=== PATIENT | male | born 1955 | race African-American/Black ===

== ENCOUNTER 2016-09-23 10:03 | Inpatient (IN) | payer MEDICARE ==
[~2016-09-23] VITALS: Ht 180.3 cm; Wt 66.3 kg
[~2016-09-23 10:03] MED LIST: METH5TAB PO; OXYC-395 PO; REGL10TA5 PO; VITATAB11 PO
[2016-09-23 10:16] VITALS: BP 136/74; PULSE 75; RESP 16; TEMP 98.6; O2SAT 96
--- NOTE | 2016-09-23 11:19 | PD ---
HPI Chief Complaint: Altered Mental Status Time Seen by Provider: 10:29 Travel History International Travel<30 days: No Contact w/Intl Traveler<30days: No Traveled to known affect area: No History of Present Illness HPI This is a 61-year-old male who has a history of sickle cell disease who presents to the emergency department with 3 days of increasing cough, with some yellow sputum production, moderate severity, constant, associated with nasal congestion, frontal headache and increasing shortness of breath. He denies any fevers. His reports that he's been more confused lately, and seems a little bit forgetful. She takes oxycodone and methadone at home for pain. He took some guaifenesin for his symptoms. He went to an urgent care this morning who referred him here to the emergency department because they were concerned that he may be having an adverse medication reaction. PFSH Past Medical History Hx Anticoagulant Therapy: No Arthritis: Yes Asthma: No Autoimmune Disease: Yes (SICKLE CELL) Blood Disorders: No Anxiety: No Depression: No Heart Rhythm Problems: No Cancer: No Cardiovascular Problems: Yes ([place]) Chemotherapy: No Chest Pain: Yes Congestive Heart Failure: No COPD: Yes Cerebrovascular Accident: No Diabetes: No Diminished Hearing: Yes ([place]) Endocrine: No Gastrointestinal Disorders: Yes GERD: Yes Glaucoma: No Genitourinary: No Headaches: No Hepatitis: No Hiatal Hernia: No Hypertension: No Immune Disorder: Yes (hx of sickle cell) Musculoskeletal: No Neurologic: No Psychiatric: No Reproductive: No Respiratory: No Immunizations Current: Yes Migraines: No Myocardial Infarction: No Radiation Therapy: No Renal Failure: No Seizures: No Sickle Cell Disease: Yes Sleep Apnea: No Thyroid Disease: No Ulcer: Yes (hx of) Tetanus Vaccination: < 5 Years Influenza Vaccination: Yes Past Surgical History Abdominal Surgery: Yes (Splenectomy,PEPTIC ULCER) AICD: No Appendectomy: No Cardiac Surgery: No Cholecystectomy: No Ear Surgery: No Endocrine Surgery: No Eye Surgery: No Genitourinary Surgery: No Gynecologic Surgery: No Joint Replacement: Yes (R hip replacement LEFT HIP REPLACEMENT) Oral Surgery: No Pacemaker: No Other Surgery: Yes Social History Alcohol Use: No Tobacco Use: Yes (04/27 ppd) Substance Use: No Allergies-Medications (Allergen,Severity, Reaction): Coded Allergies: No Known Allergies (Verified , 09/23/16) Reported Meds & Prescriptions Reported Meds & Active Scripts Active Reported Vitamin B Complex (B-Complex Vitamins) 1 Tab 1 Tab PO DAILY Oxycodone (Oxycodone HCl) 10 Mg Tab 10 Mg PO Q8HR Methadone (Methadone HCl) 5 Mg Tab 5 Mg PO BID Review of Systems Except as stated in HPI: all other systems reviewed are Neg Physical Exam Narrative GENERAL:Well appearing, no acute distress SKIN: Focused skin assessment warm and dry. HEAD: Atraumatic. Normocephalic. EYES: Pupils equal and round. No injection or drainage. Scleral icterus. ENT: Moist mucous membranes NECK: Trachea midline. CARDIOVASCULAR: Regular rate and rhythm. No murmur appreciated. RESPIRATORY: Clear to auscultation. Breath sounds equal bilaterally. GASTROINTESTINAL: Abdomen soft, non-tender, nondistended. MUSCULOSKELETAL: No obvious deformities. NEUROLOGICAL: Slow to answer questions but oriented 3. No obvious cranial nerve deficits. No dysarthria or aphasia. No upper or lower extremity drift. No upper extremity ataxia. PSYCHIATRIC: Appropriate mood and affect; insight and judgment normal. Data Data Last Documented VS Vital Signs Date Time Temp Pulse Resp B/P Pulse Ox O2 Delivery O2 Flow Rate FiO2 09/23/16 13:04 79 16 148/71 99 Room Air 09/23/16 10:[address] Brain W/O Iv Contrast(Rout) (09/23/16 ) Complete Blood Count With Diff (09/23/16 10:41) Comprehensive Metabolic Panel (09/23/16 10:41) ^ Insert Iv (09/23/16 10:41) Ammonia (09/23/16 10:41) Urinalysis - C+S If Indicated (09/23/16 10:41) Alcohol (Ethanol) (09/23/16 10:41) Lactic Acid (09/23/16 10:41) Chest, Single Ap (09/23/16 ) Electrocardiogram (09/23/16 ) Sodium Chlor 0.9% 1000 Ml Inj (Ns 1000 M (09/23/16 10:45) B-Type Natriuretic Peptide (09/23/16 12:09) Ceftriaxone Inj (Rocephin Inj) (09/23/16 13:30) Azithromycin Inj (Zithromax Inj) (09/23/16 13:30) Admit Order (Ed Use Only) (09/23/16 13:45) Labs Laboratory Tests Test 09/23/16 09/23/16 11:05 11:45 White Blood Count 13.6 TH/MM3 Corrected White Blood Count 11.7 TH/MM3 Red Blood Count 3.04 MIL/MM3 Hemoglobin 7.4 GM/DL Hematocrit 23.8 % Mean Corpuscular Volume 78.1 FL Mean Corpuscular Hemoglobin 24.5 PG Mean Corpuscular Hemoglobin 31.4 % Concent Red Cell Distribution Width 22.2 % Platelet Count 222 TH/MM3 Mean Platelet Volume 8.8 FL CBC Comment AUTO DIFF Differential Total Cells 100 Counted Neutrophils % (Manual) 86 % Lymphocytes % 8 % Monocytes % 6 % Neutrophils # (Manual) 10.1 TH/MM3 Nucleated Red Blood Cells 16 /100 WBC Differential Comment FINAL DIFF MANUAL Platelet Estimate NORMAL Platelet Morphology Comment NORMAL Target Cells 2+ Tear Drop Cells 1+ Ovalocytes 2+ Keratocytes 1+ Sodium Level 147 MEQ/L Potassium Level 3.8 MEQ/L Chloride Level 123 MEQ/L Carbon Dioxide Level 18.0 MEQ/L Anion Gap 6 MEQ/L Blood Urea Nitrogen 10 MG/DL Creatinine 1.20 MG/DL Estimat Glomerular Filtration 75 ML/MIN Rate Random Glucose 95 MG/DL Lactic Acid Level 0.6 mmol/L Calcium Level 8.6 MG/DL Total Bilirubin 0.6 MG/DL Aspartate Amino Transf 31 U/L (AST/SGOT) Alanine Aminotransferase 13 U/L (ALT/SGPT) Alkaline Phosphatase 64 U/L Total Protein 7.4 GM/DL Albumin 3.7 GM/DL Ethyl Alcohol Level LESS THAN 3 MG/DL Urine Collection Type CLEAN CATCH Urine Color YELLOW Urine Turbidity CLEAR Urine pH 5.0 Urine Specific [place] 1.015 Urine Protein 100 mg/dL Urine Glucose (UA) NEG mg/dL Urine Ketones TRACE mg/dL Urine Occult Blood NEG Urine Nitrite NEG Urine Bilirubin NEG Urine Leukocyte Esterase NEG Urine RBC 0-3 /hpf Urine Squamous Epithelial 0-5 /hpf Cells Urine Hyaline Casts 0-2 /lpf Microscopic Urinalysis Comment CULT NOT INDICATED Urine Collection Time 11:45 Ammonia 22 MCMOL/L B-Type Natriuretic Peptide 160 PG/ML [facility] Medical Decision Making Medical Screen Exam Complete: Yes Emergency Medical Condition: Yes Interpretation(s) Afebrile, no tachycardia, normotensive Leukocytosis 86% neutrophils Mild hypernatremia Lactic acidosis 0.6 BNP is 160 Chest x-ray: Cardiomegaly with mild interstitial edema CT head: No intracranial hemorrhage Differential Diagnosis Stroke, delirium, bronchitis, pneumonia, acute chest syndrome Narrative Course This is a 61-year-old male with a history of sickle cell disease who presents to the emergency department with multiple nonspecific symptoms including headache, cough, shortness of breath and confusion. His is most concerned about him saying that he hasn't been right for several days, he is repeating things and having some memory difficulty and he doesn't seem himself. She says he seems more shaky. He was placed on a monitor and an IV was established. Labs were obtained which demonstrate a mild leukocytosis. Chest x-ray demonstrates some increased interstitial markings. Given the patient has a productive cough with some mucopurulent sputum I think it's reasonable to empirically cover him with ceftriaxone and azithromycin. I suspect the CMP is saline contaminated and will be repeated. BNP is indeterminate. Ammonia is normal. I'm not sure what's causing the patient's change in mental status. He does appear somewhat confused on exam and is slow to follow commands at times. I suspect this is due to polypharmacy and perhaps secondary to his pain medication but given the discrete change that his reports that think it's reasonable to observe him for further neurologic evaluation. MRI and MRV will be obtained and patient will be observed and his medications will be titrated. Physician Communication Physician Communication Discussed with Dr. Tse Diagnosis Primary Impression: Altered mental status Qualified Code: R41.0 - Delirium Admitting Information Admitting Physician Requests: Observation Charlotte Viveros MD September 23, 2016 11:19
[2016-09-23 11:43] LABS: CHLORIDE 123 MEQ/L (98-107); POTASSIUM 3.8 MEQ/L (3.5-5.1); SODIUM (NA) 147 MEQ/L (136-145)
[2016-09-23 11:47] LABS: ANION GAP 6 MEQ/L (5-15); BLOOD UREA NITROGEN 10 MG/DL (7-18)
[2016-09-23 11:50] LABS: ALT (GPT) 13 U/L (12-78); AST (GOT) 31 U/L (15-37); GLOMERULAR FILTRATION RATE 75 ML/MIN (>89)
[2016-09-23 11:51] LABS: TOTAL BILIRUBIN ADULT 0.6 MG/DL (0.2-1.0)
[2016-09-23 11:52] LABS: ALKALINE PHOSPHATASE 64 U/L (45-117); HEMATOCRIT 23.8 % (39.0-51.0); MEAN CELL VOLUME 78.1 FL (80.0-100.0); MEAN CORPUSCULAR HEMOGLOBIN 24.5 PG (27.0-34.0); MEAN CORPUSCULAR HGB CONC 31.4 % (32.0-36.0); PLATELET COUNT 222 TH/MM3 (150-450); RED BLOOD COUNT 3.04 MIL/MM3 (4.50-5.90); RED CELL DISTRIBUTION WIDTH 22.2 % (11.6-17.2); WHITE BLOOD COUNT 13.6 TH/MM3 (4.0-11.0)
[2016-09-23 11:54] LABS: HEMO FLAGS AUTO DIFF
[2016-09-23 11:54] LABS: BLOOD, URINE NEG (NEG); GLUCOSE,URINE NEG (NEG); KETONE, URINE TRACE mg/dL (NEG); NITRITE,URINE NEG (NEG)
--- NOTE | 2016-09-23 11:55 | RADHPO ---
EXAM DATE/TIME: 09/23/2016 11:16 [facility] COMPARISON: CHEST SINGLE AP, April 05, 2016, 16:26. INDICATIONS : Short of breath MEDICAL HISTORY : Sickle Cell disease. SURGICAL HISTORY : None. ENCOUNTER: Initial ACUITY: 1 day PAIN SCORE: Non-responsive. LOCATION: Bilateral chest FINDINGS: There is cardiomegaly with very mild interstitial edema present. There is no alveolar consolidation, pleural effusion or pneumothorax. Sclerotic changes are present in the left humeral head. CONCLUSION: 1. Cardiomegaly. 2. Mild interstitial edema when compared to 04/05/16. Calvin Sandy MD FACR on September 23, 2016 at 11:48 Board Certified Radiologist. This report was verified electronically.
[2016-09-23 11:58] LABS: METHOD OF COLLECTION CLEAN CATCH; URINE COLOR YELLOW (YELLW/STRAW)
[2016-09-23 11:59] LABS: HYALINE CAST, URINE 0-2 /lpf (RARE); RBC, URINE 0-3 /hpf (0-3); SQUAMOUS EPITHELIAL CELL URINE 0-5 /hpf (0-5)
[2016-09-23 12:00] LABS: COMMENT (UR) CULT NOT INDICATED; CULTURE IF INDICATED CULT NOT INDICATED
[2016-09-23] MEDS: SODIUM CHLOR 0.9% 1000 ML INJ 1,000 ML IV ONE ×2 (12:00→13:33)
--- NOTE | 2016-09-23 12:11 | RADHPO ---
EXAM DATE/TIME: 09/23/2016 11:47 [facility] COMPARISON: CT BRAIN W/O CONTRAST, April 05, 2016, 16:55. INDICATIONS : Altered mental status. RADIATION DOSE: 63.58 CTDIvol (mGy) MEDICAL HISTORY : Chronic obstructive pulmonary disease. Sickle Cell disease. SURGICAL HISTORY : Splenectomy. ENCOUNTER: Initial ACUITY: 1 day PAIN SCALE: 0/10 LOCATION: cranial TECHNIQUE: Multiple contiguous axial images were obtained of the head. Using automated exposure control and adj ustment of the mA and/or kV according to patient size, radiation dose was kept as low as reasonably a chievable to obtain optimal diagnostic quality images. FINDINGS: CEREBRUM: The ventricles are normal for age. No evidence of midline shift, mass lesion, hemorrhage or acute in farction. No extra-axial fluid collections are seen. POSTERIOR FOSSA: The cerebellum and brainstem are intact. The 4th ventricle is midline. The cerebellopontine angle i s unremarkable. EXTRACRANIAL: The visualized portion of the orbits is intact. SKULL: The calvaria is intact. No evidence of skull fracture. CONCLUSION: No acute intracranial findings. Edward Abel MD on September 23, 2016 at 12:06 Board Certified Radiologist. This report was verified electronically.
[2016-09-23 12:16] LABS: CORRECTED NUCLEATED RBC 16 /100 WBC (0-0); CORRECTED WBC 11.7 TH/MM3 (4.0-11.0); NEUTROPHIL # MANUAL DIFF 10.1 TH/MM3 (1.8-7.7); POLYS (SEG NEUTROPHILS) 86 % (16-70); WBC DIFF SAMPLE 100
[2016-09-23 12:17] LABS: KERATOCYTES 1+ (NORMAL); OVALOCYTES 2+ (NORMAL); PLATELET ESTIMATE SMEAR NORMAL (NORMAL); PLATELET MORPHOLOGY NORMAL (NORMAL); SCAN/DIFF FINAL DIFF MANUAL; TARGET CELLS 2+ (NORMAL); TEARDROP RBCS 1+ (NORMAL)
[2016-09-23 13:04] VITALS: BP 148/71; PULSE 79; RESP 16; O2SAT 99
[2016-09-23] MEDS ORDERED: cefTRIAXone INJ 1,000 MG in SODIUM CHLORIDE 0.9% INJ 100 ML IV ONE (13:30)
[2016-09-23] MEDS ORDERED: AZITHROMYCIN INJ 500 MG in SODIUM CHLOR 0.9% 250 ML INJ 250 ML IV ONE (13:30)
[2016-09-23 14:46] VITALS: BP 140/73; PULSE 75; RESP 14; TEMP 98.9; O2SAT 98
--- NOTE | 2016-09-23 16:59 | RADHPO ---
EXAM DATE/TIME: 09/23/2016 15:43 [facility] COMPARISON: No previous studies available for comparison. INDICATIONS : Altered mental status. CVA and headache. MEDICAL HISTORY : Sickle Cell disease. SURGICAL HISTORY : Splenectomy. Bilateral hip replacement. ENCOUNTER: Initial ACUITY: 1 day PAIN SCORE: 0/10 LOCATION: Head. TECHNIQUE: Multiplanar, multisequence MRI of the brain was performed without contrast. FINDINGS: MRI of the brain was performed. The patient refused contrast. There is no restricted diffusion evident. There are scattered areas of high signal intensity periventricular white matter and nonspecific findi ng. There are no extra-axial fluid collections appreciated. Midline structures are intact. Posterior fossa is unremarkable. There is no parenchymal hemorrhage, acute infarction or mass lesion. CONCLUSION: Mild periventricular white matter changes otherwise negative. Calvin Sandy MD FACR on September 23, 2016 at 16:49 Board Certified Radiologist. This report was verified electronically.
[2016-09-23] MEDS ORDERED: ONDANSETRON HCL 4 MG/2 ML VIAL IV PRN (17:30)
[2016-09-23] MEDS ORDERED: SODIUM CHLORIDE 0.9% FLUSH 10 ML FLUSH IV FLUSH PRN (17:30)
[2016-09-23 17:37] VITALS: BP 150/71; PULSE 73; RESP 14; TEMP 98.4; O2SAT 99
[2016-09-23] MEDS: SODIUM CHLOR 0.9% 1000 ML INJ 1,000 ML IV SCH (18:14)
[2016-09-23 19:10] VITALS: BP 152/73; PULSE 73; RESP 16; TEMP 96
--- NOTE | 2016-09-23 19:58 | MH ---
cc: TERRY ATWOOD DATE OF ADMISSION 09/23/2016 ADMISSION DIAGNOSIS Altered mental status. HISTORY OF PRESENT ILLNESS Mr. Guaman is a pleasant 61-year-old gentleman with a history of sickle cell disease who follows primarily with Dr. 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 The history is obtained by the patient, his and his mother who are in the room in the ER. Apparently the patient has been his usual state of health until earlier this week when he started developing nasal congestion, cough, ear pressure and some discomfort in his eyes. This continued throughout the week. He started developing frontal headache as well. He tried [id number] Mucinex and Sudafed apparently but yesterday he spent most the day sleeping. He was not really eating, just small bites. Today his and family became concerned and so they took him to the [facility] walk-in where he was evaluated and because of his excessive sleepiness he was referred to the emergency room. The patient denies any fevers or chills. He says that the headache is frontal and he associates it to a sinus headache. He has no complaints of increased swelling or joint pain at this point. No shortness of breath. He has no chest pain or palpitations. He has no abdominal pain. His appetite was normal for him until yesterday. The only thing that was different is the Mucinex Extra strength that he was taking and Mucinex DM as well as a sinus pill which looks like it might have been Sudafed. He takes his methadone and his oxycodone but he denies taking increased dosage of this. PAST MEDICAL HISTORY Significant for: The sickle cell. 1. He has a thrombosed cephalic vein on the right thigh, he currently is not anticoagulated. 2. 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 3. He did have a gastrectomy in 1975. 4. Splenectomy in 1968. ALLERGIES HE IS NOT ALLERGIC TO ANYTHING. MEDICATIONS Include: 1. Methadone 5 mg twice a day. 2. Oxycodone 10 mg every 8 hours as needed. 3. He takes a B complex. SOCIAL HISTORY Habits, he does not consume alcohol but he does continue to smoke half-a-pack a day. He is . REVIEW OF SYSTEMS He stated he denies any fevers or chills. No sore throat. No difficulty swallowing. He denied to me shortness of breath. He does say he does get it on occasion, however. He has had the productive cough. No chest pain. No palpitations. He denies any decrease in urination. No increase his pain symptoms as this seems to be controlled with his current pain medications. PHYSICAL EXAMINATION GENERAL: He is lying on the ER cot. He is sleeping when I walk into the room. However, easily arousable. I get most of the history from his but he is aware of what is being said because he will interject a comment or so even though his eyes are semi closed. He does not appear to be any in acute distress. HEAD AND NECK: He is normocephalic and traumatic. EOM is intact. He has a moist oral mucosa. His neck is supple. He is able to touch his chin to his chest without any discomfort. Tympanic membrane on the left looked a little bit injected. They did put an IV in his neck on the left side. HEART: His heart is regular. He does have a systolic ejection murmur maybe 2/6. LUNGS: His lungs are clear to auscultation. I hear no rhonchi, rales or wheezing. ABDOMEN: His abdomen has good bowel sounds in all four quadrants. No rebound or guarding. EXTREMITIES: Show no clubbing, cyanosis or edema. LABORATORY DATA Lab work that was done when he came in showed a white count of 13.6, a hemoglobin of 7.4 and a hematocrit of 23.8, platelet count was 222. Sodium was 147, BUN was 10, creatinine was 1.2. Lactic acid was 0.6. Liver enzymes were normal. Ammonia was 22. BNP was 160. They did an alcohol level and was less than 3. His urine showed protein and trace ketones. Culture was not indicated. IMAGING Head CT was done and this was read as no acute intracranial findings. Chest x-ray was done that showed cardiomegaly with very mild interstitial edema. No consolidation, pleural effusion, or pneumothorax. Sclerotic changes are present to the left humeral head. The MRI of the brain showed mild periventricular white changes otherwise negative. ASSESSMENT/PLAN 1. A 61-year-old male presenting to the emergency room with increased somnolence. At this point he has been admitted for observation. He has been started on antibiotics by the ER doctor and I will go ahead and continue them for increased sputum present production he may have bronchitis or perhaps even an underlying sinusitis which might be contributing to his symptoms. 2. For his sickle cell, we will continue on his pain medications. His hemoglobin and hematocrit are fairly stable when Dr. Dyer did his hemoglobin in March it was 8.2 with a hematocrit of 24.8. It is currently 7.4 with a hematocrit of 23.8. I seem to recall from his [facility] records that he may have actually been 7.2 earlier this month but I am going to have to verify that. 3. We will continue with his pain control as stated. He does get a significant amount of pain in his hips at night. Further recommendations as the case develops. MD AROLDO Franco/KK /6:57 PM /7:14 PM
[2016-09-23 21:00] VITALS: BP_SYST 136; BP_SYST 149; BP_DIAS 63; BP_DIAS 70; PULSE 72; O2SAT 97
[2016-09-23] MEDS: SODIUM CHLORIDE 0.9% FLUSH 10 ML FLUSH IV FLUSH SCH (22:04)
[2016-09-23] MEDS: METHADONE HCL 10 MG TAB PO SCH (22:05)
[2016-09-24] VITALS (7 sets, daily range): BP systolic 134–152; BP diastolic 67–78; PULSE 62–90; RESP 14–19; TEMP 98.5–100.8; O2SAT 94–98
[2016-09-24] MEDS: SODIUM CHLOR 0.9% 1000 ML INJ 1,000 ML IV SCH ×2 (04:00→14:48)
[2016-09-24 06:38] LABS: HEMATOCRIT 24.2 % (39.0-51.0); MEAN CELL VOLUME 78.2 FL (80.0-100.0); MEAN CORPUSCULAR HEMOGLOBIN 24.4 PG (27.0-34.0); MEAN CORPUSCULAR HGB CONC 31.2 % (32.0-36.0); PLATELET COUNT 247 TH/MM3 (150-450); RED BLOOD COUNT 3.09 MIL/MM3 (4.50-5.90); RED CELL DISTRIBUTION WIDTH 21.7 % (11.6-17.2); WHITE BLOOD COUNT 14.1 TH/MM3 (4.0-11.0)
[2016-09-24 06:45] LABS: HEMO FLAGS AUTO DIFF
[2016-09-24 07:34] LABS: CORRECTED NUCLEATED RBC 28 /100 WBC (0-0); EOSINOPHILS 4 % (0-4); NEUTROPHIL # MANUAL DIFF 8.5 TH/MM3 (1.8-7.7); POLYS (SEG NEUTROPHILS) 77 % (16-70); TARGET CELLS 2+ (NORMAL); WBC DIFF SAMPLE 100
[2016-09-24 07:35] LABS: HOWELL-JOLLY BODIES PRESENT (NONE SEEN); KERATOCYTES 1+ (NORMAL); OVALOCYTES 2+ (NORMAL); PLATELET ESTIMATE SMEAR NORMAL (NORMAL); PLATELET MORPHOLOGY NORMAL (NORMAL); SCAN/DIFF FINAL DIFF MANUAL; TEARDROP RBCS 1+ (NORMAL)
[2016-09-24] MEDS: VITAMIN B COMPLEX/VIT C TAB PO SCH (09:00)
[2016-09-24] MEDS: SODIUM CHLORIDE 0.9% FLUSH 10 ML FLUSH IV FLUSH SCH ×2 (09:01→21:00)
[2016-09-24] MEDS: FOLIC ACID 1 MG TAB PO SCH (09:01)
[2016-09-24] MEDS: METHADONE HCL 10 MG TAB PO SCH ×2 (09:01→21:38)
[2016-09-24] MEDS: MULTIVITAMIN TAB PO SCH (09:01)
[2016-09-24] MEDS: HYDROXYUREA 500 MG CAP PO SCH (09:03)
--- NOTE | 2016-09-24 12:04 | EKG ---
Date Performed: 09/23/2016 Time Performed: 10:56:32 PTAGE: 61 years EKG: Sinus rhythm Left anterior fascicular block Possible inferior infarct - age undetermined Possible anterior infarc t - age undetermined Abnormal ECG PREVIOUS TRACING : 04/05/2016 15.48 Compared to prior tracing no significant change DOCTOR: Vinh Woody Interpretating Date/Time 09/24/2016 12:03:55
--- NOTE | 2016-09-24 13:34 | HHI.PR ---
Subjective Remarks Still has headache, States will get them every 2-3 months.Having trouble holding things in his left hand. States will last 2-3 days, weakness in hand accompanies headache. Thinks it is sinuses so he takes Pseudafed. worried about excessive sleepiness does state his sleeping pattern is erratic but worried this was different; Cough has improved, Objective Vitals Vital Signs Date Time Temp Pulse Resp B/P Pulse Ox O2 Delivery O2 Flow Rate FiO2 09/24/16 12:00 98.7 73 18 134/78 97 09/24/16 08:00 98.5 62 19 143/78 95 09/24/16 04:00 99.3 70 18 152/76 97 09/23/16 21:00 72 136/63 97 09/23/16 21:00 75 16 149/70 09/23/16 19:10 Room Air 09/23/16 19:10 96.0 73 16 152/73 Room Air 09/23/16 17:37 98.4 73 14 150/71 99 Room Air 09/23/16 14:46 Room Air 09/23/16 14:46 98.9 75 14 140/73 98 Room Air 09/23/16 09/23/16 09/24/16 15:00 23:00 07:00 Output Total 300 ml 800 ml Balance -300 ml -800 ml Output Urine Total 300 ml 800 ml # Voids 1 1 Result Diagram: 09/24/16 0600 09/23/16 1105 Imaging Last Impressions Head CT 09/23/16 0000 Signed Impressions: Service Date/Time: Friday, September 23, 2016 11:47 - CONCLUSION: No acute intracranial findings. Edward Abel MD Chest X-Ray 09/23/16 0000 Signed Impressions: Service Date/Time: Friday, September 23, 2016 11:16 - CONCLUSION: 1. Cardiomegaly. 2. Mild interstitial edema when compared to 04/05/16. Calvin Sandy MD FACR Brain MRI 09/23/16 0000 Signed Impressions: Service Date/Time: Friday, September 23, 2016 15:43 - CONCLUSION: Mild periventricular white matter changes otherwise negative. Calvin Sandy MD FACR Objective Remarks Sitting by window. Sleeping but arousable,alert and conversant when calls his name CTA rrr steve 3/6 throughout precodium no c/c/e A/P Problem List: (1) Cephalgia Status: Acute Plan: persistent frontal headaches , apparently get quite severe every couple of months accompanied by weakness in his left hand, will ask neurology to see (2) Altered mental status Status: Acute Plan: he and his give conflicting pictures, he seems alert and appropriate when he interacts but she seems to feel there is a change, If it is due to medication interaction should continue to improve, so far testing neg. Again will ask neurology for their opinion (3) Bronchitis Status: Acute Plan: on azithromycin and rocephin he feels his cough has improved. Problem Qualifiers (1) Altered mental status: Qualified Code: R41.0 - Delirium Deb Tse MD Sep 24, 2016 13:34
[2016-09-24] MEDS: cefTRIAXone INJ 1,000 MG in SODIUM CHLORIDE 0.9% INJ 100 ML IV SCH (14:48)
[2016-09-24] MEDS: AZITHROMYCIN INJ 500 MG in SODIUM CHLOR 0.9% 250 ML INJ 250 ML IV SCH (14:48)
[2016-09-24 17:23] LABS: BLOOD GAS PCO2 31 mmHG (38-42)
[2016-09-24 17:24] LABS: BLOOD GAS BASE EXCESS -4.4 mmol/L (-2-2); BLOOD GAS CARBOXYHEMOGLOBIN 3.1 % (0-4); BLOOD GAS HCO3 19 mmol/L (22-26); BLOOD GAS O2 HGB SATURATION 87 % (90-100); BLOOD GAS OXYGEN CONTENT 8.9 Vol % (12.0-20.0); BLOOD GAS PO2 73 mmHG (61-120); BLOOD GAS TOTAL HGB 7.2 G/DL (12.0-16.0); TEMP CORR TO 98.6
[2016-09-24 17:26] LABS: CRITICAL VALUE YES; DRAW SITE LT RADIAL; FIO2 21 %; NUMBER OF ARTERIAL PUNCTURES 1; OXYGEN DEVICE ROOM AIR; STAT NO; ULNAR PULSE NOT PRESENT
--- NOTE | 2016-09-24 18:50 | RADHPO ---
EXAM DATE/TIME: 09/24/2016 17:49 [facility] COMPARISON: No previous studies available for comparison. INDICATIONS : Stroke. Headache. MEDICAL HISTORY : Sickle Cell disease. SURGICAL HISTORY : Splenectomy. Bilateral hip replacements. ENCOUNTER: Initial ACUITY: 1 day PAIN SCORE: 6/10 LOCATION: Head. Percent stenosis is calculated using the diameter of the stenotic region over the diameter of the nor mal distal internal carotid artery. TECHNIQUE: 3D time of flight MRA of the extracranial circulation was performed using a neurovascular coil. Post processing was performed including rotating subvolume maximum intensity projections of each carotid artery, rotating full-volume maximum intensity projections of both carotid arteries, sagittal and cor onal sliding thin-slab reformations of each carotid artery, and left oblique sliding thin slab reform ation through the aortic arch to include the origin of the arch branch vessels. FINDINGS: AORTIC ARCH: There is a three vessel origin of the great vessels from the aorta. No evidence of ostial narrowing. The left subclavian artery just distal to the vertebral artery origin shows a high-grade stenosis. RIGHT CAROTID: The common carotid artery is intact. The carotid bulb has a normal configuration without ulceration or narrowing. The internal carotid artery lumen is smooth without stenosis. The external carotid ar mimi is intact. LEFT CAROTID: The common carotid artery is intact. The carotid bulb has a normal configuration without ulceration or narrowing. The internal carotid artery lumen is smooth without stenosis. The external carotid ar mimi is intact. VERTEBRALS: The vertebral arteries have a symmetric diameter. No stenotic lesions are seen. CONCLUSION: 1. Patent carotid arteries and vertebral arteries bilaterally. 2. Suspected high-grade stenosis of the left subclavian artery peripheral to left vertebral artery or igin. Iker Lu Jr., MD on September 24, 2016 at 18:45 Board Certified Radiologist. This report was verified electronically.
--- NOTE | 2016-09-24 19:15 | RADHPO ---
EXAM DATE/TIME: 09/24/2016 17:49 COMPARISON: MRI BRAIN W & W/O CONTRAST, September 24, 2016, 17:49. INDICATIONS : Vasculitis. Headaches. CONTRAST: 20 cc Omniscan (gadodiamide) IV MEDICAL HISTORY : Sickle Cell disease. SURGICAL HISTORY : Splenectomy. Bilateral hip replacements. ENCOUNTER: Initial ACUITY: 1 day PAIN SCORE: 5/10 LOCATION: Head. FINDINGS: Normal signal seen involving the major venous structures. No filling defects. CONCLUSION: Normal examination. Iker Lu Jr., MD on September 24, 2016 at 19:11 Board Certified Radiologist. This report was verified electronically.
--- NOTE | 2016-09-24 19:24 | RADHPO ---
EXAM DATE/TIME: 09/24/2016 17:49 [facility] COMPARISON: No previous studies available for comparison. INDICATIONS : Cephalgia. CVA. CONTRAST: 20 cc Omniscan (gadodiamide) IV MEDICAL HISTORY : Sickle Cell disease. SURGICAL HISTORY : Splenectomy. Bilateral hip replacements. ENCOUNTER: Initial ACUITY: 1 day PAIN SCORE: 6/10 LOCATION: Head. TECHNIQUE: Multiplanar, multisequence MRI of the brain was performed both prior to and following the administrat ion of paramagnetic contrast. FINDINGS: CEREBRUM: The ventricles are normal for age. No evidence of midline shift, mass lesion, hemorrhage or acute in farction. No extraaxial fluid collections are seen. The pituitary gland and suprasellar cistern are normal in configuration. WHITE MATTER: No significant signal abnormalities are seen in the white matter. POSTERIOR FOSSA: The cerebellum and brainstem are intact. The 4th ventricle is midline. The cerebellopontine angle is unremarkable. The cerebellar tonsils are normal in position. DIFFUSION IMAGING: No focal areas of restricted diffusion are seen. No evidence of acute infarction. EXTRACRANIAL: The visualized portions of the orbits and paranasal sinuses are unremarkable. POST-CONTRAST: No abnormal areas of parenchymal or dural enhancement. No evidence of blood-brain barrier breakdown. CONCLUSION: Normal examination. Iker Lu Jr., MD on September 24, 2016 at 19:20 Board Certified Radiologist. This report was verified electronically.
[2016-09-24] MEDS ORDERED: GADODIAMIDE PF 287 MG/ML 20 ML VIAL (for RAD MRI) IV ONE (19:37)
--- NOTE | 2016-09-24 21:04 | MB ---
cc: BRITTANY LOONEY DATE OF CONSULTATION 09/24/16 HISTORY OF PRESENT ILLNESS A 61-year-old right-handed man with a history of peptic ulcer disease, some COPD. He had a right upper extremity DVT for which he was on Eliquis but stopped it a month ago. He has a long history of sickle cell disease. He used to get crises where he was having a lot of pain in his legs when he was younger, has not had one he says since he was 26, although his said he had one about five years ago. No headache with that. About every other month, he will get a headache bifrontally. He has had a low grade fever here. No earaches. His noticed he has been sleepy, although he says he did not take any more than the six pills of chronic narcotics that he usually takes for chronic hip and lower leg pain. Headache is in the bifrontal on top of his head, not particularly throbbing. SOCIAL HISTORY He is a smoker not a drinker, lives with his . FAMILY HISTORY Negative for cancer, seizure, stroke. REVIEW OF SYSTEMS No history of hypertension, diabetes, hypercholesterolemia, CA, coronary artery bypass graft, stent, angioplasty, A. fib, Coumadin, renal or hepatic disease, thyroid disease, lupus, ulcer, cancer, seizure or stroke. He has been seen by neurology here before. He was admitted yesterday with a cough, yellow sputum production, nasal congestion, frontal headache, some shortness of breath. He also takes methadone at home. MEDICATIONS At home 1. Vitamin B. 2. Oxycodone 10 mg q. eight. 3. Methadone 5 mg twice a day. ALLERGIES NO KNOWN DRUG ALLERGIES. PHYSICAL EXAMINATION On exam, afebrile, 73, 18, 134/78. He has not had a fever here. No carotid bruits. HEART: Regular rhythm with a 1-0 systolic ejection murmur. Pupils are equal. Disks are sharp. Visual garcia are full. Extraocular movements are intact without nystagmus. Face is symmetric with normal sensation. Tongue was midline. No drift. He has a little bit of left asterixis intermittently. He had normal strength in upper and lower extremities bilaterally. Toes are downgoing bilaterally. Pinprick is intact throughout. DTRs trace throughout. There is no ankle clonus. He is not ataxic on [id number]. He knows the month and the year, but did not know the day of the week. His speech is minimally slurred, seems slightly confused, ever so slightly but not majorly and he is a little bit difficulty getting his story out. LABORATORY DATA White count 14, hematocrit 24 which he tends to run anemic. Platelet count is normal. basic metabolic profile is normal. LFTs are normal. Albumin is 3.7. Hepatitis screen has been negative in the past. UA is negative here. Ammonia level is normal here. B12 has was normal back in 2006. IMAGING STUDIES He had an MRI of his brain done yesterday, mild white matter changes only. He had a chest x-ray, mild interstitial edema, cardiomegaly. He had a CAT scan of his brain that was normal. Review of the MRI of the brain, his sinuses are clear, mastoids look fine. No hemorrhage is noted. No infarct is seen. ASSESSMENT AND PLAN I will check an MRA [place] [facility] [place] to make sure there is no vasculitis, an MR venogram, make sure there is no sagittal sinus thrombosis, might consider some steroids on him. Check a sed rate and some other blood work, an EEG with the asterixis which may be from the narcotics. We could consider an LP if he does not seem to be improving. MD OLIVIA Wong/ /4:16 PM /8:42 PM
[2016-09-24] MEDS: ACETAMINOPHEN 325 MG TAB PO PRN (21:38)
[2016-09-25] VITALS (8 sets, daily range): BP systolic 113–152; BP diastolic 67–74; PULSE 66–76; RESP 12–20; TEMP 98–101.7; O2SAT 89–100
[2016-09-25] LABS: FREE T4 0.65 NG/DL (0.76-1.46); TOTAL PROTEIN SPE 7.2 GM/DL (6.0-7.6)
[2016-09-25] MEDS: SODIUM CHLOR 0.9% 1000 ML INJ 1,000 ML IV SCH ×3 (06:44→23:52)
[2016-09-25] MEDS: SODIUM CHLORIDE 0.9% FLUSH 10 ML FLUSH IV FLUSH SCH ×2 (09:00→21:00)
[2016-09-25] MEDS: HYDROXYUREA 500 MG CAP PO SCH (09:00)
[2016-09-25] MEDS: METHADONE HCL 10 MG TAB PO SCH ×2 (09:47→21:25)
[2016-09-25] MEDS: FOLIC ACID 1 MG TAB PO SCH (09:47)
[2016-09-25] MEDS: VITAMIN B COMPLEX/VIT C TAB PO SCH (09:47)
[2016-09-25] MEDS: MULTIVITAMIN TAB PO SCH (09:47)
--- NOTE | 2016-09-25 10:31 | HHI.PR ---
Objective Vital Signs Date Time Temp Pulse Resp B/P Pulse Ox O2 Delivery O2 Flow Rate FiO2 09/25/16 08:00 98.0 70 20 137/73 98 09/25/16 01:08 99.9 69 12 113/73 95 09/24/16 20:14 100.8 90 14 135/67 94 09/24/16 20:05 98 Nasal Cannula 2.00 09/24/16 17:53 97 Nasal Cannula 2.00 09/24/16 16:00 99.7 72 18 138/73 94 09/24/16 15:50 16 09/24/16 12:00 98.7 73 18 134/78 97 I/O 09/24/16 09/24/16 09/24/16 09/25/16 09/25/16 09/25/16 07:00 15:00 23:00 07:00 15:00 23:00 Intake Total 360 ml Output Total 350 ml 1080 ml Balance 360 ml -350 ml -1080 ml Intake Oral 360 ml Output Urine Total 350 ml 1080 ml # Voids 3 # Bowel Movements 0 Result Diagram: 09/24/16 0600 09/23/16 1105 Objective Remarks AWAKE ALERT NAD NL SPEECH [place] 06/05 Assessment and Plan Assessment and Plan IMP MRA NECK AND MRV NL LABS OK [place] BETTER I WILL SIGN OFF IF ANY PROBLEMS 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
[2016-09-25 10:48] LABS: RAPID PLASMA REAGIN SCREEN NON-REACTIVE (NON-REACTVE)
--- NOTE | 2016-09-25 12:54 | RADHPO ---
EXAM DATE/TIME: 09/25/2016 11:33 [facility] COMPARISON: No previous studies available for comparison. INDICATIONS : Cephalgia. Vasculitis. MEDICAL HISTORY : Sickle Cell disease. SURGICAL HISTORY : Splenectomy. Bilateral hip replacement. ENCOUNTER: Initial ACUITY: 2 day PAIN SCORE: 5/10 LOCATION: cranial Please note a normal MRA of the brain does not entirely exclude the possibility of a small aneurysm, nor the possibility of distal intracranial vessel disease. TECHNIQUE: 3D time of flight MRA was performed. Source images, multiplanar STS MIP, and 3D volume MIP reconstru ctions were reviewed. FINDINGS: There is excellent visualization of the major intracranial arteries out to the second-order branch ve ssels. There is no evidence for aneurysm, vessel truncation or stenosis, and no evidence for vascula r malformation. CONCLUSION: Brain MRA within normal limits. Edward Abel MD on September 25, 2016 at 12:50 Board Certified Radiologist. This report was verified electronically.
[2016-09-25 13:38] LABS: ANA SCREEN NEG (NEG)
[2016-09-25] MEDS: cefTRIAXone INJ 1,000 MG in SODIUM CHLORIDE 0.9% INJ 100 ML IV SCH (14:09)
[2016-09-25] MEDS: AZITHROMYCIN INJ 500 MG in SODIUM CHLOR 0.9% 250 ML INJ 250 ML IV SCH (14:09)
--- NOTE | 2016-09-25 17:41 | RADHPO ---
EXAM DATE/TIME: 09/25/2016 16:49 [facility] COMPARISON: CHEST PA & LAT, May 03, 2014, 17:19. INDICATIONS : Cough. MEDICAL HISTORY : Chronic obstructive pulmonary disease. Sickle Cell disease SURGICAL HISTORY : Splenectomy. Bilateral hip replacement ENCOUNTER: Subsequent ACUITY: 3 days PAIN SCORE: 0/10 LOCATION: Bilateral chest FINDINGS: PA and lateral views of the chest. Moderate-sized area of confluent opacity in the right midlung like ly posterior on the lateral view suggesting pulmonary consolidation. Left lung clear. Moderate cardia c silhouette enlargement unchanged. Small left pleural effusion. Surgical clips at the gastroesophage al junction. No evidence of pneumothorax. CONCLUSION: Right midlung consolidation. Recommend radiographic followup to resolution. Moderate chronic cardiac silhouette margin. Edward Abel MD on September 25, 2016 at 17:37 Board Certified Radiologist. This report was verified electronically.
[2016-09-25] MEDS ORDERED: RESP: ALBUTEROL 2.5 MG/3 ML NEB (PRN) INH (18:30)
--- NOTE | 2016-09-25 18:39 | HHI.PR ---
Subjective Remarks still coughing, headache still there but less, pain controlled but still there Objective Vitals Vital Signs Date Time Temp Pulse Resp B/P Pulse Ox O2 Delivery O2 Flow Rate FiO2 09/25/16 15:58 100.9 71 20 152/73 100 09/25/16 12:00 100.5 66 20 135/67 94 09/25/16 11:00 95 21 09/25/16 08:00 98.0 70 20 137/73 98 09/25/16 08:00 98 Nasal Cannula 2.00 09/25/16 01:08 99.9 69 12 113/73 95 09/24/16 20:14 100.8 90 14 135/67 94 09/24/16 20:05 98 Nasal Cannula 2.00 09/24/16 09/24/16 09/25/16 15:00 23:00 07:00 Intake Total 360 ml Output Total 350 ml 1080 ml Balance 360 ml -350 ml -1080 ml Intake Oral 360 ml Output Urine Total 350 ml 1080 ml # Voids 3 # Bowel Movements 0 Result Diagram: 09/24/16 0600 09/23/16 1105 Imaging Last Impressions Head Magnetic Resonance Angiography 09/25/16 0000 Signed Impressions: Service Date/Time: Sunday, September 25, 2016 11:33 - CONCLUSION: Brain MRA within normal limits. Edward Abel MD Chest X-Ray 09/25/16 0000 Signed Impressions: Service Date/Time: Sunday, September 25, 2016 16:49 - CONCLUSION: Right midlung consolidation. Recommend radiographic followup to resolution. Moderate chronic cardiac silhouette margin. Edward Abel MD Neck Magnetic Resonance Angiography 09/24/16 1627 Signed Impressions: Service Date/Time: September 17:49 - CONCLUSION: 1. Patent carotid arteries and vertebral arteries bilaterally. 2. Suspected high-grade stenosis of the left subclavian artery peripheral to left vertebral artery origin. Iker Lu Jr., MD Brain MRI 09/24/16 162 Signed Impressions: Service Date/Time: September 17:49 - CONCLUSION: Normal examination. Iker Lu Jr., MD Head/Brain Mag Res Venography 09/24/16 0000 Signed Impressions: Service Date/Time: September 17:49 - CONCLUSION: Normal examination. Iker Lu Jr., MD Head CT 09/23/16 0000 Signed Impressions: Service Date/Time: Friday, September 23, 2016 11:47 - CONCLUSION: No acute intracranial findings. Edward Abel MD Last Impressions Head CT 09/23/16 0000 Signed Impressions: Service Date/Time: Friday, September 23, 2016 11:47 - CONCLUSION: No acute intracranial findings. Edward Abel MD Chest X-Ray 09/23/16 0000 Signed Impressions: Service Date/Time: Friday, September 23, 2016 11:16 - CONCLUSION: 1. Cardiomegaly. 2. Mild interstitial edema when compared to 04/05/16. Calvin Sandy MD FACR Brain MRI 09/23/16 0000 Signed Impressions: Service Date/Time: Friday, September 23, 2016 15:43 - CONCLUSION: Mild periventricular white matter changes otherwise negative. Calvin Sandy MD FACR Objective Remarks Sitting in bed awake and alert decreased in rt lung rrr setve 3/6 throughout precodium no c/c/e A/P Problem List: (1) Cephalgia Status: Acute Plan: seen by neurolgy, imaging tests so far negative seem to have improved (2) Altered mental status Status: Acute Plan: currently clear , awake and alert, neurology seems to think this may be metabolic (3) Bronchitis Status: Acute Plan: on azithromycin and rocephin he feels his cough has improved. has had increased fever during the day and repeat cxray now showing consolidation will continue antibiotics (4) Pneumonia Status: Acute Plan: rt mid lung consolidation on todays xray, possible pneumonia apparently cephalosporins can cause hemolysis in sickle cell patients so will change to levofloxin contnue supportive care, fluids, oxygen, pain control (5) Sickle cell anemia Status: Chronic Plan: cont iv fluids, he seems to have adequate pain control on his home regime cont hydroxyurea Problem Qualifiers (1) Altered mental status: Qualified Code: R41.0 - Delirium Deb Tse MD Sep 25, 2016 18:38
[2016-09-25] MEDS: RESP: ALBUTEROL 2.5 MG/3 ML NEB (SCH) NEB (20:45)
[2016-09-25] MEDS: LEVOFLOXACIN 750 MG PREMIX INJ 150 ML IV SCH (21:23)
[2016-09-25] MEDS: ENOXAPARIN SODIUM 30 MG/0.3 ML SYRINGE SQ SCH (21:24)
[2016-09-25] MEDS ORDERED: IOHEXOL 350 MG/ML 10 ML VIAL (for RAD DIAG) IV ONE (21:52)
--- NOTE | 2016-09-25 21:58 | RADHPO ---
EXAM DATE/TIME: 09/25/2016 21:29 [facility] COMPARISON: No previous studies available for comparison. INDICATIONS : Shortness of breath and cough. Evaluate for pulmonary infarction. IV CONTRAST: 60 cc Omnipaque 350 (iohexol) IV RADIATION DOSE: 6.67 CTDIvol (mGy) MEDICAL HISTORY : Chronic obstructive pulmonary disease. Sickle Cell disease. SURGICAL HISTORY : None. ENCOUNTER: Initial ACUITY: 2 days PAIN SCALE: 0/10 LOCATION: Bilateral chest TECHNIQUE: Volumetric scanning of the chest was performed. Using automated exposure control and adjustment of t he mA and/or kV according to patient size, radiation dose was kept as low as reasonably achievable to obtain optimal diagnostic quality images. FINDINGS: LUNGS: Bilateral ground glass pulmonary infiltrates are noted. These are more pronounced within the upper lo bes. No emphysematous changes or bronchiectasis observed. PLEURA: There is no pleural thickening or pleural effusion. MEDIASTINUM: Mild cardiomegaly with small pericardial effusion. Pulmonary arteries and aorta are normal in caliber . No mass or adenopathy. AXILLAE: Within normal limits. No lymphadenopathy. SKELETAL: Within normal limits for patient age. MISCELLANEOUS: The visualized upper abdominal organs demonstrate no acute abnormality. CONCLUSION: 1. Cardiomegaly with small pericardial effusion. 2. Scattered bilateral pulmonary infiltrates. Edema versus infectious etiology. Iker Lu Jr., MD on September 25, 2016 at 21:53 Board Certified Radiologist. This report was verified electronically.
[2016-09-25] MEDS: ACETAMINOPHEN 325 MG TAB PO PRN (22:40)
[2016-09-25 23:01] LABS: ALBUMIN SPE 4.41 GM/DL (3.50-5.00); ALPHA 1 GLOBULIN 0.31 GM/DL (0.11-0.29); ALPHA 2 GLOBULIN 0.68 GM/DL (0.22-1.00); BETA GLOBULINS (SPE) 0.81 GM/DL (0.53-1.03)
[2016-09-26] VITALS (11 sets, daily range): BP systolic 104–145; BP diastolic 57–73; PULSE 66–76; RESP 14–21; TEMP 96.8–100.3; O2SAT 92–99
[2016-09-26] MEDS: SODIUM CHLOR 0.9% 1000 ML INJ 1,000 ML IV SCH ×2 (06:22→21:11)
--- NOTE | 2016-09-26 07:21 | MG ---
cc: PINKY CINTRON MD, CAMILLE MD Lab No: Date: 09/25/2016 Age: Sex: M Race: REFERRING PHYSICIAN Dr. Gupta READING PHYSICIAN: Dr. Cintron. MEDICAL HISTORY: 1. Sickle-cell disease. 2. Vimt-vm-torhfac 3. Murmur 4. Chronic obstructive pulmonary disease. 5. Chest pain. 6. Peptic ulcer disease. 7. Splenectomy. 8. Gastroesophageal reflux disease. 9. Arthritis. 10. Left and right hip replacements. 11. Recent shortness of breath. 12. Confused. MEDICATIONS OXYCODONE METHADONE. DESCRIPTION When the patient was awake, at the beginning of the electroencephalogram, background rhythm was 8-9 alpha hertz, located posteriorly bilateral and symmetrical. During the recording the patient became drowsy with slowing of the background, replaced by 6 hertz theta activity and the patient transitioned to stage 2 sleep with appearance of vertex waves, K complexes and sleep spindles. Photic stimulation did not elicit a driving response. There were no electrographic seizures or epileptiform discharges noted during the recording. INTERPRETATION This is a normal awake and sleep electroencephalogram recording. The absence of electrographic seizures or epileptiform discharges does not exclude the diagnosis of epilepsy.Clinical correlation is recommended. MD LILIANA Og/eliezer /12:27 AM /7:00 AM STEFAN
[2016-09-26 07:27] LABS: HEMATOCRIT 23.1 % (39.0-51.0); MEAN CELL VOLUME 79.5 FL (80.0-100.0); MEAN CORPUSCULAR HEMOGLOBIN 24.3 PG (27.0-34.0); MEAN CORPUSCULAR HGB CONC 30.5 % (32.0-36.0); PLATELET COUNT 246 TH/MM3 (150-450); RED CELL DISTRIBUTION WIDTH 20.9 % (11.6-17.2); WHITE BLOOD COUNT 13.3 TH/MM3 (4.0-11.0)
[2016-09-26] MEDS: RESP: ALBUTEROL 2.5 MG/3 ML NEB (SCH) NEB ×3 (07:27→20:25)
[2016-09-26 07:46] LABS: HEMO FLAGS AUTO DIFF
[2016-09-26 07:49] LABS: ALKALINE PHOSPHATASE 51 U/L (45-117); ALT (GPT) 10 U/L (12-78); ANION GAP 8 MEQ/L (5-15); AST (GOT) 15 U/L (15-37); BICARBONATE 22.8 MEQ/L (21.0-32.0); BLOOD UREA NITROGEN 3 MG/DL (7-18); CHLORIDE 112 MEQ/L (98-107); GLOMERULAR FILTRATION RATE 98 ML/MIN (>89); SODIUM (NA) 143 MEQ/L (136-145); TOTAL BILIRUBIN ADULT 1.4 MG/DL (0.2-1.0)
--- NOTE | 2016-09-26 07:52 | HHI.PR ---
Subjective Remarks No chest pain or shortness of breath. He has an occasional cough. He only has a slight headache at times. No further problems with his mental function according to his . Objective Vitals Vital Signs Date Time Temp Pulse Resp B/P Pulse Ox O2 Delivery O2 Flow Rate FiO2 09/26/16 07:28 96 Nasal Cannula 2.00 09/26/16 07:21 18 09/26/16 00:14 98.8 66 14 125/71 98 09/25/16 23:40 18 09/25/16 22:25 16 09/25/16 20:48 101.7 76 12 136/74 96 09/25/16 20:46 95 Nasal Cannula 2.00 09/25/16 20:45 89 21 09/25/16 15:58 100.9 71 20 152/73 100 09/25/16 12:00 100.5 66 20 135/67 94 09/25/16 11:00 95 21 09/25/16 08:00 98.0 70 20 137/73 98 09/25/16 08:00 98 Nasal Cannula 2.00 09/25/16 09/25/16 09/26/16 15:00 23:00 07:00 Intake Total 240 ml 240 ml Output Total 300 ml Balance 240 ml 240 ml -300 ml Intake Oral 240 ml 240 ml Output Urine Total 300 ml # Voids 4 1 Result Diagram: 09/24/16 0600 09/23/16 1105 Other Results Lab today is still pending. Imaging Last Impressions Chest CT 09/25/162008 Signed Impressions: Service Date/Time: Sunday, September 25, 2016 21:29 - CONCLUSION: 1. Cardiomegaly with small pericardial effusion. 2. Scattered bilateral pulmonary infiltrates. Edema versus infectious etiology. Iker Lu Jr., MD Head Magnetic Resonance Angiography 09/25/16 0000 Signed Impressions: Service Date/Time: Sunday, September 25, 2016 11:33 - CONCLUSION: Brain MRA within normal limits. Edward Abel MD Chest X-Ray 09/25/16 0000 Signed Impressions: Service Date/Time: Sunday, September 25, 2016 16:49 - CONCLUSION: Right midlung consolidation. Recommend radiographic followup to resolution. Moderate chronic cardiac silhouette margin. Edward Abel MD Neck Magnetic Resonance Angiography 09/24/16 1747 Signed Impressions: Service Date/Time: September 17:49 - CONCLUSION: 1. Patent carotid arteries and vertebral arteries bilaterally. 2. Suspected high-grade stenosis of the left subclavian artery peripheral to left vertebral artery origin. Iker Lu Jr., MD Brain MRI 09/24/167 Signed Impressions: Service Date/Time: September 17:49 - CONCLUSION: Normal examination. Iker Lu Jr., MD Head/Brain Mag Res Venography 09/24/16 Signed Impressions: Service Date/Time: September 17:49 - CONCLUSION: Normal examination. Iker Lu Jr., MD Head CT 09/23/16 Signed Impressions: Service Date/Time: Friday, September 23, 2016 11:47 - CONCLUSION: No acute intracranial findings. Edward Abel MD Last Impressions Head Magnetic Resonance Angiography 09/25/16 Signed Impressions: Service Date/Time: Sunday, September 25, 2016 11:33 - CONCLUSION: Brain MRA within normal limits. Edward Abel MD Chest X-Ray 09/25/16 Signed Impressions: Service Date/Time: Sunday, September 25, 2016 16:49 - CONCLUSION: Right midlung consolidation. Recommend radiographic followup to resolution. Moderate chronic cardiac silhouette margin. Edward Abel MD Neck Magnetic Resonance Angiography 09/24/161626 Signed Impressions: Service Date/Time: September 17:49 - CONCLUSION: 1. Patent carotid arteries and vertebral arteries bilaterally. 2. Suspected high-grade stenosis of the left subclavian artery peripheral to left vertebral artery origin. Iker Lu Jr., MD Brain MRI 09/24/161626 Signed Impressions: Service Date/Time: September 17:49 - CONCLUSION: Normal examination. Iker Lu Jr., MD Head/Brain Mag Res Venography 09/24/16 Signed Impressions: Service Date/Time: September 17:49 - CONCLUSION: Normal examination. Iker Lu Jr., MD Head CT 09/23/16 Signed Impressions: Service Date/Time: Friday, September 23, 2016 11:47 - CONCLUSION: No acute intracranial findings. Edward Abel MD Last Impressions Head CT 09/23/16 Signed Impressions: Service Date/Time: Friday, September 23, 2016 11:47 - CONCLUSION: No acute intracranial findings. Edward Abel MD Chest X-Ray 09/23/16 0000 Signed Impressions: Service Date/Time: Friday, September 23, 2016 11:16 - CONCLUSION: 1. Cardiomegaly. 2. Mild interstitial edema when compared to 04/05/16. Calvin aSndy MD FACR Brain MRI 09/23/16 0000 Signed Impressions: Service Date/Time: Friday, September 23, 2016 15:43 - CONCLUSION: Mild periventricular white matter changes otherwise negative. Calvin Sandy MD FACR Objective Remarks Exam: Pleasant black male in no distress HEENT: Pupils equal, no scleral icterus Neck: No JVD Heart: RRR with grade 2/6 systolic murmur Lungs: No wheezes or rhonchi Abdomen: Soft, nontender Neuro: Alert, oriented, normal motor and sensory exam A/P Assessment and Plan Assessment: --Bilateral pulmonary infiltrates on CT scan of the chest yesterday with fever and mild elevated white count--likely pneumonia --Chronic sickle cell anemia --Altered mental status on admission that has resolved and neurology workup was negative --Mild headache Plan: --Continue Levaquin IV --Consult environmental protection specialist --Repeat chest x-ray in the morning. --Monitor CBC. 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 Dexter Scott MD Sep 26, 2016 07:52
[2016-09-26] MEDS: MULTIVITAMIN TAB PO SCH (08:12)
[2016-09-26] MEDS: FOLIC ACID 1 MG TAB PO SCH (08:13)
[2016-09-26] MEDS: VITAMIN B COMPLEX/VIT C TAB PO SCH (08:13)
[2016-09-26] MEDS: METHADONE HCL 10 MG TAB PO SCH ×2 (08:13→20:28)
[2016-09-26] MEDS: SODIUM CHLORIDE 0.9% FLUSH 10 ML FLUSH IV FLUSH SCH ×2 (08:14→20:28)
[2016-09-26] MEDS: HYDROXYUREA 500 MG CAP PO SCH (08:15)
[2016-09-26 09:04] LABS: CORRECTED NUCLEATED RBC 23 /100 WBC (0-0); CORRECTED WBC 10.8 TH/MM3 (4.0-11.0); EOSINOPHILS 12 % (0-4); NEUTROPHIL # MANUAL DIFF 8.2 TH/MM3 (1.8-7.7); POLYS (SEG NEUTROPHILS) 76 % (16-70); WBC DIFF SAMPLE 100
[2016-09-26 09:05] LABS: ACANTHOCYTES 1+ (NORMAL); HOWELL-JOLLY BODIES PRESENT (NONE SEEN); KERATOCYTES 1+ (NORMAL); OVALOCYTES 2+ (NORMAL); PLATELET ESTIMATE SMEAR NORMAL (NORMAL); PLATELET MORPHOLOGY NORMAL (NORMAL); SCAN/DIFF FINAL DIFF MANUAL; TARGET CELLS 2+ (NORMAL); TEARDROP RBCS 1+ (NORMAL)
[2016-09-26] MEDS: POTASSIUM CHLORIDE 20 MEQ CONTROLLED RELEASE TAB PO SCH ×2 (10:48→21:24)
[2016-09-26] MEDS ORDERED: diphenhydrAMINE HCL 25 MG CAP PO PRN (11:00)
[2016-09-26] MEDS ORDERED: ACETAMINOPHEN 325 MG TAB PO PRN (11:00)
[2016-09-26] MEDS ORDERED: SODIUM CHLOR 0.9% 250 ML INJ 250 ML IV ONE (11:00)
[2016-09-26] MEDS: ACETAMINOPHEN 325 MG TAB PO PRN ×2 (12:00→18:20)
[2016-09-26] MEDS: AZITHROMYCIN INJ 500 MG in SODIUM CHLOR 0.9% 250 ML INJ 250 ML IV SCH (13:17)
--- NOTE | 2016-09-26 16:33 | MB ---
cc: JESSIKA HO MD DATE OF CONSULTATION: 09/26/2016. REQUESTING PHYSICIAN: Consult requested by the hospitalist service. HEMATOLOGIC DIAGNOSIS: Hemoglobin sickle-cell disease (SS). CURRENT TREATMENT: The patient is on low-dose hydroxyurea 500 milligrams p.o. daily. CHIEF COMPLAINT: The patient reports having had an approximate 10-day history of nasal congestion and cough. He reports having had chills but no fevers. Found to be increasingly somnolent and confused by his on the day of admission. HISTORY OF PRESENT ILLNESS: Mr. Guaman is a very pleasant 61-year-old man who is well-known to me from my outpatient practice. Mr. Guaman has a history of hemoglobin sickle-cell disease and has been on systemic disease modifying therapy with hydroxyurea ever since he was an adolescent. He in fact participated in some of the original clinical trials assessing the safety of hydroxyurea which were conducted in [place]. Mr. Guaman has relatively well controlled pain and rarely requires hospitalization for pain crises. Mr. Guaman reports being in his usual state of health up until about ten days ago when he developed nasal congestion and a cough, this was accompanied by a sensation of feeling chills. He took [id number] decongestants and cough medications and I believe some of these contained Sudafed. I would like to add the patient is a long- and short-acting opioids including methadone and oxycodone at home. He took these medications concomitantly and became increasingly sleepy and somnolent. His therefore brought him into a local urgent care clinic for evaluation of his symptoms and from there he was referred to [facility]. At [facility], he was noted to have at times fever as high as 101.7 degrees Fahrenheit. Imaging studies of the thorax including CT of the chest revealed patchy bilateral infiltrates consistent with an infectious etiology. The patient has been on treatment with azithromycin and levofloxacin for coverage of both community-acquired and atypical pneumonia. Additionally, due to his symptoms of an of somnolence and confusion, an MRI of the brain was performed on 09/23/2016 and this revealed no acute abnormalities which would explain his symptoms. I have been asked to see the patient today because his hemoglobin and hematocrit have been declining. The question was whether or not he ought to be transfused. PAST MEDICAL HISTORY: 1. Hemoglobin sickle-cell disease. 2. 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 3. COPD. 4. Ongoing tobaccoism. 5. Depression. 6. Osteonecrosis. 7. Chronic pain related to sickle-cell disease. PAST SURGICAL HISTORY: 1. Status post splenectomy. 2. Partial gastrectomy. 3. Bilateral total hip arthroplasty. FAMILY HISTORY: Parents are both carriers for sickle cell. SOCIAL HISTORY He is . 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 He smokes about between a half and one pack of cigarettes daily. ALLERGIES: NO KNOWN DRUG ALLERGIES. CURRENT INPATIENT MEDICATIONS: 1. Azithromycin 500 milligrams IV q.24 h. 2. Levofloxacin 750 milligrams IV q.24 h. 3. Normal saline 60 cc/hour. 4. Tylenol 650 milligrams p.o. q.4 h as needed for fever or pain. 5. Diphenhydramine 25 milligrams p.o. q.4 h as needed for itching. 6. Lovenox 40 milligrams subcu q. 24. 7. Folic acid 1 milligrams p.o. daily. 8. Hydroxyurea 500 milligrams p.o. daily. 9. Methadone 5 milligrams p.o. twice a day. 10. Multivitamin. 11. Oxycodone 10 milligrams p.o. q. 8 hours as needed for pain. 12. Vitamin B-complex. REVIEW OF SYSTEMS: Please see the history of present illness. Also, the following are the pertinent positives and negatives: CONSTITUTIONAL: Chills, fatigue, weakness, decreased appetite, also decreased energy level. HEAD, EYES, EARS, NOSE, THROAT: Denies headaches, blurry vision, difficulty swallowing or sore throat. RESPIRATORY: Reports cough, phlegm production, reports exertional dyspnea, denies PND, orthopnea or chest pain. CARDIOVASCULAR: Denies angina-like chest pain, PND, orthopnea or lower extremity edema. He also denies angina-like chest pain. GI: Denies nausea, vomiting, diarrhea, hematochezia, melena. GENITOURINARY: Denies dysuria, hematuria, urinary incontinence. PLASTIC CUTTER: No focal sensory or motor deficits. PHYSICAL EXAMINATION: VITAL SIGNS: Temperature 100.2 degrees Fahrenheit, heart rate 70 beats per minute, respiratory rate 20, blood pressure 120/68, O2 sats 96% on 2 liters nasal cannula. GENERAL PHYSICAL APPEARANCE: Mr. Guaman is a middle-aged man. He is tall and thin. He appears to be in no acute distress and is sitting up on a bedside chair. HEAD, EYES, EARS, NOSE, THROAT: Head is atraumatic and normocephalic. Conjunctivae are non-pale. The sclerae are anicteric. Extraocular muscles intact. Pupils equal, round and reactive to light and accommodation. ORAL EXAM: No pharyngeal erythema. NECK EXAM: No palpable cervical or supraclavicular lymphadenopathy. RESPIRATORY EXAM: Good air movement bilaterally without any added breath sounds. He does have a slightly prolonged expiratory phase. CARDIOVASCULAR EXAM: Regular rate and rhythm. S1, S2. No obvious murmurs, rubs or gallops. ABDOMINAL EXAM: Thin belly. Soft, nontender and nondistended. ___ palpable organ enlargement, specifically, hepatomegaly. LOWER EXTREMITIES: No pretibial edema or calf tenderness. MUSCULOSKELETAL: Generally decreased muscle mass and tone. LABORATORY FINDINGS: Dated 09/26/2016: Sodium 143, potassium 3, chloride 112, bicarbonate 22.8, BUN 3, creatinine 0.95, random glucose 89, calcium 8.1, total bilirubin 1.4, AST 15, ALT 10, alkaline phosphatase 51, albumin 3. TSH 0.54. CBC dated 10/06/2016: WBC count is 10.8, hemoglobin 7.1 gm/dL, hematocrit 23.1%, MCV 79.5, platelet count 246,000, absolute neutrophil count 8.2, positive for target cells, teardrop cells and ovalocytes. IMAGING STUDIES: CT of the chest dated 09/25/2016: Cardiomegaly with small pericardial effusion. Scattered bilateral pulmonary infiltrates, infectious etiology favored. ASSESSMENT: Mr. Guaman is a very pleasant 61-year-old male with a diagnosis of hemoglobin sickle-cell disease, he is asplenic and has chronic joint pain related to sickle cell disease. He presented to the hospital with complaints of a ten-day history of congestion, cough, feverish feeling and developed progressive somnolence on the day of admission. He has on imaging scans bilateral patchy infiltrates consistent with an atypical pneumonia which is currently being covered with levofloxacin and azithromycin appropriately. Clinically, he feels improved. His somnolence was thought to be secondary to an interaction between his long- and short-acting opioids and pseudoephedrine that he had been taking for congestion. Clinically he appears not to be in acute chest syndrome based on lack of pain symptoms and general improvement in his clinical condition. RECOMMENDATIONS: 1. Bilateral patchy infiltrates: Continue coverage for both typical and atypical organisms. He is appropriately on levofloxacin and azithromycin at this time. 2. Anemia: Secondary to sickle-cell disease. I think it is reasonable to transfuse one unit packed red blood cells at this point, and this was ordered for 09/26/2016. 3. Continue pain control with his outpatient pain medications. Monitor for interactions and over-sedation. 4. Continue DVT prophylaxis with Lovenox. MD TIARRA Comer/MIRTHA /2:52 PM /4:03 PM STEFAN
--- NOTE | 2016-09-26 19:05 | MB ---
cc: MARY YANEZ DATE OF CONSULTATION: 09/26/2016. REASON FOR CONSULTATION: Bilateral pulmonary infiltrates. HISTORY OF PRESENT ILLNESS: This is a 61-year-old man with a prior history of hemoglobin sickle-cell disease who has been on hydroxyurea and apparently he developed cough, chest congestion, nasal drainage, fevers and chills and in spite of taking a cough syrup and decongestant he felt worse and thus was brought to the emergency room and subsequently admitted. The patient was a smoker for over 40 years and continues to smoke. He has been bringing up very little mucus. Upon admission, a chest x-ray was done, which demonstrated opacities in the right midlung but the left lung was clear. A CT scan of the neck was done which showed evidence of bilateral patchy pulmonary infiltrates which could not be differentiated from pneumonia or pulmonary edema. The patient has had some leg swelling in the past. He denies any hemoptysis and denies chest pains at this time. PAST MEDICAL HISTORY: 1. Hemoglobin sickle-cell disease. 2. He has had a splenectomy in the past. 3. History of COPD. 4. History of depression. 5. History of osteonecrosis. 6. History of chronic pain due to sickle-cell disease. PAST SURGICAL HISTORY: Surgery includes: 1. Splenectomy. 2. Partial gastrectomy. 3. Bilateral total hip arthroplasty from osteonecrosis. HABITS: The patient smokes half to one pack per day and has done so for over 35 years. No significant alcohol. FAMILY HISTORY: His family history is significant for sickle-cell disease. MEDICATIONS: His medication list included: 1. Folic acid 1 milligram daily. 2. Lovenox 40 milligrams subcutaneous daily. 3. Hydroxyurea 500 milligrams a day. 4. Methadone 5 milligrams twice a day. 5. Oxycodone 10 milligrams PRN. REVIEW OF SYSTEMS: The patient has had fevers and chills, cough, wheezing, and some epigastric distress, joint pains and back pain. The other review of systems is as in the presenting complaint. PHYSICAL EXAMINATION: GENERAL: This is a thinly built middle-aged man mildly dyspneic. VITAL SIGNS: Blood pressure 130/70, pulse is 100, respirations 22, temperature 100.4. HEAD, EYES, EARS, NOSE, THROAT: Head normocephalic. The pupils are reactive. Tongue is dry. Throat is clear. Ears have no inflammation. NECK: The neck is supple. No bruits.. No lymphadenopathy. CHEST: Equal movements. Expiratory wheezes scattered bilaterally with prolonged expirations with occasional crackles in the right base. HEART: Heart sounds are regular. S1 and S2 with no murmur. No S3. ABDOMEN: The abdomen is soft and scaphoid. No tenderness. No organomegaly. The bowel sounds are active. EXTREMITIES: No lesions. No edema. Peripheral pulses are well-felt. NEUROLOGIC: Reflexes are 1+ with no gross motor deficits. Cranial nerves are grossly intact. SKIN: No lesions are observed. IMPRESSION: 1. Bilateral pulmonary infiltrates with possible atypical pneumonia. 2. COPD with chronic bronchitis and emphysema. 3. Sickle cell disease with anemia. 4. Chronic pain. PLAN: 1. The patient is on IV Levaquin and Zithromax. I have added to IV Cefepime 2 grams twice a day in place of the Zithromax. 2. Sputum will be sent for gram stain and culture. 3. Urine sent for Legionella and Pneumococcal antigens. 4. Bedside pulmonary function studies to be done. 5. Follow up chest x-ray in the a.m. and a CBC as well. 6. We will add Solu-Medrol 40 milligrams every 8 hours. 7. Nebulized DuoNeb solution four times a day. Thank you, Dr. Tse, for this consultation. MD ROSEMARIE Joiner/MIRTHA /6:38 PM /6:53 PM
--- NOTE | 2016-09-26 20:24 | RADHPO ---
EXAM DATE/TIME: 09/26/2016 18:43 [facility] COMPARISON: CHEST PA & LAT, September 25, 2016, 16:49. CT THORAX W CONTRAST, September 25, 2016, 21:29. CHEST SINGLE AP, September 23, 2016, 11:16. INDICATIONS : Congestion. MEDICAL HISTORY : Chronic obstructive pulmonary disease. Sickle Cell disease. Pneumonia. SURGICAL HISTORY : None. ENCOUNTER: Subsequent ACUITY: 4 - 6 days PAIN SCORE: 0/10 LOCATION: Bilateral chest FINDINGS: Panchamber cardiomegaly. There is scattered infiltrates in both lungs, right greater than left. The size of the infiltrates appears to have increased when compared to yesterday's chest x-ray. Both he midiaphragms are well delineated. No blunting of the costophrenic angles. Multiple hemoclips and a epigastric region. CONCLUSION: Slight increase in scattered bilateral infiltrates, right greater than left. Stable cardiomegaly. Iker Vásquez MD on September 26, 2016 at 20:20 Board Certified Radiologist. This report was verified electronically.
[2016-09-26] MEDS: RESP: ALBUTEROL 2.5 MG/IPRATROPIUM 0.5 MG NEB (SCH) NEB (20:25)
[2016-09-26] MEDS: ENOXAPARIN SODIUM 30 MG/0.3 ML SYRINGE SQ SCH (20:27)
[2016-09-26] MEDS: LEVOFLOXACIN 750 MG PREMIX INJ 150 ML IV SCH (20:28)
[2016-09-26] MEDS: CEFEPIME INJ 2,000 MG in SODIUM CHLORIDE 0.9% INJ 100 ML IV SCH (20:28)
[2016-09-26] MEDS: methylPREDNISolone SOD SUCC 40 MG/1 ML VIAL IV PUSH SCH (21:24)
[2016-09-27] VITALS (7 sets, daily range): BP systolic 113–140; BP diastolic 61–72; PULSE 69–79; RESP 16–18; TEMP 97.8–98.7; O2SAT 94–100
--- NOTE | 2016-09-27 06:26 | RADHPO ---
EXAM DATE/TIME: 09/27/2016 06:00 [facility] COMPARISON: CHEST SINGLE AP, September 26, 2016, 18:43. INDICATIONS : Cough. MEDICAL HISTORY : Chronic obstructive pulmonary disease. Sickle Cell disease. Pneumonia SURGICAL HISTORY : Splenectomy. Bilateral hip replacement ENCOUNTER: Subsequent ACUITY: 4 - 6 days PAIN SCORE: 0/10 LOCATION: Bilateral chest FINDINGS: Slight bibasilar atelectasis and/or infiltrate is seen. Tiny pleural effusion is present on the left. Slight cardiomegaly seen. CONCLUSION: Tiny left pleural effusion and slight bibasilar atelectasis and/or infiltrate. Ike Matos MD on September 27, 2016 at 6:24 Board Certified Radiologist. This report was verified electronically.
[2016-09-27] MEDS: methylPREDNISolone SOD SUCC 40 MG/1 ML VIAL IV PUSH SCH ×3 (06:33→20:57)
--- NOTE | 2016-09-27 06:42 | HHI.PR ---
Subjective Remarks He states his cough is primarily a dry cough. No shortness of breath. No chest pain. Was given some blood yesterday. Objective Vitals Vital Signs Date Time Temp Pulse Resp B/P Pulse Ox O2 Delivery O2 Flow Rate FiO2 09/27/16 00:44 98.7 69 16 113/61 98 09/26/16 21:35 96.8 75 16 135/60 99 09/26/16 20:25 98 Nasal Cannula 2.00 09/26/16 17:45 100.3 74 20 145/73 95 09/26/16 16:34 99.6 70 18 129/65 92 09/26/16 16:04 98.7 70 18 117/57 95 09/26/16 16:00 09/26/16 15:34 99.2 72 18 114/62 97 09/26/16 15:22 99.5 76 18 104/57 95 09/26/16 12:00 100.2 70 20 120/68 96 09/26/16 08:00 98.8 71 21 117/70 97 09/26/16 07:28 96 Nasal Cannula 2.00 09/26/16 07:21 18 09/26/16 09/26/16 09/27/16 15:00 23:00 07:00 Intake Total 600 ml Output Total 375 ml 200 ml 300 ml Balance 225 ml -200 ml -300 ml Intake Oral 600 ml Output Urine Total 375 ml 200 ml 300 ml # Voids 1 # Bowel Movements 0 Result Diagram: 09/26/16 0703 09/26/16 0703 Other Results Laboratory Tests Test 09/26/16 07:03 White Blood Count 13.3 TH/MM3 Corrected White Blood Count 10.8 TH/MM3 Red Blood Count 2.90 MIL/MM3 Hemoglobin 7.1 GM/DL Hematocrit 23.1 % Mean Corpuscular Volume 79.5 FL Mean Corpuscular Hemoglobin 24.3 PG Mean Corpuscular Hemoglobin 30.5 % Concent Red Cell Distribution Width 20.9 % Platelet Count 246 TH/MM3 Mean Platelet Volume 8.7 FL CBC Comment AUTO DIFF Differential Total Cells 100 Counted Neutrophils % (Manual) 76 % Lymphocytes % 7 % Monocytes % 5 % Eosinophils % 12 % Neutrophils # (Manual) 8.2 TH/MM3 Nucleated Red Blood Cells 23 /100 WBC Differential Comment FINAL DIFF MANUAL Platelet Estimate NORMAL Platelet Morphology Comment NORMAL Target Cells 2+ Tear Drop Cells 1+ Ovalocytes 2+ [place] Bodies PRESENT Acanthocytes 1+ Keratocytes 1+ Sodium Level 143 MEQ/L Potassium Level 3.0 MEQ/L Chloride Level 112 MEQ/L Carbon Dioxide Level 22.8 MEQ/L Anion Gap 8 MEQ/L Blood Urea Nitrogen 3 MG/DL Creatinine 0.95 MG/DL Estimat Glomerular Filtration 98 ML/MIN Rate Random Glucose 89 MG/DL Calcium Level 8.1 MG/DL Total Bilirubin 1.4 MG/DL Aspartate Amino Transf 15 U/L (AST/SGOT) Alanine Aminotransferase 10 U/L (ALT/SGPT) Alkaline Phosphatase 51 U/L Total Protein 6.3 GM/DL Albumin 3.0 GM/DL Blood Type A POSITIVE Antibody Screen NEGATIVE Crossmatch Leukocyte-Reduced Red Blood Cells Blood Bank Comment Imaging Last Impressions Chest X-Ray 09/26/16 0000 Signed Impressions: Service Date/Time: Monday, September 26, 2016 18:43 - CONCLUSION: Slight increase in scattered bilateral infiltrates, right greater than left. Stable cardiomegaly. Iker Vásquez MD Chest CT 09/25/162008 Signed Impressions: Service Date/Time: Sunday, September 25, 2016 21:29 - CONCLUSION: 1. Cardiomegaly with small pericardial effusion. 2. Scattered bilateral pulmonary infiltrates. Edema versus infectious etiology. Iker Lu Jr., MD Head Magnetic Resonance Angiography 09/25/16 0000 Signed Impressions: Service Date/Time: Sunday, September 25, 2016 11:33 - CONCLUSION: Brain MRA within normal limits. Edward Abel MD Neck Magnetic Resonance Angiography 09/24/161626 Signed Impressions: Service Date/Time: September 17:49 - CONCLUSION: 1. Patent carotid arteries and vertebral arteries bilaterally. 2. Suspected high-grade stenosis of the left subclavian artery peripheral to left vertebral artery origin. Iker Lu Jr., MD Brain MRI 09/24/161626 Signed Impressions: Service Date/Time: September 17:49 - CONCLUSION: Normal examination. Iker Lu Jr., MD Head/Brain Mag Res Venography 09/24/16 0000 Signed Impressions: Service Date/Time: September 17:49 - CONCLUSION: Normal examination. Iker Lu Jr., MD Head CT 5/31/17 0000 Signed Impressions: Service Date/Time: Friday, September 23, 2016 11:47 - CONCLUSION: No acute intracranial findings. Edward Abel MD Last Impressions Chest CT 09/25/162008 Signed Impressions: Service Date/Time: Sunday, September 25, 2016 21:29 - CONCLUSION: 1. Cardiomegaly with small pericardial effusion. 2. Scattered bilateral pulmonary infiltrates. Edema versus infectious etiology. Iker Lu Jr., MD Head Magnetic Resonance Angiography 09/25/16 Signed Impressions: Service Date/Time: Sunday, September 25, 2016 11:33 - CONCLUSION: Brain MRA within normal limits. Edward Abel MD Chest X-Ray 09/25/16 Signed Impressions: Service Date/Time: Sunday, September 25, 2016 16:49 - CONCLUSION: Right midlung consolidation. Recommend radiographic followup to resolution. Moderate chronic cardiac silhouette margin. Edward Abel MD Neck Magnetic Resonance Angiography 09/24/161626 Signed Impressions: Service Date/Time: September 17:49 - CONCLUSION: 1. Patent carotid arteries and vertebral arteries bilaterally. 2. Suspected high-grade stenosis of the left subclavian artery peripheral to left vertebral artery origin. Iker Lu Jr., MD Brain MRI 09/24/161626 Signed Impressions: Service Date/Time: September 17:49 - CONCLUSION: Normal examination. Iker Lu Jr., MD Head/Brain Mag Res Venography 09/24/16 Signed Impressions: Service Date/Time: September 17:49 - CONCLUSION: Normal examination. Iker Lu Jr., MD Head CT 09/23/16 Signed Impressions: Service Date/Time: Friday, September 23, 2016 11:47 - CONCLUSION: No acute intracranial findings. Edward Abel MD Last Impressions Head Magnetic Resonance Angiography 09/25/16 Signed Impressions: Service Date/Time: Sunday, September 25, 2016 11:33 - CONCLUSION: Brain MRA within normal limits. Edward Abel MD Chest X-Ray 09/25/16 Signed Impressions: Service Date/Time: Sunday, September 25, 2016 16:49 - CONCLUSION: Right midlung consolidation. Recommend radiographic followup to resolution. Moderate chronic cardiac silhouette margin. Edward Abel MD Neck Magnetic Resonance Angiography 09/24/16 1627 Signed Impressions: Service Date/Time: September 17:49 - CONCLUSION: 1. Patent carotid arteries and vertebral arteries bilaterally. 2. Suspected high-grade stenosis of the left subclavian artery peripheral to left vertebral artery origin. Iker Lu Jr., MD Brain MRI 09/24/16 1627 Signed Impressions: Service Date/Time: September 17:49 - CONCLUSION: Normal examination. Ikre Lu Jr., MD Head/Brain Mag Res Venography 09/24/16 0000 Signed Impressions: Service Date/Time: September 17:49 - CONCLUSION: Normal examination. Iker Lu Jr., MD Head CT 09/23/16 0000 Signed Impressions: Service Date/Time: Friday, September 23, 2016 11:47 - CONCLUSION: No acute intracranial findings. Edward Abel MD Last Impressions Head CT 09/23/16 0000 Signed Impressions: Service Date/Time: Friday, September 23, 2016 11:47 - CONCLUSION: No acute intracranial findings. Edward Abel MD Chest X-Ray 09/23/16 0000 Signed Impressions: Service Date/Time: Friday, September 23, 2016 11:16 - CONCLUSION: 1. Cardiomegaly. 2. Mild interstitial edema when compared to 04/05/16. Calvin Sandy MD FACR Brain MRI 09/23/16 0000 Signed Impressions: Service Date/Time: Friday, September 23, 2016 15:43 - CONCLUSION: Mild periventricular white matter changes otherwise negative. Calvin Sandy MD FACR Objective Remarks Exam: Pleasant black male in no distress HEENT: Pupils equal, no scleral icterus Neck: No JVD Heart: RRR with grade 1/6 systolic murmur Lungs: No wheezes or rhonchi. Faint crackles right base Abdomen: Soft, nontender Neuro: Alert, oriented, normal motor and sensory exam A/P Assessment and Plan Assessment: --Bilateral pulmonary infiltrates on CT scan of the chest yesterday with fever and mild elevated white count--likely pneumonia --Chronic sickle cell anemia --Altered mental status on admission that has resolved and neurology workup was negative --Mild headache --Hypokalemia Plan: --Continue Levaquin IV and Cefepime IV as ordered by accounting support specialist. Transition to oral antibiotics and discharge home when cleared by pulmonary. --Also being seen by hematology. --Check potassium later today when labs results are available. --Continue Lovenox for DVT prophylaxis. Dexter Scott MD Sep 27, 2016 06:42
[2016-09-27] MEDS: RESP: ALBUTEROL 2.5 MG/IPRATROPIUM 0.5 MG NEB (SCH) NEB ×3 (07:16→20:00)
[2016-09-27 07:32] LABS: HEMATOCRIT 23.8 % (39.0-51.0); MEAN CELL VOLUME 79.9 FL (80.0-100.0); MEAN CORPUSCULAR HEMOGLOBIN 25.1 PG (27.0-34.0); MEAN CORPUSCULAR HGB CONC 31.5 % (32.0-36.0); PLATELET COUNT 274 TH/MM3 (150-450); RED BLOOD COUNT 2.98 MIL/MM3 (4.50-5.90); RED CELL DISTRIBUTION WIDTH 19.3 % (11.6-17.2); WHITE BLOOD COUNT 12.5 TH/MM3 (4.0-11.0)
[2016-09-27 07:45] LABS: HEMO FLAGS AUTO DIFF
[2016-09-27 08:11] LABS: POTASSIUM 3.7 MEQ/L (3.5-5.1)
[2016-09-27] MEDS: POTASSIUM CHLORIDE 20 MEQ CONTROLLED RELEASE TAB PO SCH ×2 (08:20→20:58)
[2016-09-27] MEDS: MULTIVITAMIN TAB PO SCH (08:20)
[2016-09-27] MEDS: VITAMIN B COMPLEX/VIT C TAB PO SCH (08:20)
[2016-09-27] MEDS: METHADONE HCL 10 MG TAB PO SCH ×2 (08:21→20:58)
[2016-09-27] MEDS: FOLIC ACID 1 MG TAB PO SCH (08:21)
[2016-09-27] MEDS: HYDROXYUREA 500 MG CAP PO SCH (08:22)
[2016-09-27] MEDS: CEFEPIME INJ 2,000 MG in SODIUM CHLORIDE 0.9% INJ 100 ML IV SCH ×2 (08:24→20:57)
[2016-09-27] MEDS: SODIUM CHLORIDE 0.9% FLUSH 10 ML FLUSH IV FLUSH SCH ×2 (08:27→20:58)
[2016-09-27 08:39] LABS: CORRECTED NUCLEATED RBC 12 /100 WBC (0-0); CORRECTED WBC 11.2 TH/MM3 (4.0-11.0); EOSINOPHILS 5 % (0-4); NEUTROPHIL # MANUAL DIFF 10.3 TH/MM3 (1.8-7.7); POLYS (SEG NEUTROPHILS) 92 % (16-70); WBC DIFF SAMPLE 100
[2016-09-27 08:40] LABS: SCAN/DIFF FINAL DIFF MANUAL
[2016-09-27] MEDS: RESP: ALBUTEROL 2.5 MG/3 ML NEB (SCH) NEB ×2 (11:21→19:56)
[2016-09-27] MEDS: SODIUM CHLOR 0.9% 1000 ML INJ 1,000 ML IV SCH (13:07)
--- NOTE | 2016-09-27 16:14 | HHI.PR ---
Subjective Remarks No fever. Breathing better. Cough is less. CXR is better Objective Vital Signs Date Time Temp Pulse Resp B/P Pulse Ox O2 Delivery O2 Flow Rate FiO2 09/27/16 12:00 97.8 79 16 124/72 100 09/27/16 08:00 98.5 71 16 126/64 96 09/27/16 07:17 94 21 09/27/16 00:44 98.7 69 16 113/61 98 09/26/16 21:35 96.8 75 16 135/60 99 09/26/16 20:25 98 Nasal Cannula 2.00 09/26/16 17:45 100.3 74 20 145/73 95 09/26/16 16:34 99.6 70 18 129/65 92 I/O 09/26/16 09/26/16 09/26/16 09/27/16 09/27/16 09/27/16 07:00 15:00 23:00 07:00 15:00 23:00 Intake Total 600 ml 1480 ml Output Total 300 ml 375 ml 200 ml 300 ml Balance -300 ml 225 ml -200 ml -300 ml 1480 ml Intake Oral 600 ml 1480 ml Output Urine Total 300 ml 375 ml 200 ml 300 ml # Voids 1 1 2 # Bowel Movements 0 1 Result Diagram: 09/27/16 0718 09/27/16 0718 Objective Remarks GENERAL: This is a thinly built middle-aged man not dyspneic. HEAD, EYES, EARS, NOSE, THROAT: Head normocephalic. The pupils are reactive. Tongue is dry. Throat is clear. Ears have no inflammation. NECK: The neck is supple. No bruits.. No lymphadenopathy. CHEST: Equal movements. Expiratory wheezes scattered bilaterally with prolonged expirations with occasional crackles in the right base. HEART: Heart sounds are regular. S1 and S2 with no murmur. No S3. ABDOMEN: The abdomen is soft and scaphoid. No tenderness. No organomegaly. The bowel sounds are active. EXTREMITIES: No lesions. No edema. Peripheral pulses are well-felt. NEUROLOGIC: Reflexes are 1+ with no gross motor deficits. Cranial nerves are grossly intact. SKIN: No lesions are observed. Assessment and Plan Assessment and Plan IMPRESSION: 1. Bilateral pulmonary infiltrates with possible atypical pneumonia. 2. COPD with chronic bronchitis and emphysema. 3. Sickle cell disease with anemia. 4. Chronic pain. Plan : 1. Continue antibioitcs. 2. Wean Off o2. 3. Nebs qid , duoneb. 4. Solumedrol 40 mg bid till am. 5. CBC in am. 6. PFT when stable. 7. Home soon Stephanie Dover MD Sep 27, 2016 16:14
[2016-09-27] MEDS: LEVOFLOXACIN 750 MG PREMIX INJ 150 ML IV SCH (20:57)
[2016-09-27] MEDS: ENOXAPARIN SODIUM 30 MG/0.3 ML SYRINGE SQ SCH (20:58)
[2016-09-28] VITALS: BP 144/74; PULSE 82; RESP 18; TEMP 97.2; O2SAT 96
[2016-09-28 06:03] LABS: POTASSIUM 4.3 MEQ/L (3.5-5.1)
[2016-09-28 06:09] LABS: BICARBONATE 21.6 MEQ/L (21.0-32.0)
[2016-09-28 06:33] LABS: HEMATOCRIT 23.8 % (39.0-51.0); MEAN CELL VOLUME 81.1 FL (80.0-100.0); MEAN CORPUSCULAR HEMOGLOBIN 25.5 PG (27.0-34.0); MEAN CORPUSCULAR HGB CONC 31.5 % (32.0-36.0); PLATELET COUNT 227 TH/MM3 (150-450); RED BLOOD COUNT 2.93 MIL/MM3 (4.50-5.90); RED CELL DISTRIBUTION WIDTH 19.3 % (11.6-17.2); WHITE BLOOD COUNT 19.2 TH/MM3 (4.0-11.0)
[2016-09-28] MEDS: SODIUM CHLOR 0.9% 1000 ML INJ 1,000 ML IV SCH (06:36)
[2016-09-28 06:43] LABS: HEMO FLAGS AUTO DIFF
[2016-09-28 07:45] LABS: BANDS 7 % (0-6); CORRECTED NUCLEATED RBC 3 /100 WBC (0-0); NEUTROPHIL # MANUAL DIFF 16.5 TH/MM3 (1.8-7.7); POLYS (SEG NEUTROPHILS) 79 % (16-70); WBC DIFF SAMPLE 100
[2016-09-28] MEDS: RESP: ALBUTEROL 2.5 MG/IPRATROPIUM 0.5 MG NEB (SCH) NEB ×2 (07:46→11:26)
[2016-09-28 07:48] LABS: ACANTHOCYTES OCC (NORMAL); HOWELL-JOLLY BODIES PRESENT (NONE SEEN); KERATOCYTES 1+ (NORMAL); OVALOCYTES 1+ (NORMAL); ROULEAUX PRESENT (NORMAL); TARGET CELLS 2+ (NORMAL); TEARDROP RBCS 1+ (NORMAL)
[2016-09-28 07:49] VITALS: O2SAT 99
[2016-09-28 07:49] LABS: PLATELET ESTIMATE SMEAR NORMAL (NORMAL); PLATELET MORPHOLOGY NORMAL (NORMAL); SCAN/DIFF FINAL DIFF MANUAL
[2016-09-28 08:00] VITALS: BP 149/76; PULSE 66; RESP 18; TEMP 97.8; O2SAT 96
[2016-09-28] MEDS: POTASSIUM CHLORIDE 20 MEQ CONTROLLED RELEASE TAB PO SCH (08:57)
[2016-09-28] MEDS: FOLIC ACID 1 MG TAB PO SCH (08:57)
[2016-09-28] MEDS: CEFEPIME INJ 2,000 MG in SODIUM CHLORIDE 0.9% INJ 100 ML IV SCH (08:57)
[2016-09-28] MEDS: MULTIVITAMIN TAB PO SCH (08:57)
[2016-09-28] MEDS: METHADONE HCL 10 MG TAB PO SCH (08:58)
[2016-09-28] MEDS: VITAMIN B COMPLEX/VIT C TAB PO SCH (08:58)
[2016-09-28] MEDS: HYDROXYUREA 500 MG CAP PO SCH (08:59)
[2016-09-28] MEDS: SODIUM CHLORIDE 0.9% FLUSH 10 ML FLUSH IV FLUSH SCH (09:00)
[2016-09-28] MEDS: methylPREDNISolone SOD SUCC 40 MG/1 ML VIAL IV PUSH SCH (09:00)
--- NOTE | 2016-09-28 09:59 | HHI.PR ---
Subjective Remarks Patient has no shortness of breath and states he feels good. He would like to go home. Objective Vitals Vital Signs Date Time Temp Pulse Resp B/P Pulse Ox O2 Delivery O2 Flow Rate FiO2 09/28/16 08:00 97.8 66 18 149/76 96 09/28/16 07:49 99 21 09/28/16 00:00 97.2 82 18 144/74 96 09/27/16 20:00 98.0 72 18 140/62 99 09/27/16 19:56 98 21 09/27/16 16:00 98.7 78 16 139/65 97 09/27/16 12:00 97.8 79 16 124/72 100 09/27/16 09/27/16 09/28/16 15:00 23:00 07:00 Intake Total 1480 ml 1200 ml Balance 1480 ml 1200 ml Intake Oral 1480 ml 720 ml IV Total 480 ml # Voids 2 3 # Bowel Movements 1 1 Result Diagram: 09/28/16 0535 09/28/16 0535 Other Results Laboratory Tests Test 09/27/16 09/28/16 07:18 05:35 White Blood Count 12.5 TH/MM3 19.2 TH/MM3 Corrected White Blood Count 11.2 TH/MM3 Red Blood Count 2.98 MIL/MM3 2.93 MIL/MM3 Hemoglobin 7.5 GM/DL 7.5 GM/DL Hematocrit 23.8 % 23.8 % Mean Corpuscular Volume 79.9 FL 81.1 FL Mean Corpuscular Hemoglobin 25.1 PG 25.5 PG Mean Corpuscular Hemoglobin 31.5 % 31.5 % Concent Red Cell Distribution Width 19.3 % 19.3 % Platelet Count 274 TH/MM3 227 TH/MM3 Mean Platelet Volume 8.1 FL 9.9 FL Neutrophils (%) (Auto) % % Lymphocytes (%) (Auto) % % Monocytes (%) (Auto) % % Eosinophils (%) (Auto) % % Basophils (%) (Auto) % % Neutrophils # (Auto) TH/MM3 TH/MM3 Lymphocytes # (Auto) TH/MM3 TH/MM3 Monocytes # (Auto) TH/MM3 TH/MM3 Eosinophils # (Auto) TH/MM3 TH/MM3 Basophils # (Auto) TH/MM3 TH/MM3 CBC Comment AUTO DIFF AUTO DIFF Differential Total Cells 100 100 Counted Neutrophils % (Manual) 92 % 79 % Lymphocytes % 3 % 11 % Eosinophils % 5 % Neutrophils # (Manual) 10.3 TH/MM3 16.5 TH/MM3 Nucleated Red Blood Cells 12 /100 WBC 3 /100 WBC Differential Comment FINAL DIFF FINAL DIFF MANUAL MANUAL Sodium Level 143 MEQ/L 143 MEQ/L Potassium Level 3.7 MEQ/L 4.3 MEQ/L Chloride Level 113 MEQ/L 113 MEQ/L Carbon Dioxide Level 22.0 MEQ/L 21.6 MEQ/L Anion Gap 8 MEQ/L 8 MEQ/L Blood Urea Nitrogen 6 MG/DL 9 MG/DL Creatinine 0.89 MG/DL 0.90 MG/DL Estimat Glomerular Filtration 106 ML/MIN 104 ML/MIN Rate Random Glucose 131 MG/DL 124 MG/DL Calcium Level 8.5 MG/DL 8.9 MG/DL Band Neutrophils % 7 % Monocytes % 3 % Platelet Estimate NORMAL Platelet Morphology Comment NORMAL Target Cells 2+ Tear Drop Cells 1+ Ovalocytes 1+ Valdez-[place] Bodies PRESENT Acanthocytes OCC Rouleau PRESENT Keratocytes 1+ Laboratory Tests Test 09/28/16 05:35 White Blood Count 19.2 TH/MM3 Red Blood Count 2.93 MIL/MM3 Hemoglobin 7.5 GM/DL Hematocrit 23.8 % Mean Corpuscular Volume 81.1 FL Mean Corpuscular Hemoglobin 25.5 PG Mean Corpuscular Hemoglobin 31.5 % Concent Red Cell Distribution Width 19.3 % Platelet Count 227 TH/MM3 Mean Platelet Volume 9.9 FL Neutrophils (%) (Auto) % Lymphocytes (%) (Auto) % Monocytes (%) (Auto) % Eosinophils (%) (Auto) % Basophils (%) (Auto) % Neutrophils # (Auto) TH/MM3 Lymphocytes # (Auto) TH/MM3 Monocytes # (Auto) TH/MM3 Eosinophils # (Auto) TH/MM3 Basophils # (Auto) TH/MM3 CBC Comment AUTO DIFF Differential Total Cells 100 Counted Neutrophils % (Manual) 79 % Band Neutrophils % 7 % Lymphocytes % 11 % Monocytes % 3 % Neutrophils # (Manual) 16.5 TH/MM3 Nucleated Red Blood Cells 3 /100 WBC Differential Comment FINAL DIFF MANUAL Platelet Estimate NORMAL Platelet Morphology Comment NORMAL Target Cells 2+ Tear Drop Cells 1+ Ovalocytes 1+ Valdez-[place] Bodies PRESENT Acanthocytes OCC Rouleau PRESENT Keratocytes 1+ Sodium Level 143 MEQ/L Potassium Level 4.3 MEQ/L Chloride Level 113 MEQ/L Carbon Dioxide Level 21.6 MEQ/L Anion Gap 8 MEQ/L Blood Urea Nitrogen 9 MG/DL Creatinine 0.90 MG/DL Estimat Glomerular Filtration 104 ML/MIN Rate Random Glucose 124 MG/DL Calcium Level 8.9 MG/DL Imaging Last Impressions Chest X-Ray 09/26/16 0000 Signed Impressions: Service Date/Time: Monday, September 26, 2016 18:43 - CONCLUSION: Slight increase in scattered bilateral infiltrates, right greater than left. Stable cardiomegaly. Iker Vásquez MD Chest CT 09/25/162008 Signed Impressions: Service Date/Time: Sunday, September 25, 2016 21:29 - CONCLUSION: 1. Cardiomegaly with small pericardial effusion. 2. Scattered bilateral pulmonary infiltrates. Edema versus infectious etiology. Iker Lu Jr., MD Head Magnetic Resonance Angiography 09/25/16 Signed Impressions: Service Date/Time: Sunday, September 25, 2016 11:33 - CONCLUSION: Brain MRA within normal limits. Edward Abel MD Neck Magnetic Resonance Angiography 09/24/161626 Signed Impressions: Service Date/Time: September 17:49 - CONCLUSION: 1. Patent carotid arteries and vertebral arteries bilaterally. 2. Suspected high-grade stenosis of the left subclavian artery peripheral to left vertebral artery origin. Iker Lu Jr., MD Brain MRI 09/24/161626 Signed Impressions: Service Date/Time: September 17:49 - CONCLUSION: Normal examination. Iker Lu Jr., MD Head/Brain Mag Res Venography 09/24/16 0000 Signed Impressions: Service Date/Time: September 17:49 - CONCLUSION: Normal examination. Iker Lu Jr., MD Head CT 09/23/16 0000 Signed Impressions: Service Date/Time: Friday, September 23, 2016 11:47 - CONCLUSION: No acute intracranial findings. Edward Abel MD Last Impressions Chest CT 09/25/162008 Signed Impressions: Service Date/Time: Sunday, September 25, 2016 21:29 - CONCLUSION: 1. Cardiomegaly with small pericardial effusion. 2. Scattered bilateral pulmonary infiltrates. Edema versus infectious etiology. Iker Lu Jr., MD Head Magnetic Resonance Angiography 09/25/16 Signed Impressions: Service Date/Time: Sunday, September 25, 2016 11:33 - CONCLUSION: Brain MRA within normal limits. Edward Abel MD Chest X-Ray 09/25/16 0000 Signed Impressions: Service Date/Time: Sunday, September 25, 2016 16:49 - CONCLUSION: Right midlung consolidation. Recommend radiographic followup to resolution. Moderate chronic cardiac silhouette margin. Edward Abel MD Neck Magnetic Resonance Angiography 09/24/16 1627 Signed Impressions: Service Date/Time: September 17:49 - CONCLUSION: 1. Patent carotid arteries and vertebral arteries bilaterally. 2. Suspected high-grade stenosis of the left subclavian artery peripheral to left vertebral artery origin. Iker Lu Jr., MD Brain MRI 09/24/161626 Signed Impressions: Service Date/Time: September 17:49 - CONCLUSION: Normal examination. Iker Lu Jr., MD Head/Brain Mag Res Venography 09/24/16 0000 Signed Impressions: Service Date/Time: September 17:49 - CONCLUSION: Normal examination. Iker Lu Jr., MD Head CT 09/23/16 0000 Signed Impressions: Service Date/Time: Friday, September 23, 2016 11:47 - CONCLUSION: No acute intracranial findings. Edward Abel MD Last Impressions Head Magnetic Resonance Angiography 09/25/16 0000 Signed Impressions: Service Date/Time: Sunday, September 25, 2016 11:33 - CONCLUSION: Brain MRA within normal limits. Edward Abel MD Chest X-Ray 09/25/16 0000 Signed Impressions: Service Date/Time: Sunday, September 25, 2016 16:49 - CONCLUSION: Right midlung consolidation. Recommend radiographic followup to resolution. Moderate chronic cardiac silhouette margin. Edward Abel MD Neck Magnetic Resonance Angiography 09/24/16 1627 Signed Impressions: Service Date/Time: September 17:49 - CONCLUSION: 1. Patent carotid arteries and vertebral arteries bilaterally. 2. Suspected high-grade stenosis of the left subclavian artery peripheral to left vertebral artery origin. Iker Lu Jr., MD Brain MRI 09/24/161626 Signed Impressions: Service Date/Time: September 17:49 - CONCLUSION: Normal examination. Iker Lu Jr., MD Head/Brain Mag Res Venography 09/24/16 0000 Signed Impressions: Service Date/Time: September 17:49 - CONCLUSION: Normal examination. Iker Lu Jr., MD Head CT 09/23/16 0000 Signed Impressions: Service Date/Time: Friday, September 23, 2016 11:47 - CONCLUSION: No acute intracranial findings. Edward Abel MD Last Impressions Head CT 09/23/16 0000 Signed Impressions: Service Date/Time: Friday, September 23, 2016 11:47 - CONCLUSION: No acute intracranial findings. Edward Abel MD Chest X-Ray 09/23/16 0000 Signed Impressions: Service Date/Time: Friday, September 23, 2016 11:16 - CONCLUSION: 1. Cardiomegaly. 2. Mild interstitial edema when compared to 04/05/16. Calvin Sandy MD FACR Brain MRI 09/23/16 0000 Signed Impressions: Service Date/Time: Friday, September 23, 2016 15:43 - CONCLUSION: Mild periventricular white matter changes otherwise negative. Calvin Sandy MD FACR Objective Remarks Exam: Pleasant black male in no distress HEENT: Pupils equal, no scleral icterus Neck: No JVD Heart: RRR with grade 1/6 systolic murmur Lungs: No wheezes or rhonchi. Abdomen: Soft, nontender Neuro: Alert, oriented, normal motor and sensory exam A/P Assessment and Plan Assessment: --Bilateral pulmonary infiltrates felt to be a pneumonia--clinically he is better with no fever and breathing good. His WBC count went up but this is likely to the steroids he is on --Chronic sickle cell anemia --Altered mental status on admission that has resolved and neurology workup was negative --Mild headache --Hypokalemia--resolved Plan: --Continue Levaquin IV and Cefepime IV as ordered by um specialist. Transition to oral antibiotics and discharge home when cleared by pulmonary. --Continue Lovenox for DVT prophylaxis. Dexter Scott MD Sep 28, 2016 09:59
[2016-09-28 12:00] VITALS: BP 139/81; PULSE 71; RESP 19; TEMP 98; O2SAT 99
[2016-09-28] MEDS ORDERED: ALBUTEROL SULFATE 90 MCG/ACT HFA 18 GM INHALER INH PRN (13:15)
[2016-09-28] MEDS ORDERED: predniSONE 20 MG TAB PO ONE (13:15)
[2016-09-28] MEDS ORDERED: VENTAER INH (13:31)
[2016-09-28] MEDS ORDERED: PRED20 PO (13:31)
[2016-09-28] MEDS ORDERED: Folic Acid PO (13:31)
[2016-09-28] MEDS ORDERED: CEFU1TAB20 PO (13:31)
[2016-09-28] MEDS ORDERED: HYDR500C PO (13:31)
--- NOTE | 2016-09-28 15:00 | HHI.DS ---
Discharge Summary Admission Date Sep 25, 2016 at 17:49 Discharge Date: Sep 28, 2016 Admitting Diagnosis altered mental status (1) Cephalgia Diagnosis: Principal (2) Altered mental status Diagnosis: Principal (3) Pneumonia Diagnosis: Principal (4) Sickle cell anemia Diagnosis: Principal (5) Chronic pain syndrome Diagnosis: Secondary Consultants Dr Chicho Gibbs (neurology) Dr Bronson Dyer (hematology/oncology) Dr Aaron Garner (pulmonary) Brief History Patient presented to the ER on 09-23-16 where he was admitted by Dr Lalo George. Her admission note states that he had developed nasal congestion, cough, ear pressure and some discomfort in his eyes earlier in the week that had continued and he started developing a frontal headache. He tried over the counter Mucinex and Sudafed but the day before he came to the ER he spent most of the day sleeping. He was just eating small bites of food. He was taken to a [facility] walk in clinic on the day of admission and because of his excessive sleepiness they recommended he go to the ER. He denied any fever or chill. He denies chest pain or shortness of breath. He is on Methadone and Oxycodone for chronic pain. He has chronic sickle cell disease and anemia and is followed by a upholsterer helper (Dr Dyer) and has a chronic anemia. He is on Hydroxyurea and Folate for this also. He is a smoker (1/2 to one ppd and has smoked around 40 years). He was admitted because of his excessive somnolence. CBC/BMP: 09/28/16 0535 09/28/16 0535 Significant Findings Laboratory Tests Test 09/26/16 09/27/16 09/28/16 07:03 07:18 05:35 White Blood Count 13.3 TH/MM3 12.5 TH/MM3 19.2 TH/MM3 (4.0-11.0) (4.0-11.0) (4.0-11.0) Red Blood Count 2.90 MIL/MM3 2.98 MIL/MM3 2.93 MIL/MM3 (4.50-5.90) (4.50-5.90) (4.50-5.90) Hemoglobin 7.1 GM/DL 7.5 GM/DL 7.5 GM/DL (13.0-17.0) (13.0-17.0) (13.0-17.0) Hematocrit 23.1 % 23.8 % 23.8 % (39.0-51.0) (39.0-51.0) (39.0-51.0) Mean Corpuscular Volume 79.5 FL 79.9 FL (80.0-100.0) (80.0-100.0) Mean Corpuscular Hemoglobin 24.3 PG 25.1 PG 25.5 PG (27.0-34.0) (27.0-34.0) (27.0-34.0) Mean Corpuscular Hemoglobin 30.5 % 31.5 % 31.5 % Concent (32.0-36.0) (32.0-36.0) (32.0-36.0) Red Cell Distribution Width 20.9 % 19.3 % 19.3 % (11.6-17.2) (11.6-17.2) (11.6-17.2) Neutrophils % (Manual) 76 % (16-70) 92 % (16-70) 79 % (16-70) Lymphocytes % 7 % (9-44) 3 % (9-44) Eosinophils % 12 % (0-4) 5 % (0-4) Neutrophils # (Manual) 8.2 TH/MM3 10.3 TH/MM3 16.5 TH/MM3 (1.8-7.7) (1.8-7.7) (1.8-7.7) Nucleated Red Blood Cells 23 /100 WBC 12 /100 WBC 3 /100 WBC (0-0) (0-0) (0-0) Target Cells 2+ (NORMAL) 2+ (NORMAL) Tear Drop Cells 1+ (NORMAL) 1+ (NORMAL) Ovalocytes 2+ (NORMAL) 1+ (NORMAL) Acanthocytes 1+ (NORMAL) Keratocytes 1+ (NORMAL) 1+ (NORMAL) Potassium Level 3.0 MEQ/L (3.5-5.1) Chloride Level 112 MEQ/L 113 MEQ/L 113 MEQ/L (98-107) (98-107) (98-107) Blood Urea Nitrogen 3 MG/DL (7-18) 6 MG/DL (7-18) Calcium Level 8.1 MG/DL (8.5-10.1) Total Bilirubin 1.4 MG/DL (0.2-1.0) Alanine Aminotransferase 10 U/L (12-78) (ALT/SGPT) Total Protein 6.3 GM/DL (6.4-8.2) Albumin 3.0 GM/DL (3.4-5.0) Corrected White Blood Count 11.2 TH/MM3 (4.0-11.0) Random Glucose 131 MG/DL 124 MG/DL (74-106) (74-106) Band Neutrophils % 7 % (0-6) Rouleau PRESENT (NORMAL) Imaging Last Impressions Chest X-Ray 09/27/16 0600 Signed Impressions: Service Date/Time: Tuesday, September 27, 2016 06:00 - CONCLUSION: Tiny left pleural effusion and slight bibasilar atelectasis and/or infiltrate. Ike Matos MD Chest CT 09/25/162008 Signed Impressions: Service Date/Time: Sunday, September 25, 2016 21:29 - CONCLUSION: 1. Cardiomegaly with small pericardial effusion. 2. Scattered bilateral pulmonary infiltrates. Edema versus infectious etiology. Iker Lu Jr., MD Head Magnetic Resonance Angiography 09/25/16 Signed Impressions: Service Date/Time: Sunday, September 25, 2016 11:33 - CONCLUSION: Brain MRA within normal limits. Edward Abel MD Neck Magnetic Resonance Angiography 09/24/161626 Signed Impressions: Service Date/Time: September 17:49 - CONCLUSION: 1. Patent carotid arteries and vertebral arteries bilaterally. 2. Suspected high-grade stenosis of the left subclavian artery peripheral to left vertebral artery origin. Iker Lu Jr., MD Brain MRI 09/24/161626 Signed Impressions: Service Date/Time: September 17:49 - CONCLUSION: Normal examination. Iker Lu Jr., MD Head/Brain Mag Res Venography 09/24/16 0000 Signed Impressions: Service Date/Time: September 17:49 - CONCLUSION: Normal examination. Iker Lu Jr., MD Head CT 09/23/16 0000 Signed Impressions: Service Date/Time: Friday, September 23, 2016 11:47 - CONCLUSION: No acute intracranial findings. Edward Abel MD PE at Discharge Exam: Pleasant black male in no distress HEENT: Pupils equal, no scleral icterus Neck: No JVD Heart: RRR with grade 1/6 systolic murmur Lungs: No wheezes or rhonchi. Abdomen: Soft, nontender Neuro: Alert, oriented, normal motor and sensory exam Hospital Course Patient was admitted and a neurology consult was obtained with Dr Gibbs. He underwent neurology workup with MRI brain, MRA of the neck and head, MR venography that were unremarkable. An EEG was unremarkable. He developed a fever and chest imaging showed pulmonary consolidation. A CT scan of the chest showed some patchy infiltrates. He was put initially on Levaquin IV and the insurance specialist saw him on 09-26-16 and added Cefepime IV and add Solu-Medrol. He was given nebulizer aerosol treatments with Atrovent and Albuterol also. His fever resolved. His WBC did go up a little but this is thought to be secondary to her IV steroid use because clinically his cough has much improved, his fever has resolved and he has no dyspnea or wheezing. He was also seen by Dr Dyer who sees him for his sickle cell disease. He did not think his pulmonary infiltrates and fever were from an acute chest syndrome because he had no chest pain. He did order a unit of packed RBC's because his Hg had dropped down to 7.1. His Hg was 7.4 in early August when he had previously seen Dr Dyer. I talked with Dr Garner today and he stated since his fever has resolved and he is clinically better that I could discharge him on Levaquin and Cefuroxime for 7 days along with Prednisone 20mg daily for 5 days. He will be given a Ventolin inhaler. He was recommended to quit smoking. Dr Garner wants to see him in a week and will need a chest x-ray in one week. He will also followup with Dr Dyer in one week to repeat his CBC and BMP. Pt Condition on Discharge: Good Discharge Disposition: Discharge Home Discharge Instructions DIET: Follow Instructions for: As Tolerated, No Restrictions Activities you can perform: Regular-No Restrictions Follow up Referrals: Oncology with Dr Bronson Dyer Pulmonology - 1 Week with Stephanie Dover MD New Orders: BASIC METABOLIC PROF - 1 Week CBC WITH DIFF - 1 Week X-RAY CHEST PA & LAT - 1 Week New Medications: Albuterol 18 GM Inh (Ventolin Hfa 18 GM Inh) 90 Mcg/Act Aer 2 PUFF INH Q6H PRN SOB/WHEEZING #1 INHALER Cefuroxime (Cefuroxime) 500 Mg Tab 500 MG PO Q12HR pneumonia #14 TAB Hydroxyurea (Hydrea) 500 Mg Cap 500 MG PO DAILY sickle cell anemia #30 CAP Prednisone (Prednisone) 20 Mg Tab 20 MG PO ONCE pneumonia #5 TAB ([Folic Acid]) 1 MG TAB 1 MG PO DAILY anemia #31 TAB Continued Medications: B-Complex Vitamins (Vitamin B Complex) 1 Tab 1 TAB PO DAILY Methadone (Methadone) 5 Mg Tab 5 MG PO BID TAB Oxycodone (Oxycodone) 10 Mg Tab 10 MG PO Q8HR Pain Management Ref 0 TAB Dexter Scott MD Sep 28, 2016 15:00
[2016-09-28] MEDS ORDERED: CEFUROXIME AXETIL 500 MG TAB PO SCH (21:00)
[2016-09-29] MEDS ORDERED: LEVOFLOXACIN 500 MG TAB PO SCH (09:00)
== END 2016-09-28 17:45 | disposition home or self-care (01) | DRG 190 ==
LOC: PHED 10:03 → PHEDA 13:45 → PH3B 20:49 → OBSVTOIN 09-25 17:49
PROVIDERS: ADMIT Legal Medicine; ATTEND Legal Medicine
DX: J44.0 Chronic obstructive pulmonary disease with (acute) lower respiratory infection (principal); J18.9 Pneumonia, unspecified organism; D57.1 Sickle-cell disease without crisis; R51 Headache; H91.90 Unspecified hearing loss, unspecified ear; K21.9 Gastro-esophageal reflux disease without esophagitis; R41.0 Disorientation, unspecified; E87.6 Hypokalemia; G89.4 Chronic pain syndrome; M19.90 Unspecified osteoarthritis, unspecified site; F17.210 Nicotine dependence, cigarettes, uncomplicated; F32.9 Major depressive disorder, single episode, unspecified; Z86.718 Personal history of other venous thrombosis and embolism; Z90.3 Acquired absence of stomach [part of]; Z90.81 Acquired absence of spleen; Z96.643 Presence of artificial hip joint, bilateral
CPT/HCPCS: 36430; 36600; 70450; 70544; 70546; 70547; 70551; 70553; 71010; 71020; 71260; 76937; 80048; 80053; 80307; 81001; 82140; 82550; 82607; 82805; 83605; 83880; 84165; 84425; 84439; 84443; 85007; 85027; 85652; 86038; 86592; 86850; 86900; 86901; 86920; 86922; 87040; 87449; 93005; 94060; 94150; 94640; 94664; 95819; 96374; A9579; G0378; J0456; J0692; J0696; J1650; J1956; J2920; J7030; J7050; J7512; J7613; P9016; Q9967

== ENCOUNTER 2016-10-28 09:38 | Day surgery (SDC) | payer MEDICARE ==
[~2016-10-28] VITALS: Ht 180.3 cm; Wt 65.0 kg
[~2016-10-28 09:38] MED LIST changes: +CEFU1TAB20 PO; +Folic Acid PO; +HYDR500C PO; +PRED20 PO; -REGL10TA5 PO; +VENTAER INH
[2016-10-28 09:55] VITALS: BP 158/84; PULSE 71; RESP 18; TEMP 98.7; O2SAT 98
[2016-10-28] MEDS ORDERED: HYDR500C PO (09:58)
[2016-10-28] MEDS ORDERED: SODIUM CHLOR 0.9% 1000 ML IV SCH (10:30)
[2016-10-28 11:07] LABS: AUTOMATED NEUTROPHIL # 2.4 TH/MM3 (1.8-7.7); BASOPHIL # 0.1 TH/MM3 (0-0.2); BASOPHIL % 1.8 % (0.0-2.0); EOSINOPHIL # 0.9 TH/MM3 (0-0.4); EOSINOPHIL % 16.9 % (0.0-4.0); HEMATOCRIT 26.5 % (39.0-51.0); LYMPH % 24.7 % (9.0-44.0); LYMPHOCYTE # 1.3 TH/MM3 (1.0-4.8); MEAN CELL VOLUME 75.5 FL (80.0-100.0); MEAN CORPUSCULAR HEMOGLOBIN 24.1 PG (27.0-34.0); MEAN CORPUSCULAR HGB CONC 31.9 % (32.0-36.0); MONO % 13.4 % (0.0-8.0); NEUT % 43.2 % (16.0-70.0); PLATELET COUNT 182 TH/MM3 (150-450); RED BLOOD COUNT 3.51 MIL/MM3 (4.50-5.90); RED CELL DISTRIBUTION WIDTH 19.3 % (11.6-17.2); WHITE BLOOD COUNT 5.5 TH/MM3 (4.0-11.0)
[2016-10-28 11:08] LABS: HEMO FLAGS AUTO DIFF
[2016-10-28 11:36] LABS: CORRECTED NUCLEATED RBC 6 /100 WBC (0-0); EOSINOPHILS 16 % (0-4); OVALOCYTES 1+ (NORMAL); PLATELET ESTIMATE SMEAR NORMAL (NORMAL); PLATELET MORPHOLOGY NORMAL (NORMAL); POLYS (SEG NEUTROPHILS) 37 % (16-70); SCAN/DIFF FINAL DIFF MANUAL; WBC DIFF SAMPLE 100
[2016-10-28] MEDS ORDERED: fentaNYL CITRATE 250 MCG/5 ML AMP ONE (11:36)
[2016-10-28] MEDS ORDERED: MIDAZOLAM HCL 5 MG/5 ML VIAL ONE (11:36)
[2016-10-28 11:37] LABS: HOWELL-JOLLY BODIES PRESENT (NONE SEEN); TARGET CELLS 2+ (NORMAL)
[2016-10-28] MEDS ORDERED: LIDOCAINE 1%/EPINEPHrine 1:100,000 SOLN 20 ML VIAL ONE (11:37)
[2016-10-28 12:22] VITALS: BP 150/68; PULSE 84; RESP 19; TEMP 98.5; O2SAT 97
[2016-10-28 12:37] VITALS: BP 124/64; PULSE 73; RESP 18; O2SAT 97
[2016-10-28 13:07] VITALS: BP 146/70; PULSE 72; RESP 19; O2SAT 98
[2016-10-28 13:07] LABS: BONE MARROW PROCESSING COMPLETE; IRON STAIN DONE; JENNER GIEMSA STAIN DONE
[2016-10-28 13:37] VITALS: BP 121/56; PULSE 65; RESP 18; O2SAT 99
[2016-10-28 14:07] VITALS: BP 126/57; PULSE 64; RESP 17; O2SAT 99
--- NOTE | 2016-10-28 14:17 | RADRPT ---
EXAM DATE/TIME: 10/28/2016 11:50 [place] COMPARISON: No previous studies available for comparison. INDICATIONS : Bone marrow biopsy SEDATION TIME: 20 minutes BIOPSY SITE: Right ilium MEDICATION(S): 1.) 4 mg midazolam (Versed) IV 2.) 200 mcg fentanyl (Sublimaze) IV DEVICE(S): 1.) 12 gauge On-Control needle MEDICAL HISTORY : Sickle cell disease. Chronic obstructive pulmonary disease. SURGICAL HISTORY : None. ENCOUNTER: Initial ACUITY: 1 day PAIN SCORE: 0/10 LOCATION: [place] A total of one core specimen(s) were obtained and sent to the laboratory for pathologic evaluation. PROCEDURE: 1. CT guided bone marrow biopsy. 2. Conscious sedation with continuous EKG and oximetry monitoring. 3. EKG and oximetry remained stable throughout the procedure. Prior to the procedure informed consent was obtained. Any appropriate prior imaging studies were rev iewed. Using automated exposure control and adjustment of the mA and/or kV according to patient size , radiation dose was kept as low as reasonably achievable to obtain optimal diagnostic quality images . DICOM format image data is available electronically for review and comparison. The site was prepped in a sterile fashion. Full sterile technique was used, including cap, mask, marnie rile gloves and gown and a large sterile sheet. Hand hygiene and 2% chlorhexidine and/or betadine/al cohol prep was utilized per protocol for cutaneous antisepsis. The skin and subcutaneous tissues wer e infiltrated with local anesthetic solution. With CT guidance the previously identified target was localized. Biopsy was performed using the presc ribed needle as above. Following biopsy marrow aspiration was performed with repeat puncture. Adequa te hemostasis was obtained with compression at the puncture site. Follow-up CT scan reveals no hemorrhage. Conscious sedation was performed with the prescribed dosages and duration as above in the presence of an independent trained radiology nurse to assist in the monitoring of the patient. EKG and oximetry remained stable throughout the procedure. The patient tolerated the procedure well and there were no complications. The patient was sent to Radiology Outpatient Unit in stable condition. CONCLUSION: 1. Uncomplicated CT guided bone marrow aspirate. 2. Uncomplicated CT guided bone marrow biopsy. Calvin Sandy MD FACR on October 28, 2016 at 14:15 Board Certified Radiologist. This report was verified electronically.
--- NOTE | 2016-10-30 09:22 | RSPPFT ---
DATE OF PROCEDURE: 10/28/16 COMMENTS: Spirometry demonstrates an FEV1 of 1.2 at 33% of predicted, FVC of 3.8 at 80%, FEV1/FVC ratio is 32%. The FEF 25-75 is 15% of predicted. Post-bronchodilator study demonstrated no significant change. Flow volume loops suggest severe obstruction. IMPRESSION: 1. Severe obstructive disease. 2. No significant change following use of bronchodilator.
== END 2016-10-28 14:40 | disposition home or self-care (01) ==
LOC: HRAD 09:38 → HRIP 09:46 → HRAD 14:40
PROVIDERS: ATTEND Internal Medicine Hematology & Oncology
DX: D57.1 Sickle-cell disease without crisis (principal); D69.6 Thrombocytopenia, unspecified; J44.9 Chronic obstructive pulmonary disease, unspecified
CPT/HCPCS: 38221; 76937; 77012; 85007; 85027; 85097; 88305; 88311; 88313; 88341; 88342; 99152; 99153; C1830; G0364; J2250; J3010; J7030

== ENCOUNTER → 2017-08-09 | Day surgery (SDC) | payer MEDICARE ==
[~2017-08-09] MED LIST changes: +ATROPINE SULFATE 1% OPHT SOLN 2 ML BTL ONE; -CEFU1TAB20 PO; +DEXAMETHASONE SOD PHOS 4 MG/ML VIAL ONE; +EPINEPHrine HCL (1:1000) 1 MG/ML VIAL ONE; +FLURBIPROFEN 0.03% OPHT SOLN 2.5 ML BTL ONE; -Folic Acid PO; +HYALURONIDASE/LIDOCAINE/BUPIVACAINE 5 ML SYR ONE; +LACTATED RINGER'S 1000 ML INJ 1,000 ML ONE; +NEOMYCIN/POLYMYXIN/DEXAMETHASONE OPTH OINT 3.5 GM TUBE ONE; +ONDANSETRON HCL 4 MG/2 ML VIAL IV PUSH ONE; +PHENYLEPHRINE HCL 2.5 % OPTH SOLN 15 ML BTL ONE; -PRED20 PO; +PROPOFOL 200 MG/20 ML AMP IV ONE; +SODIUM CHLORIDE 0.9% INJ 10 ML ONE; +TETRACAINE 0.5% OPTH SOLN 15 ML BTL ONE; +TROPICAMIDE 1% OPHT SOLN 15 ML BTL ONE; -VENTAER INH; +ceFAZolin INJ 1,000 MG VIAL ONE
--- NOTE | 2017-08-29 11:06 | MP ---
cc: Iker Flaherty MD DATE OF OPERATION: 08/09/2017 PREOPERATIVE DIAGNOSIS: Macular hole, left eye. POSTOPERATIVE DIAGNOSIS: Macular hole, left eye, retinal horseshoe tear. PROCEDURE PERFORMED: Pars plana vitrectomy, membrane peeling, endolaser gas fluid exchange left eye. ANESTHESIA: MAC. SURGEON: Iker Flaherty MD COMPLICATIONS: None. PROCEDURE: After informed consent was obtained and the eye was anesthetized with peribulbar anesthesia, she was brought to the operating room and the left eye was prepared and draped in the usual sterile fashion. A wire lid speculum was placed in the patient's left eye. 23 gauge vitrectomy cannulas were then placed in the lower temporal, supratemporal and supranasal quadrants 3 millimeters posterior to the corneoscleral limbus. An infusion cannula was placed lower temporally. Core vitrectomy was then performed using the vitreous cutter. The vitrectomy was carried out as far as possible to the vitreous base. Posteriorly the internal limiting membrane was peeled off from around the macular hole using intraocular forceps. Careful indirect ophthalmoscopy with scleral depression was then performed and no peripheral retinal breaks were noted. A complete air fluid exchange was then performed. The air was then exchanged for 16% C3F8. The three vitrectomy cannulas were then removed. Subconjunctival injections of dexamethasone and Ancef were placed. An atropine drop, Maxitrol ointment and a patch and shield were then applied. The patient tolerated the procedure well. There were no complications. He will remain face down over the next five days. ADDENDUM: The patient had a small horseshoe tear present after the vitrectomy, which was lasered. No other retinal breaks were noted. [facility]. Iker Flaherty MD TAB/TL , 10:50 AM , 11:05 AM
== END | disposition home or self-care (01) ==
LOC: ESDC 12:11
PROVIDERS: ATTEND Ophthalmology Retina Specialist
DX: H35.342 Macular cyst, hole, or pseudohole, left eye (principal); H33.312 Horseshoe tear of retina without detachment, left eye
CPT/HCPCS: 00145; 67042; J0171; J0690; J1100; J2405; J3010; J7120

== ENCOUNTER 2017-11-12 05:09 | Inpatient (IN) ==
[2017-11-12] MEDS ORDERED: Aspirin 325 MG Tablet PO ONE (05:38)
--- NOTE | 2017-11-12 05:42 | ED ---
HPI General Chief Complaint: Chest Pain Stated Complaint: Chest pain Time Seen by Provider: 11/12/17 05:38 Source: patient and EMS Mode of arrival: EMS History of Present Illness HPI narrative: bilateral arm pain, chest pains,62-year-old male patient with history of sickle cell disease, presents to the ER today for started this night , woke him up from sleep. He states his spasm-like, coming and going, currently a 8 out of 10. He denies any shortness of breath, fevers, or other symptoms. He does not know any exacerbating or relieving factors. Complete Quality Measures for STEMI Alert Patients Related Data Allergies Allergy/AdvReac Type Severity Reaction Status Date / Time No Known Allergies Allergy Verified 11/12/17 05:17 Review of Systems Except as stated in HPI: all other systems reviewed are negative PMFSH History History Provided By: Patient Medical History Medical History DVT (deep venous thrombosis) (Acute) Sickle cell anemia (Acute) Venous stasis ulcer (Acute) Social History Social History Substance History: No History of Abuse Second Hand Smoke Exposure: No Smoking Status: Never smoker How Often Do You Have a Drink Containing Alcohol: Never Recent Travel in [place] within the Last 8 Weeks: No Recent Out of Country Travel within the Last 8 Weeks: No Exam Narrative Exam Narrative: GENERAL: Well-developed elderly -Gabonese male patient currently in mild distress. Awake and oriented 3. SKIN: Focused skin assessment warm/dry. HEAD: Atraumatic. Normocephalic. EYES: Pupils equal and round. No scleral icterus. No injection or drainage. ENT: No nasal bleeding or discharge. Mucous membranes pink and moist. NECK: Trachea midline. No JVD. CARDIOVASCULAR: Regular rate and rhythm. No murmur appreciated. Pulses are present and equal bilaterally. RESPIRATORY: No accessory muscle use. Clear to auscultation. Breath sounds equal bilaterally. GASTROINTESTINAL: Abdomen soft, non-tender, nondistended. Hepatic and splenic margins not palpable. MUSCULOSKELETAL: No obvious deformities. No clubbing. No cyanosis. No edema. NEUROLOGICAL: Awake and alert. No obvious cranial nerve deficits. Motor grossly within normal limits. Normal speech. PSYCHIATRIC: Appropriate mood and affect; insight and judgment normal. Course Hospital Course: Troponin was also ordered. At this point, patient was given IV fluids, pain medications, and plan would be to admit the patient for sickle cell crisis as well as chest pain evaluation. Initial Documented Vital Signs Temperature 98.9 F 11/12/17 05:11 Pulse Rate 75 11/12/17 05:11 Respiratory Rate 16 11/12/17 05:11 Blood Pressure 195/0 H 11/12/17 05:11 Pulse Oximetry 98 11/12/17 05:11 Last Documented Vital Signs Temperature 98.9 F 11/12/17 05:11 Pulse Rate 75 11/12/17 05:11 Respiratory Rate 16 11/12/17 05:11 Blood Pressure 195/0 H 11/12/17 05:11 Pulse Oximetry 98 11/12/17 05:11 Medical Decision Making MDM Narrative Medical decision making narrative: Muscle spasms versus electrolyte abnormalities versus ACS versus sickle cell disease Lab Data Lab results reviewed: Yes I reviewed the patient's lab results. Result diagrams: 11/12/17 05:35 11/12/17 05:35 Lab Results 11/12/17 11/12/17 Range/Units 05:35 05:35 WBC 13.7 H (4.0-11.0) th/mm3 RBC 3.82 L (4.50-5.90) mil/mm3 Hgb 9.1 L (13.0-17.0) gm/dL Hct 28.8 L (39.0-51.0) % MCV 75.5 L (80.0-100.0) fL MCH 23.9 L (27.0-34.0) pg MCHC 31.6 L (32.0-36.0) % RDW 17.8 H (11.6-17.2) % Plt Count 234 (150-450) th/mm3 MPV 9.7 (7.0-11.0) fL Prelim Diff (Auto) Slide review pending Neut % (Auto) 71.1 H (16.0-70.0) % Lymph % (Auto) 4.2 L (9.0-44.0) % [place] % (Auto) 23.6 H (0.0-8.0) % Eos % (Auto) 0.4 (0.0-4.0) % Baso % (Auto) 0.7 (0.0-2.0) % Neut # (Auto) 9.7 H (1.8-7.7) th/mm3 Lymph # (Auto) 0.6 L (1.0-4.8) th/mm3 [place] # (Auto) 3.2 H (0.0-0.9) th/mm3 Eos # (Auto) 0.1 (0.0-0.4) th/mm3 Baso # (Auto) 0.1 (0.0-0.2) th/mm3 WBC Differential Manual diff final Seg Neuts % (Manual) 87 H (16-70) % Band Neuts % (Manual) 1 (0-6) % Lymphocytes % (Manual) 8 L (9-44) % Monocytes % (Manual) 2 (0-8) % Myelocytes % (Man) 2 H (0-0) % Abs Neuts (Manual) 12.3 H (1.8-7.7) th/mm3 Nucleated RBCs/100 WBC 9 H (0-0) /100 WBC Differential Comment . Platelet Estimate Normal (Normal) Platelet Morphology Normal (Normal) Polychromasia 2.8 H (0.0-1.9) % Sickle Cells 1+ H (None) Target Cells 2+ H (None) [place] Bodies Present H (None) Retic Count 4.9 H (0.4-3.0) % Absolute Retic 187.4 H (20.0-150.0) mil/L Sodium 141 (136-145) meq/L Potassium 4.6 (3.5-5.1) meq/L Chloride 109 H (98-107) meq/L Carbon Dioxide 21.4 (21.0-32.0) meq/L Anion Gap 11 (5-15) meq/L BUN 26 H (7-18) mg/dL Creatinine 1.54 H (0.60-1.30) mg/dL Estimated GFR 56 L (>89) mL/min Random Glucose 115 H (74-106) mg/dL Calcium 8.9 (8.5-10.1) mg/dL Total Bilirubin 1.0 (0.2-1.0) mg/dL AST 16 (15-37) U/L ALT 14 (12-78) U/L Alkaline Phosphatase 67 (45-117) U/L Total Protein 7.2 (6.4-8.2) g/dL Albumin 3.9 (3.4-5.0) g/dL Imaging Data Attestation: I personally reviewed and interpreted this imaging study as follows : Radiologist's impression: Chest X-Ray 11/12/17 05:38 CONCLUSION: 1. Mild compensated cardiomegaly. 2. Trace atelectasis and small pleural effusion at the left base. 3. No change mild biapical pleural thickening and scarring. Discharge Plan Discharge Disposition Patient Disposition: 30 Still Patient Discharge Condition Condition: Stable Discharge Details Anticipated Discharge Date: 11/12/17 Diagnosis: Atypical chest pain, Sickle cell anemia with crisis Physicians Team ED Provider: Ricardo Arteaga Primary Care Provider: Ashley Cisse Discharge Instructions Patient Printed Instructions: Chest Pain (ED) Status ED Status: With Doctor
[2017-11-12] MEDS ORDERED: Sod Chloride 0.9% Inj 1,000 ML IV.SIG SCH (05:45)
--- NOTE | 2017-11-12 06:14 | XR ---
EXAM DATE: 11/12/2017 6:05 AM EDT AGE/SEX: 62 years / Male INDICATIONS: Chest pain. CLINICAL DATA: This is the patient's initial encounter. Patient reports that signs and symptoms have been present for 1 day and indicates a pain score of 7/10. MEDICAL/SURGICAL HISTORY: Sickle Cell disease. Chronic obstructive pulmonary disease. Hyperte nsion. Splenectomy. Bilateral hip. COMPARISON: [facility], CHEST PA & LAT, 09/27/2016. . FINDINGS: Mild atelectasis and trace pleural effusion seen at the left lung base. Mild biapical pleural thicken ing/scarring unchanged. No pneumothorax. Mild cardiomegaly, slightly increased from before. CONCLUSION: 1. Mild compensated cardiomegaly. 2. Trace atelectasis and small pleural effusion at the left base. 3. No change mild biapical pleural thickening and scarring. Electronically signed by: Aaron Carrillo MD 11/12/2017 6:13 AM EDT
[2017-11-12 06:24] LABS: Baso # (Auto) 0.1 th/mm3 (0.0-0.2); Baso % (Auto) 0.7 % (0.0-2.0); Eos # (Auto) 0.1 th/mm3 (0.0-0.4); Eos % (Auto) 0.4 % (0.0-4.0); Hematocrit 28.8 % (39.0-51.0); Hemoglobin 9.1 gm/dL (13.0-17.0); Lymph # (Auto) 0.6 th/mm3 (1.0-4.8); Lymph % (Auto) 4.2 % (9.0-44.0); Mean Corpuscular HGB Conc 31.6 % (32.0-36.0); Mean Corpuscular Hemoglobin 23.9 pg (27.0-34.0); Mean Corpuscular Volume 75.5 fL (80.0-100.0); Mean Platelet Volume 9.7 fL (7.0-11.0); Mono # (Auto) 3.2 th/mm3 (0.0-0.9); Mono % (Auto) 23.6 % (0.0-8.0); Neut # (Auto) 9.7 th/mm3 (1.8-7.7); Neut % (Auto) 71.1 % (16.0-70.0); Platelet Count 234 th/mm3 (150-450); Red Blood Count 3.82 mil/mm3 (4.50-5.90); Red Cell Distribution Width 17.8 % (11.6-17.2); Reticulocyte Percent 4.9 % (0.4-3.0); White Blood Count 13.7 th/mm3 (4.0-11.0)
[2017-11-12 06:50] LABS: Albumin 3.9 g/dL (3.4-5.0); Anion Gap 11 meq/L (5-15); Aspartate Aminotransferase 16 U/L (15-37); Blood Urea Nitrogen 26 mg/dL (7-18); Calcium 8.9 mg/dL (8.5-10.1); Carbon Dioxide 21.4 meq/L (21.0-32.0); Chloride 109 meq/L (98-107); Glomerular Filtration Rate 56 mL/min (>89); Glucose,Random 115 mg/dL (74-106); Potassium 4.6 meq/L (3.5-5.1); Sodium 141 meq/L (136-145)
[2017-11-12 06:53] LABS: Alanine Aminotransferase 14 U/L (12-78); Alkaline Phosphatase 67 U/L (45-117); Total Protein 7.2 g/dL (6.4-8.2)
[2017-11-12 06:58] LABS: Lymphocytes 8 % (9-44); Monocytes 2 % (0-8); Myelocytes 2 % (0-0); Tallied Nucleated RBC 9 (0-0)
[2017-11-12 06:59] LABS: Platelet Estimate Normal (Normal); Platelet Morphology Normal (Normal); Sickle Cells 1+; Target Cells 2+
[2017-11-12 07:00] LABS: Howell-Jolly Bodies Present; Polychromasia 2.8 % (0.0-1.9)
[2017-11-12] MEDS ORDERED: Sod Chloride 0.9% Inj 1,000 ML IV.SIG ONE (07:04)
[2017-11-12] MEDS ORDERED: Morphine Inj 4 MG/ML Vial IV.PUSH ONE (07:04)
[2017-11-12] MEDS ORDERED: Morphine Sulfate Inj 8 MG/ML Vial IV.PUSH ONE (07:56)
[2017-11-12] MEDS ORDERED: Morphine Inj 4 MG/ML Vial IV.PUSH PRN (09:03)
[2017-11-12] MEDS ORDERED: Methadone 10 MG Tablet PO PRN (09:04)
--- NOTE | 2017-11-12 09:26 | P.HP ---
<Christina Li W - Last Filed: 11/12/17 20:11> History of Present Illness Primary Care Physician: Ashley Cisse MD Chief Complaint: Pain bilateral arms and chest History of Present Illness: This is a 62 year old male patient with a past medical history which includes COPD, sickle cell anemia, IgG Lambda MGUS, depression, osteonecrosis of bilateral hips and right arm cephalic vein thrombosis in 2017. Patient present to the ER with complaints of bilateral arm pain, chest pains that started through the night. Patient reports that the pain woke him up from sleep. He describes the pain as severe, constant and spasm-like in nature. Patient also has pain in his left leg. Patient reports this is typical of his previous sickle cell crisis in the past. Patient also reports it has been quite, "a while ," since his last crisis. He does not know any exacerbating or relieving factors. Per family patient recently has been on Lasix and prednisone x 5 days for BLE edema. Patient endorses pain/burning with urination. Patient denies any shortness of breath, cough, radiation of the pain, diaphoresis, N/V/D/C, fevers or chills. PAST MEDICAL HISTORY: COPD Hemoglobin SS disease IgG Lambda MGUS Mild depression Osteonecrosis of hips Right arm cephalic vein thrombosis in 2017 PAST SURGICAL HISTORY: Bilateral total hip arthroplasty Gastromectomy in 1975 Splenectomy in 1968 FAMILY HISTORY: Unknown per patient SOCIAL HISTORY: Mr. Guaman is denies ETOH use smokes 0.5 packs/day. - Diagnosis (1) Sickle cell anemia with crisis (2) Atypical chest pain Review of Systems All other systems reviewed negative except as stated in HPI PMFSH - History History Provided By: Patient - Medical History Medical History: Medical History (Last Reviewed 11/12/17 @ 05:41 by Ricardo Arteaga MD) DVT (deep venous thrombosis) Sickle cell anemia Venous stasis ulcer - Tobacco History Second Hand Smoke Exposure: No Smoking Status: Never smoker - Alcohol History How Often Do You Have a Drink Containing Alcohol: Never - Substance Use History Substance History: No History of Abuse - Travel History Recent Travel in the [place] Within the Last 8 Weeks: No Recent Travel Out of the Country Within the Last 8 Weeks: No - Immunization History Tetanus Immunization: <5 Years Hx Influenza Vaccine This Season: No Medications and Allergies Allergies Allergy/AdvReac Type Severity Reaction Status Date / Time No Known Allergies Allergy Verified 11/12/17 05:17 Home Medications Medication Instructions Recorded Confirmed Type furosemide 40 mg PO BID 11/12/17 11/12/17 History methadone 5 mg PO BID PRN 11/12/17 11/12/17 History oxycodone 10 mg PO Q4-6H PRN 11/12/17 11/12/17 History potassium chloride 20 meq PO BID 11/12/17 11/12/17 History prednisone 10 mg PO BID 11/12/17 11/12/17 History Active Medications: Active Medications Acetaminophen (Tylenol) 650 mg PO Q4H PRN PRN Reason: Temp > 100.4 Al Hydroxide/Mg Hydroxide (Milk Of Nadir Mackey) 30 ml PO Q12H PRN PRN Reason: Mild Constipation Sodium Chloride (1/2 Normal Saline Inj) 1,000 mls @ 100 mls/hr IV.CONT .Q10H ROSELYN Morphine Sulfate (Morphine Inj) 4 mg IV.PUSH Q4H PRN PRN Reason: PAIN 6-10;IF UNABLE TO TAKE PO Ondansetron HCl (Zofran Inj) 4 mg IV.PUSH Q6H PRN PRN Reason: NAUSEA OR VOMITING Senna/Docusate Sodium (Kelsie-Colace) 1 tab PO BID ROSELYN Exam Vital signs: Vital Signs 11/12/17 05:11 11/12/17 07:17 11/12/17 07:53 Temperature 98.9 F Pulse Rate 75 59 L Respiratory Rate 16 20 16 Blood Pressure 195/0 H 179/82 H Pulse Oximetry 98 99 Intake & Output 11/11/17 11/12/17 11/12/17 18:59 06:59 18:59 Weight 64.41 kg Narrative: GENERAL: This is a well-nourished, well-developed patient, in no apparent distress. CARDIOVASCULAR: Regular rate and rhythm without murmurs, gallops, or rubs. RESPIRATORY: Clear to auscultation. Breath sounds equal bilaterally. No wheezes , rales, or rhonchi. GASTROINTESTINAL: Abdomen soft, non-tender, nondistended. Normal active bowel sounds MUSCULOSKELETAL: Extremities without clubbing, cyanosis, or edema. NEURO: Alert & Oriented x4 to person, place, time, situation. Moves all ext x4 Results - Labs CBC & Chem 7: 11/12/17 05:35 11/12/17 05:35 Labs: Laboratory Results - last 24 hr 11/12/17 11/12/17 05:35 05:35 WBC 13.7 H RBC 3.82 L Hgb 9.1 L Hct 28.8 L MCV 75.5 L MCH 23.9 L MCHC 31.6 L RDW 17.8 H Plt Count 234 MPV 9.7 Prelim Diff (Auto) Slide review pending Neut % (Auto) 71.1 H Lymph % (Auto) 4.2 L [place] % (Auto) 23.6 H Eos % (Auto) 0.4 Baso % (Auto) 0.7 Neut # (Auto) 9.7 H Lymph # (Auto) 0.6 L [place] # (Auto) 3.2 H Eos # (Auto) 0.1 Baso # (Auto) 0.1 WBC Differential Manual diff final Seg Neuts % (Manual) 87 H Band Neuts % (Manual) 1 Lymphocytes % (Manual) 8 L Monocytes % (Manual) 2 Myelocytes % (Man) 2 H Abs Neuts (Manual) 12.3 H Nucleated RBCs/100 WBC 9 H Differential Comment . Platelet Estimate Normal Platelet Morphology Normal Polychromasia 2.8 H Sickle Cells 1+ H Target Cells 2+ H [place] Bodies Present H Retic Count 4.9 H Absolute Retic 187.4 H Sodium 141 Potassium 4.6 Chloride 109 H Carbon Dioxide 21.4 Anion Gap 11 BUN 26 H Creatinine 1.54 H Estimated GFR 56 L Random Glucose 115 H Calcium 8.9 Total Bilirubin 1.0 AST 16 ALT 14 Alkaline Phosphatase 67 Total Protein 7.2 Albumin 3.9 - Imaging Impressions Chest X-Ray 11/12/17 05:38 CONCLUSION: 1. Mild compensated cardiomegaly. 2. Trace atelectasis and small pleural effusion at the left base. 3. No change mild biapical pleural thickening and scarring. Caprini VTE Risk Assessment Caprini VTE Risk Assessment: Moderate/High Risk (score >= 2) Caprini Risk Assessment Model: Point Value = 1 Point Value = 2 Point Value = 3 Point Value = 5 Age 41-60 Minor surgery BMI > 25 kg/m2 Swollen legs Varicose veins or History of unexplained or recurrent spontaneous Oral contraceptives or hormone replacement Sepsis (< 1 month) Serious lung disease, including pneumonia (< 1 month) Abnormal pulmonary function Acute myocardial infarction Congestive heart failure (< 1 month) History of inflammatory bowel disease Medical patient at bed rest Age 61-74 Arthroscopic surgery Major open surgery (> 45 min) Laparoscopic surgery (> 45 min) Malignancy Confined to bed (> 72 hours) Immobilizing plaster cast Central venous access Age >= 75 History of VTE Family history of VTE Factor V Leiden Prothrombin [id number] Lupus anticoagulant Anticardiolipin antibodies Elevated serum homocysteine Heparin-induced thrombocytopenia Other congenital or acquired thrombophilia Stroke (< 1 month) Elective arthroplasty Hip, pelvis, or leg fracture Acute spinal cord injury (< 1 month) Prophylaxis Regimen: Total Risk Factor Score Risk Level Prophylaxis Regimen 0-1 Low Early ambulation 2 Moderate Order ONE of the following: *Sequential Compression Device (SCD) *Heparin 5000 units SQ BID 3-4 Higher Order ONE of the following medications: *Heparin 5000 units SQ TID *Enoxaparin/Lovenox 40 mg SQ daily (WT < 150 kg, CrCl > 30 mL/min) *Enoxaparin/Lovenox 30 mg SQ daily (WT < 150 kg, CrCl > 10-29 mL/min) *Enoxaparin/Lovenox 30 mg SQ BID (WT < 150 kg, CrCl > 30 mL/min) AND/OR *Sequential Compression Device (SCD) 5 or more Highest Order ONE of the following medications: *Heparin 5000 units SQ TID (Preferred with Epidurals) *Enoxaparin/Lovenox 40 mg SQ daily (WT < 150 kg, CrCl > 30 mL/min) *Enoxaparin/Lovenox 30 mg SQ daily (WT < 150 kg, CrCl > 10-29 mL/min) *Enoxaparin/Lovenox 30 mg SQ BID (WT < 150 kg, CrCl > 30 mL/min) AND *Sequential Compression Device (SCD) Assessment and Plan - Assessment (1) Sickle cell anemia with crisis Code(s): D57.00 - Hb-SS disease with crisis, unspecified Status: Acute Plan: Sickle cell crisis Atypical chest pain - likely related to sickle cell crisis, will R/O cardiac origin with serial troponin - This is a 62 year old male patient with a past medical history which includes COPD, sickle cell anemia, IgG Lambda MGUS, depression, osteonecrosis of bilateral hips and right arm cephalic vein thrombosis in 2017. Patient present to the ER with complaints of bilateral arm pain, chest pains that started through the night. - IVFs - continue patient's home Methadone 5 mg PO BID and Oxycodone 10 mg as needed - add Morphine for severe pain, patient reports morphine not helping will change to Dilaudid - supportive care - CBC in AM - serial troponin - patient does have elevated WBC 13.7 - CXR reviewed and reveals: 1. Mild compensated cardiomegaly. 2. Trace atelectasis and small pleural effusion at the left base. 3. No change mild biapical pleural thickening and scarring. - UA C&S ordered - fever 100.2 - blood cultures x 2 ordered - start Rocephin daily after blood cultures collected COPD - does not appear to be in acute exacerbation - Duonebs as needed Edema BUE - US BUE ordered - patient had previously been on eliquis due to clot in right cephalic vein in 2017. Patient has stopped eliquis due to upset stomach. DVT prophylaxis with Lovenox subQ (2) Atypical chest pain Code(s): R07.89 - Other chest pain Status: Acute <Maximo Cleveland - Last Filed: 11/16/17 00:46> History of Present Illness Primary Care Physician: Ashley Cisse MD - Diagnosis (1) Sickle cell anemia with crisis [facility] - Medical History Medical History: Medical History (Last Reviewed 11/12/17 @ 05:41 by Ricardo Arteaga MD) DVT (deep venous thrombosis) Sickle cell anemia Venous stasis ulcer Medications and Allergies Active Medications: Active Medications Acetaminophen (Tylenol) 650 mg PO Q4H PRN PRN Reason: Temp > 100.4 Last Admin: 11/15/17 18:05 Dose: 650 mg Al Hydroxide/Mg Hydroxide (Milk Of Magnesia Liq) 30 ml PO Q12H PRN PRN Reason: Mild Constipation Last Admin: 11/14/17 08:22 Dose: 30 ml Albuterol (Duoneb Neb (Prn)) 1 ampul NEB Q4HR NEB PRN PRN Reason: SHORTNESS OF BREATH/WHEEZING Azithromycin (Zithromax) 250 mg PO DAILY ROSELYN Last Admin: 11/15/17 08:00 Dose: 250 mg Clonidine HCl (Catapres) 0.1 mg PO Q6H PRN PRN Reason: systolic BP over 160 Enoxaparin Sodium (Lovenox Inj) 40 mg SQ DAILY ON LICENSE OF [facility] Last Admin: 11/15/17 08:00 Dose: 40 mg Folic Acid (Folic Acid) 1 mg PO DAILY ON LICENSE OF [facility] Last Admin: 11/15/17 07:59 Dose: 1 mg Hydromorphone HCl (Dilaudid Pf Inj) 1 mg IV.PUSH Q4H PRN PRN Reason: PAIN SCALE 6 TO 10 Last Admin: 11/15/17 23:13 Dose: 1 mg Sodium Chloride (1/2 Normal Saline Inj) 1,000 mls @ 100 mls/hr IV.CONT .Q10H ON LICENSE OF [facility] Last Admin: 11/15/17 17:53 Dose: Not Given Ceftriaxone Sodium 1,000 mg/ (Sodium Chloride) 100 mls @ 200 mls/hr IV.SIG Q24H ON LICENSE OF [facility] Last Admin: 11/15/17 20:09 Dose: 200 mls/hr Methadone HCl (Dolophine) 5 mg PO BID PRN PRN Reason: PAIN/WITHDRAWAL Last Admin: 11/12/17 10:37 Dose: 5 mg Multivitamins (Theragran) 1 tab PO DAILY ON LICENSE OF [facility] Last Admin: 11/15/17 08:00 Dose: 1 tab Ondansetron HCl (Zofran Odt) 4 mg SL Q6H PRN PRN Reason: NAUSEA OR VOMITING Oxycodone HCl (Roxicodone) 10 mg PO Q4H PRN PRN Reason: Pain 1-5 Last Admin: 11/15/17 21:44 Dose: 10 mg Senna/Docusate Sodium (Kelsie-Colace) 1 tab PO BID ON LICENSE OF [facility] Last Admin: 11/15/17 20:09 Dose: 1 tab Exam Vital signs: Vital Signs 11/15/17 04:00 11/15/17 08:00 11/15/17 16:19 Temperature 99.9 F H 100.4 F H 102.3 F H Pulse Rate 81 81 100 H Respiratory Rate 18 16 16 Blood Pressure 118/56 L 127/61 132/68 Pulse Oximetry 95 96 98 11/15/17 20:50 11/15/17 23:59 Temperature 98.9 F 100.3 F H Pulse Rate 79 88 Respiratory Rate 17 17 Blood Pressure 101/51 L 113/56 L Pulse Oximetry 98 98 Intake & Output 11/15/17 11/15/17 11/16/17 06:59 18:59 06:59 Intake Total 100 / 100 Balance 100 / 100 Intake: IV 100 / 100 Rocephin Inj 1,000 MG In NS Inj 100 / 100 100 ML @ 200 mls/hr IV.SIG Q24H ROSELYN Rx#:[id number] Other: # Voids 2 Date of Last Bowel Movement 11/14/17 11/13/17 11/13/17 Results - Labs CBC & Chem 7: 11/15/17 04:50 11/15/17 04:50 Labs: Laboratory Results - last 24 hr 11/15/17 11/15/17 04:50 04:50 WBC 14.1 H RBC 3.44 L Hgb 8.4 L Hct 26.3 L MCV 76.3 L MCH 24.5 L MCHC 32.1 RDW 17.0 Plt Count 212 MPV 9.5 Prelim Diff (Auto) Slide review pending Neut % (Auto) 80.0 H Lymph % (Auto) 3.3 L [place] % (Auto) 12.7 H Eos % (Auto) 3.2 Baso % (Auto) 0.8 Neut # (Auto) 11.3 H Lymph # (Auto) 0.5 L [place] # (Auto) 1.8 H Eos # (Auto) 0.4 Baso # (Auto) 0.1 WBC Differential Manual diff final Seg Neuts % (Manual) 72 H Band Neuts % (Manual) 1 Lymphocytes % (Manual) 9 Monocytes % (Manual) 9 H Eosinophils % (Manual) 9 H Abs Neuts (Manual) 10.3 H Nucleated RBCs/100 WBC 4 H Differential Comment . Platelet Estimate Normal Platelet Morphology Normal Polychromasia 2.0 H Sickle Cells 1+ H Ovalocytes 1+ H Sodium 141 Potassium 3.9 Chloride 108 H Carbon Dioxide 26.1 Anion Gap 7 BUN 13 Creatinine 1.04 Estimated GFR 88 L Random Glucose 95 Calcium 8.3 L Magnesium 2.6 H - Imaging Impressions Extremity Arterial Study 11/14/17 00:00 CONCLUSION: 1. ROMI on the right 0.76, 0.8 on the left 2. TBI on the right 0.52, 0.56 on the left 3. 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 Caprini VTE Risk Assessment Caprini Risk Assessment Model: Point Value = 1 Point Value = 2 Point Value = 3 Point Value = 5 Age 41-60 Minor surgery BMI > 25 kg/m2 Swollen legs Varicose veins or History of unexplained or recurrent spontaneous Oral contraceptives or hormone replacement Sepsis (< 1 month) Serious lung disease, including pneumonia (< 1 month) Abnormal pulmonary function Acute myocardial infarction Congestive heart failure (< 1 month) History of inflammatory bowel disease Medical patient at bed rest Age 61-74 Arthroscopic surgery Major open surgery (> 45 min) Laparoscopic surgery (> 45 min) Malignancy Confined to bed (> 72 hours) Immobilizing plaster cast Central venous access Age >= 75 History of VTE Family history of VTE Factor V Leiden Prothrombin [id number] Lupus anticoagulant Anticardiolipin antibodies Elevated serum homocysteine Heparin-induced thrombocytopenia Other congenital or acquired thrombophilia Stroke (< 1 month) Elective arthroplasty Hip, pelvis, or leg fracture Acute spinal cord injury (< 1 month) Prophylaxis Regimen: Total Risk Factor Score Risk Level Prophylaxis Regimen 0-1 Low Early ambulation 2 Moderate Order ONE of the following: *Sequential Compression Device (SCD) *Heparin 5000 units SQ BID 3-4 Higher Order ONE of the following medications: *Heparin 5000 units SQ TID *Enoxaparin/Lovenox 40 mg SQ daily (WT < 150 kg, CrCl > 30 mL/min) *Enoxaparin/Lovenox 30 mg SQ daily (WT < 150 kg, CrCl > 10-29 mL/min) *Enoxaparin/Lovenox 30 mg SQ BID (WT < 150 kg, CrCl > 30 mL/min) AND/OR *Sequential Compression Device (SCD) 5 or more Highest Order ONE of the following medications: *Heparin 5000 units SQ TID (Preferred with Epidurals) *Enoxaparin/Lovenox 40 mg SQ daily (WT < 150 kg, CrCl > 30 mL/min) *Enoxaparin/Lovenox 30 mg SQ daily (WT < 150 kg, CrCl > 10-29 mL/min) *Enoxaparin/Lovenox 30 mg SQ BID (WT < 150 kg, CrCl > 30 mL/min) AND *Sequential Compression Device (SCD) Assessment and Plan - Assessment (1) Sickle cell anemia with crisis Code(s): D57.00 - Hb-SS disease with crisis, unspecified Status: Acute - Attending Attestation Patient examined. Assessment and plan formulated with Christina NARVAEZ I agree with the above.
--- NOTE | 2017-11-12 10:20 | ECG ---
Date Performed: 11/12/2017 Time Performed: 05:34:24 PTAGE: 62 years EKG: Sinus rhythm BORDERLINE LEFT AXIS DEVIATION POSSIBLE RIGHT VENTRICULAR CONDUCTION DELAY BORDERLINE ECG PREVIOUS TRACING 09/23/2016 10.56 Since the previous tracing, no significant change noted DOCTOR: Jazz Garcia Interpretating Date/Time 11/12/2017 10:19:39
[2017-11-12] MEDS: Senna/Docusate Sodium 8.6/50 MG Tablet PO SCH ×2 (10:37→22:28)
[2017-11-12] MEDS: Sodium Chloride 0.45 % Inj 1,000 ML IV.CONT SCH ×2 (10:38→22:11)
[2017-11-12] MEDS: Enoxaparin Inj 40 MG/0.4 ML Syringe SQ SCH (16:06)
--- NOTE | 2017-11-12 17:30 | US ---
EXAM DATE: 11/12/2017 5:07 PM EDT AGE/SEX: 62 years / Male INDICATIONS: Bilateral arm swelling. CLINICAL DATA: This is the patient's initial encounter. Patient reports that signs and symptoms have been present for 1 week and indicates a pain score of 6/10. MEDICAL/SURGICAL HISTORY: . Deep vein thrombosis. Sickle cell anemia. Venous stasis ulcer. Non e. COMPARISON: No prior exams available for comparison. FINDINGS: Right Upper Extremity: There is thrombus within the cephalic vein. The internal jugular vein, subcla vian vein, axillary, brachial and basilic veins are patent. Left Upper Extremity: The vessels are compressible and augmentation response is documented. No filli ng defects are seen. The flow is phasic with respiration. Other: None. CONCLUSION: 1. Thrombus within the cephalic vein. Electronically signed by: Nikita Matos MD 11/12/2017 5:28 PM EDT
--- NOTE | 2017-11-12 20:52 | US ---
EXAM DATE: 11/12/2017 8:45 PM EDT AGE/SEX: 62 years / Male INDICATIONS: Bilateral leg swelling. CLINICAL DATA: This is the patient's subsequent encounter. Patient reports that signs and symptoms h ave been present for 1 day and indicates a pain score of 0/10. MEDICAL/SURGICAL HISTORY: . Deep vein thrombosis. Sickle cell anemia. Venous stasis ulcer. Non e. COMPARISON: [facility] – [place], [place] LEG LEFT VENOUS DOPPLER, 02/09/2011. . TECHNIQUE: Venous ultrasound of both lower extremities was performed from the inguinal ligament to t he proximal calf. Real-time, color Doppler and spectral tracing, compression and augmentation techni ques were used. FINDINGS: Right Leg: Normal compression of the deep venous system from the inguinal region to the proximal rocky f. No echogenic clot is seen. Normal response of the venous system to augmentation and respiration. Left Leg: Normal compression of the deep venous system from the inguinal region to the proximal calf . No echogenic clot is seen. Normal response of the venous system to augmentation and respiration. Other: None. CONCLUSION: 1. The study is negative for bilateral lower extremity deep venous thrombosis. Electronically signed by: Iker Vásquez MD 11/12/2017 8:50 PM EDT
[2017-11-12] MEDS: HYDROmorphone PF Inj 2 MG/ML Vial IV.PUSH PRN (21:12)
[2017-11-12] MEDS: Acetaminophen 325 MG Tablet PO PRN (22:11)
[2017-11-12 23:58] LABS: Bilirubin,Urine Negative (Negative); Clarity,Urine Clear (Clear); Color,Urine Yellow (Yellw/Straw); Glucose,Urine (UA) Negative (Negative); Leukocyte Esterase,Urine Negative (Negative); Mucus,Urine Few /lpf (Occasional); Nitrite,Urine Negative (Negative); Specific Gravity,Urine 1.008 (1.002-1.035)
[2017-11-13] MEDS: HYDROmorphone PF Inj 2 MG/ML Vial IV.PUSH PRN ×4 (03:24→22:19)
[2017-11-13] MEDS: Sodium Chloride 0.45 % Inj 1,000 ML IV.CONT SCH ×2 (06:32→16:05)
[2017-11-13 08:01] LABS: Hematocrit 25.4 % (39.0-51.0); Hemoglobin 8.2 gm/dL (13.0-17.0); Mean Corpuscular HGB Conc 32.3 % (32.0-36.0); Mean Corpuscular Hemoglobin 24.3 pg (27.0-34.0); Mean Corpuscular Volume 75.3 fL (80.0-100.0); Mean Platelet Volume 9.3 fL (7.0-11.0); Platelet Count 229 th/mm3 (150-450); Red Blood Count 3.37 mil/mm3 (4.50-5.90); Red Cell Distribution Width 18.1 % (11.6-17.2); White Blood Count 16.4 th/mm3 (4.0-11.0)
[2017-11-13 08:32] LABS: Calcium 8.4 mg/dL (8.5-10.1); Carbon Dioxide 25.5 meq/L (21.0-32.0); Chol/HDL Ratio 1.98 Ratio; HDL Cholesterol 66.4 mg/dL (40.0-60.0)
[2017-11-13] MEDS: Senna/Docusate Sodium 8.6/50 MG Tablet PO SCH ×2 (09:47→20:02)
[2017-11-13] MEDS: Enoxaparin Inj 40 MG/0.4 ML Syringe SQ SCH (09:47)
[2017-11-13 10:33] LABS: Lymphocytes 19 % (9-44); Metamyelocytes 1 % (0-1); Monocytes 19 % (0-8); Myelocytes 1 % (0-0); Tallied Nucleated RBC 43 (0-0)
[2017-11-13 10:34] LABS: Sickle Cells 1+; Target Cells 1+
[2017-11-13 10:35] LABS: Platelet Estimate Normal (Normal); Platelet Morphology Normal (Normal); Polychromasia 2.4 % (0.0-1.9)
[2017-11-13] MEDS: Acetaminophen 325 MG Tablet PO PRN (12:25)
--- NOTE | 2017-11-13 12:58 | P.PNIM ---
Subjective Interval history: Pt having increased pain and BP has been elevated today Pt running fevers with Tmax 102.6 this afternoon Physical Exam Vital signs: Vital Signs 11/12/17 15:56 11/12/17 16:00 11/13/17 00:00 Temperature 100.2 F H 100.3 F H Pulse Rate 65 65 Respiratory Rate 18 20 20 Blood Pressure 157/75 H 158/69 H Pulse Oximetry 95 93 L 11/13/17 04:25 11/13/17 04:55 11/13/17 08:00 Temperature 97.9 F 102.4 F H Pulse Rate 69 81 Respiratory Rate 18 18 20 Blood Pressure 156/71 H 207/98 H Pulse Oximetry 97 95 Intake & Output 11/12/17 11/13/17 11/13/17 18:59 06:59 18:59 Intake Total 360 / 360 2360 / 2360 Output Total 275 / 275 Balance 85 / 85 2360 / 2360 Weight 64.1 kg Intake: IV 1999 1/2 Normal Saline Inj 1,000 ML 1999 @ 100 mls/hr IV.CONT .Q10H [facility] Rx#:[id number] Oral 360 / 360 360 / 360 Output: Urine 275 / 275 Other: # Voids 1 6 Date of Last Bowel Movement 11/12/17 # Bowel Movements 1 0 Weight On Admission 64.41 kg Narrative: GENERAL: NAD, AAOx3 SKIN: Warm and dry. CARDIO: Regular rate and rhythm without murmurs, gallops, or rubs. RESP: Breath sounds equal bilaterally. No accessory muscle use. ABD: Abdomen soft, non-tender, nondistended. EXT: No cyanosis, or edema. Results - Labs CBC & Chem 7: 11/14/17 07:14 11/14/17 07:14 Laboratory Results - last 24 hr 11/12/17 11/12/17 11/12/17 16:35 21:20 23:50 WBC RBC Hgb Hct MCV MCH MCHC RDW Plt Count MPV Prelim Diff (Auto) WBC Differential Seg Neuts % (Manual) Lymphocytes % (Manual) Monocytes % (Manual) Basophils % (Manual) Metamyelocytes % (Man) Myelocytes % (Man) Abs Neuts (Manual) Nucleated RBCs/100 WBC Differential Comment Platelet Estimate Platelet Morphology Polychromasia Sickle Cells Target Cells Sodium Potassium Chloride Carbon Dioxide Anion Gap BUN Creatinine Estimated GFR Random Glucose Calcium Troponin I 0.04 0.04 Triglycerides Cholesterol LDL Cholesterol, Calc HDL Cholesterol Cholesterol/HDL Ratio Urine Color Yellow Urine Clarity Clear Urine pH 5.0 Ur Specific [place] 1.008 Urine Protein Negative Urine Glucose (UA) Negative Urine Ketones Negative Urine Occult Blood Negative Urine Nitrate Negative Urine Bilirubin Negative Urine Urobilinogen 2.0 H Ur Leukocyte Esterase Negative Urine RBC Less than 1 Urine WBC Less than 1 Urine Mucus Few H Micro UA Comment Culture not ind Urine Culture Comments Culture not ind 11/13/17 11/13/17 07:08 07:08 WBC 16.4 H RBC 3.37 L Hgb 8.2 L Hct 25.4 L MCV 75.3 L MCH 24.3 L MCHC 32.3 RDW 18.1 H Plt Count 229 MPV 9.3 Prelim Diff (Auto) Manual diff required WBC Differential Manual diff final Seg Neuts % (Manual) 59 Lymphocytes % (Manual) 19 Monocytes % (Manual) 19 H Basophils % (Manual) 1 Metamyelocytes % (Man) 1 Myelocytes % (Man) 1 H Abs Neuts (Manual) 10.0 H Nucleated RBCs/100 WBC 43 H Differential Comment . Platelet Estimate Normal Platelet Morphology Normal Polychromasia 2.4 H Sickle Cells 1+ H Target Cells 1+ H Sodium 140 Potassium 4.0 Chloride 107 Carbon Dioxide 25.5 Anion Gap 8 BUN 11 Creatinine 1.12 Estimated GFR 81 L Random Glucose 98 Calcium 8.4 L Troponin I Triglycerides 74 Cholesterol 132 LDL Cholesterol, Calc 51 HDL Cholesterol 66.4 H Cholesterol/HDL Ratio 1.98 Urine Color Urine Clarity Urine pH Ur Specific [place] Urine Protein Urine Glucose (UA) Urine Ketones Urine Occult Blood Urine Nitrate Urine Bilirubin Urine Urobilinogen Ur Leukocyte Esterase Urine RBC Urine WBC Urine Mucus Micro UA Comment Urine Culture Comments Microbiology 11/12/17 20:13 Blood - Peripheral Aerobic Blood Culture - Preliminary No growth in 1 day 11/12/17 20:13 Blood - Peripheral Anaerobic Blood Culture - Preliminary No growth in 1 day 11/12/17 20:07 Blood - Peripheral Aerobic Blood Culture - Preliminary No growth in 1 day 11/12/17 20:07 Blood - Peripheral Anaerobic Blood Culture - Preliminary No growth in 1 day - Imaging Impressions Venous Doppler Study 11/12/17 00:00 CONCLUSION: 1. Thrombus within the cephalic vein. Venous Doppler Study 11/12/17 00:00 CONCLUSION: 1. The study is negative for bilateral lower extremity deep venous thrombosis. Assessment and Plan - Assessment (1) Sickle cell anemia with crisis Code(s): D57.00 - Hb-SS disease with crisis, unspecified Status: Acute Plan: Sickle cell crisis Atypical chest pain - likely related to sickle cell crisis, will R/O cardiac origin with serial troponin - This is a 62 year old male patient with a past medical history which includes COPD, sickle cell anemia, IgG Lambda MGUS, depression, osteonecrosis of bilateral hips and right arm cephalic vein thrombosis in 2017. Patient present to the ER with complaints of bilateral arm pain, chest pains that started through the night. - IVFs - Continue patient's home Methadone 5 mg PO BID and Oxycodone 10 mg Q4H as needed - Dilaudid PRN - Pts labs at admission noted Hgb 9.1/Hct 28.8 - Repeat labs on 11/13 noted Hgb 8.2/Hct 25.4 - Serial troponin were negative - Patient does have elevated WBC 13.7 (11/12) --> 16.4 (11/13) - CXR (11/12/17): 1. Mild compensated cardiomegaly. 2. Trace atelectasis and small pleural effusion at the left base. 3. No change mild biapical pleural thickening and scarring. - UA was negative - Pt has continued to be febrile, fever 102.6 on 11/13 - Tylenol PRN - Blood cultures (11/12) with NGTD - Cont. Rocephin - Add Azithromycin - Add Ofirmev 1,000mg IV Q6H - Consult Hematology - ?adding Hydroxyurea, defer to hematology COPD - Does not appear to be in acute exacerbation - Duonebs as needed Edema BUE - UE Venous Doppler Study (11/12/17) 1. Thrombus within the cephalic vein. - LE Venous Doppler Study (11/12/17) 1. The study is negative for bilateral lower extremity deep venous thrombosis. - Patient had previously been on Eliquis due to clot in right cephalic vein in 2017. Patient has stopped Eliquis due to upset stomach. DVT prophylaxis with Lovenox subQ (2) Atypical chest pain Code(s): R07.89 - Other chest pain Status: Acute - Attending Attestation Patient examined. Assessment and plan formulated with Vanesa NARVAEZ I agree with the above.
--- NOTE | 2017-11-13 14:50 | ECG ---
Date Performed: 11/12/2017 Time Performed: 18:51:50 PTAGE: 62 years EKG: Sinus rhythm BORDERLINE LEFT AXIS DEVIATION Slight right ventricular conduction disturbance disturbance. Since pr evious tracing, no significant change noted BORDERLINE ECG PREVIOUS TRACING : 11/12/2017 05.34 DOCTOR: Miguel Rascon Interpretating Date/Time 11/13/2017 14:50:06
[2017-11-13] MEDS ORDERED: Azithromycin 250 MG Tablet PO ONE (15:00)
[2017-11-13] MEDS: Folic Acid 1 MG Tablet PO SCH (16:03)
--- NOTE | 2017-11-14 03:18 | P.CON ---
History of Present Illness Service: Hematology Consult date: 11/13/17 Reason for Consult: Sickle cell crisis Primary Care Provider: Ashley Cisse MD Family Provider: Ashley Cisse MD Chief Complaint: Pain bilateral arms and chest History of Present Illness: This is a 62-year-old male with a history of hemoglobin SS disease. He currently sees Dr. Dyer in the hematology clinic. Patient has been on hydroxyurea 1000 mg daily for several years. Patient has recently developed ulcers in his bilateral lower extremities. Hydroxyurea can have skin manifestations including eczema and ulcers in the extremities. In light of this fact his Hydrea was recently decreased to 500 mg daily. He was seen by a dividing machine operator. According to the patient he was told that he has eczema on his neck and upper trunk. This rash has now resolved. Patient now presents to the emergency department with pain all over. He states that this is not very typical of his usual sickle cell crisis pain. He rarely has episodes of sickle cell crisis. On this admission he has been having fever and leukocytosis. His hemoglobin is 8.2. Total bilirubin is normal. Reticulocyte count is elevated to 4.9. On admission he had a chest x-ray which revealed mild compensated cardiomegaly. There was a trace pleural effusion and left base. Patient was started on IV cefepime. Blood cultures were drawn which have been negative thus far. UA was obtained on admission which was negative. Patient told me that he has a history of cardiac murmur. He states that he has never seen a financial project manager. He states that he has never had any cardiac issues. At this time the patient appears comfortable. He denies any shortness of breath or chest pain. He does not have any heart palpitations. His oxygen saturations are at 96% on room air. Review of Systems All other systems reviewed negative except as stated in HPI PMFSH - History History Provided By: Patient, Family Member - Medical History Medical History: Medical History (Last Updated 11/14/17 @ 15:50 by Kt Gore MD) Venous stasis ulcer (Acute) DVT (deep venous thrombosis) (Acute) Sickle cell anemia (Acute) - Tobacco History Second Hand Smoke Exposure: No Tobacco Use In Past 30 Days: Yes Smoking Status: Current every day smoker Tobacco Type: Cigarettes - Alcohol History How Often Do You Have a Drink Containing Alcohol: Monthly or less - Substance Use History Substance History: No History of Abuse - Travel History Recent Travel in the [place] Within the Last 8 Weeks: No Recent Travel Out of the Country Within the Last 8 Weeks: No - Immunization History Tetanus Immunization: <5 Years Hx Influenza Vaccine This Season: No Medications and Allergies Active Medications: Active Medications Acetaminophen (Tylenol) 650 mg PO Q4H PRN PRN Reason: Temp > 100.4 Last Admin: 11/13/17 12:25 Dose: 650 mg Al Hydroxide/Mg Hydroxide (Milk Of Nadir Liq) 30 ml PO Q12H PRN PRN Reason: Mild Constipation Albuterol (Duoneb Neb (Prn)) 1 ampul NEB Q4HR NEB PRN PRN Reason: SHORTNESS OF BREATH/WHEEZING Azithromycin (Zithromax) 250 mg PO DAILY [facility] Clonidine HCl (Catapres) 0.1 mg PO Q6H PRN PRN Reason: systolic BP over 160 Enoxaparin Sodium (Lovenox Inj) 40 mg SQ DAILY [facility] Last Admin: 11/13/17 09:47 Dose: 40 mg Folic Acid (Folic Acid) 1 mg PO DAILY [facility] Last Admin: 11/13/17 16:03 Dose: 1 mg Hydromorphone HCl (Dilaudid Pf Inj) 1 mg IV.PUSH Q4H PRN PRN Reason: PAIN SCALE 6 TO 10 Last Admin: 11/13/17 22:19 Dose: 1 mg Sodium Chloride (1/2 Normal Saline Inj) 1,000 mls @ 100 mls/hr IV.CONT .Q10H [facility] Last Admin: 11/13/17 16:05 Dose: 100 mls/hr Ceftriaxone Sodium 1,000 mg/ (Sodium Chloride) 100 mls @ 200 mls/hr IV.SIG Q24H [facility] Last Admin: 11/13/17 20:01 Dose: 200 mls/hr Acetaminophen (Ofirmev Inj) 1,000 mg in 100 mls @ 400 mls/hr IV.SIG Q6H [facility] Stop: 11/14/17 08:14 Last Admin: 11/14/17 01:43 Dose: 400 mls/hr Methadone HCl (Dolophine) 5 mg PO BID PRN PRN Reason: PAIN/WITHDRAWAL Last Admin: 11/12/17 10:37 Dose: 5 mg Multivitamins (Theragran) 1 tab PO DAILY [facility] Last Admin: 11/13/17 16:03 Dose: 1 tab Ondansetron HCl (Zofran Odt) 4 mg SL Q6H PRN PRN Reason: NAUSEA OR VOMITING Oxycodone HCl (Roxicodone) 10 mg PO Q4H PRN PRN Reason: Pain 1-5 Last Admin: 11/14/17 01:43 Dose: 10 mg Senna/Docusate Sodium (Kelsie-Colace) 1 tab PO BID [facility] Last Admin: 11/13/17 20:02 Dose: 1 tab Allergies Allergy/AdvReac Type Severity Reaction Status Date / Time No Known Allergies Allergy Verified 11/12/17 05:17 Home Medications Medication Instructions Recorded Confirmed Type furosemide 40 mg PO BID 11/12/17 11/12/17 History methadone 5 mg PO BID PRN 11/12/17 11/12/17 History oxycodone 10 mg PO Q4-6H PRN 11/12/17 11/12/17 History potassium chloride 20 meq PO BID 11/12/17 11/12/17 History prednisone 10 mg PO BID 11/12/17 11/12/17 History Physical Exam Vital signs: Vital Signs 11/13/17 04:25 11/13/17 04:55 11/13/17 08:00 Temperature 97.9 F 102.4 F H Pulse Rate 69 81 Respiratory Rate 18 18 20 Blood Pressure 156/71 H 207/98 H Pulse Oximetry 97 95 11/13/17 12:00 11/13/17 16:00 11/13/17 20:00 Temperature 101.5 F H 100.2 F H 100 F H Pulse Rate 77 70 80 Respiratory Rate 20 19 20 Blood Pressure 175/76 H 176/75 H 181/80 H Pulse Oximetry 94 L 94 L 11/13/17 20:35 11/14/17 00:00 11/14/17 00:16 Temperature 100.8 F H Pulse Rate 83 Respiratory Rate 18 18 18 Blood Pressure 154/70 H Pulse Oximetry 94 L 11/14/17 00:18 Temperature Pulse Rate Respiratory Rate 18 Blood Pressure Pulse Oximetry Intake & Output 11/13/17 11/13/17 11/14/17 06:59 18:59 06:59 Intake Total 2460 / 2460 1820 / 1820 100 / 100 Balance 2460 / 2460 1820 / 1820 100 / 100 Weight 64.1 kg Intake: IV 2100 / 2099 1100 / 1100 100 / 100 1/2 Normal Saline Inj 1,000 ML 2000 / 2000 1000 / 1000 @ 100 mls/hr IV.CONT .Q10H [facility] Rx#:[id number] Ofirmev Inj 1,000 mg In 100 ml 100 / 100 100 / 100 @ 400 mls/hr IV.SIG Q6H [facility] Rx# :[id number] Rocephin Inj 1,000 MG In NS Inj 100 / 100 100 ML @ 200 mls/hr IV.SIG Q24H [facility] Rx#:[id number] Oral 360 / 360 720 / 720 Other: # Voids 6 20 Date of Last Bowel Movement 11/12/17 11/12/17 11/12/17 # Bowel Movements 0 0 Weight On Admission 64.41 kg - Constitutional no acute distress - Routine HEENT Exam Head: Present: normocephalic Eye: Present: EOMI, PERRL - Routine Neck Exam Present: supple, normal carotid upstroke, trachea midline - Routine Respiratory Exam Present: CTA bilaterally - Routine Cardiovascular Exam Present: RRR, S1, S2, murmur Comments: Cardiac thrill present - Routine Skin Exam Present: intact, dry, warm - Routine Neurological Exam Present: alert, oriented X3, CN II-XII intact - Routine Psychiatric Exam Present: normal affect, normal thought process Assessment and Plan - Assessment (1) Atypical chest pain Code(s): R07.89 - Other chest pain Status: Acute (2) Sickle cell anemia with crisis Code(s): D57.00 - Hb-SS disease with crisis, unspecified Status: Acute (3) Venous stasis ulcer Code(s): I83.009 - Varicose veins of unspecified lower extremity with ulcer of unspecified site; L97.909 - Non-pressure chronic ulcer of unspecified part of unspecified lower leg with unspecified severity Status: Acute (4) Sickle cell anemia Code(s): D57.1 - Sickle-cell disease without crisis Status: Acute - Plan 62-year-old male with a history of hemoglobin SS disease, presents with acute crisis: 1. Acute vaso-occlusive crisis in patient with a history of hemoglobin SS disease Surprisingly his hemoglobin is quite high for someone with SS disease. His total bilirubin was normal on admission but has gone up to 2. There is no indication for transfusion at this time. He is having bone pain which he describes it as all over. He states that this is somewhat atypical of his usual crisis. He does have a fever. I agree with IV antibiotics. Follow blood cultures. Start folic acid 1 mg p.o. daily. Encourage incentive spirometry. Hold Hydrea in the setting of acute crisis. IV hydration. Repeat chest x-ray in a.m. Pain control Obtain daily CBC, total bilirubin, LDH and reticulocyte count #2 cardiac thrill-- This needs to be further investigated. I would recommend obtaining a 2D echocardiogram. #3 lower extremity ulcers -Based on the clinic notes he has a history of venous stasis. However I think that ulcers may be related to Hydrea. It would also be worth obtaining an ankle brachial index. Currently, there is no open wound and no drainage. The affected area appears dry and the skin is intact. He did have a Doppler ultrasound on admission without any evidence of DVT Dr. Dyer we will follow-up on this patient on Wednesday.
[2017-11-14] MEDS: Sodium Chloride 0.45 % Inj 1,000 ML IV.CONT SCH ×2 (05:34→12:39)
[2017-11-14] MEDS: HYDROmorphone PF Inj 2 MG/ML Vial IV.PUSH PRN ×4 (05:43→22:08)
[2017-11-14] MEDS: Enoxaparin Inj 40 MG/0.4 ML Syringe SQ SCH (08:21)
[2017-11-14] MEDS: Senna/Docusate Sodium 8.6/50 MG Tablet PO SCH ×2 (08:22→20:14)
[2017-11-14] MEDS: Folic Acid 1 MG Tablet PO SCH (08:22)
[2017-11-14] MEDS: Azithromycin 250 MG Tablet PO SCH (08:23)
[2017-11-14 08:28] LABS: Baso # (Auto) 0.1 th/mm3 (0.0-0.2); Baso % (Auto) 0.5 % (0.0-2.0); Eos # (Auto) 0.2 th/mm3 (0.0-0.4); Eos % (Auto) 0.9 % (0.0-4.0); Hematocrit 29.4 % (39.0-51.0); Hemoglobin 9.2 gm/dL (13.0-17.0); Lymph # (Auto) 0.4 th/mm3 (1.0-4.8); Lymph % (Auto) 2.6 % (9.0-44.0); Mean Corpuscular HGB Conc 31.3 % (32.0-36.0); Mean Corpuscular Hemoglobin 23.8 pg (27.0-34.0); Mean Corpuscular Volume 75.9 fL (80.0-100.0); Mean Platelet Volume 9.5 fL (7.0-11.0); Mono # (Auto) 3.9 th/mm3 (0.0-0.9); Mono % (Auto) 23.1 % (0.0-8.0); Neut # (Auto) 12.2 th/mm3 (1.8-7.7); Neut % (Auto) 72.9 % (16.0-70.0); Platelet Count 241 th/mm3 (150-450); Red Blood Count 3.87 mil/mm3 (4.50-5.90); Red Cell Distribution Width 17.8 % (11.6-17.2); White Blood Count 16.7 th/mm3 (4.0-11.0)
[2017-11-14 08:56] LABS: Alanine Aminotransferase 15 U/L (12-78); Albumin 3.4 g/dL (3.4-5.0); Alkaline Phosphatase 101 U/L (45-117); Amylase 40 U/L (25-115); Anion Gap 9 meq/L (5-15); Aspartate Aminotransferase 37 U/L (15-37); Blood Urea Nitrogen 12 mg/dL (7-18); Calcium 8.6 mg/dL (8.5-10.1); Carbon Dioxide 24.7 meq/L (21.0-32.0); Chloride 107 meq/L (98-107); Glomerular Filtration Rate 88 mL/min (>89); Glucose,Random 87 mg/dL (74-106); Lipase 84 U/L (73-393); Potassium 3.8 meq/L (3.5-5.1); Sodium 141 meq/L (136-145); Total Protein 6.8 g/dL (6.4-8.2)
[2017-11-14 10:43] LABS: Eosinophils 5 % (0-4); Lymphocytes 7 % (9-44); Metamyelocytes 1 % (0-1); Monocytes 6 % (0-8); Platelet Estimate Normal (Normal); Platelet Morphology Normal (Normal); Tallied Nucleated RBC 12 (0-0)
[2017-11-14 10:45] LABS: Polychromasia 2.4 % (0.0-1.9); Sickle Cells 1+; Target Cells 1+
[2017-11-14 10:46] LABS: Howell-Jolly Bodies Present
--- NOTE | 2017-11-14 15:07 | P.PNIM ---
Subjective Interval history: Pt c/o ongoing b/l chest pain & pain at both arms. Pt complaints that he finds the blood pressure cuff very painful. Physical Exam Vital signs: Vital Signs 11/14/17 04:00 11/14/17 08:00 11/14/17 12:00 Temperature 98.6 F 102.4 F H 97.3 F L Pulse Rate 83 89 107 H Respiratory Rate 20 21 21 Blood Pressure 162/72 H 136/60 135/58 L Pulse Oximetry 96 96 96 Narrative: GENERAL: NAD, AAOx3 SKIN: Warm and dry. CARDIO: Regular rate and rhythm without murmurs, gallops, or rubs. RESP: Breath sounds equal bilaterally. No accessory muscle use. ABD: Abdomen soft, non-tender, nondistended. EXT: No cyanosis, or edema. Results - Labs CBC & Chem 7: 11/14/17 07:14 11/14/17 07:14 11/12/17 20:13 Blood - Peripheral Aerobic Blood Culture - Preliminary No growth in 2 days 11/12/17 20:13 Blood - Peripheral Anaerobic Blood Culture - Preliminary No growth in 2 days 11/12/17 20:07 Blood - Peripheral Aerobic Blood Culture - Preliminary No growth in 2 days 11/12/17 20:07 Blood - Peripheral Anaerobic Blood Culture - Preliminary No growth in 2 days - Imaging Venous Doppler Study 11/12/17 00:00 CONCLUSION: 1. Thrombus within the cephalic vein. Venous Doppler Study 11/12/17 00:00 CONCLUSION: 1. The study is negative for bilateral lower extremity deep venous thrombosis. Chest X-Ray 11/12/17 05:38 CONCLUSION: 1. Mild compensated cardiomegaly. 2. Trace atelectasis and small pleural effusion at the left base. 3. No change mild biapical pleural thickening and scarring. Assessment and Plan - Assessment (1) Sickle cell anemia with crisis Code(s): D57.00 - Hb-SS disease with crisis, unspecified Status: Acute Plan: Sickle cell crisis Atypical chest pain - likely related to sickle cell crisis, will R/O cardiac origin with serial troponin - This is a 62 year old male patient with a past medical history which includes COPD, sickle cell anemia, IgG Lambda MGUS, depression, osteonecrosis of bilateral hips and right arm cephalic vein thrombosis in 2017. Patient present to the ER with complaints of bilateral arm pain, chest pains that started through the night. - IVFs - Continue patient's home Methadone 5 mg PO BID and Oxycodone 10 mg Q4H as needed - Dilaudid PRN - Pts labs at admission noted Hgb 9.1/Hct 28.8 - Repeat labs on 11/13 noted Hgb 8.2/Hct 25.4 - Serial troponin were negative - Patient does have elevated WBC 13.7 (11/12) --> 16.4 (11/13) - CXR (11/12/17): 1. Mild compensated cardiomegaly. 2. Trace atelectasis and small pleural effusion at the left base. 3. No change mild biapical pleural thickening and scarring. - UA was negative - Tmax 102.4 at 8AM on 11/14 - Tylenol PRN - Blood cultures (11/12) with NGTD - Rocephin (11/12 - present) - Add Azithromycin (11/13 - present) - Ofirmev 1,000mg IV Q6H x 24 hours, completed - Appreciate input from Hematology. Case d/w Dr. Gore (11/14/17) - thrill of PE, obtain Echocardiogram - total bili increased to 2.0 (11/14) COPD - Does not appear to be in acute exacerbation - Duonebs as needed Edema BUE - UE Venous Doppler Study (11/12/17) 1. Thrombus within the cephalic vein. - LE Venous Doppler Study (11/12/17) 1. The study is negative for bilateral lower extremity deep venous thrombosis. - Patient had previously been on Eliquis due to clot in right cephalic vein in 2017. Patient has stopped Eliquis due to upset stomach. - continue daily lovenox DVT prophylaxis with Lovenox subQ (2) Atypical chest pain Code(s): R07.89 - Other chest pain Status: Acute
[2017-11-14] MEDS: Acetaminophen 325 MG Tablet PO PRN (22:06)
[2017-11-15] MEDS: Sodium Chloride 0.45 % Inj 1,000 ML IV.CONT SCH ×3 (01:28→17:53)
[2017-11-15 05:48] LABS: Baso # (Auto) 0.1 th/mm3 (0.0-0.2); Baso % (Auto) 0.8 % (0.0-2.0); Eos # (Auto) 0.4 th/mm3 (0.0-0.4); Eos % (Auto) 3.2 % (0.0-4.0); Hematocrit 26.3 % (39.0-51.0); Hemoglobin 8.4 gm/dL (13.0-17.0); Lymph # (Auto) 0.5 th/mm3 (1.0-4.8); Lymph % (Auto) 3.3 % (9.0-44.0); Mean Corpuscular HGB Conc 32.1 % (32.0-36.0); Mean Corpuscular Hemoglobin 24.5 pg (27.0-34.0); Mean Corpuscular Volume 76.3 fL (80.0-100.0); Mean Platelet Volume 9.5 fL (7.0-11.0); Mono # (Auto) 1.8 th/mm3 (0.0-0.9); Mono % (Auto) 12.7 % (0.0-8.0); Neut # (Auto) 11.3 th/mm3 (1.8-7.7); Platelet Count 212 th/mm3 (150-450); Red Blood Count 3.44 mil/mm3 (4.50-5.90); White Blood Count 14.1 th/mm3 (4.0-11.0)
[2017-11-15 06:10] LABS: Calcium 8.3 mg/dL (8.5-10.1); Carbon Dioxide 26.1 meq/L (21.0-32.0); Magnesium 2.6 mg/dL (1.5-2.5); Potassium 3.9 meq/L (3.5-5.1)
[2017-11-15] MEDS: HYDROmorphone PF Inj 2 MG/ML Vial IV.PUSH PRN ×5 (06:28→23:13)
[2017-11-15 07:13] LABS: Eosinophils 9 % (0-4); Lymphocytes 9 % (9-44); Monocytes 9 % (0-8); Platelet Estimate Normal (Normal); Platelet Morphology Normal (Normal); Tallied Nucleated RBC 4 (0-0)
[2017-11-15 07:15] LABS: Ovalocytes 1+; Sickle Cells 1+
[2017-11-15] MEDS: Folic Acid 1 MG Tablet PO SCH (07:59)
[2017-11-15] MEDS: Senna/Docusate Sodium 8.6/50 MG Tablet PO SCH ×2 (08:00→20:09)
[2017-11-15] MEDS: Azithromycin 250 MG Tablet PO SCH (08:00)
[2017-11-15] MEDS: Enoxaparin Inj 40 MG/0.4 ML Syringe SQ SCH (08:00)
--- NOTE | 2017-11-15 09:24 | P.PNONC ---
Subjective Interval history: Patient seen and examined. He reports his pain in the upper extremities and across the chest persists. He report a cough producing scant phlegm, the chest pain is worse when he coughs. The pt feels his current symptoms are not typical for his chronic symptoms related to SCD. He tells me he has not had a pain crisis such as this since he was perhaps in his 20's or 30's. Of note, his diffuse skin rash and leg swelling which had been an issue the week before last have near completely resolved with oral prednisone which he completed on Wednesday last week. He has not been on hydroxyurea since mid September 2017. Objective Vital Signs/Intake & Output: Vital Signs 11/14/17 12:00 11/14/17 14:00 11/14/17 20:00 Temperature 97.3 F L 98.6 F 101.9 F H Pulse Rate 107 H 82 90 Respiratory Rate 21 22 18 Blood Pressure 135/58 L 176/47 H 147/68 H Pulse Oximetry 96 96 96 11/15/17 00:00 11/15/17 04:00 Temperature 99.1 F 99.9 F H Pulse Rate 73 81 Respiratory Rate 18 18 Blood Pressure 141/67 H 118/56 L Pulse Oximetry 97 95 Intake & Output 11/14/17 11/15/17 11/15/17 18:59 06:59 18:59 Intake Total 1000 / 1000 Output Total 250 / 250 Balance 750 / 750 Intake: IV 1000 / 1000 1/2 Normal Saline Inj 1,000 ML 1000 / 1000 @ 100 mls/hr IV.CONT .Q10H [facility] Rx#:[id number] Output: Urine 250 / 250 Other: Date of Last Bowel Movement 11/14/17 11/14/17 Result Diagrams: 11/15/17 04:50 11/15/17 04:50 Laboratory Results: Laboratory Results - last 24 hr 11/14/17 11/15/17 11/15/17 07:14 04:50 04:50 WBC 14.1 H RBC 3.44 L Hgb 8.4 L Hct 26.3 L MCV 76.3 L MCH 24.5 L MCHC 32.1 RDW 17.0 Plt Count 212 MPV 9.5 Prelim Diff (Auto) Slide review pending Neut % (Auto) 80.0 H Lymph % (Auto) 3.3 L [place] % (Auto) 12.7 H Eos % (Auto) 3.2 Baso % (Auto) 0.8 Neut # (Auto) 11.3 H Lymph # (Auto) 0.5 L [place] # (Auto) 1.8 H Eos # (Auto) 0.4 Baso # (Auto) 0.1 WBC Differential Manual diff final Manual diff final Seg Neuts % (Manual) 80 H 72 H Band Neuts % (Manual) 1 1 Lymphocytes % (Manual) 7 L 9 Monocytes % (Manual) 6 9 H Eosinophils % (Manual) 5 H 9 H Metamyelocytes % (Man) 1 Abs Neuts (Manual) 13.7 H 10.3 H Nucleated RBCs/100 WBC 12 H 4 H Differential Comment . Platelet Estimate Normal Normal Platelet Morphology Normal Normal Polychromasia 2.4 H 2.0 H Sickle Cells 1+ H 1+ H Target Cells 1+ H Ovalocytes 1+ H [place] Bodies Present H Sodium 141 Potassium 3.9 Chloride 108 H Carbon Dioxide 26.1 Anion Gap 7 BUN 13 Creatinine 1.04 Estimated GFR 88 L Random Glucose 95 Calcium 8.3 L Magnesium 2.6 H Culture Results: Microbiology 11/12/17 20:13 Aerobic Blood Culture - Preliminary Blood - Peripheral No growth in 2 days Anaerobic Blood Culture - Preliminary No growth in 2 days 11/12/17 20:07 Aerobic Blood Culture - Preliminary Blood - Peripheral No growth in 2 days Anaerobic Blood Culture - Preliminary No growth in 2 days Medications: Active Medications Generic Name Dose Route Start Last Admin Trade Name Freq PRN Reason Stop Dose Admin Acetaminophen 650 mg 11/12/17 08:59 11/14/17 22:06 Tylenol PO 650 mg Q4H PRN Administration Temp > 100.4 Al Hydroxide/Mg Hydroxide 30 ml 11/12/17 08:59 11/14/17 08:22 Milk Of Magnesia Liq PO 30 ml Q12H PRN Administration Mild Constipation Azithromycin 250 mg 11/14/17 09:00 11/15/17 08:00 Zithromax PO 250 mg DAILY [facility] Administration Enoxaparin Sodium 40 mg 11/12/17 15:00 11/15/17 08:00 Lovenox Inj SQ 40 mg DAILY [facility] Administration Folic Acid 1 mg 11/13/17 13:30 11/15/17 07:59 Folic Acid PO 1 mg DAILY [facility] Administration Hydromorphone HCl 1 mg 11/13/17 13:42 07/23/18 06:28 Dilaudid Pf Inj IV.PUSH 1 mg Q4H PRN Administration PAIN SCALE 6 TO 10 Sodium Chloride 1,000 mls @ 100 mls/hr 11/12/17 09:00 11/15/17 06:28 1/2 Normal Saline Inj IV.CONT 100 mls/hr .Q10H [facility] Administration Ceftriaxone Sodium 1,000 mg/ 100 mls @ 200 mls/hr 11/12/17 20:00 11/14/17 20: 15 Sodium Chloride IV.SIG 200 mls/hr Q24H [facility] Administration Methadone HCl 5 mg 11/12/17 09:04 11/12/17 10:37 Dolophine PO 5 mg BID PRN Administration PAIN/WITHDRAWAL Multivitamins 1 tab 11/13/17 13:30 11/15/17 08:00 Theragran PO 1 tab DAILY [facility] Administration Oxycodone HCl 10 mg 11/12/17 09:04 11/15/17 07:55 Roxicodone PO 10 mg Q4H PRN Administration Pain 1-5 Senna/Docusate Sodium 1 tab 11/12/17 09:00 11/15/17 08:00 Kelsie-Colace PO 1 tab BID [facility] Administration Objective Remarks: GENERAL: Middle-aged/elderly male, laying in bed, not acutely distressed.. SKIN: Warm and dry, skin rash noted in early/mid October has completely resolved. HEAD: Normocephalic. EYES: No scleral icterus. No injection or drainage. Conjunctivae are mildly pale. NECK: Supple, trachea midline. No JVD or lymphadenopathy. LYMPHATIC: No adenopathy. CARDIOVASCULAR: Tachycardic, loud S1 and S2, systolic murmur. RESPIRATORY: Good air movement of the upper and middle lung zones, decreased bibasilar breath sounds no wheezing, rhonchi or crepitus. GASTROINTESTINAL: Thin abdomen, abdomen soft, non-tender, nondistended. EXTREMITIES: No cyanosis, or edema, generally decreased muscle mass. MUSCULOSKELETAL: Adequate tone, generally decreased muscle mass. NEUROLOGICAL: No obvious focal deficit. Awake, alert, and oriented x3. PSYCHIATRIC: Appropriate mood and affect; insight and judgment normal. Assessment/Plan (1) Atypical chest pain Code(s): R07.89 - Other chest pain Status: Acute (2) Sickle cell anemia with crisis Code(s): D57.00 - Hb-SS disease with crisis, unspecified Status: Acute (3) Venous stasis ulcer Code(s): I83.009 - Varicose veins of unspecified lower extremity with ulcer of unspecified site; L97.909 - Non-pressure chronic ulcer of unspecified part of unspecified lower leg with unspecified severity Status: Acute (4) Sickle cell anemia Code(s): D57.1 - Sickle-cell disease without crisis Status: Acute - Plan Mr. Guaman is a very pleasant 62-year-old man with a diagnosis of hemoglobin sickle cell disease, he has been on hydroxyurea for decades and has typically tolerated this well. With hydroxyurea and chronic stable opioid dosing he has largely avoided major sickle cell related pain crises. He does however have significant sequelae of sickle cell disease including premature degenerative arthritis requiring joint replacement. Over the past several weeks the patient has had various symptoms which have been difficult to attribute to any specific issue however, the chronology is as follows: In mid September he developed a sore in his leg, this was assessed to be infected by his primary care physician. The patient was provided a prescription for ciprofloxacin. After completing 10 days of ciprofloxacin his leg ulcer healed however he developed generalized edema more so in his legs and a maculopapular rash all over his body. At about the same time he was evaluated in the hematology clinic by my nurse practitioner and was advised discontinuation of hydroxyurea as that was assessed to be a possible contributing factor. The patient's edema and rash did not resolve despite coming off of hydroxyurea and persisted for weeks. In mid October approximately 3 weeks from the onset of the symptoms I saw the patient and assessed him as having developed possible drug related rash; possibly related to ciprofloxacin. I prescribed him at that time corticosteroid therapy with prednisone 40 mg daily for 5 days. Interestingly his symptoms of rash and edema completely resolved but 5 days of treatment, treatment was completed on 11/09/2017. 2 days later he developed pain involving both of his upper extremities and across the mid chest. He came into the emergency department for evaluation and has been initiated on empiric antibiotics and hydration as well as pain control. Some of his symptoms have improved. Recommendations: 1. Pain in the upper extremities: Likely related to sickle cell disease. Continue methadone and hydromorphone. 2. Fever: Continue empiric antibiotic therapy with ceftriaxone and azithromycin. Blood cultures have been drawn and are pending final results. If his fevers do not resolve in the upcoming days I would recommend imaging studies of the thorax and the upper extremities to rule out pulmonary emboli and /or avascular necrosis. 3. Skin rash: Has completely resolved. Continue ongoing care. Discussed extensively with the patient and his .
[2017-11-15] MEDS: Acetaminophen 325 MG Tablet PO PRN ×2 (10:28→18:05)
--- NOTE | 2017-11-15 11:09 | P.PNIM ---
Subjective Interval history: Pt continues to have the same chest pain and shoulder pain but it feels less severe today Pt has pain with deep breathing or with movement. Physical Exam Vital signs: Vital Signs 11/14/17 12:00 11/14/17 14:00 11/14/17 20:00 Temperature 97.3 F L 98.6 F 101.9 F H Pulse Rate 107 H 82 90 Respiratory Rate 21 22 18 Blood Pressure 135/58 L 176/47 H 147/68 H Pulse Oximetry 96 96 96 11/15/17 00:00 11/15/17 04:00 Temperature 99.1 F 99.9 F H Pulse Rate 73 81 Respiratory Rate 18 18 Blood Pressure 141/67 H 118/56 L Pulse Oximetry 97 95 Intake & Output 11/14/17 11/15/17 11/15/17 18:59 06:59 18:59 Intake Total 1000 / 1000 Output Total 250 / 250 Balance 750 / 750 Intake: IV 1000 / 1000 1/2 Normal Saline Inj 1,000 ML 1000 / 1000 @ 100 mls/hr IV.CONT .Q10H [facility] Rx#:[id number] Output: Urine 250 / 250 Other: Date of Last Bowel Movement 11/14/17 11/14/17 Narrative: GENERAL: NAD, AAOx3 SKIN: Warm and dry. CARDIO: Regular RESP: Breath sounds equal bilaterally. ABD: Abdomen soft, non-tender, nondistended. EXT: No cyanosis, or edema. Results - Labs CBC & Chem 7: 11/15/17 04:50 11/15/17 04:50 Laboratory Results - last 24 hr 11/15/17 11/15/17 04:50 04:50 WBC 14.1 H RBC 3.44 L Hgb 8.4 L Hct 26.3 L MCV 76.3 L MCH 24.5 L MCHC 32.1 RDW 17.0 Plt Count 212 MPV 9.5 Prelim Diff (Auto) Slide review pending Neut % (Auto) 80.0 H Lymph % (Auto) 3.3 L [place] % (Auto) 12.7 H Eos % (Auto) 3.2 Baso % (Auto) 0.8 Neut # (Auto) 11.3 H Lymph # (Auto) 0.5 L [place] # (Auto) 1.8 H Eos # (Auto) 0.4 Baso # (Auto) 0.1 WBC Differential Manual diff final Seg Neuts % (Manual) 72 H Band Neuts % (Manual) 1 Lymphocytes % (Manual) 9 Monocytes % (Manual) 9 H Eosinophils % (Manual) 9 H Abs Neuts (Manual) 10.3 H Nucleated RBCs/100 WBC 4 H Differential Comment . Platelet Estimate Normal Platelet Morphology Normal Polychromasia 2.0 H Sickle Cells 1+ H Ovalocytes 1+ H Sodium 141 Potassium 3.9 Chloride 108 H Carbon Dioxide 26.1 Anion Gap 7 BUN 13 Creatinine 1.04 Estimated GFR 88 L Random Glucose 95 Calcium 8.3 L Magnesium 2.6 H Microbiology 11/12/17 20:13 Blood - Peripheral Aerobic Blood Culture - Preliminary No growth in 2 days 11/12/17 20:13 Blood - Peripheral Anaerobic Blood Culture - Preliminary No growth in 2 days 11/12/17 20:07 Blood - Peripheral Aerobic Blood Culture - Preliminary No growth in 2 days 11/12/17 20:07 Blood - Peripheral Anaerobic Blood Culture - Preliminary No growth in 2 days Assessment and Plan - Assessment (1) Sickle cell anemia with crisis Code(s): D57.00 - Hb-SS disease with crisis, unspecified Status: Acute Plan: Sickle cell crisis Atypical chest pain - likely related to sickle cell crisis, will R/O cardiac origin with serial troponin - This is a 62 year old male patient with a past medical history which includes COPD, sickle cell anemia, IgG Lambda MGUS, depression, osteonecrosis of bilateral hips and right arm cephalic vein thrombosis in 2017. Patient present to the ER with complaints of bilateral arm pain, chest pains that started through the night. - IVFs - Continue patient's home Methadone 5 mg PO BID and Oxycodone 10 mg Q4H as needed - Dilaudid PRN - Pts labs at admission noted Hgb 9.1/Hct 28.8 - Repeat labs on 11/13 noted Hgb 8.2/Hct 25.4 - Serial troponin were negative - Patient does have elevated WBC 13.7 (11/12) --> 16.4 (11/13) - CXR (11/12/17): 1. Mild compensated cardiomegaly. 2. Trace atelectasis and small pleural effusion at the left base. 3. No change mild biapical pleural thickening and scarring. - UA was negative - Tmax 102.4 at 8AM on 11/14 - Tylenol PRN - Blood cultures (11/12) with NGTD - Rocephin (11/12 - present) - Azithromycin (11/13 - present) - Ofirmev 1,000mg IV Q6H x 24 hours, completed - Appreciate input from Hematology. Case d/w Dr. Gore (11/14/17) - 2D Echocardiogram was ordered on 11/14 - Labs noted an increase in total bili to 2.0 (11/14) - If fevers persist Hematology recommending evaluation with CTA Chest to assess for possible PE or AVN COPD - Does not appear to be in acute exacerbation - Duonebs as needed Edema BUE - UE Venous Doppler Study (11/12/17) 1. Thrombus within the cephalic vein. - LE Venous Doppler Study (11/12/17) 1. The study is negative for bilateral lower extremity deep venous thrombosis. - Patient had previously been on Eliquis due to clot in right cephalic vein in 2016. Patient has stopped Eliquis due to upset stomach. - continue daily Lovenox DVT prophylaxis with Lovenox subQ The exam, history, and the medical decision-making described in the above note were completed with the assistance of the mid-level provider. I reviewed and agree with the findings presented. I attest that I had a [id number] encounter with the patient on the same day, and personally performed and documented my assessment and findings in the medical record. cont current rx. if still fever tomorrow or significant pain then considering cta chest. (2) Atypical chest pain Code(s): R07.89 - Other chest pain Status: Acute
--- NOTE | 2017-11-15 13:22 | ECHRPT ---
EXAM DATE: 11/15/2017 1:09 PM EDT AGE/SEX: 62 years / Male INDICATIONS: CHEST PAIN CLINICAL DATA: This is the patient's initial encounter. Patient reports that signs and symptoms have been present for 1 month and indicates a pain score of 8/10. MEDICAL/SURGICAL HISTORY: . VENOUS STATIS ULCER, DVT ACUTE, SICK CELL AMEMIA . NA COMPARISON: No prior exams available for comparison. TECHNIQUE: Four-cuff ankle and brachial pressures were obtained. Pulse cuff waveform tracings of the ankles were recorded, and ankle-brachial indices were calculated. PRESSURES (mmHg): Brachial (arm) : RIGHT: NO BP'S IN R, LEFT: 103 Ankle : RIGHT: 78, LEFT: 82 Toe : RIGHT: 54, LEFT: 58 ROMI : RIGHT: 0.76, LEFT: 0.80 FINDINGS: Pulsed-Cuff Waveform: Blunted pulse wave tracings right when compared to the left Other: None. CONCLUSION: 1. ROMI on the right 0.76, 0.8 on the left 2. TBI on the right 0.52, 0.56 on the left 3. 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 Electronically signed by: Calvin Sandy MD 11/15/2017 1:21 PM EDT
[2017-11-16] MEDS: Acetaminophen 325 MG Tablet PO PRN ×2 (04:12→16:51)
[2017-11-16] MEDS: HYDROmorphone PF Inj 2 MG/ML Vial IV.PUSH PRN ×4 (04:13→22:37)
[2017-11-16] MEDS: Sodium Chloride 0.45 % Inj 1,000 ML IV.CONT SCH ×2 (07:35→18:01)
[2017-11-16] MEDS: Folic Acid 1 MG Tablet PO SCH (08:32)
[2017-11-16] MEDS: Azithromycin 250 MG Tablet PO SCH (08:32)
[2017-11-16] MEDS: Senna/Docusate Sodium 8.6/50 MG Tablet PO SCH ×2 (08:32→20:56)
[2017-11-16] MEDS: Enoxaparin Inj 40 MG/0.4 ML Syringe SQ SCH (08:34)
--- NOTE | 2017-11-16 10:47 | P.PNIM ---
Subjective Interval history: pt convinced there may be an ongoing infection lurking in his right ankle overall his chest and arm pains are better today. Physical Exam Vital signs: Vital Signs 11/15/17 16:19 11/15/17 20:50 11/15/17 23:59 Temperature 102.3 F H 98.9 F 100.3 F H Pulse Rate 100 H 79 88 Respiratory Rate 16 17 17 Blood Pressure 132/68 101/51 L 113/56 L Pulse Oximetry 98 98 98 11/16/17 00:00 11/16/17 04:06 11/16/17 08:00 Temperature 102.2 F H 99.4 F Pulse Rate 76 Respiratory Rate 16 18 Blood Pressure 100/53 L Pulse Oximetry 94 L Intake & Output 11/15/17 11/16/17 11/16/17 18:59 06:59 18:59 Intake Total 1000 / 1000 480 / 480 Output Total 475 / 475 Balance 1000 / 1000 5 / 5 Weight 64.1 kg Intake: IV 1000 / 1000 1/2 Normal Saline Inj 1,000 ML 1000 / 1000 @ 100 mls/hr IV.CONT .Q10H [facility] Rx#:[id number] Oral 480 / 480 Output: Urine 475 / 475 Other: # Voids 2 Date of Last Bowel Movement 11/13/17 11/13/17 # Bowel Movements 0 nad in chair heart reg lung cta abd s/nt ext right ankle no open wounds or drainage Results - Labs CBC & Chem 7: 11/15/17 04:50 11/15/17 04:50 Microbiology 11/12/17 20:13 Blood - Peripheral Aerobic Blood Culture - Preliminary No growth in 3 days 11/12/17 20:13 Blood - Peripheral Anaerobic Blood Culture - Preliminary No growth in 3 days 11/12/17 20:07 Blood - Peripheral Aerobic Blood Culture - Preliminary No growth in 3 days 11/12/17 20:07 Blood - Peripheral Anaerobic Blood Culture - Preliminary No growth in 3 days - Imaging Impressions Extremity Arterial Study 11/14/17 00:00 CONCLUSION: 1. ROMI on the right 0.76, 0.8 on the left 2. TBI on the right 0.52, 0.56 on the left 3. 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 Assessment and Plan - Assessment (1) Sickle cell anemia with crisis Code(s): D57.00 - Hb-SS disease with crisis, unspecified Status: Acute Plan: Sickle cell crisis Atypical chest pain - likely related to sickle cell crisis, will R/O cardiac origin with serial troponin - This is a 62 year old male patient with a past medical history which includes COPD, sickle cell anemia, IgG Lambda MGUS, depression, osteonecrosis of bilateral hips and right arm cephalic vein thrombosis in 2017. Patient present to the ER with complaints of bilateral arm pain, chest pains that started through the night. - IVFs - Continue patient's home Methadone 5 mg PO BID and Oxycodone 10 mg Q4H as needed - Dilaudid PRN - Pts labs at admission noted Hgb 9.1/Hct 28.8 - Repeat labs on 11/13 noted Hgb 8.2/Hct 25.4 - Serial troponin were negative - Patient does have elevated WBC 13.7 (11/12) --> 16.4 (11/13) - CXR (11/12/17): 1. Mild compensated cardiomegaly. 2. Trace atelectasis and small pleural effusion at the left base. 3. No change mild biapical pleural thickening and scarring. - UA was negative - Blood cultures (11/12) with NGTD - Rocephin (11/12 - present) - Azithromycin (11/13 - present) - Appreciate input from Hematology. -2D Echocardiogram was ordered on 11/14 - Labs noted an increase in total bili to 2.0 (11/14) -overall pt pain seems to be a little better each day. still with high fevers. discussed with dr Dyer who suspected he might be having some bony infarcts. We agreed to get noncontrast CT chest to exclude infection. will get the xray of right ankle but no outward sign of infection around the ankle. Also of note we discussed the timing he stopped the hydrea...might have led to the pain crisis. COPD - Does not appear to be in acute exacerbation - Duonebs as needed Edema BUE - UE Venous Doppler Study (11/12/17) 1. Thrombus within the cephalic vein. - LE Venous Doppler Study (11/12/17) 1. The study is negative for bilateral lower extremity deep venous thrombosis. - Patient had previously been on Eliquis due to clot in right cephalic vein in 2017. Patient has stopped Eliquis due to upset stomach. - continue daily Lovenox DVT prophylaxis with Lovenox subQ
--- NOTE | 2017-11-16 14:38 | CT ---
EXAM DATE: 11/16/2017 2:19 PM EDT AGE/SEX: 62 years / Male INDICATIONS: Exclude infectious process, left side chest pain CLINICAL DATA: This is the patient's initial encounter. Patient reports that signs and symptoms have been present for 1 day and indicates a pain score of 6/10. MEDICAL/SURGICAL HISTORY: Chronic obstructive pulmonary disease. Sickle Cell disease. Splenectomy. Partial gastrectomy. RADIATION DOSE: 6.59 CTDI (mGy) COMPARISON: C, CHEST 1V SINGLE AP, 11/12/2017. . TECHNIQUE: Multiple contiguous axial images were obtained through the chest without contrast. Image s were obtained in suspended respiration using multiple row detector helical technique. Using automa tashia exposure control and adjustment of the mA and/or kV according to patient size, radiation dose was kept as low as reasonably achievable to obtain optimal diagnostic quality images. DICOM format imag e data is available electronically for review and comparison. FINDINGS: Lungs: There is dense consolidation in the right lower lobe with air bronchograms. There is mild con solidation in the left posterior lower lobe. Mediastinum: There is moderate cardiomegaly with small pericardial effusion. There is no evidence of adenopathy on this noncontrast exam. Pleurae: There are small bilateral pleural effusions now noted. Axillae: Unremarkable. Bony Structures: Unremarkable. Miscellaneous: The examination was extended to include the upper abdomen, and both adrenal glands ar e normal in size and configuration. CONCLUSION: 1. New dense consolidation in the right lower lobe most characteristic of pneumonia. 2. Mild consolidation in the posterior left lower lobe. 3. New small bilateral pleural effusions. 4. Moderate cardiomegaly with small pericardial effusion. Electronically signed by: Dylan Brito MD 11/16/2017 2:37 PM EDT
--- NOTE | 2017-11-16 15:09 | XR ---
EXAM DATE: 11/16/2017 3:03 PM EDT AGE/SEX: 62 years / Male INDICATIONS: Right ankle pain. Patient states he had a skin abscess. CLINICAL DATA: This is the patient's subsequent encounter. Patient reports that signs and symptoms h ave been present for 4 - 6 days and indicates a pain score of 3/10. MEDICAL/SURGICAL HISTORY: Chronic obstructive pulmonary disease. . Sickle Cell disease. Splenec addison. Partial gastrectomy. . Splenectomy. Partial gastrectomy. COMPARISON: No prior exams available for comparison. FINDINGS: Limited AP and lateral views of the right ankle were obtained and demonstrate diffuse soft tissue pro minence. There is no radiopaque foreign body the bony structures are intact. There is no destructive change or periosteal new bone formation. CONCLUSION: Diffuse soft tissue prominence. Electronically signed by: Dylan Brito MD 11/16/2017 3:07 PM EDT
[2017-11-17] MEDS: Acetaminophen 325 MG Tablet PO PRN ×2 (00:16→10:57)
[2017-11-17] MEDS: HYDROmorphone PF Inj 2 MG/ML Vial IV.PUSH PRN ×5 (03:19→22:10)
[2017-11-17] MEDS: Sodium Chloride 0.45 % Inj 1,000 ML IV.CONT SCH ×3 (04:17→22:21)
[2017-11-17] MEDS: Folic Acid 1 MG Tablet PO SCH (09:08)
[2017-11-17] MEDS: Senna/Docusate Sodium 8.6/50 MG Tablet PO SCH ×2 (09:08→22:12)
[2017-11-17] MEDS: Azithromycin 250 MG Tablet PO SCH (09:08)
[2017-11-17] MEDS: Enoxaparin Inj 40 MG/0.4 ML Syringe SQ SCH (09:09)
[2017-11-17 09:53] LABS: Baso % (Auto) 0.3 % (0.0-2.0); Eos # (Auto) 1.5 th/mm3 (0.0-0.4); Eos % (Auto) 9.6 % (0.0-4.0); Hematocrit 21.4 % (39.0-51.0); Lymph # (Auto) 0.3 th/mm3 (1.0-4.8); Mean Corpuscular HGB Conc 31.3 % (32.0-36.0); Mean Corpuscular Hemoglobin 23.6 pg (27.0-34.0); Mean Corpuscular Volume 75.4 fL (80.0-100.0); Mono # (Auto) 2.4 th/mm3 (0.0-0.9); Mono % (Auto) 15.9 % (0.0-8.0); Neut # (Auto) 11.1 th/mm3 (1.8-7.7); Neut % (Auto) 72.2 % (16.0-70.0); Platelet Count 252 th/mm3 (150-450); Red Blood Count 2.83 mil/mm3 (4.50-5.90); Red Cell Distribution Width 16.3 % (11.6-17.2); White Blood Count 15.3 th/mm3 (4.0-11.0)
--- NOTE | 2017-11-17 09:57 | P.PNIM ---
Subjective Interval history: Pt complains of continued pain in the right ankle He is coughing but not bring much up yet Pt still having fevers, Tmax 101.6 this morning Physical Exam Vital signs: Vital Signs 11/16/17 12:00 11/16/17 16:00 11/16/17 20:24 Temperature 99.1 F 102.6 F H 98.5 F Pulse Rate 77 84 67 Respiratory Rate 18 18 18 Blood Pressure 116/57 L 117/59 L 105/56 L Pulse Oximetry 92 L 95 97 11/16/17 23:06 11/16/17 23:26 11/17/17 04:32 Temperature 100.9 F H 99.4 F Pulse Rate 76 71 Respiratory Rate 17 18 18 Blood Pressure 126/60 110/51 L Pulse Oximetry 96 97 Intake & Output 11/16/17 11/17/17 11/17/17 18:59 06:59 18:59 Intake Total 1960 / 1960 1480 / 1480 1000 / 1000 Output Total 600 / 600 650 / 650 Balance 1360 / 1360 830 / 830 1000 / 1000 Weight 64.1 kg Intake: IV 1000 / 1000 1000 / 1000 1000 / 1000 1/2 Normal Saline Inj 1,000 ML 1000 / 1000 1000 / 1000 1000 / 1000 @ 100 mls/hr IV.CONT .Q10H [facility] Rx#:[id number] Oral 960 / 960 480 / 480 Output: Urine 600 / 600 650 / 650 Other: Date of Last Bowel Movement 11/16/17 # Bowel Movements 1 Narrative: GENERAL: NAD, AAOx3 SKIN: Warm and dry. CARDIO: Regular RESP: Breath sounds equal bilaterally. ABD: Abdomen soft, non-tender, nondistended. EXT: No cyanosis, or edema. Results - Labs CBC & Chem 7: 11/17/17 09:24 11/15/17 04:50 Microbiology 11/12/17 20:13 Blood - Peripheral Aerobic Blood Culture - Preliminary No growth in 4 days 11/12/17 20:13 Blood - Peripheral Anaerobic Blood Culture - Preliminary No growth in 4 days 11/12/17 20:07 Blood - Peripheral Aerobic Blood Culture - Preliminary No growth in 4 days 11/12/17 20:07 Blood - Peripheral Anaerobic Blood Culture - Preliminary No growth in 4 days - Imaging Impressions Ankle X-Ray 11/16/17 00:00 CONCLUSION: Diffuse soft tissue prominence. Chest CT 11/16/17 00:00 CONCLUSION: 1. New dense consolidation in the right lower lobe most characteristic of pneumonia. 2. Mild consolidation in the posterior left lower lobe. 3. New small bilateral pleural effusions. 4. Moderate cardiomegaly with small pericardial effusion. Assessment and Plan - Assessment (1) Sickle cell anemia with crisis Code(s): D57.00 - Hb-SS disease with crisis, unspecified Status: Acute Plan: Sickle cell crisis Atypical chest pain - likely related to sickle cell crisis, will R/O cardiac origin with serial troponin - This is a 62 year old male patient with a past medical history which includes COPD, sickle cell anemia, IgG Lambda MGUS, depression, osteonecrosis of bilateral hips and right arm cephalic vein thrombosis in 2017. Patient present to the ER with complaints of bilateral arm pain, chest pains that started through the night. - IVFs - Continue patient's home Methadone 5 mg PO BID and Oxycodone 10 mg Q4H as needed - Dilaudid PRN - Pts labs at admission noted Hgb 9.1/Hct 28.8 - Repeat labs on 11/13 noted Hgb 8.2/Hct 25.4 - Serial troponin were negative - Patient does have elevated WBC 13.7 (11/12) --> 16.4 (11/13) - CXR (11/12/17): 1. Mild compensated cardiomegaly. 2. Trace atelectasis and small pleural effusion at the left base. 3. No change mild biapical pleural thickening and scarring. - UA was negative - Blood cultures (11/12) with NGTD - Rocephin (11/12 - 11/17) - Azithromycin (11/13 - 11/17) - Appreciate input from Hematology. - 2D Echocardiogram was ordered on 11/14 - Labs noted an increase in total bili to 2.0 (11/14) - Overall pt pain seems to be a little better each day. - He was still with high fevers on 11/16 and mild fevers on 11/17 so far today - Chest CT (11/16/17) 1. New dense consolidation in the right lower lobe most characteristic of pneumonia. 2. Mild consolidation in the posterior left lower lobe. 3. New small bilateral pleural effusions. 4. Moderate cardiomegaly with small pericardial effusion. - Ankle X-Ray (11/16/17) - Diffuse soft tissue prominence. - Pt having more of a cough today and complains of continued ankle pain and is very concerned there may be an underlying nidus of infection in his ankle. - Check Ankle MRI - Change Abx to Cefepime and vancomycin - Add Duonebs scheduled and PRN - Add Mucomyst scheduled - Add Mucinex BID - Encourage IS - It was discussed between Dr. Sheriff and Dr. Dyer that the timing of when he stopped the Hydrea might have led to the pain crisis. COPD - Does not appear to be in acute exacerbation - Duonebs scheduled and as needed Edema BUE - UE Venous Doppler Study (11/12/17) 1. Thrombus within the cephalic vein. - LE Venous Doppler Study (11/12/17) 1. The study is negative for bilateral lower extremity deep venous thrombosis. - Patient had previously been on Eliquis due to clot in right cephalic vein in 2017. Patient has stopped Eliquis due to upset stomach. - continue daily Lovenox DVT prophylaxis with Lovenox subQ The exam, history, and the medical decision-making described in the above note were completed with the assistance of the mid-level provider. I reviewed and agree with the findings presented. I attest that I had a [id number] encounter with the patient on the same day, and personally performed and documented my assessment and findings in the medical record. Pt with sickle cell pain crisis. worsening anemia. cont pain meds. no transfusion per Dr Dyer right lung pna and smaller area of ?atelectasis left base. adjust abx for persistent fever. sputum cx. nebs. mucolytic. inc spirometer. pt continues to c/o right ankle area of recent ulceration. he is convinced there is a problems at that site. no ulcer noted. not warm or red. will get mri.
[2017-11-17 10:03] LABS: Hemoglobin 6.7 gm/dL (13.0-17.0)
[2017-11-17 10:43] LABS: Eosinophils 10 % (0-4); Lymphocytes 7 % (9-44); Metamyelocytes 1 % (0-1); Monocytes 3 % (0-8); Toxic Vacuolation Present
[2017-11-17 10:44] LABS: Target Cells 1+
[2017-11-17 10:45] LABS: Sickle Cells 1+
[2017-11-17 10:46] LABS: Howell-Jolly Bodies Present; Platelet Estimate Normal (Normal); Platelet Morphology Normal (Normal)
[2017-11-17] MEDS ORDERED: Vancomycin Inj 1,000 MG in Sodium Chlor 0.9% Inj 250 ML IV.SIG SCH (13:00)
[2017-11-17] MEDS ORDERED: Vancomycin Consult Pharmacy 1 EACH OTHER SCH (13:00)
[2017-11-17] MEDS: guaiFENesin 600 MG ER Tablet PO SCH ×2 (14:30→22:12)
--- NOTE | 2017-11-17 16:54 | ECHRPT ---
Indication: CHEST PAIN CONCLUSIONS Normal left ventricular size. Mild to moderate concentric left ventricular hypertrophy. The left ventricular systolic function is hyperdynamic with an estimated ejection fraction in the ra nge of 65- 70%. There is a trivial pericardial effusion present. BP: / HR: Rhythm: MEASUREMENTS (Male / Female) Normal Values Technical Quality: 2D ECHO LV Diastolic Diameter PLAX 4.1 cm 4.2 - 5.9 / 3.9 - 5.3 cm LV Systolic Diameter PLAX 2.6 cm IVS Diastolic Thickness 1.4 cm 0.6 - 1.0 / 0.6 - 0.9 cm LVPW Diastolic Thickness 1.1 cm 0.6 - 1.0 / 0.6 - 0.9 cm LV Relative Wall Thickness 0.6 RV Internal Dim ED PLAX 1.8 cm DOPPLER LVOT Peak Velocity 188.0 cm/s LVOT Peak Gradient 14.1 mmHg Mitral E Point Velocity 78.4 cm/s Mitral A Point Velocity 86.4 cm/s Mitral E to A Ratio 0.9 TR Peak Velocity 315.0 cm/s TR Peak Gradient 39.7 mmHg Right Atrial Pressure 10.0 mmHg Pulmonary Artery Systolic Pressu 49.7 mmHg Right Ventricular Systolic Press 49.7 mmHg FINDINGS LEFT VENTRICLE Normal left ventricular size. Mild to moderate concentric left ventricular hypertrophy. The left ventricular systolic function is hyperdynamic with an estimated ejection fraction in the ra nge of 65- 70%. RIGHT VENTRICLE Normal right ventricular size and systolic function. LEFT ATRIUM The left atrial size is normal. RIGHT ATRIUM The right atrial size is normal. ATRIAL SEPTUM Normal atrial septal thickness without atrial level shunting by limited color doppler interrogation. AORTA The aortic root and proximal ascending aorta are normal in size on limited imaging. MITRAL VALVE Structurally normal mitral valve. No mitral valve stenosis or regurgitation. AORTIC VALVE Trileaflet aortic valve. No aortic valve stenosis or regurgitation. TRICUSPID VALVE Structurally normal tricuspid valve. No tricuspid valve stenosis or regurgitation. PULMONARY VALVE No pulmonary valve regurgitation or stenosis. VESSELS The inferior vena cava is normal in size. PERICARDIUM There is a trivial pericardial effusion present. Patty Morin MD, FACC (Electronically Signed) Final Date:17 November 2017 16:53
[2017-11-17] MEDS ORDERED: Vancomycin Inj 1,250 MG in Sodium Chlor 0.9% Inj 250 ML IV.SIG SCH (17:00)
[2017-11-18] MEDS: HYDROmorphone PF Inj 2 MG/ML Vial IV.PUSH PRN ×5 (03:18→21:48)
[2017-11-18 05:21] LABS: Mean Corpuscular HGB Conc 31.5 % (32.0-36.0); Mean Corpuscular Hemoglobin 23.5 pg (27.0-34.0); Mean Corpuscular Volume 74.5 fL (80.0-100.0); Platelet Count 251 th/mm3 (150-450); Red Blood Count 2.54 mil/mm3 (4.50-5.90); Red Cell Distribution Width 16.1 % (11.6-17.2); White Blood Count 16.3 th/mm3 (4.0-11.0)
[2017-11-18 05:34] LABS: Hematocrit 18.9 % (39.0-51.0)
[2017-11-18 05:38] LABS: Calcium 7.9 mg/dL (8.5-10.1); Carbon Dioxide 21.4 meq/L (21.0-32.0); Potassium 3.8 meq/L (3.5-5.1)
[2017-11-18 07:01] LABS: Eosinophils 5 % (0-4); Lymphocytes 4 % (9-44); Monocytes 5 % (0-8)
[2017-11-18 07:02] LABS: Platelet Estimate Normal (Normal); Platelet Morphology Normal (Normal); Sickle Cells 1+; Target Cells 1+
[2017-11-18 07:03] LABS: Pappenheimer Bodies Present; Polychromasia 2.1 % (0.0-1.9)
[2017-11-18] MEDS ORDERED: Acetaminophen 325 MG Tablet PO ONE (08:35)
--- NOTE | 2017-11-18 08:35 | P.PNONC ---
Subjective Interval history: Patient seen and examined this morning, vital signs, labs, medications and imaging studies reviewed. Subjectively; patient reports feeling better, he thinks his pain is improved with oxycodone. His fevers are not quite as high in spiking, T-max of the past 24 hours was 101.1F which is significantly lower than the 102F fevers he was having previously. He reports pain along his right ankle, along the lateral aspect, he tells me it feels as if a venous stasis ulcer is going to recur. Overall his breathing feels more comfortable, he tells me he does not want to use the incentive spirometer. He is requesting a red cell transfusion, he tells me in the past when he has had pneumonia red cell transfusions tend to help speed up his recovery. Objective Vital Signs/Intake & Output: Vital Signs 11/17/17 12:00 11/17/17 16:00 11/17/17 16:46 Temperature 101.1 F H 100.1 F H Pulse Rate 71 75 72 Respiratory Rate 17 18 16 Blood Pressure 114/55 L 142/64 H Pulse Oximetry 96 95 11/17/17 20:00 11/17/17 20:13 11/18/17 00:00 Temperature 98.7 F 98.7 F Pulse Rate 74 70 68 Respiratory Rate 17 15 16 Blood Pressure 101/50 L 108/56 L Pulse Oximetry 96 98 11/18/17 00:26 11/18/17 04:36 Temperature Pulse Rate 70 77 Respiratory Rate 17 16 Blood Pressure Pulse Oximetry Intake & Output 11/17/17 11/18/17 11/18/17 18:59 06:59 18:59 Intake Total 1100 / 1100 1700 / 1700 Output Total 1000 / 1000 Balance 1100 / 1100 700 / 700 Intake: IV 1100 / 1100 1100 / 1100 1/2 Normal Saline Inj 1,000 ML 1000 / 1000 1000 / 1000 @ 100 mls/hr IV.CONT .Q10H [facility] Rx#:[id number] Maxipime Inj 2,000 MG In NS Inj 100 / 100 100 / 100 100 ML @ 200 mls/hr IV.SIG Q12H [facility] Rx#:[id number] Oral 600 / 600 Output: Urine 1000 / 1000 Other: # Voids 6 Date of Last Bowel Movement 11/16/17 11/16/17 # Bowel Movements 1 Result Diagrams: 11/18/17 04:45 11/18/17 04:45 Laboratory Results: Laboratory Results - last 24 hr 11/17/17 11/17/17 11/18/17 09:24 13:13 04:45 WBC 15.3 H 16.3 H RBC 2.83 L 2.54 L Hgb 6.7 L* 6.0 L* Hct 21.4 L 18.9 L* MCV 75.4 L 74.5 L MCH 23.6 L 23.5 L MCHC 31.3 L 31.5 L RDW 16.3 16.1 Plt Count 252 251 MPV 9.0 9.0 Prelim Diff (Auto) Slide review pending Manual diff required Neut % (Auto) 72.2 H Lymph % (Auto) 2.0 L [place] % (Auto) 15.9 H Eos % (Auto) 9.6 H Baso % (Auto) 0.3 Neut # (Auto) 11.1 H Lymph # (Auto) 0.3 L [place] # (Auto) 2.4 H Eos # (Auto) 1.5 H Baso # (Auto) 0.0 WBC Differential Manual diff final Manual diff final Seg Neuts % (Manual) 78 H 86 H Band Neuts % (Manual) 1 Lymphocytes % (Manual) 7 L 4 L Monocytes % (Manual) 3 5 Eosinophils % (Manual) 10 H 5 H Metamyelocytes % (Man) 1 Abs Neuts (Manual) 12.2 H 14.0 H Differential Comment . . Toxic Vacuolation Present H Platelet Estimate Normal Normal Platelet Morphology Normal Normal Polychromasia 2.1 H Pappenheimer Bodies Present H Sickle Cells 1+ H 1+ H Target Cells 1+ H 1+ H [place] Bodies Present H Sodium Potassium Chloride Carbon Dioxide Anion Gap BUN Creatinine Estimated GFR Random Glucose Calcium Lactate Dehydrogenase 385 H 11/18/17 04:45 WBC RBC Hgb Hct MCV MCH MCHC RDW Plt Count MPV Prelim Diff (Auto) Neut % (Auto) Lymph % (Auto) [place] % (Auto) Eos % (Auto) Baso % (Auto) Neut # (Auto) Lymph # (Auto) [place] # (Auto) Eos # (Auto) Baso # (Auto) WBC Differential Seg Neuts % (Manual) Band Neuts % (Manual) Lymphocytes % (Manual) Monocytes % (Manual) Eosinophils % (Manual) Metamyelocytes % (Man) Abs Neuts (Manual) Differential Comment Toxic Vacuolation Platelet Estimate Platelet Morphology Polychromasia Pappenheimer Bodies Sickle Cells Target Cells [place] Bodies Sodium 142 Potassium 3.8 Chloride 111 H Carbon Dioxide 21.4 Anion Gap 10 BUN 11 Creatinine 1.05 Estimated GFR 87 L Random Glucose 102 Calcium 7.9 L Lactate Dehydrogenase Culture Results: Microbiology 11/12/17 20:13 Aerobic Blood Culture - Final Blood - Peripheral No growth in 5 days Anaerobic Blood Culture - Final No growth in 5 days 11/12/17 20:07 Aerobic Blood Culture - Final Blood - Peripheral No growth in 5 days Anaerobic Blood Culture - Final No growth in 5 days Medications: Active Medications Generic Name Dose Route Start Last Admin Trade Name Freq PRN Reason Stop Dose Admin Acetaminophen 650 mg 11/12/17 08:59 11/17/17 10:57 Tylenol PO 650 mg Q4H PRN Administration Temp > 100.4 Acetylcysteine 2 ml 11/17/17 14:30 11/18/17 04:34 Mucomyst 20% Neb NEB 2 ml Q4HR NEB [facility] Administration Al Hydroxide/Mg Hydroxide 30 ml 11/12/17 08:59 11/14/17 08:22 Milk Of Magnesia Liq PO 30 ml Q12H PRN Administration Mild Constipation Albuterol 1 ampul 11/17/17 16:00 11/18/17 04:34 Duoneb Neb ([facility]) NEB 1 ampul Q4HR NEB [facility] Administration Enoxaparin Sodium 40 mg 11/12/17 15:00 11/17/17 09:09 Lovenox Inj SQ 40 mg DAILY [facility] Administration Folic Acid 1 mg 11/13/17 13:30 11/17/17 09:08 Folic Acid PO 1 mg DAILY [facility] Administration Guaifenesin 1,200 mg 11/17/17 14:30 11/17/17 22:12 Mucinex Er PO 1,200 mg BID [facility] Administration Hydromorphone HCl 1 mg 11/13/17 13:42 11/18/17 03:18 Dilaudid Pf Inj IV.PUSH 1 mg Q4H PRN Administration PAIN SCALE 6 TO 10 Cefepime HCl 2,000 mg/ Sodium 100 mls @ 200 mls/hr 11/17/17 15:00 11/18/17 04 :00 Chloride IV.SIG Infused Q12H [facility] Infusion Vancomycin HCl 1,250 mg/ 262.5 mls @ 250 mls/hr 11/17/17 17:00 11/17/17 17:00 Sodium Chloride IV.SIG 250 mls/hr Q24H [facility] Administration Sodium Chloride 1,000 mls @ 100 mls/hr 11/12/17 09:00 11/17/17 22:21 1/2 Normal Saline Inj IV.CONT 100 mls/hr .Q10H [facility] Administration Methadone HCl 5 mg 11/12/17 09:04 11/12/17 10:37 Dolophine PO 5 mg BID PRN Administration PAIN/WITHDRAWAL Multivitamins 1 tab 11/13/17 13:30 11/17/17 09:08 Theragran PO 1 tab DAILY [facility] Administration Oxycodone HCl 10 mg 11/12/17 09:04 11/16/17 08:32 Roxicodone PO 10 mg Q4H PRN Administration Pain 1-5 Senna/Docusate Sodium 1 tab 11/12/17 09:00 11/17/17 22:12 Kelsie-Colace PO 1 tab BID [facility] Administration Objective Remarks: GENERAL: Middle-aged male, tall and thin, sitting up at the bedside drinking coffee. He speaks to me in full sentences he is not acutely distressed. SKIN: Warm and dry. HEAD: Normocephalic. EYES: Conjunctivae are pale sclerae are mildly icteric. NECK: Supple, trachea midline. No JVD or lymphadenopathy. LYMPHATIC: No adenopathy. CARDIOVASCULAR: Tachycardic, S1-S2 faint systolic murmur, flow murmur. RESPIRATORY: Good air movement of the left lung, decreased breath sounds with inspiratory crepitus over the right base, no wheezes or rhonchi. GASTROINTESTINAL: Abdomen soft, non-tender, nondistended. EXTREMITIES: No cyanosis, trace edema noted, no evidence of venous stasis ulcers at this time. MUSCULOSKELETAL: Adequate muscle tone. NEUROLOGICAL: No obvious focal deficit. Awake, alert, and oriented x3, faint tremor of the upper extremity/hand. PSYCHIATRIC: Anxious disposition. Assessment/Plan (1) Atypical chest pain Code(s): R07.89 - Other chest pain Status: Acute (2) Sickle cell anemia with crisis Code(s): D57.00 - Hb-SS disease with crisis, unspecified Status: Acute (3) Venous stasis ulcer Code(s): I83.009 - Varicose veins of unspecified lower extremity with ulcer of unspecified site; L97.909 - Non-pressure chronic ulcer of unspecified part of unspecified lower leg with unspecified severity Status: Acute (4) Sickle cell anemia Code(s): D57.1 - Sickle-cell disease without crisis Status: Acute - Plan Mr. Guaman is a very pleasant 62-year-old man with a diagnosis of hemoglobin sickle cell disease, he has been on hydroxyurea for decades and has typically tolerated this well. With hydroxyurea and chronic stable opioid dosing he has largely avoided major sickle cell related pain crises. He does however have significant sequelae of sickle cell disease including premature degenerative arthritis requiring joint replacement. Over the past several weeks the patient has had various symptoms which have been difficult to attribute to any specific issue however, the chronology is as follows: In mid September he developed a sore in his leg, this was assessed to be infected by his primary care physician. The patient was provided a prescription for ciprofloxacin. After completing 10 days of ciprofloxacin his leg ulcer healed however he developed generalized edema more so in his legs and a maculopapular rash all over his body. At about the same time he was evaluated in the hematology clinic by my nurse practitioner and was advised discontinuation of hydroxyurea as that was assessed to be a possible contributing factor. The patient's edema and rash did not resolve despite coming off of hydroxyurea and persisted for weeks. In mid October approximately 3 weeks from the onset of the symptoms I saw the patient and assessed him as having developed possible drug related rash; possibly related to ciprofloxacin. I prescribed him at that time corticosteroid therapy with prednisone 40 mg daily for 5 days. Interestingly his symptoms of rash and edema completely resolved but 5 days of treatment, treatment was completed on 11/09/2017. 2 days later he developed pain involving both of his upper extremities and across the mid chest. He came into the emergency department for evaluation and has been initiated on empiric antibiotics and hydration as well as pain control. Some of his symptoms have improved. Recommendations: 1. Sickle cell disease: Transfuse 1 unit packed red blood cells today. 2. Pain crisis: Pain control is improved with current pain medication regimen. Please continue current dosing. 3. Right lower lobe dense consolidation: Continue broad-spectrum antibiotic coverage with healthcare associated pneumonia coverage with vancomycin and cefepime. 4. Pain along the right ankle: No obvious venous stasis ulcer at this time, I explained to the patient that he will always be at risk for recurrent venous stasis ulcers given his diagnosis of sickle cell disease. These will have to be treated as they arise with compression and wound care. Continue ongoing care. Discussed extensively with the patient.
[2017-11-18] MEDS ORDERED: Gadobutrol PF 7.5 MMOL/7.5 ML Vial (for RAD) IV.SIG ONE (08:50)
[2017-11-18] MEDS: Sodium Chloride 0.45 % Inj 1,000 ML IV.CONT SCH ×2 (09:30→19:48)
--- NOTE | 2017-11-18 09:53 | P.PNIM ---
Subjective Interval history: Pt still with the same level of chest pain as yesterday Still with some fevers with Tmax 100.6 on 11/17 at 1600. Pt cough is relatively unchanged He is bringing some phlegm up today but it has not been sent for culture. Physical Exam Vital signs: Vital Signs 11/17/17 12:00 11/17/17 16:00 11/17/17 16:46 Temperature 101.1 F H 100.1 F H Pulse Rate 71 75 72 Respiratory Rate 17 18 16 Blood Pressure 114/55 L 142/64 H Pulse Oximetry 96 95 11/17/17 20:00 11/17/17 20:13 11/18/17 00:00 Temperature 98.7 F 98.7 F Pulse Rate 74 70 68 Respiratory Rate 17 15 16 Blood Pressure 101/50 L 108/56 L Pulse Oximetry 96 98 11/18/17 00:26 11/18/17 04:36 11/18/17 08:00 Temperature 98.9 F Pulse Rate 70 77 73 Respiratory Rate 17 16 17 Blood Pressure 124/58 L Pulse Oximetry 99 Intake & Output 11/17/17 11/18/17 11/18/17 18:59 06:59 18:59 Intake Total 1100 / 1100 1700 / 1700 1000 / 1000 Output Total 1000 / 1000 Balance 1100 / 1100 700 / 700 1000 / 1000 Intake: IV 1100 / 1100 1100 / 1100 1000 / 1000 1/2 Normal Saline Inj 1,000 ML 1000 / 1000 1000 / 1000 1000 / 1000 @ 100 mls/hr IV.CONT .Q10H [facility] Rx#:[id number] Maxipime Inj 2,000 MG In NS Inj 100 / 100 100 / 100 100 ML @ 200 mls/hr IV.SIG Q12H [facility] Rx#:[id number] Oral 600 / 600 Output: Urine 1000 / 1000 Other: # Voids 6 Date of Last Bowel Movement 11/16/17 11/16/17 # Bowel Movements 1 Narrative: GENERAL: NAD, AAOx3 SKIN: Warm and dry. CARDIO: Regular RESP: Breath sounds equal bilaterally. ABD: Abdomen soft, non-tender, nondistended. EXT: No cyanosis, or edema. Results - Labs CBC & Chem 7: 11/18/17 04:45 11/18/17 04:45 Laboratory Results - last 24 hr 11/17/17 11/17/17 11/18/17 09:24 13:13 04:45 WBC 15.3 H 16.3 H RBC 2.83 L 2.54 L Hgb 6.7 L* 6.0 L* Hct 21.4 L 18.9 L* MCV 75.4 L 74.5 L MCH 23.6 L 23.5 L MCHC 31.3 L 31.5 L RDW 16.3 16.1 Plt Count 252 251 MPV 9.0 9.0 Prelim Diff (Auto) Slide review pending Manual diff required Neut % (Auto) 72.2 H Lymph % (Auto) 2.0 L [place] % (Auto) 15.9 H Eos % (Auto) 9.6 H Baso % (Auto) 0.3 Neut # (Auto) 11.1 H Lymph # (Auto) 0.3 L [place] # (Auto) 2.4 H Eos # (Auto) 1.5 H Baso # (Auto) 0.0 WBC Differential Manual diff final Manual diff final Seg Neuts % (Manual) 78 H 86 H Band Neuts % (Manual) 1 Lymphocytes % (Manual) 7 L 4 L Monocytes % (Manual) 3 5 Eosinophils % (Manual) 10 H 5 H Metamyelocytes % (Man) 1 Abs Neuts (Manual) 12.2 H 14.0 H Differential Comment . . Toxic Vacuolation Present H Platelet Estimate Normal Normal Platelet Morphology Normal Normal Polychromasia 2.1 H Pappenheimer Bodies Present H Sickle Cells 1+ H 1+ H Target Cells 1+ H 1+ H Valdez-Carnot-Moon Bodies Present H Sodium Potassium Chloride Carbon Dioxide Anion Gap BUN Creatinine Estimated GFR Random Glucose Calcium Lactate Dehydrogenase 385 H 11/18/17 04:45 WBC RBC Hgb Hct MCV MCH MCHC RDW Plt Count MPV Prelim Diff (Auto) Neut % (Auto) Lymph % (Auto) [place] % (Auto) Eos % (Auto) Baso % (Auto) Neut # (Auto) Lymph # (Auto) [place] # (Auto) Eos # (Auto) Baso # (Auto) WBC Differential Seg Neuts % (Manual) Band Neuts % (Manual) Lymphocytes % (Manual) Monocytes % (Manual) Eosinophils % (Manual) Metamyelocytes % (Man) Abs Neuts (Manual) Differential Comment Toxic Vacuolation Platelet Estimate Platelet Morphology Polychromasia Pappenheimer Bodies Sickle Cells Target Cells Valdez-Carnot-Moon Bodies Sodium 142 Potassium 3.8 Chloride 111 H Carbon Dioxide 21.4 Anion Gap 10 BUN 11 Creatinine 1.05 Estimated GFR 87 L Random Glucose 102 Calcium 7.9 L Lactate Dehydrogenase Microbiology 11/18/17 03:30 Urine - Random Urine Legionella Antigen - Final Presumptive negative for Legionella pneumophila serogroup 1 antigen in urine, suggesting no recent or recurrent infection. Infection due to Legionella cannot be ruled out since other serogroups and species may cause disease, antigen may not be present in urine in early infection, and the level of antigen present in the urine may be below the detection limit of the test. 11/18/17 03:30 Urine - Random Urine Streptococcus pneumoniae Antigen (M - Final Presumptive negative for streptococcus pneumoniae antigen, suggesting no current or recent infection. Infection due to Streptococcus pneumoniae cannot be ruled out since the antigen present in the sample may be below the detection limit of the test. 11/12/17 20:13 Blood - Peripheral Aerobic Blood Culture - Final No growth in 5 days 11/12/17 20:13 Blood - Peripheral Anaerobic Blood Culture - Final No growth in 5 days 11/12/17 20:07 Blood - Peripheral Aerobic Blood Culture - Final No growth in 5 days 11/12/17 20:07 Blood - Peripheral Anaerobic Blood Culture - Final No growth in 5 days - Imaging Venous Doppler Study 11/12/17 00:00 CONCLUSION: 1. Thrombus within the cephalic vein. Venous Doppler Study 11/12/17 00:00 CONCLUSION: 1. The study is negative for bilateral lower extremity deep venous thrombosis. Chest X-Ray 11/12/17 05:38 CONCLUSION: 1. Mild compensated cardiomegaly. 2. Trace atelectasis and small pleural effusion at the left base. 3. No change mild biapical pleural thickening and scarring. Extremity Arterial Study 11/14/17 00:00 CONCLUSION: 1. ROMI on the right 0.76, 0.8 on the left 2. TBI on the right 0.52, 0.56 on the left 3. 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 Ankle X-Ray 11/16/17 00:00 CONCLUSION: Diffuse soft tissue prominence. Chest CT 11/16/17 00:00 CONCLUSION: 1. New dense consolidation in the right lower lobe most characteristic of pneumonia. 2. Mild consolidation in the posterior left lower lobe. 3. New small bilateral pleural effusions. 4. Moderate cardiomegaly with small pericardial effusion. Assessment and Plan - Assessment (1) Sickle cell anemia with crisis Code(s): D57.00 - Hb-SS disease with crisis, unspecified Status: Acute Plan: Sickle cell crisis Atypical chest pain - likely related to sickle cell crisis, will R/O cardiac origin with serial troponin - This is a 62 year old male patient with a past medical history which includes COPD, sickle cell anemia, IgG Lambda MGUS, depression, osteonecrosis of bilateral hips and right arm cephalic vein thrombosis in 2017. Patient present to the ER with complaints of bilateral arm pain, chest pains that started through the night. - IVFs - Continue patient's home Methadone 5 mg PO BID and Oxycodone 10 mg Q4H as needed - Dilaudid PRN - Pts labs at admission noted Hgb 9.1/Hct 28.8 - Repeat labs on 11/13 noted Hgb 8.2/Hct 25.4 - Serial troponin were negative - Patient does have elevated WBC 13.7 (11/12) --> 16.4 (11/13) - CXR (11/12/17): 1. Mild compensated cardiomegaly. 2. Trace atelectasis and small pleural effusion at the left base. 3. No change mild biapical pleural thickening and scarring. - UA was negative - Blood cultures (11/12) with NGTD - Rocephin (11/12 - 11/17) - Azithromycin (11/13 - 11/17) - Appreciate input from Hematology. - 2D Echocardiogram 11/14/17: - Normal left ventricular size. - Mild to moderate concentric left ventricular hypertrophy. - The left ventricular systolic function is hyperdynamic with an estimated ejection fraction in the range of 65-70%. - There is a trivial pericardial effusion present. - Labs noted an increase in total bili to 2.0 (11/14) - LDH elevated at 385 - Chest CT (11/16/17) 1. New dense consolidation in the right lower lobe most characteristic of pneumonia. 2. Mild consolidation in the posterior left lower lobe. 3. New small bilateral pleural effusions. 4. Moderate cardiomegaly with small pericardial effusion. - Pts fevers have been slowly improving, last fever was 100.6 on 11/17 @ 1600 - Pain control seems to be an issue but it is improved since admission. - Abx changed to Cefepime and vancomycin on 11/17 - Cont. Duonebs scheduled and PRN - Cont. Mucomyst scheduled - Cont. Mucinex BID - Encourage IS - Pts Hgb decreased to 6.0 on 11/18, Hematology has ordered one unit of PRBCs on 11/18. - Ankle X-Ray (11/16/17) - Diffuse soft tissue prominence. - Pt having more of a cough today and complains of continued ankle pain and is very concerned there may be an underlying nidus of infection in his ankle. - Ankle MRI is pending. - It was discussed between Dr. Sheriff and Dr. Dyer that the timing of when he stopped the Hydrea might have led to the pain crisis. COPD - Does not appear to be in acute exacerbation - Duonebs scheduled and as needed Edema BUE - UE Venous Doppler Study (11/12/17) 1. Thrombus within the cephalic vein. - LE Venous Doppler Study (11/12/17) 1. The study is negative for bilateral lower extremity deep venous thrombosis. - Patient had previously been on Eliquis due to clot in right cephalic vein in 2016. Patient has stopped Eliquis due to upset stomach. - continue daily Lovenox DVT prophylaxis with Lovenox subQ The exam, history, and the medical decision-making described in the above note were completed with the assistance of the mid-level provider. I reviewed and agree with the findings presented. I attest that I had a [id number] encounter with the patient on the same day, and personally performed and documented my assessment and findings in the medical record.
--- NOTE | 2017-11-18 10:04 | MR ---
EXAM DATE: 11/18/2017 8:33 AM EDT AGE/SEX: 62 years / Male INDICATIONS: . Cellulitis lateral aspect of right ankle. No wound. CLINICAL DATA: This is the patient's subsequent encounter. Patient reports that signs and symptoms h ave been present for 4 - 6 days and indicates a pain score of 1/10. MEDICAL/SURGICAL HISTORY: Sickle Cell disease. Splenectomy. Bilat total hip replacements. COMPARISON: No prior exams available for comparison. TECHNIQUE: Multiplanar, multisequence MRI examination was performed with contrast and after the intr avenous administration of 6 ml Gadavist (gadobutrol) contrast as a single exam dose. FINDINGS: Bones: The osseous structures are in normal alignment. No evidence of fracture or bony edema. Joint Spaces: No joint effusion or loose bodies are seen. The articular cartilage is intact. Tendons: The posteromedial tendons including the tibialis posterior flexor and digitorum intact. The re is tenosynovitis involving the flexor hallucis longus tendon with fluid in the tendon sheath. The peroneal tendons are intact. The anterior tendons (tibialis anterior, extensor hallucis longus and e xtensor digitorum) are intact. The Achilles tendon is intact. Ligaments: The lateral and medial ligament complexes are intact. Other: The plantar aponeurosis is grossly unremarkable. The structures in the tarsal tunnel are int act. Soft Tissues: There is no evidence of an abscess. There is diffuse soft tissue edema greatest over t he region of the lateral malleolus. There is mild edema along the plantar aponeurosis. Post Contrast: There are no abnormal areas of enhancement in the marrow, muscle or soft tissues on i mages obtained after intravenous administration of gadolinium. 1. Soft tissue edema with no evidence of abscess. 2. No evidence of osteomyelitis. 3. Tenosynovitis involving the flexor hallucis longus tendon. 4. Mild edema in the plantar aponeurosis. Electronically signed by: Dylan Brito MD 11/18/2017 10:02 AM EDT
[2017-11-18] MEDS: guaiFENesin 600 MG ER Tablet PO SCH ×2 (11:31→21:10)
[2017-11-18] MEDS: Senna/Docusate Sodium 8.6/50 MG Tablet PO SCH ×2 (11:32→21:10)
[2017-11-18] MEDS: Enoxaparin Inj 40 MG/0.4 ML Syringe SQ SCH (11:32)
[2017-11-18] MEDS: Folic Acid 1 MG Tablet PO SCH (11:32)
[2017-11-18] MEDS: Vancomycin Inj 1,250 MG in Sodium Chlor 0.9% Inj 250 ML IV.SIG SCH (15:39)
[2017-11-19] MEDS: HYDROmorphone PF Inj 2 MG/ML Vial IV.PUSH PRN ×4 (02:24→16:36)
[2017-11-19] MEDS: Vancomycin Inj 1,250 MG in Sodium Chlor 0.9% Inj 250 ML IV.SIG SCH ×2 (03:19→14:19)
[2017-11-19 06:17] LABS: Hematocrit 21.7 % (39.0-51.0); Mean Corpuscular HGB Conc 31.6 % (32.0-36.0); Mean Corpuscular Hemoglobin 23.9 pg (27.0-34.0); Mean Corpuscular Volume 75.7 fL (80.0-100.0); Mean Platelet Volume 9.3 fL (7.0-11.0); Platelet Count 261 th/mm3 (150-450); Red Blood Count 2.87 mil/mm3 (4.50-5.90); Red Cell Distribution Width 16.6 % (11.6-17.2); White Blood Count 17.4 th/mm3 (4.0-11.0)
[2017-11-19 06:29] LABS: Hemoglobin 6.9 gm/dL (13.0-17.0)
[2017-11-19 06:43] LABS: Albumin 2.6 g/dL (3.4-5.0); Anion Gap 10 meq/L (5-15); Aspartate Aminotransferase 16 U/L (15-37); Blood Urea Nitrogen 8 mg/dL (7-18); Calcium 8.2 mg/dL (8.5-10.1); Carbon Dioxide 19.9 meq/L (21.0-32.0); Chloride 111 meq/L (98-107); Glomerular Filtration Rate Greater Than 89 mL/min (>89); Glucose,Random 99 mg/dL (74-106); Potassium 3.8 meq/L (3.5-5.1); Sodium 141 meq/L (136-145)
[2017-11-19 06:44] LABS: Alanine Aminotransferase 13 U/L (12-78)
[2017-11-19 06:47] LABS: Alkaline Phosphatase 61 U/L (45-117); Total Protein 6.2 g/dL (6.4-8.2)
[2017-11-19 07:57] LABS: Eosinophils 6 % (0-4); Lymphocytes 7 % (9-44); Monocytes 5 % (0-8); Sickle Cells 1+
[2017-11-19 07:58] LABS: Howell-Jolly Bodies Present; Ovalocytes 1+; Platelet Estimate Normal (Normal); Platelet Morphology Normal (Normal); Target Cells 1+; Tear Drop Cells 1+
[2017-11-19] MEDS: Enoxaparin Inj 40 MG/0.4 ML Syringe SQ SCH (08:06)
[2017-11-19] MEDS: Senna/Docusate Sodium 8.6/50 MG Tablet PO SCH ×2 (08:06→20:48)
[2017-11-19] MEDS: guaiFENesin 600 MG ER Tablet PO SCH ×2 (08:06→20:48)
[2017-11-19] MEDS: Folic Acid 1 MG Tablet PO SCH (08:06)
[2017-11-19] MEDS: Sodium Chloride 0.45 % Inj 1,000 ML IV.CONT SCH ×3 (10:33→20:49)
--- NOTE | 2017-11-19 11:24 | P.PNIM ---
Subjective Interval history: Pt feels that his chronic pain is back to his baseline, he is still having intermittent chest discomfort when he coughs but it is better than it was previously Pt had low grade temp overnight Pt has been walking around in his room without much difficulty Physical Exam Vital signs: Vital Signs 11/18/17 11:39 11/18/17 12:00 11/18/17 16:00 Temperature 98.4 F 100.2 F H Pulse Rate 72 85 71 Respiratory Rate 16 17 17 Blood Pressure 119/58 L 132/62 Pulse Oximetry 97 95 11/18/17 16:28 11/18/17 18:16 11/18/17 18:38 Temperature 100.2 F H 99 F Pulse Rate 89 71 90 Respiratory Rate 15 17 17 Blood Pressure 132/62 108/56 L Pulse Oximetry 95 99 11/18/17 18:42 11/18/17 20:00 11/18/17 21:10 Temperature 99.0 F 99.8 F H 99.0 F Pulse Rate 90 95 H 75 Respiratory Rate 17 18 18 Blood Pressure 108/56 L 100/54 L 100/54 L Pulse Oximetry 99 98 98 11/18/17 21:43 11/18/17 23:38 11/19/17 00:00 Temperature 99.8 F H Pulse Rate 78 78 80 Respiratory Rate 18 18 18 Blood Pressure 118/57 L Pulse Oximetry 96 11/19/17 04:00 11/19/17 08:00 11/19/17 09:23 Temperature 99 F 98.3 F Pulse Rate 77 64 68 Respiratory Rate 18 17 16 Blood Pressure 161/87 H Pulse Oximetry 97 95 Intake & Output 11/18/17 11/19/17 11/19/17 18:59 06:59 18:59 Intake Total 2792.5 / 2792.5 2600 / 2600 Output Total 350 / 350 Balance 2442.5 / 2442.5 2600 / 2600 Weight 66.3 kg Intake: IV 1362.5 / 1362.5 2100 / 2100 1/2 Normal Saline Inj 1,000 ML 1000 / 1000 2000 / 2000 @ 100 mls/hr IV.CONT .Q10H [facility] Rx#:[id number] Maxipime Inj 2,000 MG In NS Inj 100 / 100 100 / 100 100 ML @ 200 mls/hr IV.SIG Q12H [facility] Rx#:[id number] Vancomycin Inj 1,250 MG In NS 262.5 / 262.5 Inj 250 ML @ 250 mls/hr IV.SIG Q12H [facility] Rx#:[id number] Oral 1430 / 1430 450 / 450 Other 50 / 50 Rbc As-3 Leukoreduced Unit 50 / 50 [id number] Intake (Blood Product) Amt 0 / 0 0 / 0 Rbc As-3 Leukoreduced Unit 0 / 0 0 / 0 [id number] Output: Urine 350 / 350 Other: # Voids 4 Date of Last Bowel Movement 11/16/17 11/17/17 11/17/17 # Bowel Movements 1 Narrative: GENERAL: NAD, AAOx3 SKIN: Warm and dry. CARDIO: Regular RESP: Breath sounds equal bilaterally. ABD: Abdomen soft, non-tender, nondistended. EXT: No cyanosis, or edema. Results - Labs CBC & Chem 7: 11/19/17 05:06 11/19/17 05:06 Laboratory Results - last 24 hr 11/18/17 11/18/17 11/19/17 08:26 15:00 05:06 WBC 17.4 H RBC 2.87 L Hgb 6.9 L* Hct 21.7 L MCV 75.7 L MCH 23.9 L MCHC 31.6 L RDW 16.6 Plt Count 261 MPV 9.3 Prelim Diff (Auto) Manual diff required WBC Differential Manual diff final Seg Neuts % (Manual) 80 H Band Neuts % (Manual) 1 Lymphocytes % (Manual) 7 L Monocytes % (Manual) 5 Eosinophils % (Manual) 6 H Basophils % (Manual) 1 Abs Neuts (Manual) 14.1 H Differential Comment . Platelet Estimate Normal Platelet Morphology Normal Sickle Cells 1+ H Target Cells 1+ H Tear Drop Cells 1+ H Ovalocytes 1+ H Valdez-[place] Bodies Present H Sodium Potassium Chloride Carbon Dioxide Anion Gap BUN Creatinine Estimated GFR Random Glucose Calcium Total Bilirubin AST ALT Alkaline Phosphatase Total Protein Albumin Blood Type A Positive Antibody Screen Negative MTS Gel Crossmatch See Detail Bld Prod Order Comment 11/19/17 05:06 WBC RBC Hgb Hct MCV MCH MCHC RDW Plt Count MPV Prelim Diff (Auto) WBC Differential Seg Neuts % (Manual) Band Neuts % (Manual) Lymphocytes % (Manual) Monocytes % (Manual) Eosinophils % (Manual) Basophils % (Manual) Abs Neuts (Manual) Differential Comment Platelet Estimate Platelet Morphology Sickle Cells Target Cells Tear Drop Cells Ovalocytes Valdez-[place] Bodies Sodium 141 Potassium 3.8 Chloride 111 H Carbon Dioxide 19.9 L Anion Gap 10 BUN 8 Creatinine 1.02 Estimated GFR Greater than 89 Random Glucose 99 Calcium 8.2 L Total Bilirubin 1.0 AST 16 ALT 13 Alkaline Phosphatase 61 Total Protein 6.2 L D Albumin 2.6 L Blood Type Antibody Screen MTS Gel Crossmatch Bld Prod Order Comment Microbiology 11/18/17 03:30 Urine - Random Urine Legionella Antigen - Final Presumptive negative for Legionella pneumophila serogroup 1 antigen in urine, suggesting no recent or recurrent infection. Infection due to Legionella cannot be ruled out since other serogroups and species may cause disease, antigen may not be present in urine in early infection, and the level of antigen present in the urine may be below the detection limit of the test. 11/18/17 03:30 Urine - Random Urine Streptococcus pneumoniae Antigen (M - Final Presumptive negative for streptococcus pneumoniae antigen, suggesting no current or recent infection. Infection due to Streptococcus pneumoniae cannot be ruled out since the antigen present in the sample may be below the detection limit of the test. Assessment and Plan - Assessment (1) Sickle cell anemia with crisis Code(s): D57.00 - Hb-SS disease with crisis, unspecified Status: Acute Plan: Sickle cell crisis Atypical chest pain - likely related to sickle cell crisis, will R/O cardiac origin with serial troponin - This is a 62 year old male patient with a past medical history which includes COPD, sickle cell anemia, IgG Lambda MGUS, depression, osteonecrosis of bilateral hips and right arm cephalic vein thrombosis in 2017. Patient present to the ER with complaints of bilateral arm pain, chest pains that started through the night. - IVFs - Continue patient's home Methadone 5 mg PO BID and Oxycodone 10 mg Q4H as needed - Dilaudid PRN - Pts labs at admission noted Hgb 9.1/Hct 28.8 - Repeat labs on 11/13 noted Hgb 8.2/Hct 25.4 - Serial troponin were negative - Appreciate input from Hematology. - 2D Echocardiogram 11/14/17: - Normal left ventricular size. - Mild to moderate concentric left ventricular hypertrophy. - The left ventricular systolic function is hyperdynamic with an estimated ejection fraction in the range of 65-70%. - There is a trivial pericardial effusion present. - Labs noted an increase in total bili to 2.0 (11/14) - LDH elevated at 385 - Pts Hgb decreased to 6.0 on 11/18, Pt was transfused with one unit of PRBCs on 11/18. Repeat Hgb 6.9 on 11/19. - The case was previously discussed between Dr. Sheriff and Dr. Dyer that the timing of when he stopped the Hydrea might have led to the pain crisis. Pneumonia Leukocytosis - CXR (11/12/17): 1. Mild compensated cardiomegaly. 2. Trace atelectasis and small pleural effusion at the left base. 3. No change mild biapical pleural thickening and scarring. - UA was negative - Blood cultures (11/12) with NGTD - Rocephin (11/12 - 11/17) - Azithromycin (11/13 - 11/17) - Chest CT (11/16/17) 1. New dense consolidation in the right lower lobe most characteristic of pneumonia. 2. Mild consolidation in the posterior left lower lobe. 3. New small bilateral pleural effusions. 4. Moderate cardiomegaly with small pericardial effusion. - Pts fevers have been slowly improving, last fever was 100.6 on 11/17 @ 1600 - Pain control seems to be an issue but it is improved since admission. - Start to minimize IV pain medications. - Abx changed to Cefepime and vancomycin on 11/17 - Cont. Duonebs scheduled and PRN - Cont. Mucomyst scheduled - Cont. Mucinex BID - Encourage IS - Urine for Legionella and pneumococcal Ag are negative - Sputum culture is ordered Right ankle pain Hx of venous ulcer - Ankle X-Ray (11/16/17) - Diffuse soft tissue prominence. - Pt having more of a cough today and complains of continued ankle pain and is very concerned there may be an underlying nidus of infection in his ankle. - Ankle MRI (11/18/17) --> Soft tissue edema with no evidence of abscess, no evidence of osteomyelitis, tenosynovitis involving the flexor hallucis longus tendon, and mild edema in the plantar aponeurosis. - LORENA hose placed on the pt with some slight improvement COPD - Does not appear to be in acute exacerbation - Duonebs scheduled and as needed Edema BUE - UE Venous Doppler Study (11/12/17) 1. Thrombus within the cephalic vein. - LE Venous Doppler Study (11/12/17) 1. The study is negative for bilateral lower extremity deep venous thrombosis. - Patient had previously been on Eliquis due to clot in right cephalic vein in 2017. Patient has stopped Eliquis due to upset stomach. - continue daily Lovenox DVT prophylaxis with Lovenox subQ The exam, history, and the medical decision-making described in the above note were completed with the assistance of the mid-level provider. I reviewed and agree with the findings presented. I attest that I had a [id number] encounter with the patient on the same day, and personally performed and documented my assessment and findings in the medical record.
[2017-11-20] MEDS: HYDROmorphone PF Inj 2 MG/ML Vial IV.PUSH PRN ×3 (01:03→17:36)
[2017-11-20] MEDS ORDERED: Pharmacy Ordered Lab Info OTHER ONE (02:45)
[2017-11-20] MEDS: Vancomycin Inj 1,250 MG in Sodium Chlor 0.9% Inj 250 ML IV.SIG SCH (03:34)
[2017-11-20 05:41] LABS: Baso # (Auto) 0.1 th/mm3 (0.0-0.2); Baso % (Auto) 0.4 % (0.0-2.0); Eos # (Auto) 1.5 th/mm3 (0.0-0.4); Eos % (Auto) 9.3 % (0.0-4.0); Hematocrit 21.8 % (39.0-51.0); Lymph # (Auto) 2.6 th/mm3 (1.0-4.8); Lymph % (Auto) 16.2 % (9.0-44.0); Mean Corpuscular HGB Conc 31.6 % (32.0-36.0); Mean Corpuscular Hemoglobin 23.9 pg (27.0-34.0); Mean Corpuscular Volume 75.8 fL (80.0-100.0); Mono % (Auto) 6.1 % (0.0-8.0); Neut # (Auto) 10.8 th/mm3 (1.8-7.7); Platelet Count 319 th/mm3 (150-450); Red Blood Count 2.88 mil/mm3 (4.50-5.90); Red Cell Distribution Width 16.6 % (11.6-17.2); White Blood Count 15.9 th/mm3 (4.0-11.0)
[2017-11-20 05:56] LABS: Anion Gap 7 meq/L (5-15); Blood Urea Nitrogen 7 mg/dL (7-18); Calcium 8.2 mg/dL (8.5-10.1); Carbon Dioxide 20.6 meq/L (21.0-32.0); Chloride 111 meq/L (98-107); Glomerular Filtration Rate Greater Than 89 mL/min (>89); Glucose,Random 99 mg/dL (74-106); Potassium 3.9 meq/L (3.5-5.1); Sodium 139 meq/L (136-145)
[2017-11-20 05:58] LABS: Vancomycin,Trough 13.1 mcg/mL (5.0-10.0)
[2017-11-20 06:03] LABS: Hemoglobin 6.9 gm/dL (13.0-17.0)
[2017-11-20 08:25] LABS: Eosinophils 4 % (0-4); Lymphocytes 6 % (9-44); Monocytes 8 % (0-8); Sickle Cells 1+; Tallied Nucleated RBC 11 (0-0); Target Cells 2+
[2017-11-20 08:26] LABS: Pappenheimer Bodies Present; Platelet Estimate Normal (Normal); Platelet Morphology Normal (Normal); Polychromasia 2.2 % (0.0-1.9)
[2017-11-20] MEDS: Folic Acid 1 MG Tablet PO SCH (09:31)
[2017-11-20] MEDS: Enoxaparin Inj 40 MG/0.4 ML Syringe SQ SCH (09:31)
[2017-11-20] MEDS: guaiFENesin 600 MG ER Tablet PO SCH ×2 (09:31→21:15)
[2017-11-20] MEDS ORDERED: Acetaminophen 325 MG Tablet PO ONE (09:36)
--- NOTE | 2017-11-20 09:45 | P.PNONC ---
Subjective Interval history: Patient was seen and examined this morning, he reports feeling "better ". He tells me he feels as if "nobody tells me anything about this pneumonia ". He tells me he is not comfortable "operating at a hemoglobin of 6.9 g/dL ", he indicates in the past his construction driller would transfuse him more liberally. He also feels as if he is not receiving the care he needs from the medical team involved and in particular from myself and feels as if "they are trying to kill me ". He tells me he has been complaining of pain in the skin of the right foot for 2 months "and nobody has done anything "(including myself). He tells me he developed an ulcer which healed. Objective Vital Signs/Intake & Output: Vital Signs 11/19/17 12:00 11/19/17 15:38 11/19/17 19:17 Temperature 99.3 F Pulse Rate 66 69 Respiratory Rate 16 18 16 Blood Pressure 145/63 H Pulse Oximetry 96 11/19/17 20:54 11/20/17 00:00 11/20/17 00:09 Temperature 99.3 F 98.6 F Pulse Rate 75 63 71 Respiratory Rate 17 19 16 Blood Pressure 115/55 L 162/74 H Pulse Oximetry 96 96 11/20/17 08:00 11/20/17 08:44 Temperature 98.3 F Pulse Rate 77 74 Respiratory Rate 17 12 Blood Pressure 135/64 Pulse Oximetry 96 Intake & Output 11/19/17 11/20/17 11/20/17 18:59 06:59 18:59 Intake Total 662.5 / 662.5 1000 / 1000 Output Total 400 / 400 550 / 550 Balance 262.5 / 262.5 450 / 450 Weight 66.5 kg Intake: IV 362.5 / 362.5 1000 / 1000 1/2 Normal Saline Inj 1,000 ML 1000 / 1000 @ 100 mls/hr IV.CONT .Q10H [facility] Rx#:[id number] Maxipime Inj 2,000 MG In NS Inj 100 / 100 100 ML @ 200 mls/hr IV.SIG Q12H [facility] Rx#:[id number] Vancomycin Inj 1,250 MG In NS 262.5 / 262.5 Inj 250 ML @ 250 mls/hr IV.SIG Q12H [facility] Rx#:[id number] Oral 300 / 300 Output: Urine 400 / 400 550 / 550 Other: Date of Last Bowel Movement 11/17/17 11/19/17 Result Diagrams: 11/20/17 05:20 11/20/17 05:20 Laboratory Results: Laboratory Results - last 24 hr 11/20/17 11/20/17 05:20 05:20 WBC 15.9 H RBC 2.88 L Hgb 6.9 L* Hct 21.8 L MCV 75.8 L MCH 23.9 L MCHC 31.6 L RDW 16.6 Plt Count 319 MPV 9.0 Prelim Diff (Auto) Slide review pending Neut % (Auto) 68.0 Lymph % (Auto) 16.2 [place] % (Auto) 6.1 Eos % (Auto) 9.3 H Baso % (Auto) 0.4 Neut # (Auto) 10.8 H Lymph # (Auto) 2.6 [place] # (Auto) 1.0 H Eos # (Auto) 1.5 H Baso # (Auto) 0.1 WBC Differential Manual diff final Seg Neuts % (Manual) 79 H Band Neuts % (Manual) 2 Lymphocytes % (Manual) 6 L Monocytes % (Manual) 8 Eosinophils % (Manual) 4 Basophils % (Manual) 1 Abs Neuts (Manual) 12.9 H Nucleated RBCs/100 WBC 11 H Differential Comment . Platelet Estimate Normal Platelet Morphology Normal Polychromasia 2.2 H Pappenheimer Bodies Present H Sickle Cells 1+ H Target Cells 2+ H Sodium 139 Potassium 3.9 Chloride 111 H Carbon Dioxide 20.6 L Anion Gap 7 BUN 7 Creatinine 0.91 Estimated GFR Greater than 89 Random Glucose 99 Calcium 8.2 L Vancomycin Trough 13.1 H Culture Results: Microbiology 11/19/17 16:40 Gram Stain - Final Sputum - Expectorated Sputum 11/18/17 03:30 Legionella Antigen - Final Urine - Random Urine Presumptive negative for Legionella pneumophila serogroup 1 antigen in urine, suggesting no recent or recurrent infection. Infection due to Legionella cannot be ruled out since other serogroups and species may cause disease, antigen may not be present in urine in early infection, and the level of antigen present in the urine may be below the detection limit of the test. 11/18/17 03:30 Streptococcus pneumoniae Antigen (M - Final Urine - Random Urine Presumptive negative for streptococcus pneumoniae antigen, suggesting no current or recent infection. Infection due to Streptococcus pneumoniae cannot be ruled out since the antigen present in the sample may be below the detection limit of the test. 11/12/17 20:13 Aerobic Blood Culture - Final Blood - Peripheral No growth in 5 days Anaerobic Blood Culture - Final No growth in 5 days 11/12/17 20:07 Aerobic Blood Culture - Final Blood - Peripheral No growth in 5 days Anaerobic Blood Culture - Final No growth in 5 days Medications: Active Medications Generic Name Dose Route Start Last Admin Trade Name Freq PRN Reason Stop Dose Admin Acetaminophen 650 mg 11/12/17 08:59 11/17/17 10:57 Tylenol PO 650 mg Q4H PRN Administration Temp > 100.4 Acetylcysteine 2 ml 11/19/17 00:00 11/20/17 08:42 Mucomyst 20% Neb NEB 2 ml Q4HR NEB [facility] Administration Al Hydroxide/Mg Hydroxide 30 ml 11/12/17 08:59 11/14/17 08:22 Milk Of Magnesia Liq PO 30 ml Q12H PRN Administration Mild Constipation Albuterol 1 ampul 11/17/17 16:00 11/20/17 08:42 Duoneb Neb ([facility]) NEB 1 ampul Q4HR NEB [facility] Administration Enoxaparin Sodium 40 mg 11/12/17 15:00 11/20/17 09:31 Lovenox Inj SQ 40 mg DAILY [facility] Administration Folic Acid 1 mg 11/13/17 13:30 11/20/17 09:31 Folic Acid PO 1 mg DAILY [facility] Administration Guaifenesin 1,200 mg 11/17/17 14:30 11/20/17 09:31 Mucinex Er PO 1,200 mg BID [facility] Administration Hydromorphone HCl 1 mg 11/19/17 11:21 11/20/17 09:30 Dilaudid Pf Inj IV.PUSH 1 mg Q8H PRN Administration breakthrough pain over 7 Cefepime HCl 2,000 mg/ Sodium 100 mls @ 200 mls/hr 11/17/17 15:00 11/20/17 03 :37 Chloride IV.SIG 200 mls/hr Q12H [facility] Administration Vancomycin HCl 1,250 mg/ 262.5 mls @ 250 mls/hr 11/18/17 15:00 11/20/17 03:34 Sodium Chloride IV.SIG 250 mls/hr Q12H [facility] Administration Sodium Chloride 1,000 mls @ 100 mls/hr 11/12/17 09:00 11/19/17 20:49 1/2 Normal Saline Inj IV.CONT 100 mls/hr .Q10H [facility] Administration Methadone HCl 5 mg 11/12/17 09:04 11/12/17 10:37 Dolophine PO 5 mg BID PRN Administration PAIN/WITHDRAWAL Multivitamins 1 tab 11/13/17 13:30 11/20/17 09:31 Theragran PO 1 tab DAILY [facility] Administration Oxycodone HCl 10 mg 11/12/17 09:04 11/20/17 05:51 Roxicodone PO 10 mg Q4H PRN Administration PAIN 1-10 AND/OR FEVER >101F Senna/Docusate Sodium 1 tab 11/12/17 09:00 11/19/17 20:48 Kelsie-Colace PO 1 tab BID [facility] Administration Objective Remarks: GENERAL: Elderly male, tall thin comfortable appearing he is anxious he appears to be no acute respiratory distress. SKIN: Warm and dry. Specifically skin overlying the right ankle was evaluated, there is some hyperpigmentation but no ulceration noted. HEAD: Normocephalic. EYES: No scleral icterus. No injection or drainage. NECK: Supple, trachea midline. No JVD or lymphadenopathy. LYMPHATIC: No adenopathy. CARDIOVASCULAR: Regular rate and rhythm without murmurs. RESPIRATORY: Breath sounds equal bilaterally. No accessory muscle use, improved breath sounds over the right base. GASTROINTESTINAL: Abdomen soft, non-tender, nondistended. EXTREMITIES: No cyanosis, or edema. MUSCULOSKELETAL: Adequate muscle tone. NEUROLOGICAL: No obvious focal deficit. Awake, alert, and oriented x3. PSYCHIATRIC: Appropriate mood and affect; insight and judgment normal. Assessment/Plan (1) Atypical chest pain Code(s): R07.89 - Other chest pain Status: Acute (2) Sickle cell anemia with crisis Code(s): D57.00 - Hb-SS disease with crisis, unspecified Status: Acute (3) Venous stasis ulcer Code(s): I83.009 - Varicose veins of unspecified lower extremity with ulcer of unspecified site; L97.909 - Non-pressure chronic ulcer of unspecified part of unspecified lower leg with unspecified severity Status: Acute (4) Sickle cell anemia Code(s): D57.1 - Sickle-cell disease without crisis Status: Acute - Plan Mr. Guaman is a very pleasant 62-year-old man with a diagnosis of hemoglobin sickle cell disease, he has been on hydroxyurea for decades and has typically tolerated this well. With hydroxyurea and chronic stable opioid dosing he has largely avoided major sickle cell related pain crises. He does however have significant sequelae of sickle cell disease including premature degenerative arthritis requiring joint replacement. Over the past several weeks the patient has had various symptoms which have been difficult to attribute to any specific issue however, the chronology is as follows: In mid September he developed a sore in his leg, this was assessed to be infected by his primary care physician. The patient was provided a prescription for ciprofloxacin. After completing 10 days of ciprofloxacin his leg ulcer healed however he developed generalized edema more so in his legs and a maculopapular rash all over his body. At about the same time he was evaluated in the hematology clinic by my nurse practitioner and was advised discontinuation of hydroxyurea as that was assessed to be a possible contributing factor. The patient's edema and rash did not resolve despite coming off of hydroxyurea and persisted for weeks. In mid October approximately 3 weeks from the onset of the symptoms I saw the patient and assessed him as having developed possible drug related rash; possibly related to ciprofloxacin. I prescribed him at that time corticosteroid therapy with prednisone 40 mg daily for 5 days. Interestingly his symptoms of rash and edema completely resolved but 5 days of treatment, treatment was completed on 11/09/2017. 2 days later he developed pain involving both of his upper extremities and across the mid chest. He came into the emergency department for evaluation and has been initiated on empiric antibiotics and hydration as well as pain control. Some of his symptoms have improved. Recommendations: 1. Sickle cell disease: He appears to be in the pain crisis, it is not clear what has triggered the pain crisis but I suspect the pneumonia may have, his hemoglobin 6.9 g/dL today. The patient would like a red cell transfusion and I have ordered this with premedications's consisting of Tylenol and Benadryl. 2. Pain involving the right ankle: The ankle was examined thoroughly, there appears to be chronic changes of the skin consistent with previous ulcerations, no ongoing active ulceration is identified. 3. Right lower lobe dense consolidation: He has been afebrile for more than 48 hours, continue broad-spectrum antibiotic coverage with vancomycin and cefepime. 4. The patient expresses a very concerning point of view, he has told me very directly that he is not happy with the care being provided. He tells me that "no one is sticking with the facts "and that he feels that attempts are being made to cause him harm. He tells me he will consider requesting formally a new construction driller. I told him I will keep checking in on him until Wednesday as the other construction driller are away for the weekend. I would like to add that I have been caring for this gentleman for about 3 years and I am not certain why he is acting out this way he typically is quite appreciated with the care he receives and is typically adherent to medical advice. I will check in on him tomorrow and talk to his Nani. I am hopeful his anger and frustration is a transient issue and that he will hopefully calm down by tomorrow. Continue ongoing care. Discussed extensively with the patient.
--- NOTE | 2017-11-20 11:11 | P.PNIM ---
Subjective Interval history: pt seems comfortable. overall pain levels better. Physical Exam Vital signs: Vital Signs 11/19/17 12:00 11/19/17 15:38 11/19/17 19:17 Temperature 99.3 F Pulse Rate 66 69 Respiratory Rate 16 18 16 Blood Pressure 145/63 H Pulse Oximetry 96 11/19/17 20:54 11/20/17 00:00 11/20/17 00:09 Temperature 99.3 F 98.6 F Pulse Rate 75 63 71 Respiratory Rate 17 19 16 Blood Pressure 115/55 L 162/74 H Pulse Oximetry 96 96 11/20/17 08:00 11/20/17 08:44 Temperature 98.3 F Pulse Rate 77 74 Respiratory Rate 17 12 Blood Pressure 135/64 Pulse Oximetry 96 Intake & Output 11/19/17 11/20/17 11/20/17 18:59 06:59 18:59 Intake Total 662.5 / 662.5 1000 / 1000 Output Total 400 / 400 550 / 550 Balance 262.5 / 262.5 450 / 450 Weight 66.5 kg Intake: IV 362.5 / 362.5 1000 / 1000 1/2 Normal Saline Inj 1,000 ML 1000 / 1000 @ 100 mls/hr IV.CONT .Q10H [facility] Rx#:[id number] Maxipime Inj 2,000 MG In NS Inj 100 / 100 100 ML @ 200 mls/hr IV.SIG Q12H [facility] Rx#:[id number] Vancomycin Inj 1,250 MG In NS 262.5 / 262.5 Inj 250 ML @ 250 mls/hr IV.SIG Q12H [facility] Rx#:[id number] Oral 300 / 300 Output: Urine 400 / 400 550 / 550 Other: Date of Last Bowel Movement 11/17/17 11/19/17 heart reg lung crackles right base abd s/nt ext no edema Results - Labs CBC & Chem 7: 11/20/17 05:20 11/20/17 05:20 Laboratory Results - last 24 hr 11/20/17 11/20/17 11/20/17 05:20 05:20 10:02 WBC 15.9 H RBC 2.88 L Hgb 6.9 L* Hct 21.8 L MCV 75.8 L MCH 23.9 L MCHC 31.6 L RDW 16.6 Plt Count 319 MPV 9.0 Prelim Diff (Auto) Slide review pending Neut % (Auto) 68.0 Lymph % (Auto) 16.2 [place] % (Auto) 6.1 Eos % (Auto) 9.3 H Baso % (Auto) 0.4 Neut # (Auto) 10.8 H Lymph # (Auto) 2.6 [place] # (Auto) 1.0 H Eos # (Auto) 1.5 H Baso # (Auto) 0.1 WBC Differential Manual diff final Seg Neuts % (Manual) 79 H Band Neuts % (Manual) 2 Lymphocytes % (Manual) 6 L Monocytes % (Manual) 8 Eosinophils % (Manual) 4 Basophils % (Manual) 1 Abs Neuts (Manual) 12.9 H Nucleated RBCs/100 WBC 11 H Differential Comment . Platelet Estimate Normal Platelet Morphology Normal Polychromasia 2.2 H Pappenheimer Bodies Present H Sickle Cells 1+ H Target Cells 2+ H Sodium 139 Potassium 3.9 Chloride 111 H Carbon Dioxide 20.6 L Anion Gap 7 BUN 7 Creatinine 0.91 Estimated GFR Greater than 89 Random Glucose 99 Calcium 8.2 L Vancomycin Trough 13.1 H MTS Gel Crossmatch See Detail Bld Prod Order Comment Microbiology 11/19/17 16:40 Sputum - Expectorated Sputum Gram Stain - Final Assessment and Plan - Assessment (1) Sickle cell anemia with crisis Code(s): D57.00 - Hb-SS disease with crisis, unspecified Status: Acute Plan: Sickle cell crisis Atypical chest pain - likely related to sickle cell crisis, will R/O cardiac origin with serial troponin - This is a 62 year old male patient with a past medical history which includes COPD, sickle cell anemia, IgG Lambda MGUS, depression, osteonecrosis of bilateral hips and right arm cephalic vein thrombosis in 2017. Patient present to the ER with complaints of bilateral arm pain, chest pains that started through the night. - IVFs - Continue patient's home Methadone 5 mg PO BID and Oxycodone 10 mg Q4H as needed - Dilaudid PRN - Pts labs at admission noted Hgb 9.1/Hct 28.8 - Repeat labs on 11/13 noted Hgb 8.2/Hct 25.4 - Serial troponin were negative - Appreciate input from Hematology. - 2D Echocardiogram 11/14/17: - Normal left ventricular size. - Mild to moderate concentric left ventricular hypertrophy. - The left ventricular systolic function is hyperdynamic with an estimated ejection fraction in the range of 65-70%. - There is a trivial pericardial effusion present. - Labs noted an increase in total bili to 2.0 (11/14) - LDH elevated at 385 - Pts Hgb decreased to 6.0 on 11/18, Pt was transfused with one unit of PRBCs on 11/18. Repeat Hgb 6.9 on 11/19. -Pt will get another unit blood 11/20 - The case was previously discussed between Dr. Sheriff and Dr. Dyer that the timing of when he stopped the Hydrea might have led to the pain crisis in addition to the pna. - will defer resuming the hydrea to dr Dyer outpt. possible dc tomorrow if no fever. I reminded him that he might get fever with the blood transfusion. He is interested in going home tomorrow and his at bedside is supportive of that. Pneumonia Leukocytosis - CXR (11/12/17): 1. Mild compensated cardiomegaly. 2. Trace atelectasis and small pleural effusion at the left base. 3. No change mild biapical pleural thickening and scarring. - UA was negative - Blood cultures (11/12) with NGTD - Rocephin (11/12 - 11/17) - Azithromycin (11/13 - 11/17) - Chest CT (11/16/17) 1. New dense consolidation in the right lower lobe most characteristic of pneumonia. 2. Mild consolidation in the posterior left lower lobe. 3. New small bilateral pleural effusions. 4. Moderate cardiomegaly with small pericardial effusion. - Pts fevers have been slowly improving, last fever was 100.6 on 11/17 @ 1600 - Pain control seems to be an issue but it is improved since admission. - Start to minimize IV pain medications. - Abx changed to Cefepime and vancomycin on 11/17 - Cont. Duonebs scheduled and PRN - Cont. Mucomyst scheduled - Cont. Mucinex BID - Encourage IS - Urine for Legionella and pneumococcal Ag are negative - Sputum culture is ordered and pending. Right ankle pain Hx of venous ulcer - Ankle X-Ray (11/16/17) - Diffuse soft tissue prominence. - Pt having more of a cough today and complains of continued ankle pain and is very concerned there may be an underlying nidus of infection in his ankle. - Ankle MRI (11/18/17) --> Soft tissue edema with no evidence of abscess, no evidence of osteomyelitis, tenosynovitis involving the flexor hallucis longus tendon, and mild edema in the plantar aponeurosis. - LORENA hose placed on the pt with some slight improvement COPD - Does not appear to be in acute exacerbation - Duonebs scheduled and as needed Edema BUE - UE Venous Doppler Study (11/12/17) 1. Thrombus within the cephalic vein. - LE Venous Doppler Study (11/12/17) 1. The study is negative for bilateral lower extremity deep venous thrombosis. - Patient had previously been on Eliquis due to clot in right cephalic vein in 2017. Patient has stopped Eliquis due to upset stomach. - continue daily Lovenox DVT prophylaxis with Lovenox subQ
[2017-11-20] MEDS: Senna/Docusate Sodium 8.6/50 MG Tablet PO SCH ×2 (11:13→21:15)
[2017-11-20] MEDS: Vancomycin Inj 1,500 MG in Sodium Chlor 0.9% Inj 500 ML IV.SIG SCH (15:46)
[2017-11-20] MEDS: Sodium Chloride 0.45 % Inj 1,000 ML IV.CONT SCH (17:58)
[2017-11-21] MEDS: HYDROmorphone PF Inj 2 MG/ML Vial IV.PUSH PRN ×2 (02:32→09:59)
[2017-11-21] MEDS: Vancomycin Inj 1,500 MG in Sodium Chlor 0.9% Inj 500 ML IV.SIG SCH (04:10)
[2017-11-21] MEDS: Sodium Chloride 0.45 % Inj 1,000 ML IV.CONT SCH (05:50)
[2017-11-21] MEDS: guaiFENesin 600 MG ER Tablet PO SCH (10:00)
[2017-11-21] MEDS: Senna/Docusate Sodium 8.6/50 MG Tablet PO SCH (10:00)
[2017-11-21] MEDS: Enoxaparin Inj 40 MG/0.4 ML Syringe SQ SCH (10:00)
--- NOTE | 2017-11-21 10:51 | P.DS ---
Date of admission: 11/12/17 22:57 Primary care physician: Ashley Cisse MD Anticipated date of discharge: 11/21/17 Brief History from admission: This is a 62 year old male patient with a past medical history which includes COPD, sickle cell anemia, IgG Lambda MGUS, depression, osteonecrosis of bilateral hips and right arm cephalic vein thrombosis in 2017. Patient present to the ER with complaints of bilateral arm pain, chest pains that started through the night. Patient reports that the pain woke him up from sleep. He describes the pain as severe, constant and spasm-like in nature. Patient also has pain in his left leg. Patient reports this is typical of his previous sickle cell crisis in the past. Patient also reports it has been quite, "a while ," since his last crisis. He does not know any exacerbating or relieving factors. Per family patient recently has been on Lasix and prednisone x 5 days for BLE edema. Patient endorses pain/burning with urination. Patient denies any shortness of breath, cough, radiation of the pain, diaphoresis, N/V/D/C, fevers or chills. PAST MEDICAL HISTORY: COPD Hemoglobin SS disease IgG Lambda MGUS Mild depression Osteonecrosis of hips Right arm cephalic vein thrombosis in 2017 PAST SURGICAL HISTORY: Bilateral total hip arthroplasty Gastromectomy in 1975 Splenectomy in 1968 FAMILY HISTORY: Unknown per patient SOCIAL HISTORY: Mr. Guaman is denies ETOH use smokes 0.5 packs/day. DS: Diagnosis - Discharge Diagnosis (1) Sickle cell anemia with crisis Status: Acute (2) Pneumonia Status: Acute DS: Medications - Discharge Medications Prescriptions: oxycodone 10 mg PO Q4HR PRN #18 tab PRN Reason: Pain guaifenesin [Mucinex] 1,200 mg PO BID 10 Days #40 tab levofloxacin [Levaquin] 500 mg PO DAILY 10 Days #10 tab DS: Summary Hospital Course: Assessment (1) Sickle cell anemia with crisis Code(s): D57.00 - Hb-SS disease with crisis, unspecified Status: Acute Plan: Sickle cell crisis Atypical chest pain - likely related to sickle cell crisis, will R/O cardiac origin with serial troponin - This is a 62 year old male patient with a past medical history which includes COPD, sickle cell anemia, IgG Lambda MGUS, depression, osteonecrosis of bilateral hips and right arm cephalic vein thrombosis in 2017. Patient present to the ER with complaints of bilateral arm pain, chest pains that started through the night. - IVFs - Continue patient's home Methadone 5 mg PO BID and Oxycodone 10 mg Q4H as needed - Dilaudid PRN - Pts labs at admission noted Hgb 9.1/Hct 28.8 - His hgb trending down to 6 and he had total of 2 units prbc's - Serial troponin were negative - Appreciate input from Hematology. - 2D Echocardiogram 11/14/17: - Normal left ventricular size. - Mild to moderate concentric left ventricular hypertrophy. - The left ventricular systolic function is hyperdynamic with an estimated ejection fraction in the range of 65-70%. - There is a trivial pericardial effusion present. - Labs noted an increase in total bili to 2.0 (11/14) - LDH elevated at 385 - The case was previously discussed between Dr. Sheriff and Dr. Dyer that the timing of when he stopped the Hydrea might have led to the pain crisis in addition to the pna. - will defer resuming the hydrea to dr Dyer outpt. pain crisis resolved and pt now back to baseline pain . will f/u office. Pneumonia Leukocytosis - CXR (11/12/17): 1. Mild compensated cardiomegaly. 2. Trace atelectasis and small pleural effusion at the left base. 3. No change mild biapical pleural thickening and scarring. - UA was negative - Blood cultures (11/12) with NGTD - Rocephin (11/12 - 11/17) - Azithromycin (11/13 - 11/17) - Chest CT (11/16/17) 1. New dense consolidation in the right lower lobe most characteristic of pneumonia. 2. Mild consolidation in the posterior left lower lobe. 3. New small bilateral pleural effusions. 4. Moderate cardiomegaly with small pericardial effusion. - - Abx changed to Cefepime and vancomycin on 11/17. fevers resolved. pt did have one within 24hr of dc but he is convinced it was taken while drinking a cup off hot coffee. - Pt was given scheduled nebs and mucolytics. - Encouraged IS - Urine for Legionella and pneumococcal Ag are negative - Sputum culture nml favio pt asking for dc home today. will dc on mucolytic and levaquin x 10days. discussed with Dr Dyer. In my opinion pt should have a repeat chest image(probably ct) in next 4 weeks to assure resolution or sooner if sx's reoccur. I offered pt more time in hospital but he kindly refused and needs to attend a family reunion in [place] this coming week. Right ankle pain Hx of venous ulcer - Ankle X-Ray (11/16/17) - Diffuse soft tissue prominence. - Pt having more of a cough today and complains of continued ankle pain and is very concerned there may be an underlying nidus of infection in his ankle. - Ankle MRI (11/18/17) --> Soft tissue edema with no evidence of abscess, no evidence of osteomyelitis, tenosynovitis involving the flexor hallucis longus tendon, and mild edema in the plantar aponeurosis. - LORENA hose placed on the pt with some slight improvement COPD - Does not appear to be in acute exacerbation - Duonebs scheduled and as needed Edema BUE - UE Venous Doppler Study (11/12/17) 1. Thrombus within the cephalic vein. - LE Venous Doppler Study (11/12/17) 1. The study is negative for bilateral lower extremity deep venous thrombosis. - Patient had previously been on Eliquis due to clot in right cephalic vein in 2017. Patient has stopped Eliquis due to upset stomach. - continue daily Lovenox - Time Spent with Patient Total time spent providing and/or coordinating discharge services: - Quality: VTE Deep Vein Thrombosis/Pulmonary Embolism Present on Admission: Yes Exam Vital signs: Vital Signs 11/20/17 11:43 11/20/17 12:00 11/20/17 12:37 Temperature 99.5 F 98.3 F Pulse Rate 75 70 83 Respiratory Rate 12 18 18 Blood Pressure 134/61 104/52 L Pulse Oximetry 97 97 11/20/17 12:55 11/20/17 15:42 11/20/17 16:57 Temperature 99.2 F 98.5 F Pulse Rate 83 60 88 Respiratory Rate 16 17 14 Blood Pressure 101/55 L 153/69 H Pulse Oximetry 96 98 11/20/17 20:00 11/20/17 21:00 11/21/17 00:00 Temperature 98.9 F 100.9 F H Pulse Rate 77 83 79 Respiratory Rate 21 16 18 Blood Pressure 136/63 151/67 H Pulse Oximetry 100 100 11/21/17 00:02 11/21/17 02:25 11/21/17 03:22 Temperature Pulse Rate 74 73 Respiratory Rate 16 18 20 Blood Pressure Pulse Oximetry 11/21/17 04:00 11/21/17 08:00 Temperature 98.0 F 98 F Pulse Rate 71 68 Respiratory Rate 18 16 Blood Pressure 121/60 124/68 Pulse Oximetry 99 99 Intake & Output 11/20/17 11/21/17 11/21/17 18:59 06:59 18:59 Intake Total 1695 / 1695 640 / 640 Output Total 550 / 550 650 / 650 Balance 1145 / 1145 -10 / -10 Intake: IV 615 / 615 Maxipime Inj 2,000 MG In NS Inj 100 / 100 100 ML @ 200 mls/hr IV.SIG Q12H [facility]SE[facility] Rx#:[id number] Vancomycin Inj 1,500 MG In NS 515 / 515 Inj 500 ML @ 250 mls/hr IV.SIG Q12H [facility]SE[facility]N Rx#:[id number] Oral 1080 / 1080 640 / 640 Intake (Blood Product) Amt 0 / 0 Rbc As-3 Leukoreduced Unit 0 / 0 [id number] Output: Urine 550 / 550 650 / 650 Other: # Voids 3 Date of Last Bowel Movement 11/20/17 11/20/17 heart reg lung crackles right base abd s/nt ext no edema Results Procedures completed during hospitalization: see above Labs on day of discharge: Labs from last 24 hours 11/20/17 11/18/17 10:02 08:26 MTS Gel Crossmatch See Detail See Detail Bld Prod Order Comment Preliminary micro results at discharge 11/19/17 16:40 Sputum Culture - Preliminary Sputum - Expectorated Sputum Light growth normal respiratory favio at 24 hours - Impressions ITS Impressions Venous Doppler Study 11/12/17 00:00 CONCLUSION: 1. The study is negative for bilateral lower extremity deep venous thrombosis. Chest X-Ray 11/12/17 05:38 CONCLUSION: 1. Mild compensated cardiomegaly. 2. Trace atelectasis and small pleural effusion at the left base. 3. No change mild biapical pleural thickening and scarring. Extremity Arterial Study 11/14/17 00:00 CONCLUSION: 1. ROMI on the right 0.76, 0.8 on the left 2. TBI on the right 0.52, 0.56 on the left 3. 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 Ankle X-Ray 11/16/17 00:00 CONCLUSION: Diffuse soft tissue prominence. Chest CT 11/16/17 00:00 CONCLUSION: 1. New dense consolidation in the right lower lobe most characteristic of pneumonia. 2. Mild consolidation in the posterior left lower lobe. 3. New small bilateral pleural effusions. 4. Moderate cardiomegaly with small pericardial effusion. Ankle MRI 11/18/17 00:00 CONCLUSION: Discharge Plan - Discharge Disposition Patient Disposition: Discharge Home - Discharge Condition Condition: Stable - Discharge Order Discharge Orders: Discharge Order (Routine); Ordered 11/21/17 Ordered By: Miguel Sheriff - Discharge Details Anticipated Discharge Date: 11/21/17 - Physicians Team Primary Care Provider: Ashley Cisse Attending Provider: Maximo Cleveland Other Providers: Bronson Dyer MD
[2017-11-21 13:05] VITALS: BP 140/99; PULSE 81; RESP 16; TEMP 99.1; O2SAT 97
[2017-11-22] MEDS ORDERED: Pharmacy Ordered Lab Info OTHER ONE (02:45)
== END 2017-11-21 15:13 | disposition home or self-care (01) ==
LOC: NEPC 05:09 → NEDH 05:09 → NEPFCDU 13:38 → N06 22:56
PROVIDERS: ADMIT Hospitalist; ATTEND Hospitalist

== ENCOUNTER 2018-01-24 22:10 | Inpatient (IN) ==
[2018-01-24] MEDS ORDERED: Sodium Chlor 0.9% Inj 500 ML IV.SIG ONE (23:20)
--- NOTE | 2018-01-24 23:45 | XR ---
EXAM DATE: 01/24/2018 11:20 PM EDT AGE/SEX: 62 years / Male INDICATIONS: Short of breath. CLINICAL DATA: This is the patient's initial encounter. Patient reports that signs and symptoms have been present for 1 day and indicates a pain score of 0/10. MEDICAL/SURGICAL HISTORY: Sickle Cell disease. None. COMPARISON: [facility] – [place], CHEST 1V SINGLE AP, 01/24/2018. . FINDINGS: Cardiac silhouette remains enlarged with indistinct central pulmonary vascularity. Mild diffuse inter stitial prominence and mild bibasilar airspace disease remain unchanged. Remainder of exam is stable. CONCLUSION: 1. Cardiomegaly with positive fluid balance. 2. Mild bibasilar airspace disease, likely atelectasis. Electronically signed by: Selvin Tobias MD 01/24/2018 11:43 PM EDT
[2018-01-24] MEDS ORDERED: Piperacil/Tazo 3.375 GM Premix 50 ML IV.SIG ONE (23:57)
[2018-01-24] MEDS ORDERED: Vancomycin Inj 1 GM/200 ML PIGGYBACK IV.SIG ONE (23:57)
[2018-01-25 00:08] LABS: Bilirubin,Urine Negative (Negative); Clarity,Urine Clear (Clear); Color,Urine Yellow (Yellw/Straw); Glucose,Urine (UA) Negative (Negative); Leukocyte Esterase,Urine Negative (Negative); Nitrite,Urine Negative (Negative); Specific Gravity,Urine 1.009 (1.002-1.035)
[2018-01-25 00:17] LABS: Alkaline Phosphatase 70 U/L (45-117); Total Protein 7.1 g/dL (6.4-8.2)
--- NOTE | 2018-01-25 00:19 | ED ---
HPI General Chief complaint: Sickle Cell Stated complaint: spouse state bad sickle cell crisis Time Seen by Provider: 01/24/18 23:17 Source: patient Mode of arrival: ambulatory Limitations: no limitations History of Present Illness HPI narrative: The patient is a 62 year old male who presents to the [facility] emergency department with a history of sickle cell pain crisis that he reports began approximately 24 hours ago. The patient was seen in the emergency department earlier this morning for evaluation. The patient reportedly was feeling improved and decided to go home to continue his pain management regimen at home. The patient's reports that his pain has been intolerable at home in spite of taking methadone and oxycodone. The patient reports that he did not take any oxycodone today, however his reports that she did provide 1 to him approximately 1 hour prior to arrival. He is on oxycodone 10 mg. The patient reports that his pain is located in his low back and knees bilaterally. He denies having any new rashes, joint swelling, or erythema. He was not aware that he had an elevated temperature until he arrived at this facility. He denies having any cough or congestion. He reports that he does smoke 1 pack of cigarettes per day. He denies having any dysuria, urinary frequency, or urinary urgency. He denies having any abdominal pain, chest pain, chest pressure, or shortness of breath. The patient does seem confused on examination. I asked if he has any history of IV drug use and his adamantly reports that he does not and she has been to him for 30 years, however he reports that he last used IV drugs in April or May of this past year. On review of systems otherwise, the patient denies having any neck pain or stiffness, vomiting, diarrhea, or one-sided weakness, slurred speech, facial droop, or difficulty with word finding ability. The patient does however have generalized weakness related to his pain. Related Data Home Medications Medication Instructions Recorded Confirmed furosemide 40 mg PO BID 11/12/17 01/25/18 methadone 5 mg PO BID PRN 11/12/17 01/25/18 potassium chloride 20 meq PO BID 11/12/17 01/25/18 guaifenesin [Mucinex] 600 mg PO DAILY 01/24/18 01/25/18 Previous Rx's Medication Instructions Recorded oxycodone 10 mg PO Q4HR PRN #18 tab 11/21/17 Allergies Allergy/AdvReac Type Severity Reaction Status Date / Time No Known Allergies Allergy Verified 01/24/18 23:05 Review of Systems ROS: all other systems reviewed are negative [facility] Medical History Medical History Venous stasis ulcer (Acute) DVT (deep venous thrombosis) (Acute) Sickle cell anemia (Acute) Surgical History Surgical History H/O splenectomy (Acute) History of cataract surgery (Acute) S/P bilateral hip replacements (Acute) Social History Social History Substance History: No History of Abuse Second Hand Smoke Exposure: No Smoking Status: Current every day smoker Tobacco Type: Cigarettes How Often Do You Have a Drink Containing Alcohol: Monthly or less Recent Travel in [facility] within the Last 8 Weeks: No Recent Out of Country Travel within the Last 8 Weeks: No Immunization History Tetanus Immunization: >5 Years Hx Influenza Vaccine This Season: No Exam Const General: cooperative, no acute distress and well developed Nutritional Appearance: well nourished Orientation: alert, awake, oriented to person, oriented to place and not oriented to time HENMT Head: normocephalic and atraumatic Nose: no nasal discharge and no epistaxis Mouth: other (The patient has dry mucous membranes.) Throat: posterior oropharynx normal and uvula midline Eyes Sclera: normal sclerae Pupils: PERRL EOM: EOM intact bilaterally Neck Neck: no meningeal signs, trachea midline and no JVD Resp Effort & Inspection: no use of accessory muscles Auscultation: clear to auscultation bilaterally Cardio Rate: regular rate Rhythm: regular rhythm Heart Sounds: no murmurs GI Inspection: non-distended Palpation: soft, no hepatosplenomegaly and nontender Auscultation: normal bowel sounds Back/Spine/Pelvis Back: CVA tenderness (Reported on the right side) Cervical Spine: No cervical spinal tenderness Thoracic/Lumbar Spine: thoracic spinal tenderness (Lower thoracic, upper lumbar tenderness to palpation over the spinous processes. No erythema or ecchymosis. No step-off or crepitus.) and lumbar spinal tenderness Skin General: dry skin (warm) Neuro General: alert, awake and oriented (Person and place, however not time.) Cranial Nerves: CN's II-XI intact bilaterally Speech: speech normal Motor: strength 5/5 throughout (Generalized weakness with 4/5 strength in all 4 extremities.) and no movement abnormalities noted Sensory Exam: no sensory deficits noted Extrem General: normal to inspection (No calf tenderness on palpation. 2+ pulses in all 4 extremities. No joint swelling or erythema noted. Full range of motion of his extremities.), no clubbing, no cyanosis and no edema Psych Mood: congruent mood Affect: normal affect Judgment: judgment good Course Reevaluation(s) Reevaluation #1: The patient on reexamination was reportedly feeling improved. The patient was resting comfortably. Consultations Consultation #1: The patient's case including history, pertinent physical examination findings, and laboratory studies were discussed with Dr. Rome. It was agreed that the patient would be admitted to the [facility] hospitalist service. Initial Documented Vital Signs Temperature 100.8 F H 01/24/18 23:02 Pulse Rate 95 H 01/24/18 23:02 Respiratory Rate 18 01/24/18 23:02 Blood Pressure 172/74 H 01/24/18 23:02 Pulse Oximetry 95 01/24/18 23:02 Last Documented Vital Signs Temperature 101.7 F H 01/25/18 06:00 Pulse Rate 88 01/25/18 06:00 Respiratory Rate 19 01/25/18 06:49 Blood Pressure 132/58 L 01/25/18 06:00 Pulse Oximetry 100 01/25/18 06:00 Medical Decision Making MDM Narrative Medical decision making narrative: During the course of the patient's emergency department visit, the patient's history, examination, and differential diagnosis were reviewed with the patient. The patient was placed on a secured entrance monitor with oximetry and frequent blood pressure monitoring. The patient had IV access obtained and blood work sent for analysis. A diagnostic evaluation was started regarding the patient's sickle cell pain crisis associated with low- grade fever. Blood cultures x2 were drawn, lactic acid was sent for analysis to evaluate for sepsis. The patient was initially provided normal saline 500 mL bolus x1, Zosyn and vancomycin were started. The patient's diagnostic evaluation is remarkable for a white count of 21.8, hemoglobin 9.1 which is stable compared to his prior hemoglobin, platelets are 150 with 71.7 neutrophils, reticulocyte count is 5.4. Chemistry is remarkable for a sodium of 147, chloride 116 suggestive of dehydration with concentration, Lactic acid is 1.7, calcium 8.2, total bilirubin 1.5, BUN is 22, creatinine 1.46 , GFR 59, AST 101, C-reactive protein is 4.23, lipase within normal limits. Urinalysis shows 30 protein small occult blood, otherwise unremarkable, culture not indicated. A chest x-ray shows cardiomegaly with a positive fluid balance, mild interstitial prominence, mild basilar airspace disease bilaterally, likely atelectasis. CT scan of the brain showed no acute abnormality. CT scan of the C-spine, T-spine, L-spine showed degenerative changes, no other acute abnormality, however CT scan of the thorax disc spine did reveal evidence of basilar infiltrate suspicious for pneumonia. Sedimentation rate was also within normal limits. The patient's results were discussed with the patient, including the plan of care. I explained that further testing and/ or monitoring is indicated based on the patient's history, examination, and/ or laboratory findings. Therefore, I recommended admission for additional evaluation. The patient expressed understanding and was agreeable with this plan. The patient was admitted to the hospital in guarded condition and sent to a bed under the care of the [facility] hospitalist service. Medical Screen Exam Complete: Yes Emergency Medical Condition: Yes Differential Diagnosis Differential Diagnosis: Pneumonia, versus pyelonephritis, versus osteomyelitis, versus discitis, versus sickle cell pain crisis Medical Records Medical records reviewed: Yes I reviewed the patient's medical records. Lab Data Lab results reviewed: Yes I reviewed the patient's lab results. Result diagrams: 01/25/18 05:53 01/25/18 05:53 Lab Results 01/24/18 01/24/18 01/24/18 Range/Units 23:31 23:31 23:56 WBC (4.0-11.0) th/mm3 RBC (4.50-5.90) mil/mm3 Hgb (13.0-17.0) gm/dL Hct (39.0-51.0) % MCV (80.0-100.0) fL MCH (27.0-34.0) pg MCHC (32.0-36.0) % RDW (11.6-17.2) % Plt Count (150-450) th/mm3 MPV (7.0-11.0) fL Prelim Diff (Auto) Neut % (Auto) (16.0-70.0) % Lymph % (Auto) (9.0-44.0) % [place] % (Auto) (0.0-8.0) % Eos % (Auto) (0.0-4.0) % Baso % (Auto) (0.0-2.0) % Neut # (Auto) (1.8-7.7) th/mm3 Lymph # (Auto) (1.0-4.8) th/mm3 [place] # (Auto) (0.0-0.9) th/mm3 Eos # (Auto) (0.0-0.4) th/mm3 Baso # (Auto) (0.0-0.2) th/mm3 WBC Differential Seg Neuts % (Manual) (16-70) % Band Neuts % (Manual) (0-6) % Lymphocytes % (Manual) (9-44) % Monocytes % (Manual) (0-8) % Metamyelocytes % (Man) (0-1) % Myelocytes % (Man) (0-0) % Abs Neuts (Manual) (1.8-7.7) th/mm3 Nucleated RBCs/100 WBC (0-0) /100 WBC Differential Comment Platelet Estimate (Normal) Platelet Morphology (Normal) Polychromasia (0.0-1.9) % Pappenheimer Bodies (None) Valdez-Doniphan Bodies (None) ESR 5 (0-20) mm/hr Retic Count (0.4-3.0) % Absolute Retic (20.0-150.0) mil/L Sodium 147 H (136-145) meq/L Potassium 4.7 (3.5-5.1) meq/L Chloride 116 H (98-107) meq/L Carbon Dioxide 24.5 (21.0-32.0) meq/L Anion Gap 7 (5-15) meq/L BUN 22 H (7-18) mg/dL Creatinine 1.46 H (0.60-1.30) mg/dL Estimated GFR 59 L (>89) mL/min Random Glucose 92 (74-106) mg/dL Lactic Acid (0.4-2.0) mmol/L Calcium 8.2 L (8.5-10.1) mg/dL Total Bilirubin 1.5 H (0.2-1.0) mg/dL AST 101 H (15-37) U/L ALT 24 (12-78) U/L Alkaline Phosphatase 70 (45-117) U/L C-Reactive Protein 4.23 H (0.00-0.30) mg/dL Total Protein 7.1 D (6.4-8.2) g/dL Albumin 4.0 (3.4-5.0) g/dL Lipase 56 L (73-393) U/L Urine Color Yellow (Yellw/Straw) Urine Clarity Clear (Clear) Urine pH 5.0 (5.0-8.5) Ur Specific [place] 1.009 (1.002-1.035) Urine Protein 30 H (Neg-Trace) mg/dL Urine Glucose (UA) Negative (Negative) mg/dL Urine Ketones Negative (Negative) mg/dL Urine Occult Blood Small H (Negative) Urine Nitrate Negative (Negative) Urine Bilirubin Negative (Negative) Urine Urobilinogen Less than 2 (Less than 2) mg/dL Ur Leukocyte Esterase Negative (Negative) Urine RBC Less than 1 (0-3) /hpf Urine WBC Less than 1 (0-5) /hpf Micro UA Comment Culture not ind Ur Microscopic Review Not Reportable Urine Culture Comments Culture not ind 01/25/18 01/25/18 01/25/18 Range/Units 00:40 00:40 05:53 WBC 21.8 H 18.2 H (4.0-11.0) th/mm3 RBC 3.82 L 3.12 L (4.50-5.90) mil/mm3 Hgb 9.1 L 7.8 L (13.0-17.0) gm/dL Hct 28.8 L 23.3 L (39.0-51.0) % MCV 75.4 L 74.7 L (80.0-100.0) fL MCH 23.9 L 24.9 L (27.0-34.0) pg MCHC 31.7 L 33.3 (32.0-36.0) % RDW 19.5 H 19.3 H (11.6-17.2) % Plt Count 150 117 L (150-450) th/mm3 MPV 8.6 8.5 (7.0-11.0) fL Prelim Diff (Auto) Slide review pending Slide review pending Neut % (Auto) 71.7 H 81.9 H (16.0-70.0) % Lymph % (Auto) 20.5 8.8 L (9.0-44.0) % [place] % (Auto) 5.8 8.2 H (0.0-8.0) % Eos % (Auto) 1.6 0.5 (0.0-4.0) % Baso % (Auto) 0.4 0.6 (0.0-2.0) % Neut # (Auto) 15.6 H 14.9 H (1.8-7.7) th/mm3 Lymph # (Auto) 4.5 1.6 (1.0-4.8) th/mm3 [place] # (Auto) 1.3 H 1.5 H (0.0-0.9) th/mm3 Eos # (Auto) 0.4 0.1 (0.0-0.4) th/mm3 Baso # (Auto) 0.1 0.1 (0.0-0.2) th/mm3 WBC Differential Manual diff final Seg Neuts % (Manual) 72 H (16-70) % Band Neuts % (Manual) 4 (0-6) % Lymphocytes % (Manual) 16 (9-44) % Monocytes % (Manual) 6 (0-8) % Metamyelocytes % (Man) 1 (0-1) % Myelocytes % (Man) 1 H (0-0) % Abs Neuts (Manual) 17.0 H (1.8-7.7) th/mm3 Nucleated RBCs/100 WBC 60 H (0-0) /100 WBC Differential Comment . . Platelet Estimate Normal (Normal) Platelet Morphology Normal (Normal) Polychromasia 2.5 H (0.0-1.9) % Pappenheimer Bodies Present H (None) Valdez-Doniphan Bodies Present H (None) ESR (0-20) mm/hr Retic Count 5.4 H (0.4-3.0) % Absolute Retic 206.8 H (20.0-150.0) mil/L Sodium (136-145) meq/L Potassium (3.5-5.1) meq/L Chloride (98-107) meq/L Carbon Dioxide (21.0-32.0) meq/L Anion Gap (5-15) meq/L BUN (7-18) mg/dL Creatinine (0.60-1.30) mg/dL Estimated GFR (>89) mL/min Random Glucose (74-106) mg/dL Lactic Acid 1.7 (0.4-2.0) mmol/L Calcium (8.5-10.1) mg/dL Total Bilirubin (0.2-1.0) mg/dL AST (15-37) U/L ALT (12-78) U/L Alkaline Phosphatase (45-117) U/L C-Reactive Protein (0.00-0.30) mg/dL Total Protein (6.4-8.2) g/dL Albumin (3.4-5.0) g/dL Lipase (73-393) U/L Urine Color (Yellw/Straw) Urine Clarity (Clear) Urine pH (5.0-8.5) Ur Specific [place] (1.002-1.035) Urine Protein (Neg-Trace) mg/dL Urine Glucose (UA) (Negative) mg/dL Urine Ketones (Negative) mg/dL Urine Occult Blood (Negative) Urine Nitrate (Negative) Urine Bilirubin (Negative) Urine Urobilinogen (Less than 2) mg/dL Ur Leukocyte Esterase (Negative) Urine RBC (0-3) /hpf Urine WBC (0-5) /hpf Micro UA Comment Ur Microscopic Review Urine Culture Comments 01/25/18 Range/Units 05:53 WBC (4.0-11.0) th/mm3 RBC (4.50-5.90) mil/mm3 Hgb (13.0-17.0) gm/dL Hct (39.0-51.0) % MCV (80.0-100.0) fL MCH (27.0-34.0) pg MCHC (32.0-36.0) % RDW (11.6-17.2) % Plt Count (150-450) th/mm3 MPV (7.0-11.0) fL Prelim Diff (Auto) Neut % (Auto) (16.0-70.0) % Lymph % (Auto) (9.0-44.0) % [place] % (Auto) (0.0-8.0) % Eos % (Auto) (0.0-4.0) % Baso % (Auto) (0.0-2.0) % Neut # (Auto) (1.8-7.7) th/mm3 Lymph # (Auto) (1.0-4.8) th/mm3 [place] # (Auto) (0.0-0.9) th/mm3 Eos # (Auto) (0.0-0.4) th/mm3 Baso # (Auto) (0.0-0.2) th/mm3 WBC Differential Seg Neuts % (Manual) (16-70) % Band Neuts % (Manual) (0-6) % Lymphocytes % (Manual) (9-44) % Monocytes % (Manual) (0-8) % Metamyelocytes % (Man) (0-1) % Myelocytes % (Man) (0-0) % Abs Neuts (Manual) (1.8-7.7) th/mm3 Nucleated RBCs/100 WBC (0-0) /100 WBC Differential Comment Platelet Estimate (Normal) Platelet Morphology (Normal) Polychromasia (0.0-1.9) % Pappenheimer Bodies (None) Valdez-Doniphan Bodies (None) ESR (0-20) mm/hr Retic Count (0.4-3.0) % Absolute Retic (20.0-150.0) mil/L Sodium 149 H (136-145) meq/L Potassium 4.0 (3.5-5.1) meq/L Chloride 115 H (98-107) meq/L Carbon Dioxide 24.9 (21.0-32.0) meq/L Anion Gap 9 (5-15) meq/L BUN 20 H (7-18) mg/dL Creatinine 1.28 (0.60-1.30) mg/dL Estimated GFR 69 L (>89) mL/min Random Glucose 91 (74-106) mg/dL Lactic Acid (0.4-2.0) mmol/L Calcium 8.5 (8.5-10.1) mg/dL Total Bilirubin (0.2-1.0) mg/dL AST (15-37) U/L ALT (12-78) U/L Alkaline Phosphatase (45-117) U/L C-Reactive Protein (0.00-0.30) mg/dL Total Protein (6.4-8.2) g/dL Albumin (3.4-5.0) g/dL Lipase (73-393) U/L Urine Color (Yellw/Straw) Urine Clarity (Clear) Urine pH (5.0-8.5) Ur Specific [place] (1.002-1.035) Urine Protein (Neg-Trace) mg/dL Urine Glucose (UA) (Negative) mg/dL Urine Ketones (Negative) mg/dL Urine Occult Blood (Negative) Urine Nitrate (Negative) Urine Bilirubin (Negative) Urine Urobilinogen (Less than 2) mg/dL Ur Leukocyte Esterase (Negative) Urine RBC (0-3) /hpf Urine WBC (0-5) /hpf Micro UA Comment Ur Microscopic Review Urine Culture Comments Imaging Data Radiologist's impression: Chest X-Ray 01/24/18 23:20 CONCLUSION: 1. Cardiomegaly with positive fluid balance. 2. Mild bibasilar airspace disease, likely atelectasis. Cervical Spine CT 01/25/18 00:00 CONCLUSION: 1. Advanced multilevel degenerative spondylosis of the cervical spine most prominently at C3-4 and C5-6 with moderate severe disc space narrowing and posterior disc osteophytes resulting in mild bony central canal narrowing. 2. No significant bony neural foraminal stenosis. Head CT 01/25/18 00:00 CONCLUSION: 1. No acute intracranial abnormality. . Lumbar Spine CT 01/25/18 00:00 CONCLUSION: 1. Mild multilevel degenerative disc disease without significant bony central canal or neural foraminal stenosis. Thoracic Spine CT 01/25/18 00:00 CONCLUSION: 1. Mild degenerative spondylosis with primarily anterior osteophytes in the proximal thoracic spine. No significant bony central canal or neural foraminal stenosis. 2. Mild patchy airspace consolidation in the right lung base may reflect atelectasis. Differential considerations include pneumonia and aspiration in the appropriate clinical setting. ECG Data Attestation: I personally reviewed and interpreted this ECG as follows: Interpretation: The patient had an EKG done on arrival that shows a sinus rhythm heart rate of 90. Left axis deviation is noted. No acute ST segment elevation is noted. T waves are inverted in V1, lead III. Discharge Plan Discharge Disposition Patient Disposition: 30 Still Patient Discharge Details Diagnosis: Sickle cell anemia with crisis, Pneumonia Physicians Team ED Provider: Dayna Hansen Primary Care Provider: Ashley Cisse Attending Provider: Miguel Sheriff Discharge Interventions Interventions: ED Discharge Assessment Last Done: 01/25/18 04:30 Vital Signs Last Done: 01/25/18 03:07 Status ED Status: Left Department Discharge Information Discharge Date/Time: 01/25/18 05:06
[2018-01-25 00:23] LABS: Alanine Aminotransferase 24 U/L (12-78); Anion Gap 7 meq/L (5-15); Aspartate Aminotransferase 101 U/L (15-37); Blood Urea Nitrogen 22 mg/dL (7-18); C-Reactive Protein 4.23 mg/dL (0.00-0.30); Calcium 8.2 mg/dL (8.5-10.1); Carbon Dioxide 24.5 meq/L (21.0-32.0); Chloride 116 meq/L (98-107); Glomerular Filtration Rate 59 mL/min (>89); Glucose,Random 92 mg/dL (74-106); Lipase 56 U/L (73-393); Potassium 4.7 meq/L (3.5-5.1); Sodium 147 meq/L (136-145)
[2018-01-25 01:04] LABS: Baso # (Auto) 0.1 th/mm3 (0.0-0.2); Baso % (Auto) 0.4 % (0.0-2.0); Eos # (Auto) 0.4 th/mm3 (0.0-0.4); Eos % (Auto) 1.6 % (0.0-4.0); Hematocrit 28.8 % (39.0-51.0); Hemoglobin 9.1 gm/dL (13.0-17.0); Lymph # (Auto) 4.5 th/mm3 (1.0-4.8); Lymph % (Auto) 20.5 % (9.0-44.0); Mean Corpuscular HGB Conc 31.7 % (32.0-36.0); Mean Corpuscular Hemoglobin 23.9 pg (27.0-34.0); Mean Corpuscular Volume 75.4 fL (80.0-100.0); Mean Platelet Volume 8.6 fL (7.0-11.0); Mono # (Auto) 1.3 th/mm3 (0.0-0.9); Mono % (Auto) 5.8 % (0.0-8.0); Neut # (Auto) 15.6 th/mm3 (1.8-7.7); Neut % (Auto) 71.7 % (16.0-70.0); Platelet Count 150 th/mm3 (150-450); Red Blood Count 3.82 mil/mm3 (4.50-5.90); Red Cell Distribution Width 19.5 % (11.6-17.2); Reticulocyte Percent 5.4 % (0.4-3.0); White Blood Count 21.8 th/mm3 (4.0-11.0)
--- NOTE | 2018-01-25 01:32 | CT ---
EXAM DATE: 01/25/2018 12:28 AM EDT AGE/SEX: 62 years / Male INDICATIONS: Altered mental status. CLINICAL DATA: This is the patient's initial encounter. Patient reports that signs and symptoms have been present for 1 day and indicates a pain score of 10/10. MEDICAL/SURGICAL HISTORY: Sickle Cell disease. Deep venous thrombosis. None. RADIATION DOSE: 55.86 CTDI (mGy) COMPARISON: No prior exams available for comparison. TECHNIQUE: CT of the head without contrast. Using automated exposure control and adjustment of the mA and/or kV according to patient size, radiation dose was kept as low as reasonably achievable to ob tain optimal diagnostic quality images. DICOM format image data is available electronically for revi ew and comparison. FINDINGS: Cerebrum: Mild diffuse cerebral atrophy. The ventricles are normal for degree of atrophy. No evidenc e of midline shift, mass lesion, hemorrhage or acute infarction. No extraaxial fluid collections are seen. Posterior Fossa: The cerebellum and brainstem are intact. The 4th ventricle is midline. The cerebe llopontine angle is unremarkable. Extracranial: The visualized portion of the orbits is intact. Skull: The calvaria is intact. No evidence of skull fracture. CONCLUSION: 1. No acute intracranial abnormality. . Electronically signed by: Selvin Tobias MD 01/25/2018 1:30 AM EDT
[2018-01-25] MEDS ORDERED: Vancomycin Inj 1,000 MG in Sodium Chlor 0.9% Inj 250 ML IV.SIG ONE (02:00)
[2018-01-25 02:02] LABS: Lymphocytes 16 % (9-44); Metamyelocytes 1 % (0-1); Monocytes 6 % (0-8); Myelocytes 1 % (0-0); Tallied Nucleated RBC 60 (0-0)
[2018-01-25 02:03] LABS: Howell-Jolly Bodies Present; Pappenheimer Bodies Present; Platelet Estimate Normal (Normal); Platelet Morphology Normal (Normal)
[2018-01-25 02:04] LABS: Polychromasia 2.5 % (0.0-1.9)
--- NOTE | 2018-01-25 02:16 | CT ---
EXAM DATE: 01/25/2018 12:28 AM EDT AGE/SEX: 62 years / Male INDICATIONS: Neck and back pain. CLINICAL DATA: This is the patient's initial encounter. Patient reports that signs and symptoms have been present for 1 day and indicates a pain score of 10/10. MEDICAL/SURGICAL HISTORY: Sickle Cell disease. Deep venous thrombosis. None. RADIATION DOSE: 18.36 CTDI (mGy) COMPARISON: No prior exams available for comparison. TECHNIQUE: Contiguous axial images were obtained using helical multirow detector technique. The vol umetric data was post-processed with multiplanar reconstruction in oblique axial, sagittal, and coron al planes. Using automated exposure control and adjustment of the mA and/or kV according to patient s ize, radiation dose was kept as low as reasonably achievable to obtain optimal diagnostic quality eduin ges. DICOM format image data is available electronically for review and comparison. FINDINGS: VERTEBRAE: Vertebral body heights are intact. Endplate sclerosis most prominently at C3-4 and C5-6. ALIGNMENT: 2 mm retrolisthesis of C4 on C5 and C5 on C6. PARASPINAL SOFT TISSUES: No significant adenopathy or mass. Thyroid is unremarkable by CT. Visualized lung apices are clear. C2-3: The bony spinal canal is normal in size. No evidence of disc bulge or herniation. The neura l foramina are bilaterally patent. C3-4: Moderate to severe disc space loss with endplate sclerosis. Posterior disc osteophytes with m ild effacement anterior thecal sac. Bony neural foramina are patent. C4-5: Mild posterior disc osteophytes without significant bony central canal or neural foraminal st enosis. C5-6: Moderate severe disc space loss with posterior disc osteophytes. Effacement of the anterior t hecal sac. No significant neural bony neural foraminal stenosis. C6-7: Moderate disc space loss with mild posterior disc osteophytes. No bony central canal or neura l foraminal stenosis. C7-T1: The bony spinal canal is normal in size. No evidence of disc bulge or herniation. The neura l foramina are bilaterally patent. CONCLUSION: 1. Advanced multilevel degenerative spondylosis of the cervical spine most prominently at C3-4 and C 5-6 with moderate severe disc space narrowing and posterior disc osteophytes resulting in mild bony c entral canal narrowing. 2. No significant bony neural foraminal stenosis. Electronically signed by: Selvin Tobias MD 01/25/2018 2:14 AM EDT
[2018-01-25] MEDS ORDERED: HYDROmorphone PF Inj 2 MG/ML Vial IV.PUSH ONE (02:19)
--- NOTE | 2018-01-25 02:21 | CT ---
EXAM DATE: 01/25/2018 12:28 AM EDT AGE/SEX: 62 years / Male INDICATIONS: Neck and back pain. CLINICAL DATA: This is the patient's initial encounter. Patient reports that signs and symptoms have been present for 1 day and indicates a pain score of 10/10. MEDICAL/SURGICAL HISTORY: Sickle Cell disease. Deep venous thrombosis. None. RADIATION DOSE: 21.30 CTDI (mGy) ; Combined studies COMPARISON: No prior exams available for comparison. TECHNIQUE: Contiguous axial images were acquired using a multirow detector CT scanner without contra st. Multiplanar reconstruction in the sagittal and coronal planes was performed. Using automated exp osure control and adjustment of the mA and/or kV according to patient size, radiation dose was kept a s low as reasonably achievable to obtain optimal diagnostic quality images. DICOM format image data is available electronically for review and comparison. FINDINGS: The vertebral bodies of the thoracic spine are in normal alignment. Vertebral body height is maintai kamron. No fractures are seen. Mild anterior osteophytes in the proximal thoracic spine. Mild patchy ai rspace consolidation in the right lung base. T1 - T2: Normal. T2 - T3: The thecal sac has a normal diameter. No significant bony central canal or neural foraminal stenosis. T3 - T4: The thecal sac has a normal diameter. No significant bony central canal or neural foraminal stenosis. T4 - T5: The thecal sac has a normal diameter. No significant bony central canal or neural foraminal stenosis. T5 - T6: The thecal sac has a normal diameter. No significant bony central canal or neural foraminal stenosis. T6 - T7: The thecal sac has a normal diameter. No significant bony central canal or neural foraminal stenosis. T7 - T8: The thecal sac has a normal diameter. No significant bony central canal or neural foraminal stenosis. T8 - T9: The thecal sac has a normal diameter. No significant bony central canal or neural foraminal stenosis. T9 - T10: The thecal sac has a normal diameter. No significant bony central canal or neural foramina l stenosis. T10 - T11: The thecal sac has a normal diameter. No significant bony central canal or neural foramin al stenosis. T11 - T12: The thecal sac has a normal diameter. No significant bony central canal or neural foramin al stenosis. T12 - L1: The thecal sac has a normal diameter. No significant bony central canal or neural foramina l stenosis. CONCLUSION: 1. Mild degenerative spondylosis with primarily anterior osteophytes in the proximal thoracic spine. No significant bony central canal or neural foraminal stenosis. 2. Mild patchy airspace consolidation in the right lung base may reflect atelectasis. Differential c onsiderations include pneumonia and aspiration in the appropriate clinical setting. Electronically signed by: Selvin Tobias MD 01/25/2018 2:20 AM EDT
--- NOTE | 2018-01-25 02:24 | CT ---
EXAM DATE: 01/25/2018 12:28 AM EDT AGE/SEX: 62 years / Male INDICATIONS: Neck and back pain. CLINICAL DATA: This is the patient's initial encounter. Patient reports that signs and symptoms have been present for 1 day and indicates a pain score of 10/10. MEDICAL/SURGICAL HISTORY: Sickle Cell disease. Deep venous thrombosis. None. RADIATION DOSE: 21.30 CTDI (mGy) ; Combined studies COMPARISON: No prior exams available for comparison. TECHNIQUE: Contiguous axial images were acquired with a multirow detector CT scanner without contras t. Multiplanar reconstructions in the sagittal and coronal plane were also performed. Using automate d exposure control and adjustment of the mA and/or kV according to patient size, radiation dose was k ept as low as reasonably achievable to obtain optimal diagnostic quality images. DICOM format image data is available electronically for review and comparison. FINDINGS: Vertebrae: Normal vertebral body height. Alignment: Normal. No subluxation. Paraspinal Soft Tissues: Unremarkable. No significant adenopathy. Aorta is non-aneurysmal. T12-L1: Minimal diffuse disc bulge. No significant bony central canal or neural foraminal stenosis. L1-L2: The thecal sac has a normal diameter. No evidence of disc bulge or protrusion. The neural f oramina are patent bilaterally. L2-L3: Minimal diffuse disc bulge and mild left facet arthropathy. No significant bony central canal or neural foraminal stenosis. L3-L4: Minimal diffuse disc bulge with ligament of flavum hypertrophy. No significant bony central c anal or neural foraminal stenosis. L4-L5: Minimal diffuse disc bulge with ligament of flavum hypertrophy and minimal bilateral facet ar thropathy. Mild effacement anterior thecal sac without significant bony central canal or neural cherise inal stenosis. L5-S1: Minimal diffuse disc bulge. No significant bony central canal or neural foraminal stenosis. CONCLUSION: 1. Mild multilevel degenerative disc disease without significant bony central canal or neural forami nal stenosis. Electronically signed by: Selvin Tobias MD 01/25/2018 2:22 AM EDT
[2018-01-25] MEDS ORDERED: Azithromycin Inj 500 MG in Sodium Chlor 0.9% Inj 250 ML IV.SIG SCH (04:00)
[2018-01-25] MEDS ORDERED: Acetaminophen 325 MG Tablet PO ONE (04:36)
[2018-01-25] MEDS: Methadone 10 MG Tablet PO PRN ×2 (06:11→18:55)
[2018-01-25] MEDS: Morphine Inj 4 MG/ML Vial IV.PUSH PRN ×3 (06:12→12:46)
[2018-01-25 06:54] LABS: Baso # (Auto) 0.1 th/mm3 (0.0-0.2); Baso % (Auto) 0.6 % (0.0-2.0); Eos # (Auto) 0.1 th/mm3 (0.0-0.4); Eos % (Auto) 0.5 % (0.0-4.0); Hematocrit 23.3 % (39.0-51.0); Hemoglobin 7.8 gm/dL (13.0-17.0); Lymph # (Auto) 1.6 th/mm3 (1.0-4.8); Lymph % (Auto) 8.8 % (9.0-44.0); Mean Corpuscular HGB Conc 33.3 % (32.0-36.0); Mean Corpuscular Hemoglobin 24.9 pg (27.0-34.0); Mean Corpuscular Volume 74.7 fL (80.0-100.0); Mean Platelet Volume 8.5 fL (7.0-11.0); Mono # (Auto) 1.5 th/mm3 (0.0-0.9); Mono % (Auto) 8.2 % (0.0-8.0); Neut # (Auto) 14.9 th/mm3 (1.8-7.7); Neut % (Auto) 81.9 % (16.0-70.0); Platelet Count 117 th/mm3 (150-450); Red Blood Count 3.12 mil/mm3 (4.50-5.90); Red Cell Distribution Width 19.3 % (11.6-17.2); White Blood Count 18.2 th/mm3 (4.0-11.0)
[2018-01-25 07:34] LABS: Calcium 8.5 mg/dL (8.5-10.1); Carbon Dioxide 24.9 meq/L (21.0-32.0)
[2018-01-25 08:09] LABS: Lymphocytes 14 % (9-44); Metamyelocytes 2 % (0-1); Monocytes 3 % (0-8); Tallied Nucleated RBC 236 (0-0)
[2018-01-25 08:10] LABS: Polychromasia 2.2 % (0.0-1.9); Target Cells 1+
[2018-01-25 08:11] LABS: Platelet Morphology Normal (Normal); Sickle Cells 1+
--- NOTE | 2018-01-25 09:33 | P.HP ---
<Christina Li W - Last Filed: 01/25/18 15:58> History of Present Illness Primary Care Physician: Ashley Cisse MD Chief Complaint: adams cell crisis/leg pain History of Present Illness: This is a 62 year old male patient with a past medical history which includes COPD, sickle cell anemia- follows with Dr. Dyer, IgG Lambda MGUS, depression, osteonecrosis of bilateral hips and right arm cephalic vein thrombosis in 2017. Patient has received pain medication about an hour prior to my evaluation and unable to stay awake to answer medial history. Information gathered from patient, patient's at bedside and review of prior charting currently present to the ER with complaints of bilateral leg pain which started Wednesday. Patient has been taking scheduled Methadone and as needed oxycodone at home with no relief. Patient's also reports that he has had decreased appetite since Wednesday and occasional nonproductive cough. Patient and denies fevers , N/V/D/C, chest pain, SOB or sick contacts. Chest X-Ray 1. Cardiomegaly with positive fluid balance. 2. Mild bibasilar airspace disease, likely atelectasis. Thoracic Spine CT 1. Mild degenerative spondylosis with primarily anterior osteophytes in the proximal thoracic spine. No significant bony central canal or neural foraminal stenosis. 2. Mild patchy airspace consolidation in the right lung base may reflect atelectasis. Differential considerations include pneumonia and aspiration in the appropriate clinical setting. Patient's does endorse that he occasionally coughs after he eats/drinks liquids and was hospitalized 11/12/17 for RLL PNA and sickle cell crisis. PAST MEDICAL HISTORY: COPD Hemoglobin SS disease IgG Lambda MGUS Mild depression Osteonecrosis of hips Right arm cephalic vein thrombosis in 2017 PAST SURGICAL HISTORY: Bilateral total hip arthroplasty Gastromectomy in 1975 Splenectomy in 1968 FAMILY HISTORY: Unknown per patient SOCIAL HISTORY: Mr. Guaman is denies ETOH use smokes 0.5 packs/day. - Diagnosis (1) Pneumonia (2) Sickle cell anemia with crisis Inpatient Certification: I certify that the inpatient services were ordered in accordance with Medicare regulations governing the order. This includes certification that hospital inpatient services are reasonable and necessary and in the case of services not specified as inpatient-only under 42 CFR 419.22(n), that they are appropriately provided as inpatient services in accordance to with the 2-midnight benchmark under 43 CFR 412.3(e) Estimated Total Length of Stay (Days): 3 Plans for Post Hospital Care: Not yet determined Review of Systems unobtainable due to mental status PMFSH - History History Provided By: Patient - Medical History Medical History: Medical History (Last Reviewed 01/25/18 @ 00:14 by Dayna Hansen MD) Venous stasis ulcer (Acute) DVT (deep venous thrombosis) (Acute) Sickle cell anemia (Acute) - Surgical History Surgical History: Surgical History (Last Updated 01/25/18 @ 00:15 by Dayna Hansen MD) H/O splenectomy History of cataract surgery S/P bilateral hip replacements - Tobacco History Second Hand Smoke Exposure: No Tobacco Use In Past 30 Days: Yes (01/23/18 last day smoked) Smoking Status: Current every day smoker Tobacco Type: Cigarettes - Alcohol History How Often Do You Have a Drink Containing Alcohol: Monthly or less - Substance Use History Substance History: No History of Abuse - Travel History Recent Travel in the [place] Within the Last 8 Weeks: No Recent Travel Out of the Country Within the Last 8 Weeks: No - Immunization History Tetanus Immunization: >5 Years Hx Influenza Vaccine This Season: No Medications and Allergies Allergies Allergy/AdvReac Type Severity Reaction Status Date / Time No Known Allergies Allergy Verified 01/24/18 23:05 Home Medications Medication Instructions Recorded Confirmed Type furosemide 40 mg PO BID 11/12/17 01/25/18 History methadone 5 mg PO BID PRN 11/12/17 01/25/18 History potassium chloride 20 meq PO BID 11/12/17 01/25/18 History guaifenesin [Mucinex] 600 mg PO DAILY 01/24/18 01/25/18 History Active Medications: Active Medications Azithromycin 500 mg/ Sodium (Chloride) 250 mls @ 250 mls/hr IV.SIG Q24H [facility] Last Infusion: 01/25/18 07:03 Dose: Infused Ceftriaxone Sodium 1,000 mg/ (Sodium Chloride) 100 mls @ 200 mls/hr IV.SIG Q24H [facility] Last Infusion: 01/25/18 04:51 Dose: Infused Methadone HCl (Dolophine) 5 mg PO BID PRN PRN Reason: Pain level 3-10 Last Admin: 01/25/18 06:11 Dose: 5 mg Miscellaneous (Pill Splitter) 0 each OTHER UNSCH PRN PRN Reason: TO SPLIT PILLS Morphine Sulfate (Morphine Inj) 4 mg IV.PUSH Q3H PRN PRN Reason: BREAKTHROUGH PAIN Last Admin: 01/25/18 06:12 Dose: 4 mg Ondansetron HCl (Zofran Inj) 4 mg IV.PUSH Q6H PRN PRN Reason: nausea, vomiting Exam Vital signs: Vital Signs 01/24/18 23:02 01/24/18 23:05 01/24/18 23:52 Temperature 100.8 F H Pulse Rate 95 H 90 Respiratory Rate 18 20 Blood Pressure 172/74 H 172/79 H Pulse Oximetry 95 95 98 01/25/18 03:07 01/25/18 03:10 01/25/18 03:12 Temperature Pulse Rate 88 91 H Respiratory Rate 18 18 Blood Pressure 168/78 H 168/78 H Pulse Oximetry 96 01/25/18 04:12 01/25/18 05:16 01/25/18 06:00 Temperature 100.6 F H 101.7 F H Pulse Rate 93 H 88 Respiratory Rate 18 18 Blood Pressure 177/78 H 132/58 L Pulse Oximetry 100 100 01/25/18 06:16 01/25/18 06:49 01/25/18 08:00 Temperature 101.2 F H Pulse Rate 89 Respiratory Rate 18 19 20 Blood Pressure 146/68 H Pulse Oximetry 95 01/25/18 08:52 Temperature Pulse Rate Respiratory Rate Blood Pressure Pulse Oximetry 93 L Intake & Output 01/24/18 01/25/18 01/25/18 18:59 06:59 18:59 Intake Total 1171 / 1171 250 / 250 Output Total 200 / 200 Balance 1171 / 1171 50 / 50 Weight 62.5 kg Intake: IV 950 / 950 250 / 250 Azithromycin Inj 500 MG In NS 250 / 250 Inj 250 ML @ 250 mls/hr IV.SIG Q24H [facility] Rx#:[id number] Zosyn 3.375 GM Premix 50 ML @ 100 / 100 100 mls/hr IV.SIG ONCE ONE Rx#: [id number] NS Inj 500 ML @ Wide Open IV. 500 / 500 SIG BOLUS ONE Rx#:[id number] Vancomycin Inj 1,000 MG In NS 250 / 250 Inj 250 ML @ 250 mls/hr IV.SIG ONCE ONE Rx#:[id number] Rocephin Inj 1,000 MG In NS Inj 100 / 100 100 ML @ 200 mls/hr IV.SIG Q24H [facility] Rx#:[id number] Oral 221 / 221 Output: Urine 200 / 200 Other: Date of Last Bowel Movement 01/23/18 Weight On Admission 62.5 kg Results - Labs CBC & Chem 7: 01/25/18 05:53 01/25/18 05:53 Labs: Laboratory Results - last 24 hr 01/24/18 01/24/18 01/24/18 23:31 23:31 23:56 WBC RBC Hgb Hct MCV MCH MCHC RDW Plt Count MPV Prelim Diff (Auto) Neut % (Auto) Lymph % (Auto) [place] % (Auto) Eos % (Auto) Baso % (Auto) Neut # (Auto) Lymph # (Auto) [place] # (Auto) Eos # (Auto) Baso # (Auto) WBC Differential Seg Neuts % (Manual) Band Neuts % (Manual) Lymphocytes % (Manual) Monocytes % (Manual) Metamyelocytes % (Man) Myelocytes % (Man) Abs Neuts (Manual) Nucleated RBCs/100 WBC Differential Comment Platelet Estimate Platelet Morphology Polychromasia Pappenheimer Bodies Sickle Cells Target Cells [place] Bodies ESR 5 Retic Count Absolute Retic Sodium 147 H Potassium 4.7 Chloride 116 H Carbon Dioxide 24.5 Anion Gap 7 BUN 22 H Creatinine 1.46 H Estimated GFR 59 L Random Glucose 92 Lactic Acid Calcium 8.2 L Total Bilirubin 1.5 H AST 101 H ALT 24 Alkaline Phosphatase 70 C-Reactive Protein 4.23 H Total Protein 7.1 D Albumin 4.0 Lipase 56 L Urine Color Yellow Urine Clarity Clear Urine pH 5.0 Ur Specific [place] 1.009 Urine Protein 30 H Urine Glucose (UA) Negative Urine Ketones Negative Urine Occult Blood Small H Urine Nitrate Negative Urine Bilirubin Negative Urine Urobilinogen Less than 2 Ur Leukocyte Esterase Negative Urine RBC Less than 1 Urine WBC Less than 1 Micro UA Comment Culture not ind Ur Microscopic Review Not Reportable Urine Culture Comments Culture not ind 01/25/18 01/25/18 01/25/18 00:40 00:40 05:53 WBC 21.8 H 18.2 H RBC 3.82 L 3.12 L Hgb 9.1 L 7.8 L Hct 28.8 L 23.3 L MCV 75.4 L 74.7 L MCH 23.9 L 24.9 L MCHC 31.7 L 33.3 RDW 19.5 H 19.3 H Plt Count 150 117 L MPV 8.6 8.5 Prelim Diff (Auto) Slide review pending Slide review pending Neut % (Auto) 71.7 H 81.9 H Lymph % (Auto) 20.5 8.8 L [place] % (Auto) 5.8 8.2 H Eos % (Auto) 1.6 0.5 Baso % (Auto) 0.4 0.6 Neut # (Auto) 15.6 H 14.9 H Lymph # (Auto) 4.5 1.6 [place] # (Auto) 1.3 H 1.5 H Eos # (Auto) 0.4 0.1 Baso # (Auto) 0.1 0.1 WBC Differential Manual diff final Manual diff final Seg Neuts % (Manual) 72 H 81 H Band Neuts % (Manual) 4 Lymphocytes % (Manual) 16 14 Monocytes % (Manual) 6 3 Metamyelocytes % (Man) 1 2 H Myelocytes % (Man) 1 H Abs Neuts (Manual) 17.0 H 15.1 H Nucleated RBCs/100 WBC 60 H 236 H Differential Comment . . Platelet Estimate Normal Low L Platelet Morphology Normal Normal Polychromasia 2.5 H 2.2 H Pappenheimer Bodies Present H Sickle Cells 1+ H Target Cells 1+ H [place] Bodies Present H ESR Retic Count 5.4 H Absolute Retic 206.8 H Sodium Potassium Chloride Carbon Dioxide Anion Gap BUN Creatinine Estimated GFR Random Glucose Lactic Acid 1.7 Calcium Total Bilirubin AST ALT Alkaline Phosphatase C-Reactive Protein Total Protein Albumin Lipase Urine Color Urine Clarity Urine pH Ur Specific [place] Urine Protein Urine Glucose (UA) Urine Ketones Urine Occult Blood Urine Nitrate Urine Bilirubin Urine Urobilinogen Ur Leukocyte Esterase Urine RBC Urine WBC Micro UA Comment Ur Microscopic Review Urine Culture Comments 01/25/18 05:53 WBC RBC Hgb Hct MCV MCH MCHC RDW Plt Count MPV Prelim Diff (Auto) Neut % (Auto) Lymph % (Auto) [place] % (Auto) Eos % (Auto) Baso % (Auto) Neut # (Auto) Lymph # (Auto) [place] # (Auto) Eos # (Auto) Baso # (Auto) WBC Differential Seg Neuts % (Manual) Band Neuts % (Manual) Lymphocytes % (Manual) Monocytes % (Manual) Metamyelocytes % (Man) Myelocytes % (Man) Abs Neuts (Manual) Nucleated RBCs/100 WBC Differential Comment Platelet Estimate Platelet Morphology Polychromasia Pappenheimer Bodies Sickle Cells Target Cells [place] Bodies ESR Retic Count Absolute Retic Sodium 149 H Potassium 4.0 Chloride 115 H Carbon Dioxide 24.9 Anion Gap 9 BUN 20 H Creatinine 1.28 Estimated GFR 69 L Random Glucose 91 Lactic Acid Calcium 8.5 Total Bilirubin AST ALT Alkaline Phosphatase C-Reactive Protein Total Protein Albumin Lipase Urine Color Urine Clarity Urine pH Ur Specific [place] Urine Protein Urine Glucose (UA) Urine Ketones Urine Occult Blood Urine Nitrate Urine Bilirubin Urine Urobilinogen Ur Leukocyte Esterase Urine RBC Urine WBC Micro UA Comment Ur Microscopic Review Urine Culture Comments - Imaging Impressions Chest X-Ray 01/24/18 23:20 CONCLUSION: 1. Cardiomegaly with positive fluid balance. 2. Mild bibasilar airspace disease, likely atelectasis. Cervical Spine CT 01/25/18 00:00 CONCLUSION: 1. Advanced multilevel degenerative spondylosis of the cervical spine most prominently at C3-4 and C5-6 with moderate severe disc space narrowing and posterior disc osteophytes resulting in mild bony central canal narrowing. 2. No significant bony neural foraminal stenosis. Head CT 01/25/18 00:00 CONCLUSION: 1. No acute intracranial abnormality. . Lumbar Spine CT 01/25/18 00:00 CONCLUSION: 1. Mild multilevel degenerative disc disease without significant bony central canal or neural foraminal stenosis. Thoracic Spine CT 01/25/18 00:00 CONCLUSION: 1. Mild degenerative spondylosis with primarily anterior osteophytes in the proximal thoracic spine. No significant bony central canal or neural foraminal stenosis. 2. Mild patchy airspace consolidation in the right lung base may reflect atelectasis. Differential considerations include pneumonia and aspiration in the appropriate clinical setting. Caprini VTE Risk Assessment Caprini VTE Risk Assessment: Moderate/High Risk (score >= 2) Caprini Risk Assessment Model: Point Value = 1 Point Value = 2 Point Value = 3 Point Value = 5 Age 41-60 Minor surgery BMI > 25 kg/m2 Swollen legs Varicose veins or History of unexplained or recurrent spontaneous Oral contraceptives or hormone replacement Sepsis (< 1 month) Serious lung disease, including pneumonia (< 1 month) Abnormal pulmonary function Acute myocardial infarction Congestive heart failure (< 1 month) History of inflammatory bowel disease Medical patient at bed rest Age 61-74 Arthroscopic surgery Major open surgery (> 45 min) Laparoscopic surgery (> 45 min) Malignancy Confined to bed (> 72 hours) Immobilizing plaster cast Central venous access Age >= 75 History of VTE Family history of VTE Factor V Leiden Prothrombin [id number] Lupus anticoagulant Anticardiolipin antibodies Elevated serum homocysteine Heparin-induced thrombocytopenia Other congenital or acquired thrombophilia Stroke (< 1 month) Elective arthroplasty Hip, pelvis, or leg fracture Acute spinal cord injury (< 1 month) Prophylaxis Regimen: Total Risk Factor Score Risk Level Prophylaxis Regimen 0-1 Low Early ambulation 2 Moderate Order ONE of the following: *Sequential Compression Device (SCD) *Heparin 5000 units SQ BID 3-4 Higher Order ONE of the following medications: *Heparin 5000 units SQ TID *Enoxaparin/Lovenox 40 mg SQ daily (WT < 150 kg, CrCl > 30 mL/min) *Enoxaparin/Lovenox 30 mg SQ daily (WT < 150 kg, CrCl > 10-29 mL/min) *Enoxaparin/Lovenox 30 mg SQ BID (WT < 150 kg, CrCl > 30 mL/min) AND/OR *Sequential Compression Device (SCD) 5 or more Highest Order ONE of the following medications: *Heparin 5000 units SQ TID (Preferred with Epidurals) *Enoxaparin/Lovenox 40 mg SQ daily (WT < 150 kg, CrCl > 30 mL/min) *Enoxaparin/Lovenox 30 mg SQ daily (WT < 150 kg, CrCl > 10-29 mL/min) *Enoxaparin/Lovenox 30 mg SQ BID (WT < 150 kg, CrCl > 30 mL/min) AND *Sequential Compression Device (SCD) Assessment and Plan - Assessment (1) Pneumonia Code(s): J18.9 - Pneumonia, unspecified organism Status: Acute Plan: This is a 62 year old male patient with a past medical history which includes COPD, sickle cell anemia- follows with Dr. Dyer, IgG Lambda MGUS, depression, osteonecrosis of bilateral hips and right arm cephalic vein thrombosis in 2017. Patient has received pain medication about an hour prior to my evaluation and unable to stay awake to answer medial history. Information gathered from patient, patient's at bedside and review of prior charting currently present to the ER with complaints of bilateral leg pain which started Wednesday. Patient has been taking scheduled Methadone and as needed oxycodone at home with no relief. Patient's also reports that he has had decreased appetite since Wednesday and occasional nonproductive cough. Patient and denies fevers , N/V/D/C, chest pain, SOB or sick contacts. PNA ? aspiration 24 hour T Max 101.7 WBC on admission 21.8 Blood cultures x 2 ordered in ER and pending Chest X-Ray 1. Cardiomegaly with positive fluid balance. 2. Mild bibasilar airspace disease, likely atelectasis. Thoracic Spine CT 1. Mild degenerative spondylosis with primarily anterior osteophytes in the proximal thoracic spine. No significant bony central canal or neural foraminal stenosis. 2. Mild patchy airspace consolidation in the right lung base may reflect atelectasis. Differential considerations include pneumonia and aspiration in the appropriate clinical setting. Patient's does endorse that he occasionally coughs after he eats/drinks and was hospitalized 11/12/17 for RLL PNA and sickle cell crisis Modified barium swallow patient given Zosyn and Vancomycin in ER Continue Zosyn add duonebs scheduled and as needed PT consulted Sickle cell anemia with Crisis dehydration Patient known to Dr. Dyer, consult placed Continue patient's home Methadone Morphine as needed for pain bowel regiment add IVF recheck labs in AM DVT prophylaxis with Lovenox (2) Sickle cell anemia with crisis Code(s): D57.00 - Hb-SS disease with crisis, unspecified Status: Acute <Miguel Sheriff - Last Filed: 01/27/18 13:50> History of Present Illness Primary Care Physician: Ashley Cisse MD - Diagnosis (1) Pneumonia (2) Sickle cell anemia with crisis Inpatient Certification: I certify that the inpatient services were ordered in accordance with Medicare regulations governing the order. This includes certification that hospital inpatient services are reasonable and necessary and in the case of services not specified as inpatient-only under 42 CFR 419.22(n), that they are appropriately provided as inpatient services in accordance to with the 2-midnight benchmark under 43 CFR 412.3(e) [facility] - Medical History Medical History: Medical History (Last Reviewed 01/25/18 @ 00:14 by Dayna Hansen MD) Venous stasis ulcer (Acute) DVT (deep venous thrombosis) (Acute) Sickle cell anemia (Acute) - Surgical History Surgical History: Surgical History (Last Updated 01/25/18 @ 00:15 by Dayna Hansen MD) H/O splenectomy History of cataract surgery S/P bilateral hip replacements Medications and Allergies Active Medications: Active Medications Acetaminophen (Tylenol) 650 mg PO Q4H PRN PRN Reason: FEVER > 100.4 F Last Admin: 01/26/18 20:45 Dose: 650 mg Al Hydroxide/Mg Hydroxide (Milk Of Magnesia Liq) 30 ml PO DAILY PRN PRN Reason: MILD CONSTIPATION Albuterol (Duoneb Neb (Prn)) 1 ampul NEB Q4HR NEB PRN PRN Reason: SHORTNESS OF BREATH/WHEEZING Albuterol (Duoneb Neb ([facility])) 1 ampul NEB Q6HR NEB [facility] Last Admin: 01/27/18 09:06 Dose: 1 ampul Enoxaparin Sodium (Lovenox Inj) 40 mg SQ Q24H [facility] Last Admin: 01/27/18 10:04 Dose: 40 mg Sodium Chloride (1/2 Normal Saline Inj) 1,000 mls @ 100 mls/hr IV.CONT .Q10H [facility] Last Infusion: 01/27/18 07:15 Dose: Infused Piperacillin/Tazobactam/Dextrose (Zosyn 3.375 Gm Premix) 50 mls @ 100 mls/hr IV.SIG Q6H [facility] Last Infusion: 01/27/18 06:33 Dose: Infused Methadone HCl (Dolophine) 5 mg PO BID PRN PRN Reason: Pain level 3-10 Last Admin: 01/26/18 06:55 Dose: 5 mg Miscellaneous (Pill Splitter) 0 each OTHER UNSCH PRN PRN Reason: TO SPLIT PILLS Morphine Sulfate (Morphine Inj) 4 mg IV.PUSH Q3H PRN PRN Reason: BREAKTHROUGH PAIN Last Admin: 01/25/18 12:46 Dose: 4 mg Ondansetron HCl (Zofran Inj) 4 mg IV.PUSH Q6H PRN PRN Reason: nausea, vomiting Oxycodone HCl (Roxicodone) 10 mg PO Q4HR PRN PRN Reason: Pain 1-9 Last Admin: 01/27/18 10:04 Dose: 10 mg Senna/Docusate Sodium (Kelsie-Colace) 2 tab PO BID [facility] Last Admin: 01/27/18 08:34 Dose: 2 tab Sodium Chloride (Ns Flush) 2 ml IV.FLUSH BID [facility] Last Admin: 01/27/18 08:35 Dose: Not Given Sodium Chloride (Ns Flush) 2 ml IV.FLUSH PRN PRN PRN Reason: FLUSH AFTER USING IV ACCESS Exam Vital signs: Vital Signs 01/26/18 16:00 01/26/18 17:29 01/26/18 22:10 Temperature 102.3 F H Pulse Rate 72 72 Respiratory Rate 12 16 Blood Pressure 139/65 Pulse Oximetry 96 96 01/27/18 00:00 01/27/18 08:00 01/27/18 09:07 Temperature 98.9 F Pulse Rate 68 70 Respiratory Rate 18 18 18 Blood Pressure 125/58 L Pulse Oximetry 98 97 98 Intake & Output 01/26/18 01/27/18 01/27/18 18:59 06:59 18:59 Intake Total 2470 / 2470 1150 / 1150 1000 / 1000 Output Total 800 / 800 200 / 200 Balance 1670 / 1670 950 / 950 1000 / 1000 Intake: IV 1050 / 1050 1150 / 1150 1000 / 1000 1/2 Normal Saline Inj 1,000 ML 1000 / 1000 1000 / 1000 1000 / 1000 @ 100 mls/hr IV.CONT .Q10H [facility] Rx#:[id number] Zosyn 3.375 GM Premix 50 ML @ 50 / 50 150 / 150 100 mls/hr IV.SIG Q6H [facility] Rx#: [id number] Oral 720 / 720 Other 700 / 700 Intake (Blood Product) Amt 0 / 0 Rbc As-3 Leukoreduced Unit 0 / 0 [id number] Output: Urine 800 / 800 200 / 200 Other: Other Intake Source Saline Solution Date of Last Bowel Movement 01/23/18 01/26/18 01/26/18 Results - Labs CBC & Chem 7: 01/27/18 07:47 01/27/18 07:47 Labs: Laboratory Results - last 24 hr 01/27/18 01/27/18 07:47 07:47 WBC 10.8 RBC 3.38 L Hgb 8.3 L Hct 25.3 L MCV 74.8 L MCH 24.4 L MCHC 32.7 RDW 18.7 H Plt Count 92 L MPV 8.6 Prelim Diff (Auto) Slide review pending Neut % (Auto) 81.4 H Lymph % (Auto) 4.3 L [place] % (Auto) 6.6 Eos % (Auto) 7.4 H Baso % (Auto) 0.3 Neut # (Auto) 8.8 H Lymph # (Auto) 0.5 L [place] # (Auto) 0.7 Eos # (Auto) 0.8 H Baso # (Auto) 0.0 WBC Differential Manual diff final Seg Neuts % (Manual) 80 H Lymphocytes % (Manual) 13 Eosinophils % (Manual) 7 H Abs Neuts (Manual) 8.6 H Nucleated RBCs/100 WBC 57 H Differential Comment . Platelet Estimate Low L Platelet Morphology Normal Sickle Cells 1+ H Target Cells 1+ H Sodium 146 H Potassium 3.8 Chloride 111 H Carbon Dioxide 27.3 Anion Gap 8 BUN 15 Creatinine 1.18 Estimated GFR 76 L Random Glucose 89 Calcium 7.9 L Caprini VTE Risk Assessment Caprini Risk Assessment Model: Point Value = 1 Point Value = 2 Point Value = 3 Point Value = 5 Age 41-60 Minor surgery BMI > 25 kg/m2 Swollen legs Varicose veins or History of unexplained or recurrent spontaneous Oral contraceptives or hormone replacement Sepsis (< 1 month) Serious lung disease, including pneumonia (< 1 month) Abnormal pulmonary function Acute myocardial infarction Congestive heart failure (< 1 month) History of inflammatory bowel disease Medical patient at bed rest Age 61-74 Arthroscopic surgery Major open surgery (> 45 min) Laparoscopic surgery (> 45 min) Malignancy Confined to bed (> 72 hours) Immobilizing plaster cast Central venous access Age >= 75 History of VTE Family history of VTE Factor V Leiden Prothrombin [id number] Lupus anticoagulant Anticardiolipin antibodies Elevated serum homocysteine Heparin-induced thrombocytopenia Other congenital or acquired thrombophilia Stroke (< 1 month) Elective arthroplasty Hip, pelvis, or leg fracture Acute spinal cord injury (< 1 month) Prophylaxis Regimen: Total Risk Factor Score Risk Level Prophylaxis Regimen 0-1 Low Early ambulation 2 Moderate Order ONE of the following: *Sequential Compression Device (SCD) *Heparin 5000 units SQ BID 3-4 Higher Order ONE of the following medications: *Heparin 5000 units SQ TID *Enoxaparin/Lovenox 40 mg SQ daily (WT < 150 kg, CrCl > 30 mL/min) *Enoxaparin/Lovenox 30 mg SQ daily (WT < 150 kg, CrCl > 10-29 mL/min) *Enoxaparin/Lovenox 30 mg SQ BID (WT < 150 kg, CrCl > 30 mL/min) AND/OR *Sequential Compression Device (SCD) 5 or more Highest Order ONE of the following medications: *Heparin 5000 units SQ TID (Preferred with Epidurals) *Enoxaparin/Lovenox 40 mg SQ daily (WT < 150 kg, CrCl > 30 mL/min) *Enoxaparin/Lovenox 30 mg SQ daily (WT < 150 kg, CrCl > 10-29 mL/min) *Enoxaparin/Lovenox 30 mg SQ BID (WT < 150 kg, CrCl > 30 mL/min) AND *Sequential Compression Device (SCD) Assessment and Plan - Assessment (1) Pneumonia Code(s): J18.9 - Pneumonia, unspecified organism Status: Acute Plan: The exam, history, and the medical decision-making described in the above note were completed with the assistance of the mid-level provider. I reviewed and agree with the findings presented. I attest that I had a [id number] encounter with the patient on the same day, and personally performed and documented my assessment and findings in the medical record. (2) Sickle cell anemia with crisis Code(s): D57.00 - Hb-SS disease with crisis, unspecified Status: Acute <Christina Li - Last Filed: 01/25/18 15:58> (1) Pneumonia Qualifiers: Pneumonia type: due to unspecified organism Laterality: right Lung location : lower lobe of lung Qualified Code(s): J18.1 - Lobar pneumonia, unspecified organism <Miguel Sheriff - Last Filed: 01/27/18 13:50> (1) Pneumonia Qualifiers: Pneumonia type: due to unspecified organism Laterality: right Lung location : lower lobe of lung Qualified Code(s): J18.1 - Lobar pneumonia, unspecified organism
[2018-01-25] MEDS ORDERED: Piperacil/Tazo 3.375 GM Premix 50 ML IV.SIG SCH (12:15)
[2018-01-25] MEDS: Enoxaparin Inj 40 MG/0.4 ML Syringe SQ SCH (12:47)
[2018-01-25] MEDS: Piperacil/Tazo 3.375 GM Premix 50 ML IV.SIG SCH ×2 (12:47→17:40)
[2018-01-25] MEDS: Sodium Chloride 0.45 % Inj 1,000 ML IV.CONT SCH ×2 (12:48→21:41)
[2018-01-25] MEDS ORDERED: Senna/Docusate Sodium 8.6/50 MG Tablet PO ONE (14:00)
--- NOTE | 2018-01-25 17:26 | ECG ---
Date Performed: 01/24/2018 Time Performed: 23:27:33 PTAGE: 62 years EKG: Sinus rhythm MARKED LEFT AXIS DEVIATION ABNORMAL ECG PREVIOUS TRACING : 11/12/2017 18.51 Since the previous tracing, no significant change noted DOCTOR: Parveen Zapien Interpretating Date/Time 01/25/2018 17:24:33
[2018-01-25] MEDS: Senna/Docusate Sodium 8.6/50 MG Tablet PO SCH (21:41)
[2018-01-26] MEDS: Piperacil/Tazo 3.375 GM Premix 50 ML IV.SIG SCH ×5 (01:31→23:40)
[2018-01-26] MEDS: Sodium Chloride 0.45 % Inj 1,000 ML IV.CONT SCH ×3 (06:26→20:49)
[2018-01-26] MEDS: Methadone 10 MG Tablet PO PRN (06:55)
--- NOTE | 2018-01-26 07:44 | P.CON ---
History of Present Illness Service: Hematology/Oncology. Consult date: 01/26/18 Requesting Physician: Miguel Sheriff Reason for Consult: Sickle Cell Disease Crisis, fevers. Primary Care Provider: Ashley Cisse MD Family Provider: Ashley Cisse MD Chief Complaint: Severe back pain, cough and fevers. History of Present Illness: Mr. Guaman is a 62-year-old man well-known to me from my outpatient practice, the patient has a history of hemoglobin sickle cell disease, and has been on treatment with hydroxyurea for more than 20 years, he requires relatively low dose of Hydrea at approximately 500 mg once a day. Additionally he has been on oral long and short acting opioids at stable doses for the past many years, he typically requires methadone on and oxycodone. The patient does have sequelae of chronic sickle cell disease including chronic musculoskeletal aches and pains , osteonecrosis of the hips. 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 Earlier this summer the patient was hospitalized for a prolonged period of time with a right lower lobe pneumonia which triggered a protracted sickle cell disease pain crisis. He required multiple units of red cell transfusions at that time and required broad-spectrum antibiotic therapy. He presented to the emergency department yesterday with complaints of generalized back pain, leg pain, shortness of breath, cough producing phlegm and fevers. He was initiated on empiric antibiotic therapy with initial doses of vancomycin and Zosyn. Zosyn has been continued. He has been on IV fluid hydration. He underwent CT imaging of the C, T, L and S spine yesterday which revealed changes related to osteoarthritis and degenerative joint disease. Hematology service is been asked to see him to help manage his pain related crisis and anemia. Review of Systems Constitutional: Reports chills, Reports fever(s), Reports lack of energy, Denies anorexia Eyes: Denies change in vision Ears, Nose, Mouth, and Throat: Denies abnormal hearing, Denies change in voice, Denies hoarseness, Denies sore throat, Denies tongue swelling Cardiovascular: Reports shortness of breath, Reports shortness of breath with activity, Denies chest pain, Denies lightheadedness Respiratory: Reports cough, Reports shortness of breath with activity, Denies coughing up blood, Denies wheezing Gastrointestinal: Denies abdominal pain, Denies black, tarry stools, Denies loose stools, Denies vomiting blood Genitourinary: Denies blood in urine Musculoskeletal: Reports back pain, Reports body aches, Reports decreased muscle mass, Reports muscle weakness, Denies abnormal walking Skin/Breast: Reports other (Skin discoloration of the lower extremities. And leg swelling.) Neurologic: Reports unsteadiness, Reports weakness, Denies abnormal hearing, Denies headache(s), Denies lack of coordination, Denies localized weakness, Denies tremor(s) Psychiatric: Reports anxiety, Denies abnormal sleep pattern Endocrine: Reports cold intolerance Hematologic/Lymphatic: Denies easy bleeding, Denies easy bruising Allergic/Immunologic: Denies GI upset with certain foods PMFSH - History History Provided By: Patient - Medical History Medical History: Medical History (Last Updated 01/26/18 @ 07:36 by Bronson Dyer MD) Venous stasis ulcer (Acute) DVT (deep venous thrombosis) (Acute) Sickle cell anemia (Acute) Chronic pain Depression Monoclonal gammopathy of unknown significance (MGUS) - Surgical History Surgical History: Surgical History (Last Updated 01/26/18 @ 07:37 by Bronson Dyer MD) History of total left hip arthroplasty History of total right hip arthroplasty H/O splenectomy History of cataract surgery S/P bilateral hip replacements - Social History I have reviewed the patient's Social History: Yes - Tobacco History Second Hand Smoke Exposure: No Tobacco Use In Past 30 Days: Yes (01/23/18 last day smoked) Smoking Status: Current every day smoker Tobacco Type: Cigarettes - Alcohol History How Often Do You Have a Drink Containing Alcohol: Monthly or less - Substance Use History Substance History: No History of Abuse - Travel History Recent Travel in the [facility] Within the Last 8 Weeks: No Recent Travel Out of the Country Within the Last 8 Weeks: No - Immunization History Tetanus Immunization: >5 Years Hx Influenza Vaccine This Season: No Medications and Allergies Active Medications: Active Medications Al Hydroxide/Mg Hydroxide (Milk Of Nadir Liq) 30 ml PO DAILY PRN PRN Reason: MILD CONSTIPATION Albuterol (Duoneb Neb (Prn)) 1 ampul NEB Q4HR NEB PRN PRN Reason: SHORTNESS OF BREATH/WHEEZING Albuterol (Duoneb Neb ([facility])) 1 ampul NEB Q6HR NEB [facility] Last Admin: 01/26/18 04:15 Dose: 1 ampul Enoxaparin Sodium (Lovenox Inj) 40 mg SQ Q24H [facility] Last Admin: 01/25/18 12:47 Dose: 40 mg Sodium Chloride (1/2 Normal Saline Inj) 1,000 mls @ 100 mls/hr IV.CONT .Q10H [facility] Last Admin: 01/26/18 06:26 Dose: Not Given Piperacillin/Tazobactam/Dextrose (Zosyn 3.375 Gm Premix) 50 mls @ 100 mls/hr IV.SIG Q6H [facility] Last Infusion: 01/26/18 06:56 Dose: 0 mls/hr Methadone HCl (Dolophine) 5 mg PO BID PRN PRN Reason: Pain level 3-10 Last Admin: 01/26/18 06:55 Dose: 5 mg Miscellaneous (Pill Splitter) 0 each OTHER UNSCH PRN PRN Reason: TO SPLIT PILLS Morphine Sulfate (Morphine Inj) 4 mg IV.PUSH Q3H PRN PRN Reason: BREAKTHROUGH PAIN Last Admin: 01/25/18 12:46 Dose: 4 mg Ondansetron HCl (Zofran Inj) 4 mg IV.PUSH Q6H PRN PRN Reason: nausea, vomiting Oxycodone HCl (Roxicodone) 10 mg PO Q4HR PRN PRN Reason: Pain 1-9 Last Admin: 01/26/18 06:55 Dose: 10 mg Senna/Docusate Sodium (Kelsie-Colace) 2 tab PO BID [facility] Last Admin: 01/25/18 21:41 Dose: 2 tab Sodium Chloride (Ns Flush) 2 ml IV.FLUSH BID [facility] Last Admin: 01/25/18 21:41 Dose: Not Given Sodium Chloride (Ns Flush) 2 ml IV.FLUSH PRN PRN PRN Reason: FLUSH AFTER USING IV ACCESS Allergies Allergy/AdvReac Type Severity Reaction Status Date / Time No Known Allergies Allergy Verified 01/24/18 23:05 Home Medications Medication Instructions Recorded Confirmed Type furosemide 40 mg PO BID 11/12/17 01/25/18 History methadone 5 mg PO BID PRN 11/12/17 01/25/18 History potassium chloride 20 meq PO BID 11/12/17 01/25/18 History guaifenesin [Mucinex] 600 mg PO DAILY 01/24/18 01/25/18 History Physical Exam Vital signs: Vital Signs 01/25/18 08:00 01/25/18 08:52 01/25/18 11:18 Temperature 101.2 F H Pulse Rate 89 97 H Respiratory Rate 20 16 Blood Pressure 146/68 H Pulse Oximetry 95 93 L 01/25/18 12:00 01/25/18 13:03 01/25/18 15:22 Temperature 97.7 F Pulse Rate 96 H 101 H Respiratory Rate 20 18 16 Blood Pressure 173/76 H Pulse Oximetry 91 L 01/25/18 16:00 01/25/18 20:00 01/25/18 20:23 Temperature 98 F 101.1 F H Pulse Rate 89 87 92 H Respiratory Rate 20 18 15 Blood Pressure 169/75 H 165/74 H Pulse Oximetry 92 L 97 92 L 01/25/18 22:17 01/26/18 00:00 01/26/18 04:16 Temperature 98.1 F Pulse Rate 97 H 81 Respiratory Rate 16 18 16 Blood Pressure 102/61 Pulse Oximetry 98 Intake & Output 01/25/18 01/26/18 01/26/18 18:59 06:59 18:59 Intake Total 1360 / 1360 1580 / 1580 Output Total 1350 / 1350 300 / 300 Balance 1280 / 1280 Intake: IV 300 / 300 1100 / 1100 1/2 Normal Saline Inj 1,000 ML 1000 / 1000 @ 100 mls/hr IV.CONT .Q10H [facility] Rx#:[id number] Azithromycin Inj 500 MG In NS 250 / 250 Inj 250 ML @ 250 mls/hr IV.SIG Q24H [facility] Rx#:[id number] Zosyn 3.375 GM Premix 50 ML @ 50 / 50 100 / 100 100 mls/hr IV.SIG Q6H [facility] Rx#: [id number] Oral 360 / 360 480 / 480 Other 700 / 700 Output: Urine 1350 / 1350 300 / 300 Other: Other Intake Source Saline Solution Date of Last Bowel Movement 01/23/18 Narrative: Middle-aged/elderly male, laying in bed, not acutely distressed, he is sleepy, he is arousable. - Constitutional no acute distress - Routine HEENT Exam Head: Present: normocephalic, atraumatic Eye: Present: EOMI, PERRL ENT: Absent: mucous membranes moist - Routine Neck Exam Present: supple, full ROM. Absent: lymphadenopathy - Routine Respiratory Exam Present: decreased breath sounds (Decreased right basilar and left basilar breath sounds.). Absent: accessory muscle use, rales, respiratory distress, rhonchi, wheezes - Routine Cardiovascular Exam Present: RRR, S1, S2. Absent: murmur, gallop Comments: Heart sounds sound loud, consistent with hyperdynamic circulation. - Routine Abdominal Exam Present: soft, normoactive bowel sounds. Absent: tenderness, distended, rebound , guarding (Abdomen is otherwise thin, not distended, no palpable hepato- splenomegaly.), mass, wound - Routine Extremities Exam Present: normal capillary refill. Absent: cyanosis, clubbing, edema, full ROM, pulses intact, calf tenderness (Bilateral lower extremities with hyperpigmented skin discoloration.) - Routine Skin Exam Present: intact, dry, cracked. Absent: cyanosis, erythema, pallor, petechiae, urticaria, rash, alopecia, vitiligo - Routine Neurological Exam Present: alert, oriented X3, CN II-XII intact. Absent: sensory deficit, motor deficit, facial asymmetry - Detailed Neurological Exam: Coma Scale Eye Opening: Spontaneous Verbal Response: Oriented Motor Response: Obey commands Secor Coma Scale Total: 15 - Routine Psychiatric Exam Present: normal affect (A little sleepy this morning.) Assessment and Plan - Plan Mr. 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 Presents the hospital with complaints of back pain, fevers, cough producing scant phlegm and shortness of breath. He has been assessed to be in a sickle cell crisis, he has been hospitalized and has been initiated on supportive care measures including IV fluid hydration , oxygen supplementation and broad-spectrum antibiotic coverage. He is also been initiated on long and short acting opioid medications for pain control. Subjectively, this morning he reports feeling better with regards to pain control, he was consistently febrile during the day and evening yesterday, he has not had a fever overnight. Blood cultures drawn yesterday remain negative. CT imaging of the cervical, thoracic, lumbar and sacral spine indicate chronic degenerative joint disease related changes without evidence of acute abnormalities. Recommendations: 1. Sickle cell disease related pain crisis: Continue long and short acting opioids. I will transfuse 1 unit packed red blood cells for management of progressive anemia. 2. Continue oxygen supplementation. 3. Initiate hypertonic saline hydration. 4. Monoclonal gammopathy of unknown significance: We will repeat quantitative immunoglobulins. 5. Will check with PCP regarding pneumonia vaccination given the patient's history of asplenism he is at high risk for bacterial pneumonia infections.
[2018-01-26 07:45] LABS: Baso # (Auto) 0.1 th/mm3 (0.0-0.2); Baso % (Auto) 0.4 % (0.0-2.0); Eos # (Auto) 0.2 th/mm3 (0.0-0.4); Eos % (Auto) 1.3 % (0.0-4.0); Hematocrit 26.2 % (39.0-51.0); Hemoglobin 8.5 gm/dL (13.0-17.0); Lymph # (Auto) 0.9 th/mm3 (1.0-4.8); Lymph % (Auto) 5.8 % (9.0-44.0); Mean Corpuscular HGB Conc 32.3 % (32.0-36.0); Mean Corpuscular Hemoglobin 24.1 pg (27.0-34.0); Mean Corpuscular Volume 74.7 fL (80.0-100.0); Mean Platelet Volume 8.4 fL (7.0-11.0); Mono # (Auto) 2.2 th/mm3 (0.0-0.9); Mono % (Auto) 15.2 % (0.0-8.0); Neut # (Auto) 11.4 th/mm3 (1.8-7.7); Neut % (Auto) 77.3 % (16.0-70.0); Platelet Count 102 th/mm3 (150-450); Red Blood Count 3.51 mil/mm3 (4.50-5.90); Red Cell Distribution Width 19.9 % (11.6-17.2); White Blood Count 14.8 th/mm3 (4.0-11.0)
[2018-01-26] MEDS ORDERED: Acetaminophen 325 MG Tablet PO ONE (07:46)
[2018-01-26 08:23] LABS: Calcium 8.5 mg/dL (8.5-10.1); Carbon Dioxide 25.5 meq/L (21.0-32.0); Potassium 4.1 meq/L (3.5-5.1)
[2018-01-26 09:15] LABS: Eosinophils 1 % (0-4); Lymphocytes 14 % (9-44); Monocytes 3 % (0-8); Sickle Cells 1+; Tallied Nucleated RBC 68 (0-0); Target Cells 1+
[2018-01-26 09:16] LABS: Platelet Morphology Normal (Normal)
[2018-01-26 09:17] LABS: Howell-Jolly Bodies Present
[2018-01-26] MEDS: Senna/Docusate Sodium 8.6/50 MG Tablet PO SCH ×2 (09:48→20:44)
[2018-01-26] MEDS: Enoxaparin Inj 40 MG/0.4 ML Syringe SQ SCH (09:51)
--- NOTE | 2018-01-26 10:07 | P.PNIM ---
Subjective Interval history: Pt rather lethargic this morning Pts at bedside said that he was up earlier and sitting in the chair Pt received some pain meds this morning and Benadryl prior to transfusion. Physical Exam Vital signs: Vital Signs 01/25/18 11:18 01/25/18 12:00 01/25/18 13:03 Temperature 97.7 F Pulse Rate 97 H 96 H Respiratory Rate 16 20 18 Blood Pressure 173/76 H Pulse Oximetry 91 L 01/25/18 15:22 01/25/18 16:00 01/25/18 20:00 Temperature 98 F 101.1 F H Pulse Rate 101 H 89 87 Respiratory Rate 16 20 18 Blood Pressure 169/75 H 165/74 H Pulse Oximetry 92 L 97 01/25/18 20:23 01/25/18 22:17 01/26/18 00:00 Temperature 98.1 F Pulse Rate 92 H 97 H Respiratory Rate 15 16 18 Blood Pressure 102/61 Pulse Oximetry 92 L 98 01/26/18 04:00 01/26/18 04:16 01/26/18 07:48 Temperature 98.7 F Pulse Rate 80 81 Respiratory Rate 18 16 20 Blood Pressure 125/60 Pulse Oximetry 98 Intake & Output 01/25/18 01/26/18 01/26/18 18:59 06:59 18:59 Intake Total 1360 / 1360 1580 / 1580 Output Total 1350 / 1350 300 / 300 Balance 1280 / 1280 Intake: IV 300 / 300 1100 / 1100 1/2 Normal Saline Inj 1,000 ML 1000 / 1000 @ 100 mls/hr IV.CONT .Q10H [facility] Rx#:[id number] Azithromycin Inj 500 MG In NS 250 / 250 Inj 250 ML @ 250 mls/hr IV.SIG Q24H [facility] Rx#:[id number] Zosyn 3.375 GM Premix 50 ML @ 50 / 50 100 / 100 100 mls/hr IV.SIG Q6H [facility] Rx#: [id number] Oral 360 / 360 480 / 480 Other 700 / 700 Output: Urine 1350 / 1350 300 / 300 Other: Other Intake Source Saline Solution Date of Last Bowel Movement 01/23/18 Narrative: General: NAD, lethargic but easily arousable but quickly drifts back to sleep Chest: CTA anteriorly, poor inspiratory effort Cardiac: Regular Abd: +BS, soft ND/NT Ext: No edema Results - Labs CBC & Chem 7: 01/26/18 05:00 01/26/18 07:07 Laboratory Results - last 24 hr 01/24/18 01/26/18 01/26/18 08:25 05:00 07:07 WBC 14.8 H RBC 3.51 L Hgb 8.5 L Hct 26.2 L MCV 74.7 L MCH 24.1 L MCHC 32.3 RDW 19.9 H Plt Count 102 L MPV 8.4 Prelim Diff (Auto) Slide review pending Neut % (Auto) 77.3 H Lymph % (Auto) 5.8 L [place] % (Auto) 15.2 H Eos % (Auto) 1.3 Baso % (Auto) 0.4 Neut # (Auto) 11.4 H Lymph # (Auto) 0.9 L [place] # (Auto) 2.2 H Eos # (Auto) 0.2 Baso # (Auto) 0.1 WBC Differential Manual diff final Seg Neuts % (Manual) 80 H Band Neuts % (Manual) 2 Lymphocytes % (Manual) 14 Monocytes % (Manual) 3 Eosinophils % (Manual) 1 Abs Neuts (Manual) 12.1 H Nucleated RBCs/100 WBC 68 H Differential Comment . Platelet Estimate Low L Platelet Morphology Normal Sickle Cells 1+ H Target Cells 1+ H Valdez-Carrizozo Bodies Present H Sodium 146 H Potassium 4.1 Chloride 112 H Carbon Dioxide 25.5 Anion Gap 9 BUN 17 Creatinine 1.41 H Estimated GFR 62 L Random Glucose 125 H Calcium 8.5 MTS Gel Crossmatch See Detail - Imaging Chest X-Ray 01/24/18 23:20 CONCLUSION: 1. Cardiomegaly with positive fluid balance. 2. Mild bibasilar airspace disease, likely atelectasis. Cervical Spine CT 01/25/18 00:00 CONCLUSION: 1. Advanced multilevel degenerative spondylosis of the cervical spine most prominently at C3-4 and C5-6 with moderate severe disc space narrowing and posterior disc osteophytes resulting in mild bony central canal narrowing. 2. No significant bony neural foraminal stenosis. Head CT 01/25/18 00:00 CONCLUSION: 1. No acute intracranial abnormality. . Lumbar Spine CT 01/25/18 00:00 CONCLUSION: 1. Mild multilevel degenerative disc disease without significant bony central canal or neural foraminal stenosis. Thoracic Spine CT 01/25/18 00:00 CONCLUSION: 1. Mild degenerative spondylosis with primarily anterior osteophytes in the proximal thoracic spine. No significant bony central canal or neural foraminal stenosis. 2. Mild patchy airspace consolidation in the right lung base may reflect atelectasis. Differential considerations include pneumonia and aspiration in the appropriate clinical setting. Assessment and Plan - Assessment (1) Pneumonia Code(s): J18.9 - Pneumonia, unspecified organism Status: Acute Plan: This is a 62 year old male patient with a past medical history which includes COPD, sickle cell anemia- follows with Dr. Dyer, IgG Lambda MGUS, depression, osteonecrosis of bilateral hips and right arm cephalic vein thrombosis in 2017. Patient has received pain medication about an hour prior to my evaluation and unable to stay awake to answer medial history. Information gathered from patient, patient's at bedside and review of prior charting currently present to the ER with complaints of bilateral leg pain which started Wednesday. Patient has been taking scheduled Methadone and as needed oxycodone at home with no relief. Patient's also reports that he has had decreased appetite since Wednesday and occasional nonproductive cough. Patient and denies fevers , N/V/D/C, chest pain, SOB or sick contacts. PNA ? aspiration - Pt with 24 hour T Max 101.2 on 01/25 at 2000, pt with temp of 100.2 this morning. - WBC on admission 21.8. Repeat labs on 01/26 with WBC count 14.8 - Blood cultures with NGTD - Chest X-Ray (01/24/18): 1. Cardiomegaly with positive fluid balance. 2. Mild bibasilar airspace disease, likely atelectasis. - Thoracic Spine CT (01/25/18): 1. Mild degenerative spondylosis with primarily anterior osteophytes in the proximal thoracic spine. No significant bony central canal or neural foraminal stenosis. 2. Mild patchy airspace consolidation in the right lung base may reflect atelectasis. Differential considerations include pneumonia and aspiration in the appropriate clinical setting. - Patient's does endorsed that he occasionally coughs after he eats/drinks and was hospitalized 11/12/17 for RLL PNA and sickle cell crisis - Modified barium swallow is pending. - Patient was given Zosyn and Vancomycin in ER - Continue Zosyn - Cont. Duonebs scheduled and as needed - PT consulted Sickle cell anemia with Crisis dehydration - Appreciate consult from Dr. Dyer. - Continue patient's home Methadone - Morphine as needed for pain - Bowel regiment - IVF - Recheck labs in AM DVT prophylaxis with Lovenox The exam, history, and the medical decision-making described in the above note were completed with the assistance of the mid-level provider. I reviewed and agree with the findings presented. I attest that I had a [id number] encounter with the patient on the same day, and personally performed and documented my assessment and findings in the medical record. (2) Sickle cell anemia with crisis Code(s): D57.00 - Hb-SS disease with crisis, unspecified Status: Acute (1) Pneumonia Qualifiers: Pneumonia type: due to unspecified organism Laterality: right Lung location : lower lobe of lung Qualified Code(s): J18.1 - Lobar pneumonia, unspecified organism
--- NOTE | 2018-01-26 10:11 | FL ---
EXAM DATE: 01/26/2018 12:00 AM EDT AGE/SEX: 62 years / Male INDICATIONS: Coughing when eating. CLINICAL DATA: This is the patient's initial encounter. Patient reports that signs and symptoms have been present for 1 day and indicates a pain score of Nonresponsive. MEDICAL/SURGICAL HISTORY: . sickle cell, DVT Splenectomy. bilateral hip replacements COMPARISON: [place] BARIUM SWALLOW, 09/24/2014. . FLUORO TIME: 0.9 IMAGE COUNT: 0 FINDINGS: A modified barium swallow was performed with speech pathology. Patient was given a variety of liquids to swallow. The oral phase is normal without delayed posterior propulsion. The pharyngeal phase is a lso normal without pooling in the pericolic valleculae or piriform sinuses. No penetration of the sup raglottic larynx or tracheal aspiration occurs. For a full detailed report, see report by the speech pathologist. CONCLUSION: Negative examination. Electronically signed by: Ezio Rogers MD 01/26/2018 10:10 AM EDT
[2018-01-26] MEDS: Acetaminophen 325 MG Tablet PO PRN (20:45)
[2018-01-27] MEDS: Sodium Chloride 0.45 % Inj 1,000 ML IV.CONT SCH ×2 (01:07→12:00)
[2018-01-27] MEDS: Piperacil/Tazo 3.375 GM Premix 50 ML IV.SIG SCH ×2 (05:57→12:00)
[2018-01-27 08:24] LABS: Baso % (Auto) 0.3 % (0.0-2.0); Eos # (Auto) 0.8 th/mm3 (0.0-0.4); Eos % (Auto) 7.4 % (0.0-4.0); Hematocrit 25.3 % (39.0-51.0); Hemoglobin 8.3 gm/dL (13.0-17.0); Lymph # (Auto) 0.5 th/mm3 (1.0-4.8); Lymph % (Auto) 4.3 % (9.0-44.0); Mean Corpuscular HGB Conc 32.7 % (32.0-36.0); Mean Corpuscular Hemoglobin 24.4 pg (27.0-34.0); Mean Corpuscular Volume 74.8 fL (80.0-100.0); Mean Platelet Volume 8.6 fL (7.0-11.0); Mono # (Auto) 0.7 th/mm3 (0.0-0.9); Mono % (Auto) 6.6 % (0.0-8.0); Neut # (Auto) 8.8 th/mm3 (1.8-7.7); Neut % (Auto) 81.4 % (16.0-70.0); Platelet Count 92 th/mm3 (150-450); Red Blood Count 3.38 mil/mm3 (4.50-5.90); Red Cell Distribution Width 18.7 % (11.6-17.2); White Blood Count 10.8 th/mm3 (4.0-11.0)
[2018-01-27] MEDS: Senna/Docusate Sodium 8.6/50 MG Tablet PO SCH ×2 (08:34→21:12)
[2018-01-27 08:41] LABS: Calcium 7.9 mg/dL (8.5-10.1); Carbon Dioxide 27.3 meq/L (21.0-32.0); Potassium 3.8 meq/L (3.5-5.1)
[2018-01-27 09:10] LABS: Eosinophils 7 % (0-4); Lymphocytes 13 % (9-44); Sickle Cells 1+; Tallied Nucleated RBC 57 (0-0); Target Cells 1+
[2018-01-27 09:11] LABS: Platelet Morphology Normal (Normal)
[2018-01-27] MEDS: Enoxaparin Inj 40 MG/0.4 ML Syringe SQ SCH (10:04)
--- NOTE | 2018-01-27 11:18 | P.PNIM ---
Subjective Interval history: Pt more awake today He feels that his pain is close to his baseline level of pain Tolerating oral intake reports that the pt complained of some dysuria last night and some darker colored urine. Physical Exam Vital signs: Vital Signs 01/26/18 12:00 01/26/18 16:00 01/26/18 17:29 Temperature 99.8 F H 102.3 F H Pulse Rate 73 72 72 Respiratory Rate 12 12 16 Blood Pressure 99/55 L 139/65 Pulse Oximetry 99 96 01/26/18 22:10 01/27/18 00:00 01/27/18 08:00 Temperature 98.9 F Pulse Rate 68 Respiratory Rate 18 18 Blood Pressure 125/58 L Pulse Oximetry 96 98 97 01/27/18 09:07 Temperature Pulse Rate 70 Respiratory Rate 18 Blood Pressure Pulse Oximetry 98 Intake & Output 01/26/18 01/27/18 01/27/18 18:59 06:59 18:59 Intake Total 2470 / 2470 1150 / 1150 1000 / 1000 Output Total 800 / 800 200 / 200 Balance 1670 / 1670 950 / 950 1000 / 1000 Intake: IV 1050 / 1050 1150 / 1150 1000 / 1000 1/2 Normal Saline Inj 1,000 ML 1000 / 1000 1000 / 1000 1000 / 1000 @ 100 mls/hr IV.CONT .Q10H [facility] Rx#:[id number] Zosyn 3.375 GM Premix 50 ML @ 50 / 50 150 / 150 100 mls/hr IV.SIG Q6H [facility] Rx#: [id number] Oral 720 / 720 Other 700 / 700 Intake (Blood Product) Amt 0 / 0 Rbc As-3 Leukoreduced Unit 0 / 0 [id number] Output: Urine 800 / 800 200 / 200 Other: Other Intake Source Saline Solution Date of Last Bowel Movement 01/23/18 01/26/18 01/26/18 Narrative: General: NAD, AAOx3 Chest: CTA anteriorly Cardiac: Regular Abd: +BS, soft ND/NT Ext: No edema Results - Labs CBC & Chem 7: 01/27/18 07:47 01/27/18 07:47 Laboratory Results - last 24 hr 01/27/18 01/27/18 07:47 07:47 WBC 10.8 RBC 3.38 L Hgb 8.3 L Hct 25.3 L MCV 74.8 L MCH 24.4 L MCHC 32.7 RDW 18.7 H Plt Count 92 L MPV 8.6 Prelim Diff (Auto) Slide review pending Neut % (Auto) 81.4 H Lymph % (Auto) 4.3 L Luna % (Auto) 6.6 Eos % (Auto) 7.4 H Baso % (Auto) 0.3 Neut # (Auto) 8.8 H Lymph # (Auto) 0.5 L Luna # (Auto) 0.7 Eos # (Auto) 0.8 H Baso # (Auto) 0.0 WBC Differential Manual diff final Seg Neuts % (Manual) 80 H Lymphocytes % (Manual) 13 Eosinophils % (Manual) 7 H Abs Neuts (Manual) 8.6 H Nucleated RBCs/100 WBC 57 H Differential Comment . Platelet Estimate Low L Platelet Morphology Normal Sickle Cells 1+ H Target Cells 1+ H Sodium 146 H Potassium 3.8 Chloride 111 H Carbon Dioxide 27.3 Anion Gap 8 BUN 15 Creatinine 1.18 Estimated GFR 76 L Random Glucose 89 Calcium 7.9 L Microbiology 01/25/18 00:40 Blood - Peripheral Aerobic Blood Culture - Preliminary No growth in 2 days 01/25/18 00:40 Blood - Peripheral Anaerobic Blood Culture - Preliminary No growth in 2 days Assessment and Plan - Assessment (1) Pneumonia Code(s): J18.9 - Pneumonia, unspecified organism Status: Acute Plan: This is a 62 year old male patient with a past medical history which includes COPD, sickle cell anemia- follows with Dr. Dyer, IgG Lambda MGUS, depression, osteonecrosis of bilateral hips and right arm cephalic vein thrombosis in 2017. Patient has received pain medication about an hour prior to my evaluation and unable to stay awake to answer medial history. Information gathered from patient, patient's at bedside and review of prior charting currently present to the ER with complaints of bilateral leg pain which started Wednesday. Patient has been taking scheduled Methadone and as needed oxycodone at home with no relief. Patient's also reports that he has had decreased appetite since Wednesday and occasional nonproductive cough. Patient and denies fevers , N/V/D/C, chest pain, SOB or sick contacts. PNA ? aspiration - Pt with 24 hour T Max 101.2 on 01/25 at 2000, pt with temp of 100.2 this morning. - WBC on admission 21.8. Repeat labs on 01/26 with WBC count 14.8 - Blood cultures with NGTD - Chest X-Ray (01/24/18): 1. Cardiomegaly with positive fluid balance. 2. Mild bibasilar airspace disease, likely atelectasis. - Thoracic Spine CT (01/25/18): 1. Mild degenerative spondylosis with primarily anterior osteophytes in the proximal thoracic spine. No significant bony central canal or neural foraminal stenosis. 2. Mild patchy airspace consolidation in the right lung base may reflect atelectasis. Differential considerations include pneumonia and aspiration in the appropriate clinical setting. - Patient's does endorsed that he occasionally coughs after he eats/drinks and was hospitalized 11/12/17 for RLL PNA and sickle cell crisis - Modified barium swallow without any noted s/s/ of aspiration - Patient was given Zosyn and Vancomycin in ER - Continue Zosyn - Cont. Duonebs scheduled and as needed - Pain control PRN - Check UA today as pt reported some dysuria yesterday - Cont. PT Sickle cell anemia with Crisis dehydration - Appreciate consult from Dr. Dyer. - Continue patient's home Methadone - Roxicodone 10mg Q4H PRN - Morphine as needed for pain - Bowel regiment - IVF - Recheck labs in AM DVT prophylaxis with Lovenox The exam, history, and the medical decision-making described in the above note were completed with the assistance of the mid-level provider. I reviewed and agree with the findings presented. I attest that I had a [id number] encounter with the patient on the same day, and personally performed and documented my assessment and findings in the medical record. right lung pna. sickle cell pain crisis improving. monitor fever. cont abx.cont ivf and prn pain control. PT and oob today. updated . (2) Sickle cell anemia with crisis Code(s): D57.00 - Hb-SS disease with crisis, unspecified Status: Acute (1) Pneumonia Qualifiers: Pneumonia type: due to unspecified organism Laterality: right Lung location : lower lobe of lung Qualified Code(s): J18.1 - Lobar pneumonia, unspecified organism
--- NOTE | 2018-01-27 12:46 | P.PNONC ---
Subjective Interval history: Patient seen and examined, vital signs, labs, medications reviewed. Subjectively; patient is more awake and alert today, he tells me he has no recollection of my visit with him yesterday morning. Overall however he feels his pain is improved, he tells me his pain is at baseline. His baseline pain however is significant, he tells me he has constant pain in his back, hips and legs. He also expresses concern about a rash in his right foot as well as pain in his right foot. He tells me in the previous week it felt as if his entire skin "molted ". He describes skin peeling off of his palms, arms, torso and his entire body it seemed. Objective Vital Signs/Intake & Output: Vital Signs 01/26/18 16:00 01/26/18 17:29 01/26/18 22:10 Temperature 102.3 F H Pulse Rate 72 72 Respiratory Rate 12 16 Blood Pressure 139/65 Pulse Oximetry 96 96 01/27/18 00:00 01/27/18 08:00 01/27/18 09:07 Temperature 98.9 F Pulse Rate 68 70 Respiratory Rate 18 18 18 Blood Pressure 125/58 L Pulse Oximetry 98 97 98 Intake & Output 01/26/18 01/27/18 01/27/18 18:59 06:59 18:59 Intake Total 2470 / 2470 1150 / 1150 1000 / 1000 Output Total 800 / 800 200 / 200 Balance 1670 / 1670 950 / 950 1000 / 1000 Intake: IV 1050 / 1050 1150 / 1150 1000 / 1000 1/2 Normal Saline Inj 1,000 ML 1000 / 1000 1000 / 1000 1000 / 1000 @ 100 mls/hr IV.CONT .Q10H [facility] Rx#:[id number] Zosyn 3.375 GM Premix 50 ML @ 50 / 50 150 / 150 100 mls/hr IV.SIG Q6H [facility] Rx#: [id number] Oral 720 / 720 Other 700 / 700 Intake (Blood Product) Amt 0 / 0 Rbc As-3 Leukoreduced Unit 0 / 0 [id number] Output: Urine 800 / 800 200 / 200 Other: Other Intake Source Saline Solution Date of Last Bowel Movement 01/23/18 01/26/18 01/26/18 Result Diagrams: 01/27/18 07:47 01/27/18 07:47 Laboratory Results: Laboratory Results - last 24 hr 01/27/18 01/27/18 07:47 07:47 WBC 10.8 RBC 3.38 L Hgb 8.3 L Hct 25.3 L MCV 74.8 L MCH 24.4 L MCHC 32.7 RDW 18.7 H Plt Count 92 L MPV 8.6 Prelim Diff (Auto) Slide review pending Neut % (Auto) 81.4 H Lymph % (Auto) 4.3 L Greer % (Auto) 6.6 Eos % (Auto) 7.4 H Baso % (Auto) 0.3 Neut # (Auto) 8.8 H Lymph # (Auto) 0.5 L [place] # (Auto) 0.7 Eos # (Auto) 0.8 H Baso # (Auto) 0.0 WBC Differential Manual diff final Seg Neuts % (Manual) 80 H Lymphocytes % (Manual) 13 Eosinophils % (Manual) 7 H Abs Neuts (Manual) 8.6 H Nucleated RBCs/100 WBC 57 H Differential Comment . Platelet Estimate Low L Platelet Morphology Normal Sickle Cells 1+ H Target Cells 1+ H Sodium 146 H Potassium 3.8 Chloride 111 H Carbon Dioxide 27.3 Anion Gap 8 BUN 15 Creatinine 1.18 Estimated GFR 76 L Random Glucose 89 Calcium 7.9 L Culture Results: Microbiology 01/25/18 00:40 Aerobic Blood Culture - Preliminary Blood - Peripheral No growth in 2 days Anaerobic Blood Culture - Preliminary No growth in 2 days Medications: Active Medications Generic Name Dose Route Start Last Admin Trade Name Freq PRN Reason Stop Dose Admin Acetaminophen 650 mg 01/26/18 18:51 01/26/18 20:45 Tylenol PO 650 mg Q4H PRN Administration FEVER > 100.4 F Albuterol 1 ampul 01/25/18 10:00 01/27/18 09:06 Duoneb Neb ([facility]) NEB 1 ampul Q6HR NEB [facility] Administration Enoxaparin Sodium 40 mg 01/25/18 10:00 01/27/18 10:04 Lovenox Inj SQ 40 mg Q24H [facility] Administration Sodium Chloride 1,000 mls @ 100 mls/hr 01/25/18 10:00 01/27/18 07:15 1/2 Normal Saline Inj IV.CONT Infused .Q10H [facility] Piperacillin/Tazobactam/Dextrose 50 mls @ 100 mls/hr 01/25/18 12:00 01/27/18 06:33 Zosyn 3.375 Gm Premix IV.SIG Infused Q6H [facility] Methadone HCl 5 mg 01/25/18 03:06 01/26/18 06:55 Dolophine PO 5 mg BID PRN Administration Pain level 3-10 Morphine Sulfate 4 mg 01/25/18 03:08 01/25/18 12:46 Morphine Inj IV.PUSH 4 mg Q3H PRN Administration BREAKTHROUGH PAIN Oxycodone HCl 10 mg 01/25/18 14:54 01/27/18 10:04 Roxicodone PO 10 mg Q4HR PRN Administration Pain 1-9 Senna/Docusate Sodium 2 tab 01/25/18 21:00 01/27/18 08:34 Kelsie-Colace PO 2 tab BID [facility] Administration Sodium Chloride 2 ml 01/25/18 21:00 01/27/18 08:35 Ns Flush IV.FLUSH Not Given BID [facility] Objective Remarks: GENERAL: Middle-aged/elderly male, sitting up on bedside chair, he appears to be comfortable, on oxygen supplementation, at bedside. SKIN: Warm and dry. HEAD: Normocephalic. EYES: No scleral icterus. No injection or drainage. NECK: Supple, trachea midline. No JVD or lymphadenopathy. LYMPHATIC: No adenopathy. CARDIOVASCULAR: Tachycardic, S1-S2 no obvious murmurs rubs gallops hyperdynamic circulation with bounding heart sounds. RESPIRATORY: Breath sounds equal bilaterally. No accessory muscle use. GASTROINTESTINAL: Abdomen soft, non-tender, nondistended. EXTREMITIES: Trace pretibial edema no calf tenderness, some hyper pigmented skin discoloration of the lower extremities most consistent with venous stasis. MUSCULOSKELETAL: Adequate muscle tone. NEUROLOGICAL: No obvious focal deficit. Awake, alert, and oriented x3. PSYCHIATRIC: Appropriate mood and affect; insight and judgment normal. Assessment/Plan - Plan Mr. 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 Presents the hospital with complaints of back pain, fevers, cough producing scant phlegm and shortness of breath. He has been assessed to be in a sickle cell crisis, he has been hospitalized and has been initiated on supportive care measures including IV fluid hydration , oxygen supplementation and broad-spectrum antibiotic coverage. He is also been initiated on long and short acting opioid medications for pain control. Subjectively, this morning he reports feeling better with regards to pain control, he was consistently febrile during the day and evening yesterday, he has not had a fever overnight. Blood cultures drawn yesterday remain negative. CT imaging of the cervical, thoracic, lumbar and sacral spine indicate chronic degenerative joint disease related changes without evidence of acute abnormalities. Plan: 1. Sickle cell pain crisis: Seemingly well controlled at this time with long and short acting opioids. He is also on IV fluid infusion and oxygen supplementation. He did receive 1 unit packed red blood cell transfusion yesterday, the patient reports feeling improved after the transfusion. I do not believe additional transfusions are required at this time. 2. Febrile illness: With CT findings on CT thorax 6 spine suggestive of persistent right lower lobe pneumonia: Continue Zosyn, consider adding additional antibiotic coverage. A dedicated CT scan of the thorax may be required to fully visualize the lung parenchyma. Continue oxygen supplementation. He did have a fever spike of 102.3 F at 4 PM yesterday evening, he has been afebrile since then. Continue monitoring, if another fever spike occurs please augment antibiotic coverage.
[2018-01-27] MEDS: Acetaminophen 325 MG Tablet PO PRN ×2 (13:54→17:27)
[2018-01-27] MEDS: Levofloxacin 500 mg Premix Inj 500 MG/100 ML PIGGYBACK IV.SIG SCH (17:28)
[2018-01-28] MEDS: Sodium Chloride 0.45 % Inj 1,000 ML IV.CONT SCH ×3 (05:15→18:06)
[2018-01-28 07:20] LABS: Baso # (Auto) 0.1 th/mm3 (0.0-0.2); Eos # (Auto) 0.9 th/mm3 (0.0-0.4); Eos % (Auto) 10.9 % (0.0-4.0); Hemoglobin 7.5 gm/dL (13.0-17.0); Lymph # (Auto) 0.7 th/mm3 (1.0-4.8); Lymph % (Auto) 8.6 % (9.0-44.0); Mean Corpuscular HGB Conc 34.2 % (32.0-36.0); Mean Corpuscular Hemoglobin 25.3 pg (27.0-34.0); Mean Platelet Volume 9.1 fL (7.0-11.0); Mono # (Auto) 0.7 th/mm3 (0.0-0.9); Mono % (Auto) 8.7 % (0.0-8.0); Neut % (Auto) 70.8 % (16.0-70.0); Platelet Count 97 th/mm3 (150-450); Red Blood Count 2.98 mil/mm3 (4.50-5.90); White Blood Count 8.5 th/mm3 (4.0-11.0)
[2018-01-28 07:58] LABS: Calcium 7.6 mg/dL (8.5-10.1); Carbon Dioxide 25.1 meq/L (21.0-32.0)
[2018-01-28] MEDS: Senna/Docusate Sodium 8.6/50 MG Tablet PO SCH (09:06)
[2018-01-28] MEDS: Enoxaparin Inj 40 MG/0.4 ML Syringe SQ SCH (09:09)
[2018-01-28 09:10] LABS: Eosinophils 14 % (0-4); Lymphocytes 7 % (9-44); Monocytes 5 % (0-8); Tallied Nucleated RBC 36 (0-0)
[2018-01-28 09:11] LABS: Howell-Jolly Bodies Present; Sickle Cells 1+; Spherocytes Occ; Target Cells 1+
[2018-01-28 09:12] LABS: Pappenheimer Bodies Present; Platelet Morphology Normal (Normal)
--- NOTE | 2018-01-28 11:37 | P.PNIM ---
Subjective Interval history: pt eager for dc son/ present. says pain back to baseline denies cough/sob Physical Exam Vital signs: Vital Signs 01/27/18 12:00 01/27/18 16:00 01/27/18 16:19 Temperature 101.1 F H 99.9 F H Pulse Rate 75 89 64 Respiratory Rate 16 18 18 Blood Pressure 121/60 103/53 L Pulse Oximetry 98 98 01/27/18 20:00 01/27/18 20:51 01/28/18 00:00 Temperature 98.8 F 99.0 F Pulse Rate 70 68 77 Respiratory Rate 18 17 18 Blood Pressure 98/50 L 104/53 L Pulse Oximetry 93 L 91 L 93 L 01/28/18 04:00 01/28/18 04:11 01/28/18 08:00 Temperature 99.9 F H 100 F H Pulse Rate 80 76 76 Respiratory Rate 18 16 19 Blood Pressure 122/60 133/63 Pulse Oximetry 93 L 95 Intake & Output 01/27/18 01/28/18 01/28/18 18:59 06:59 18:59 Intake Total 2350 / 2350 1320 / 1320 Output Total 300 / 300 350 / 350 Balance 2049 / 2049 970 / 970 Weight 64.2 kg Intake: IV 1150 / 1150 1000 / 1000 1/2 Normal Saline Inj 1,000 ML 1000 / 1000 1000 / 1000 @ 100 mls/hr IV.CONT .Q10H [facility] Rx#:[id number] Levaquin 500 mg Premix Inj 500 100 / 100 mg In 100 ml @ 100 mls/hr IV. SIG Q24H [facility] Rx#:[id number] Zosyn 3.375 GM Premix 50 ML @ 50 / 50 100 mls/hr IV.SIG Q6H [facility] Rx#: [id number] Oral 320 / 320 Other 1200 / 1200 Output: Urine 300 / 300 350 / 350 Other: Other Intake Source Saline Solution Date of Last Bowel Movement 01/26/18 01/26/18 heart reg lung diminished right base abd s/nt ext no edema Results - Labs CBC & Chem 7: 01/28/18 06:21 01/28/18 06:21 Laboratory Results - last 24 hr 01/28/18 01/28/18 06:21 06:21 WBC 8.5 RBC 2.98 L Hgb 7.5 L Hct 22.0 L MCV 74.0 L MCH 25.3 L MCHC 34.2 RDW 19.0 H Plt Count 97 L MPV 9.1 Prelim Diff (Auto) Slide review pending Neut % (Auto) 70.8 H Lymph % (Auto) 8.6 L Ross % (Auto) 8.7 H Eos % (Auto) 10.9 H Baso % (Auto) 1.0 Neut # (Auto) 6.0 Lymph # (Auto) 0.7 L Ross # (Auto) 0.7 Eos # (Auto) 0.9 H Baso # (Auto) 0.1 WBC Differential Manual diff final Seg Neuts % (Manual) 73 H Band Neuts % (Manual) 1 Lymphocytes % (Manual) 7 L Monocytes % (Manual) 5 Eosinophils % (Manual) 14 H Abs Neuts (Manual) 6.3 Nucleated RBCs/100 WBC 36 H Differential Comment . Platelet Estimate Low L Platelet Morphology Normal Basophilic Stippling Faint H Spherocytes Occ H Pappenheimer Bodies Present H Sickle Cells 1+ H Target Cells 1+ H [place] Bodies Present H Keratocytes Occ H Sodium 143 Potassium 4.0 Chloride 109 H Carbon Dioxide 25.1 Anion Gap 9 BUN 14 Creatinine 1.10 Estimated GFR 82 L Random Glucose 95 Calcium 7.6 L Microbiology 01/25/18 00:40 Blood - Peripheral Aerobic Blood Culture - Preliminary No growth in 3 days 01/25/18 00:40 Blood - Peripheral Anaerobic Blood Culture - Preliminary No growth in 3 days 01/28/18 01:55 Urine - Random Urine Legionella Antigen - Final Presumptive negative for Legionella pneumophila serogroup 1 antigen in urine, suggesting no recent or recurrent infection. Infection due to Legionella cannot be ruled out since other serogroups and species may cause disease, antigen may not be present in urine in early infection, and the level of antigen present in the urine may be below the detection limit of the test. 01/28/18 01:55 Urine - Random Urine Streptococcus pneumoniae Antigen (M - Final Presumptive negative for streptococcus pneumoniae antigen, suggesting no current or recent infection. Infection due to Streptococcus pneumoniae cannot be ruled out since the antigen present in the sample may be below the detection limit of the test. Assessment and Plan - Assessment (1) Pneumonia Code(s): J18.9 - Pneumonia, unspecified organism Status: Acute Plan: - Assessment (1) Pneumonia Code(s): J18.9 - Pneumonia, unspecified organism Status: Acute Plan: This is a 62 year old male patient with a past medical history which includes COPD, sickle cell anemia- follows with Dr. Dyer, IgG Lambda MGUS, depression, osteonecrosis of bilateral hips and right arm cephalic vein thrombosis in 2017. Patient has received pain medication about an hour prior to my evaluation and unable to stay awake to answer medial history. Information gathered from patient, patient's at bedside and review of prior charting currently present to the ER with complaints of bilateral leg pain which started Wednesday. Patient has been taking scheduled Methadone and as needed oxycodone at home with no relief. Patient's also reports that he has had decreased appetite since Wednesday and occasional nonproductive cough. Patient and denies fevers , N/V/D/C, chest pain, SOB or sick contacts. PNA ? aspiration - Pt with 24 hour T Max 101.2 on 01/25 at 2000, pt with temp of 100.2 this morning. - WBC on admission 21.8. Repeat labs on 01/26 with WBC count 14.8 - Blood cultures with NGTD - Chest X-Ray (01/24/18): 1. Cardiomegaly with positive fluid balance. 2. Mild bibasilar airspace disease, likely atelectasis. - Thoracic Spine CT (01/25/18): 1. Mild degenerative spondylosis with primarily anterior osteophytes in the proximal thoracic spine. No significant bony central canal or neural foraminal stenosis. 2. Mild patchy airspace consolidation in the right lung base may reflect atelectasis. Differential considerations include pneumonia and aspiration in the appropriate clinical setting. - Patient's does endorsed that he occasionally coughs after he eats/drinks and was hospitalized 11/12/17 for RLL PNA and sickle cell crisis - Modified barium swallow without any noted s/s/ of aspiration - Patient was given Zosyn and Vancomycin in ER Pt abx changed to levaquin. He is eager for dc. still with low grade fevers. I encouraged continued hospitalization. He kindly refused. at bedside and supports his decision. discussed hgb with dr Dyer. No blood transfusion at this time. Ok to dc and f/u hematology and refer to pulmonary as needed for pna evaluation. Sickle cell anemia with Crisis dehydration - Appreciate consult from Dr. Dyer. - Continue patient's home Methadone - Roxicodone 10mg Q4H PRN - Morphine as needed for pain - Bowel regiment - IVF crisis resolved dc home. DVT prophylaxis with Lovenox (2) Sickle cell anemia with crisis Code(s): D57.00 - Hb-SS disease with crisis, unspecified Status: Acute (1) Pneumonia Qualifiers: Pneumonia type: due to unspecified organism Laterality: right Lung location : lower lobe of lung Qualified Code(s): J18.1 - Lobar pneumonia, unspecified organism Documented By: Vanesa Jackson 01/27/18 1118 Signed By: <Electronically signed by Miguel Sheriff MD> 01/27/18 0904 (2) Sickle cell anemia with crisis Code(s): D57.00 - Hb-SS disease with crisis, unspecified Status: Acute (1) Pneumonia Qualifiers: Pneumonia type: due to unspecified organism Laterality: right Lung location : lower lobe of lung Qualified Code(s): J18.1 - Lobar pneumonia, unspecified organism
[2018-01-28 12:12] VITALS: BP 111/53; TEMP 99.5; O2SAT 96
--- NOTE | 2018-01-28 15:20 | P.PNONC ---
Subjective Interval history: Patient seen and examined, vital signs, labs, medications reviewed. Subjectively; patient reports feeling better, he tells me his pain is back to baseline. He tells me his breathing is also improved. Overnight he did have a low-grade temperature of 101.1 F. He continues to complain about discoloration and peeling of the skin on his lower extremities in particular his right lower extremity. Objective Vital Signs/Intake & Output: Vital Signs 01/27/18 16:00 01/27/18 16:19 01/27/18 20:00 Temperature 99.9 F H 98.8 F Pulse Rate 89 64 70 Respiratory Rate 18 18 18 Blood Pressure 103/53 L 98/50 L Pulse Oximetry 98 93 L 01/27/18 20:51 01/28/18 00:00 01/28/18 04:00 Temperature 99.0 F 99.9 F H Pulse Rate 68 77 80 Respiratory Rate 17 18 18 Blood Pressure 104/53 L 122/60 Pulse Oximetry 91 L 93 L 93 L 01/28/18 04:11 01/28/18 08:00 01/28/18 12:00 Temperature 100 F H 99.5 F Pulse Rate 76 76 76 Respiratory Rate 16 19 19 Blood Pressure 133/63 111/53 L Pulse Oximetry 95 96 Intake & Output 01/27/18 01/28/18 01/28/18 18:59 06:59 18:59 Intake Total 2350 / 2350 1320 / 1320 Output Total 300 / 300 350 / 350 Balance 2049 / 2049 970 / 970 Weight 64.2 kg Intake: IV 1150 / 1150 1000 / 1000 1/2 Normal Saline Inj 1,000 ML 1000 / 1000 1000 / 1000 @ 100 mls/hr IV.CONT .Q10H [facility] Rx#:[id number] Levaquin 500 mg Premix Inj 500 100 / 100 mg In 100 ml @ 100 mls/hr IV. SIG Q24H [facility] Rx#:[id number] Zosyn 3.375 GM Premix 50 ML @ 50 / 50 100 mls/hr IV.SIG Q6H [facility] Rx#: [id number] Oral 320 / 320 Other 1200 / 1200 Output: Urine 300 / 300 350 / 350 Other: Other Intake Source Saline Solution Date of Last Bowel Movement 01/26/18 01/26/18 Result Diagrams: 01/28/18 06:21 01/28/18 06:21 Laboratory Results: Laboratory Results - last 24 hr 01/28/18 01/28/18 06:21 06:21 WBC 8.5 RBC 2.98 L Hgb 7.5 L Hct 22.0 L MCV 74.0 L MCH 25.3 L MCHC 34.2 RDW 19.0 H Plt Count 97 L MPV 9.1 Prelim Diff (Auto) Slide review pending Neut % (Auto) 70.8 H Lymph % (Auto) 8.6 L [place] % (Auto) 8.7 H Eos % (Auto) 10.9 H Baso % (Auto) 1.0 Neut # (Auto) 6.0 Lymph # (Auto) 0.7 L [place] # (Auto) 0.7 Eos # (Auto) 0.9 H Baso # (Auto) 0.1 WBC Differential Manual diff final Seg Neuts % (Manual) 73 H Band Neuts % (Manual) 1 Lymphocytes % (Manual) 7 L Monocytes % (Manual) 5 Eosinophils % (Manual) 14 H Abs Neuts (Manual) 6.3 Nucleated RBCs/100 WBC 36 H Differential Comment . Platelet Estimate Low L Platelet Morphology Normal Basophilic Stippling Faint H Spherocytes Occ H Pappenheimer Bodies Present H Sickle Cells 1+ H Target Cells 1+ H [place] Bodies Present H Keratocytes Occ H Sodium 143 Potassium 4.0 Chloride 109 H Carbon Dioxide 25.1 Anion Gap 9 BUN 14 Creatinine 1.10 Estimated GFR 82 L Random Glucose 95 Calcium 7.6 L Culture Results: Microbiology 01/25/18 00:40 Aerobic Blood Culture - Preliminary Blood - Peripheral No growth in 3 days Anaerobic Blood Culture - Preliminary No growth in 3 days 01/28/18 01:55 Legionella Antigen - Final Urine - Random Urine Presumptive negative for Legionella pneumophila serogroup 1 antigen in urine, suggesting no recent or recurrent infection. Infection due to Legionella cannot be ruled out since other serogroups and species may cause disease, antigen may not be present in urine in early infection, and the level of antigen present in the urine may be below the detection limit of the test. 01/28/18 01:55 Streptococcus pneumoniae Antigen (M - Final Urine - Random Urine Presumptive negative for streptococcus pneumoniae antigen, suggesting no current or recent infection. Infection due to Streptococcus pneumoniae cannot be ruled out since the antigen present in the sample may be below the detection limit of the test. Medications: Active Medications Generic Name Dose Route Start Last Admin Trade Name Freq PRN Reason Stop Dose Admin Acetaminophen 650 mg 01/26/18 18:51 01/27/18 17:27 Tylenol PO 650 mg Q4H PRN Administration FEVER > 100.4 F Albuterol 1 ampul 01/25/18 10:00 01/28/18 09:03 Duoneb Neb ([facility]) NEB Not Given Q6HR NEB [facility] Enoxaparin Sodium 40 mg 01/25/18 10:00 01/28/18 09:09 Lovenox Inj SQ 40 mg Q24H [facility] Administration Sodium Chloride 1,000 mls @ 100 mls/hr 01/25/18 10:00 01/28/18 09:06 1/2 Normal Saline Inj IV.CONT Not Given .Q10H [facility] Levofloxacin/Dextrose 500 mg in 100 mls @ 100 mls/hr 01/27/18 15:00 01/27/18 18:55 Levaquin 500 Mg Premix Inj IV.SIG Infused Q24H [facility] Infusion Methadone HCl 5 mg 01/25/18 03:06 01/26/18 06:55 Dolophine PO 5 mg BID PRN Administration Pain level 3-10 Morphine Sulfate 4 mg 01/25/18 03:08 01/25/18 12:46 Morphine Inj IV.PUSH 4 mg Q3H PRN Administration BREAKTHROUGH PAIN Oxycodone HCl 10 mg 01/25/18 14:54 01/28/18 09:38 Roxicodone PO 10 mg Q4HR PRN Administration Pain 1-9 Senna/Docusate Sodium 2 tab 01/25/18 21:00 01/28/18 09:06 Kelsie-Colace PO Not Given BID [facility] Sodium Chloride 2 ml 01/25/18 21:00 01/28/18 09:06 Ns Flush IV.FLUSH Not Given BID [facility] Objective Remarks: GENERAL: Middle-aged/elderly male, sitting up on bedside chair, he appears to be comfortable, on oxygen supplementation, at bedside. SKIN: Warm and dry. HEAD: Normocephalic. EYES: No scleral icterus. No injection or drainage. NECK: Supple, trachea midline. No JVD or lymphadenopathy. LYMPHATIC: No adenopathy. CARDIOVASCULAR: Tachycardic, S1-S2 no obvious murmurs rubs gallops hyperdynamic circulation with bounding heart sounds. RESPIRATORY: Breath sounds equal bilaterally. No accessory muscle use. GASTROINTESTINAL: Abdomen soft, non-tender, nondistended. EXTREMITIES: Trace pretibial edema no calf tenderness, some hyper pigmented skin discoloration of the lower extremities most consistent with venous stasis. MUSCULOSKELETAL: Adequate muscle tone. NEUROLOGICAL: No obvious focal deficit. Awake, alert, and oriented x3. PSYCHIATRIC: Appropriate mood and affect; insight and judgment normal. Assessment/Plan - Plan Mr. 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 Presents the hospital with complaints of back pain, fevers, cough producing scant phlegm and shortness of breath. He has been assessed to be in a sickle cell crisis, he has been hospitalized and has been initiated on supportive care measures including IV fluid hydration , oxygen supplementation and broad-spectrum antibiotic coverage. He is also been initiated on long and short acting opioid medications for pain control. Subjectively, this morning he reports feeling better with regards to pain control, he was consistently febrile during the day and evening yesterday, he has not had a fever overnight. Blood cultures drawn yesterday remain negative. CT imaging of the cervical, thoracic, lumbar and sacral spine indicate chronic degenerative joint disease related changes without evidence of acute abnormalities. Plan: 1. Sickle cell pain crisis: Seemingly well controlled at this time with long and short acting opioids. He is also on IV fluid infusion and oxygen supplementation. He tells me his pain is at baseline with current pain regimen. 2. Febrile illness: Had a low-grade temperature last night, presently on levofloxacin 500 mg once daily orally. 3. Hemoglobin level has declined since yesterday. He is asymptomatic. I would not recommend transfusing red cells at this point. From a hematologic standpoint he is clear for discharge once his fevers are under control. His pain is already under control.
[2018-01-28 15:29] VITALS: PULSE 74; RESP 18
[2018-01-28] MEDS: Levofloxacin 500 mg Premix Inj 500 MG/100 ML PIGGYBACK IV.SIG SCH (16:11)
--- NOTE | 2018-02-04 10:30 | P.DS ---
<Christina Li W - Last Filed: 02/04/18 10:29> Date of admission: 01/25/18 02:52 Primary care physician: Ashley Cisse MD Attending physician on discharge: Miguel Sheriff Brief History from admission: This is a 62 year old male patient with a past medical history which includes COPD, sickle cell anemia- follows with Dr. Dyer, IgG Lambda MGUS, depression, osteonecrosis of bilateral hips and right arm cephalic vein thrombosis in 2017. Patient has received pain medication about an hour prior to my evaluation and unable to stay awake to answer medial history. Information gathered from patient, patient's at bedside and review of prior charting currently present to the ER with complaints of bilateral leg pain which started Wednesday. Patient has been taking scheduled Methadone and as needed oxycodone at home with no relief. Patient's also reports that he has had decreased appetite since Wednesday and occasional nonproductive cough. Patient and denies fevers , N/V/D/C, chest pain, SOB or sick contacts. Chest X-Ray 1. Cardiomegaly with positive fluid balance. 2. Mild bibasilar airspace disease, likely atelectasis. Thoracic Spine CT 1. Mild degenerative spondylosis with primarily anterior osteophytes in the proximal thoracic spine. No significant bony central canal or neural foraminal stenosis. 2. Mild patchy airspace consolidation in the right lung base may reflect atelectasis. Differential considerations include pneumonia and aspiration in the appropriate clinical setting. Patient's does endorse that he occasionally coughs after he eats/drinks liquids and was hospitalized 11/12/17 for RLL PNA and sickle cell crisis. PAST MEDICAL HISTORY: COPD Hemoglobin SS disease IgG Lambda MGUS Mild depression Osteonecrosis of hips Right arm cephalic vein thrombosis in 2017 PAST SURGICAL HISTORY: Bilateral total hip arthroplasty Gastromectomy in 1975 Splenectomy in 1968 FAMILY HISTORY: Unknown per patient SOCIAL HISTORY: Mr. Guaman is denies ETOH use smokes 0.5 packs/day. DS: Diagnosis - Discharge Diagnosis (1) Pneumonia Status: Acute (2) Sickle cell anemia with crisis Status: Acute DS: Summary Hospital Course: This is a 62 year old male patient with a past medical history which includes COPD, sickle cell anemia- follows with Dr. Dyer, IgG Lambda MGUS, depression, osteonecrosis of bilateral hips and right arm cephalic vein thrombosis in 2017. Patient has received pain medication about an hour prior to my evaluation and unable to stay awake to answer medial history. Information gathered from patient, patient's at bedside and review of prior charting currently present to the ER with complaints of bilateral leg pain which started Wednesday. Patient has been taking scheduled Methadone and as needed oxycodone at home with no relief. Patient's also reports that he has had decreased appetite since Wednesday and occasional nonproductive cough. Patient and denies fevers , N/V/D/C, chest pain, SOB or sick contacts. PNA ? aspiration - Pt with 24 hour T Max 101.2 on 01/25 at 2000, pt with temp of 100.2 this morning. - WBC on admission 21.8. Repeat labs on 01/26 with WBC count 14.8 - Blood cultures with NGTD - Chest X-Ray (01/24/18): 1. Cardiomegaly with positive fluid balance. 2. Mild bibasilar airspace disease, likely atelectasis. - Thoracic Spine CT (01/25/18): 1. Mild degenerative spondylosis with primarily anterior osteophytes in the proximal thoracic spine. No significant bony central canal or neural foraminal stenosis. 2. Mild patchy airspace consolidation in the right lung base may reflect atelectasis. Differential considerations include pneumonia and aspiration in the appropriate clinical setting. - Patient's does endorsed that he occasionally coughs after he eats/drinks and was hospitalized 11/12/17 for RLL PNA and sickle cell crisis - Modified barium swallow without any noted s/s/ of aspiration - Patient was given Zosyn and Vancomycin in ER Pt abx changed to levaquin. He is eager for dc. still with low grade fevers. I encouraged continued hospitalization. He kindly refused. at bedside and supports his decision. discussed hgb with dr Dyer. No blood transfusion at this time. Ok to dc and f/u hematology and refer to pulmonary as needed for pna evaluation. Sickle cell anemia with Crisis dehydration - Appreciate consult from Dr. Dyer. - Continue patient's home Methadone - Roxicodone 10mg Q4H PRN - Morphine as needed for pain - Bowel regiment - IVF crisis resolved dc home. DVT prophylaxis with Lovenox - Time Spent with Patient Total time spent providing and/or coordinating discharge services: Greater than 30 minutes - Quality: VTE Deep Vein Thrombosis/Pulmonary Embolism Present on Admission: No Exam Narrative: heart reg lung diminished right base abd s/nt ext no edema Results Procedures completed during hospitalization: None - Impressions ITS Impressions Chest X-Ray 01/24/18 23:20 CONCLUSION: 1. Cardiomegaly with positive fluid balance. 2. Mild bibasilar airspace disease, likely atelectasis. Cervical Spine CT 01/25/18 00:00 CONCLUSION: 1. Advanced multilevel degenerative spondylosis of the cervical spine most prominently at C3-4 and C5-6 with moderate severe disc space narrowing and posterior disc osteophytes resulting in mild bony central canal narrowing. 2. No significant bony neural foraminal stenosis. Head CT 01/25/18 00:00 CONCLUSION: 1. No acute intracranial abnormality. . Lumbar Spine CT 01/25/18 00:00 CONCLUSION: 1. Mild multilevel degenerative disc disease without significant bony central canal or neural foraminal stenosis. Thoracic Spine CT 01/25/18 00:00 CONCLUSION: 1. Mild degenerative spondylosis with primarily anterior osteophytes in the proximal thoracic spine. No significant bony central canal or neural foraminal stenosis. 2. Mild patchy airspace consolidation in the right lung base may reflect atelectasis. Differential considerations include pneumonia and aspiration in the appropriate clinical setting. Videofluoroscopic Swallow 01/26/18 00:00 CONCLUSION: Negative examination. <Miguel Sheriff - Last Filed: 02/04/18 10:34> Date of admission: 01/25/18 02:52 Primary care physician: Ashley Cisse MD DS: Diagnosis - Discharge Diagnosis (1) Pneumonia Status: Acute (2) Sickle cell anemia with crisis Status: Acute DS: Summary - Time Spent with Patient Total time spent providing and/or coordinating discharge services: Results - Impressions ITS Impressions Chest X-Ray 01/24/18 23:20 CONCLUSION: 1. Cardiomegaly with positive fluid balance. 2. Mild bibasilar airspace disease, likely atelectasis. Cervical Spine CT 01/25/18 00:00 CONCLUSION: 1. Advanced multilevel degenerative spondylosis of the cervical spine most prominently at C3-4 and C5-6 with moderate severe disc space narrowing and posterior disc osteophytes resulting in mild bony central canal narrowing. 2. No significant bony neural foraminal stenosis. Head CT 01/25/18 00:00 CONCLUSION: 1. No acute intracranial abnormality. . Lumbar Spine CT 01/25/18 00:00 CONCLUSION: 1. Mild multilevel degenerative disc disease without significant bony central canal or neural foraminal stenosis. Thoracic Spine CT 01/25/18 00:00 CONCLUSION: 1. Mild degenerative spondylosis with primarily anterior osteophytes in the proximal thoracic spine. No significant bony central canal or neural foraminal stenosis. 2. Mild patchy airspace consolidation in the right lung base may reflect atelectasis. Differential considerations include pneumonia and aspiration in the appropriate clinical setting. Videofluoroscopic Swallow 01/26/18 00:00 CONCLUSION: Negative examination. Discharge Plan - Discharge Order Discharge Orders: Discharge Order (Routine); Ordered 01/28/18 Ordered By: Miguel Sheriff - Discharge Details Anticipated Discharge Date: 01/28/18 - Physicians Team Primary Care Provider: Ashley Cisse Attending Provider: Miguel Sheriff Other Providers: Bronson Dyer MD
== END 2018-01-28 17:18 | disposition home or self-care (01) ==
LOC: NEPE 22:10 → NEDA 01-25 02:52 → N05 01-25 04:54
PROVIDERS: ADMIT Hospitalist; ATTEND Hospitalist